=== PATIENT | female | born 1935 | race Caucasian/White ===

== ENCOUNTER → 2017-11-14 09:46 | Outpatient (POV) | payer MEDICARE, OTHER, SELFPAY ==
[2017-11-14 10:02] VITALS: BP 122/53; PULSE 72; RESP 18; O2SAT 98; BMI 16.5
--- NOTE | 2017-11-14 11:07 | HMH.PAINSOAP ---
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 Lumbar spondylosis. Multilevel lumbar facet arthropathy. Bilateral sacroiliitis. Patient is doing fairly well with her spinal cord stimulator this time. She has had some issues with the stimulator that has been resolved with reprogramming by the veterans employment representative. Upon examination the patient has extreme point tenderness over the right SI joint. Patient describes a right hip pain is constant, sharp, stabbing. She reports pain intensifies with sitting for any length of time. We discussed a repeat of the right SI joint injection. She wishes to proceed. Also, patient has extreme point tenderness over the right lumbar paraspinous muscle. We discussed trigger point injections of this muscle. She wishes to proceed. I will refill her pain medication today. [place] 10 mg 1 p.o. 3 times daily. I will give her 2 prescriptions. Patient reports pain medicine decreases her pain by 50%. She does not report any side effects in the pain medication. her [place] #[id number] reviewed and appropriate. Her UDS is been appropriate in the past Objective:: Patient is awake alert oriented ?3. In no acute distress. Flexion extension lumbar spine somewhat guarded secondary to pain. Deep tendon reflexes upper and lower extremities normal. Motor strength upper and lower extremities normal. There is no gross sensory deficit. Gait is normal. Assessment:: Degenerative disease lumbar spine with levels. Degenerative just the thoracic spine multiple levels. Lateral sacroiliitis per Plan:: We will plan right SI joint injection. Also, right lumbar paraspinous muscle trigger point injections. I will refill the patient's pain medication. 2 prescriptions. [place] 10 mg 1 p.o. 3 times daily.
--- NOTE | 2017-11-14 11:13 | P.CONS_ITS ---
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 Lumbar spondylosis. Multilevel lumbar facet arthropathy. Bilateral sacroiliitis. Patient is doing fairly well with her spinal cord stimulator this time. She has had some issues with the stimulator that has been resolved with reprogramming by the health and safety representative. Upon examination the patient has extreme point tenderness over the right SI joint. Patient describes a right hip pain is constant, sharp, stabbing. She reports pain intensifies with sitting for any length of time. We discussed a repeat of the right SI joint injection. She wishes to proceed. Also, patient has extreme point tenderness over the right lumbar paraspinous muscle. We discussed trigger point injections of this muscle. She wishes to proceed. I will refill her pain medication today. [place] 10 mg 1 p.o. 3 times daily. I will give her 2 prescriptions. Patient reports pain medicine decreases her pain by 50%. She does not report any side effects in the pain medication. her [place] #[id number] reviewed and appropriate. Her UDS is been appropriate in the past Objective:: Patient is awake alert oriented ?3. In no acute distress. Flexion extension lumbar spine somewhat guarded secondary to pain. Deep tendon reflexes upper and lower extremities normal. Motor strength upper and lower extremities normal. There is no gross sensory deficit. Gait is normal. Assessment:: Degenerative disease lumbar spine with levels. Degenerative just the thoracic spine multiple levels. Lateral sacroiliitis per Plan:: We will plan right SI joint injection. Also, right lumbar paraspinous muscle trigger point injections. I will refill the patient's pain medication. 2 prescriptions. [place] 10 mg 1 p.o. 3 times daily.
[2017-11-14 13:16] LABS: Amphetamine/Metha Screen,Urine Negative ng/mL (<1000); Barbiturates Screen,Urine Negative ng/mL (<200); Benzodiazepines Screen,Urine Negative ng/mL (200); Cannabinoid Screen,Urine Negative ng/mL (<50); Cocaine Screen,Urine Negative ng/g (<300); Methadone Screen,Urine Negative ng/mL (<300); Opiate Screen,Urine Positive ng/mL (<300); Phencyclidine Screen,Urine Negative ng/mL (<25)
[2017-11-28 16:18] LABS: Codeine Negative (Cutoff=100); Hydrocodone Positive (.); Hydromorphone Positive (.); Morphine Negative (Cutoff=100)
[2017-11-29 13:35] LABS: Opiates Positive (.)
== END ==
PROVIDERS: PCP Family Medicine; Visit Provider Nurse Anesthetist, Certified Registered
DX: M51.34 Other intervertebral disc degeneration, thoracic region (principal); M46.1 Sacroiliitis, not elsewhere classified; Z79.899 Other long term (current) drug therapy
CPT/HCPCS: 80305; 80361; 99212; G0480

== ENCOUNTER → 2017-12-09 08:52 | Day surgery (SDC) | payer MEDICARE, OTHER, SELFPAY ==
[2017-12-09 09:04] VITALS: BP 186/76; PULSE 66; RESP 18; TEMP 36.7; O2SAT 96; BMI 16.1
--- NOTE | 2017-12-09 09:26 | HMH.PMPROC ---
- Procedure Date: 12/09/17 Time: 09:26 Anesthesiologist:: Pawel Miller MD Complications:: None Pre-procedure Diagnosis:: Sacroiliitis. Low back pain myofascial in origin Post-procedure Diagnosis:: Same Indications for Procedure:: This is a pleasant 81-year-old white female who we have been treating for degenerative disease of the thoracic and lumbar spine with lumbar spondylosis, facet arthropathy and radiculopathy symptoms. She has a permanent spinal cord stimulator in place. This is a Nevro system. She is doing well with her stimulator. She still needs some reprogramming. She does have some pain over the right lower back and over the right SI joint. She is also on [place] 10 g 1 tablet 3 times a day. She is doing well with her medications and [place] and urine drug screen are all appropriate. She does have a positive Evelyn's test on the right side. Trigger points are also identified in the right lower lumbar paraspinous area. Procedure Details:: Right SI joint injection under fluoroscopy Trigger point injections ?4 to right lower lumbar paraspinous area Informed consent was obtained and the risks and benefits of the procedure was going to the patient. Patient was taken to the procedure room. Patient was placed prone on the procedure table. The right hip was prepped using ChloraPrep. The skin and subcutaneous tissues were anesthetized using lidocaine. I placed a 22-gauge spinal needle into the inferior aspect of the right SI joint. Needle placement was confirmed with dye. After this we injected 5 mL bupivacaine 0.25% and Depo-Medrol 40 mg into the right SI joint. The patient tolerated the procedure well with no complication. Right lower lumbar paraspinous area was prepped using ChloraPrep. Triggerpoints were identified. We injected each trigger point bupivacaine 0.25% 3 mL and Depo-Medrol 10 mg. A total of 40 milligrams was used for 4 trigger points. The patient tolerated the procedure well with no applications. Plan and Disposition:: We will follow-up with her in 2 weeks. We will reevaluate her symptoms. She is to let us know how her spinal cord stimulator interrogation is going.
[2017-12-09 09:30] VITALS: BP 193/98; PULSE 68; RESP 20; O2SAT 95
[2017-12-09 09:32] VITALS: BP 193/98; PULSE 78; RESP 20; O2SAT 94
--- NOTE | 2017-12-09 09:36 | P.PCN_ITS ---
- Procedure Date: 12/09/17 Time: 09:26 Anesthesiologist:: Pawel Miller MD Complications:: None Pre-procedure Diagnosis:: Sacroiliitis. Low back pain myofascial in origin Post-procedure Diagnosis:: Same Indications for Procedure:: This is a pleasant 81-year-old white female who we have been treating for degenerative disease of the thoracic and lumbar spine with lumbar spondylosis, facet arthropathy and radiculopathy symptoms. She has a permanent spinal cord stimulator in place. This is a Nevro system. She is doing well with her stimulator. She still needs some reprogramming. She does have some pain over the right lower back and over the right SI joint. She is also on [place] 10 g 1 tablet 3 times a day. She is doing well with her medications and [place] and urine drug screen are all appropriate. She does have a positive Evelyn's test on the right side. Trigger points are also identified in the right lower lumbar paraspinous area. Procedure Details:: Right SI joint injection under fluoroscopy Trigger point injections ?4 to right lower lumbar paraspinous area Informed consent was obtained and the risks and benefits of the procedure was going to the patient. Patient was taken to the procedure room. Patient was placed prone on the procedure table. The right hip was prepped using ChloraPrep. The skin and subcutaneous tissues were anesthetized using lidocaine. I placed a 22-gauge spinal needle into the inferior aspect of the right SI joint. Needle placement was confirmed with dye. After this we injected 5 mL bupivacaine 0.25% and Depo-Medrol 40 mg into the right SI joint. The patient tolerated the procedure well with no complication. Right lower lumbar paraspinous area was prepped using ChloraPrep. Triggerpoints were identified. We injected each trigger point bupivacaine 0.25 % 3 mL and Depo-Medrol 10 mg. A total of 40 milligrams was used for 4 trigger points. The patient tolerated the procedure well with no applications. Plan and Disposition:: We will follow-up with her in 2 weeks. We will reevaluate her symptoms. She is to let us know how her spinal cord stimulator interrogation is going.
[2017-12-09 09:55] VITALS: BP 174/68; PULSE 66; TEMP 36.7; O2SAT 96
== END ==
PROVIDERS: Family Provider Family Medicine; PCP Family Medicine; Visit Provider Anesthesiology
DX: M46.1 Sacroiliitis, not elsewhere classified (principal); M51.16 Intervertebral disc disorders with radiculopathy, lumbar region; M51.14 Intervertebral disc disorders with radiculopathy, thoracic region
CPT/HCPCS: 20552; 27096; G0260; J1030; Q9966

== ENCOUNTER → 2018-01-09 10:52 | Outpatient (POV) | payer MEDICARE, OTHER, SELFPAY ==
--- NOTE | 2018-01-09 12:29 | HMH.PAINSOAP ---
[facility] Pain Management SOAP Note Subjective:: Patient is a pleasant 82-year-old white female who presents today to follow-up after her SI joint injections. Patient states that it is significantly helped her lower back pain. However she is having muscle spasms. Patient currently not on any muscle relaxers. Patient's spinal cord stimulator has not been as effective as it once was. She is working with the [employer] to help reprogram her. Patient rates her pain a 6 out of 10 today. Patient currently being medically managed on [place] 10 mg 1 p.o. 3 times daily. She is doing well with her medications and it decreases her pain up to 60%. Patient denies any side effects of the medication patient's [place]ella #[id number] reviewed and appropriate. Patient's UDS has been appropriate in the past. Patient currently taking naproxen as well. ROS General: no recent weight change, no fever, no sleep disturbances Respiratory: no cough, no shortness of air, no recurring pulmonary infections Cardiovascular/Peripheral Vascular: No chest pain, No palpitations, no edema, no shortness of breath. Gastrointestinal: no incontinence, normal bowel movements reported Genitourinary: no new onset incontinence Musculoskeletal: Back pain, SI joint pain, shoulder pain Psychiatric: normal mood/ affect, Neurological: [denies weakness in extremities], [denies balance issues] Objective:: Physical Exam General: Alert and oriented x3, no acute distress, pleasant and cooperative, [on room air] Lungs: Resps E/U, Symmetrical chest expansion, Eyes: PERRL Musculoskeletal: Flexion and extension of lumbar spine somewhat guarded secondary to pain, deep tendon reflexes normal, strength in upper and lower extremities [5/5], slightly antalgic gait noted, positive Evelyn's test on the right side. Neurological: speech clear, retail sales director equal, no gross sensory deficits Assessment:: Sacroiliitis, myofascial pain syndrome, postlaminectomy syndrome Plan:: We will refill this patient's medication [place] 10 mg 1 p.o. 3 times daily. We will also write her Flexeril 10 mg 1 p.o. twice daily as needed. I discussed with the patient to take this and to not drive until she knows how it affects her. We will give the patient 2 prescriptions. Patient's Stella and urine drug screen both reviewed and appropriate. Dr. Miller has reviewed the chart and agrees with this plan. We will follow-up with this patient in 3 months. She can bead picker her prescription on the third month. Patient is to continue working with her neurostimulator rep to try to maximize her pain coverage. Patient will call us if she needs injections before her next office visit. Patient has been prescribed a controlled substance after being counseled on the medication, medication safety, and possible side effects. STELLA report has been obtained and reviewed prior to prescription and found to be appropriate. Opioid contract was reviewed and signed by the patient, and that they have agreed to all of the terms set forth by our compliance program. This note was dictated using voice recognition software may contain errors or omissions
--- NOTE | 2018-01-09 12:33 | P.CONS_ITS ---
[facility] Pain Management SOAP Note Subjective:: Patient is a pleasant 82-year-old white female who presents today to follow-up after her SI joint injections. Patient states that it is significantly helped her lower back pain. However she is having muscle spasms. Patient currently not on any muscle relaxers. Patient's spinal cord stimulator has not been as effective as it once was. She is working with the [employer] to help reprogram her. Patient rates her pain a 6 out of 10 today. Patient currently being medically managed on [place] 10 mg 1 p.o. 3 times daily. She is doing well with her medications and it decreases her pain up to 60%. Patient denies any side effects of the medication patient's [place]ella #[id number] reviewed and appropriate. Patient's UDS has been appropriate in the past. Patient currently taking naproxen as well. ROS General: no recent weight change, no fever, no sleep disturbances Respiratory: no cough, no shortness of air, no recurring pulmonary infections Cardiovascular/Peripheral Vascular: No chest pain, No palpitations, no edema, no shortness of breath. Gastrointestinal: no incontinence, normal bowel movements reported Genitourinary: no new onset incontinence Musculoskeletal: Back pain, SI joint pain, shoulder pain Psychiatric: normal mood/ affect, Neurological: [denies weakness in extremities], [denies balance issues] Objective:: Physical Exam General: Alert and oriented x3, no acute distress, pleasant and cooperative, [ on room air] Lungs: Resps E/U, Symmetrical chest expansion, Eyes: PERRL Musculoskeletal: Flexion and extension of lumbar spine somewhat guarded secondary to pain, deep tendon reflexes normal, strength in upper and lower extremities [5/5], slightly antalgic gait noted, positive Evelyn's test on the right side. Neurological: speech clear, access clerk equal, no gross sensory deficits Assessment:: Sacroiliitis, myofascial pain syndrome, postlaminectomy syndrome Plan:: We will refill this patient's medication [place] 10 mg 1 p.o. 3 times daily. We will also write her Flexeril 10 mg 1 p.o. twice daily as needed. I discussed with the patient to take this and to not drive until she knows how it affects her. We will give the patient 2 prescriptions. Patient's Stella and urine drug screen both reviewed and appropriate. Dr. Miller has reviewed the chart and agrees with this plan. We will follow-up with this patient in 3 months. She can merchandise pickup/receiving associate her prescription on the third month. Patient is to continue working with her neurostimulator rep to try to maximize her pain coverage. Patient will call us if she needs injections before her next office visit. Patient has been prescribed a controlled substance after being counseled on the medication, medication safety, and possible side effects. STELLA report has been obtained and reviewed prior to prescription and found to be appropriate. Opioid contract was reviewed and signed by the patient, and that they have agreed to all of the terms set forth by our compliance program. This note was dictated using voice recognition software may contain errors or omissions
--- NOTE | 2018-01-09 16:51 | PC.PHONENOTE ---
called in Rx for Flexeril 10mg BIDP with 1 refill to [facility] pharmacy in [place]
== END ==
PROVIDERS: Family Provider Family Medicine; PCP Family Medicine; Visit Provider Clinical Nurse Specialist Family Health
DX: M46.1 Sacroiliitis, not elsewhere classified (principal)
CPT/HCPCS: 99212

== ENCOUNTER → 2018-02-16 14:27 | Outpatient (CLI) | payer MEDICARE, OTHER, SELFPAY | PROVIDERS: PCP Family Medicine; Visit Provider Family Medicine | DX: I10 Essential (primary) hypertension (principal); H34.8122 Central retinal vein occlusion, left eye, stable; G47.33 Obstructive sleep apnea (adult) (pediatric) | CPT/HCPCS: G0399 ==

== ENCOUNTER → 2018-04-18 10:13 | Outpatient (POV) | payer MEDICARE, OTHER, SELFPAY ==
[2018-04-18 10:51] VITALS: BP 141/55; PULSE 73; RESP 18; O2SAT 98; BMI 17.4
--- NOTE | 2018-04-18 11:06 | HMH.PAINSOAP ---
[facility] Pain Management SOAP Note Subjective:: Patient is a pleasant 82-year-old white female who presents today for follow-up. Patient is doing fairly well. Patient is currently being managed with [place] 10 mg 1 p.o. 3 times daily. Patient states that it increases from pain 70-80%. Patient also has a never gross neurostimulator. Patient's STELLA #[id number] reviewed and appropriate. Patient's urine drug screen has been appropriate in the past. Patient states that the flexor she was prescribed at last visit helped immensely. Patient is wondering if she can be reenrolled into physical therapy for strengthening exercises of her upper and lower body. I believe that this will be beneficial. Denies side effects to her medications. ROS General: no recent weight change, no fever, no sleep disturbances Respiratory: no cough, no shortness of air, no recurring pulmonary infections Cardiovascular/Peripheral Vascular: No chest pain, No palpitations, no edema, no shortness of breath. Gastrointestinal: no incontinence, normal bowel movements reported Genitourinary: no incontinence Musculoskeletal: Back pain, SI joint pain, shoulder pain Psychiatric: normal mood/ affect Neurological: Weakness in upper extremities at times, [denies balance issues] Objective:: Physical Exam General: Alert and oriented x3, no acute distress, pleasant and cooperative, [on room air] Lungs: Resps E/U, Symmetrical chest expansion, Eyes: PERRL Musculoskeletal: Flexion and extension of lumbar spine somewhat guarded secondary to pain, deep tendon reflexes normal, strength in upper and lower extremities [5/5], [abnormal gait noted] Neurological: speech clear, parenting skills instructor equal, no gross sensory deficits Assessment:: Postlaminectomy syndrome, myofascial pain syndrome, sacroiliitis Plan:: We will schedule physical therapy for strengthening exercises of her upper and lower body. We will refill her [place] 10 mg 1 p.o. 3 times daily. We will give HER-2 months worth of prescriptions and see her back in 2 months. Patient's Stella and urine drug screen both reviewed. Dr. Miller has reviewed this chart and agrees with this plan of care. Patient has been prescribed a controlled substance after being counseled on the medication, medication safety, and possible side effects. STELLA report has been obtained and reviewed prior to prescription and found to be appropriate. Opioid contract was reviewed and signed by the patient, and that they have agreed to all of the terms set forth by our compliance program. This note was dictated using voice recognition software and may contain errors or omissions
--- NOTE | 2018-04-18 11:10 | P.CONS_ITS ---
[facility] Pain Management SOAP Note Subjective:: Patient is a pleasant 82-year-old white female who presents today for follow- up. Patient is doing fairly well. Patient is currently being managed with [place] 10 mg 1 p.o. 3 times daily. Patient states that it increases from pain 70 -80%. Patient also has a never gross neurostimulator. Patient's STELLA # [id number] reviewed and appropriate. Patient's urine drug screen has been appropriate in the past. Patient states that the flexor she was prescribed at last visit helped immensely. Patient is wondering if she can be reenrolled into physical therapy for strengthening exercises of her upper and lower body. I believe that this will be beneficial. Denies side effects to her medications. ROS General: no recent weight change, no fever, no sleep disturbances Respiratory: no cough, no shortness of air, no recurring pulmonary infections Cardiovascular/Peripheral Vascular: No chest pain, No palpitations, no edema, no shortness of breath. Gastrointestinal: no incontinence, normal bowel movements reported Genitourinary: no incontinence Musculoskeletal: Back pain, SI joint pain, shoulder pain Psychiatric: normal mood/ affect Neurological: Weakness in upper extremities at times, [denies balance issues] Objective:: Physical Exam General: Alert and oriented x3, no acute distress, pleasant and cooperative, [ on room air] Lungs: Resps E/U, Symmetrical chest expansion, Eyes: PERRL Musculoskeletal: Flexion and extension of lumbar spine somewhat guarded secondary to pain, deep tendon reflexes normal, strength in upper and lower extremities [5/5], [abnormal gait noted] Neurological: speech clear, diamond cleaver equal, no gross sensory deficits Assessment:: Postlaminectomy syndrome, myofascial pain syndrome, sacroiliitis Plan:: We will schedule physical therapy for strengthening exercises of her upper and lower body. We will refill her [place] 10 mg 1 p.o. 3 times daily. We will give HER-2 months worth of prescriptions and see her back in 2 months. Patient's Stella and urine drug screen both reviewed. Dr. Miller has reviewed this chart and agrees with this plan of care. Patient has been prescribed a controlled substance after being counseled on the medication, medication safety, and possible side effects. STELLA report has been obtained and reviewed prior to prescription and found to be appropriate. Opioid contract was reviewed and signed by the patient, and that they have agreed to all of the terms set forth by our compliance program. This note was dictated using voice recognition software and may contain errors or omissions
[2018-04-18 11:18] LABS: Amphetamine/Metha Screen,Urine Negative ng/mL (<1000); Barbiturates Screen,Urine Negative ng/mL (<200); Benzodiazepines Screen,Urine Negative ng/mL (200); Cannabinoid Screen,Urine Negative ng/mL (<50); Cocaine Screen,Urine Negative ng/g (<300); Methadone Screen,Urine Negative ng/mL (<300); Opiate Screen,Urine Positive ng/mL (<300); Phencyclidine Screen,Urine Negative ng/mL (<25)
[2018-04-27 17:12] LABS: Codeine Negative (Cutoff=100); Hydrocodone Positive (.); Hydromorphone Positive (.); Morphine Negative (Cutoff=100)
[2018-04-28 19:58] LABS: Opiates Positive (.)
== END ==
PROVIDERS: Family Provider Family Medicine; PCP Family Medicine; Visit Provider Clinical Nurse Specialist Family Health
DX: M79.1 Myalgia (principal); M46.1 Sacroiliitis, not elsewhere classified
CPT/HCPCS: 80305; 80361; 80365; 99212; G0480

== ENCOUNTER → 2018-05-09 15:21 | Outpatient (CLI) | payer MEDICARE, OTHER, SELFPAY ==
--- NOTE | 2018-05-09 15:27 | XR_ITS ---
XR ankle LT min 3V HISTORY: ITS.REASON: LEFT ANKLE PAIN ORDERING PHYSICIAN: Amish Smith MD PATIENT AGE: 82 years Comparison: None FINDINGS: Soft tissue swelling is present at the lateral malleolus region. No obvious fracture or dislocation evident of the lateral malleolus.. There is a faint curvilinear density just anterior to the distal aspect of the talus. This however was present on a prior radiograph of 05/14/2016 consistent with an old avulsion fracture. IMPRESSION: No acute fracture. Soft tissue swelling at the lateral malleolus. Old avulsion fracture of the anterior distal talus.
== END ==
PROVIDERS: PCP Family Medicine; Visit Provider Family Medicine
DX: M25.572 Pain in left ankle and joints of left foot (principal)
CPT/HCPCS: 73610

== ENCOUNTER 2018-06-15 11:00 | Outpatient (RCR) | payer MEDICARE, OTHER, SELFPAY ==
--- NOTE | 2018-04-20 14:35 | HMH.PTOPEV ---
PT Outpatient Evaluation Rehab PT Outpatient Evaluation Start: 04/20/18 13:22 Freq: Status: Active Protocol: Document 04/20/18 14:19 ZAYRA (Rec: 04/20/18 14:31 PHORLILY [id number]) Electronically Signed By Yasir Cohn, PT 04/20/18 14:19 Outpatient Therapy Subjective History Subjective History Pt is 82 yo white f who presents with c/o generalized weakness due to chronic low back pain. She reports many years of back pain with a lumbar laminectomy in 2014 and now has an implanted neural stimulator which has helped significantly. She reports she has lost considerable weight slowly over the past 4-5 years feels weak all over as well . She has PMH of sleep apnea with C-pap, HTN, HL, and COPD. Chief Complaint Pain Weakness Symptom Type Ache Symptoms Relieved By Rest/Positioning Symptoms Aggravated By Physical Activity Prior Functional Limitations Reaching Lifting Housework Walking Stairs Current Functional Limitations Reaching Lifting Housework Walking Stairs Symptom Description Constant but Variable Activity Dependent Level of pain today (0-10) 4 Pain scale - at its worst (0-10) 10 Lumbopelvic Eval Posture Thoracic Spine Posture Standing Position Fixed Scoliosis on (L) Increased Kyphosis Lumbar Spine Posture Standing Position Fixed Scoliosis on (R) Range of Motion Lumbar Spine Active Flexion Range of 0-65 Motion (degrees) Lumbar Spine Active Extension Range of 0-5 Motion (degrees) Left Lumbar Spine Lateral Flexion Active 0-5 Range of Motion (degrees) Right Lumbar Spine Lateral Flexion 0-5 Active Range of Motion (degrees) Manual Muscle Test Bilateral Knee Extension Strength Grade 5 Normal Knee Flexion Strength Grade 5 Normal Hip Flexion Strength Grade 3 Fair Hip Abduction Strength Grade 3 Fair Ankle Dorsiflexion Strength Grade 5 Normal Gastronemius/Soleus Strength Grade 5 Normal Special Tests Hip Octavio (RACHEL) Test Positive Left Positive Right Outpatient Therapy Assessment
== END 2018-06-15 11:01 | disposition home or self-care (01) ==
LOC: PT 11:00
PROVIDERS: Family Provider Family Medicine; PCP Family Medicine; Visit Provider Clinical Nurse Specialist Family Health
DX: M54.6 Pain in thoracic spine (principal); M51.36 Other intervertebral disc degeneration, lumbar region; M54.5 Low back pain
CPT/HCPCS: 97010; 97110; 97140; 97163; 97760

== ENCOUNTER → 2018-06-19 11:11 | Outpatient (POV) | payer MEDICARE, OTHER, SELFPAY ==
[2018-06-19 11:29] VITALS: BP 132/53; PULSE 69; RESP 18; O2SAT 98; BMI 17.4
--- NOTE | 2018-06-19 12:57 | HMH.PAINSOAP ---
[facility] Pain Management SOAP Note Subjective:: Patient is a pleasant 82-year-old white female who presents today for follow-up. Patient is currently in physical therapy and she states that this is helping her. Patient states she is having a lot of left knee pain with her therapy however. Patient has had injections in her knee in the past with good relief. Patient would like an x-ray of her left knee and a referral to someone who can put gel injections into her knee. Patient states she has information on this at home. Patient is also being medically managed with [place] 10 mg 1 p.o. 3 times daily. She denies any side effects of this medication she states it helps her pain up to 80%. Patient's STELLA #[id number] reviewed and appropriate. Patient's urine drug screen has been appropriate in the past. Patient does have a neurostimulator and she states that this is helping as well. ROS General: no recent weight change, no fever, no sleep disturbances Respiratory: no cough, no shortness of air, no recurring pulmonary infections Cardiovascular/Peripheral Vascular: No chest pain, No palpitations, no edema, no shortness of breath. Gastrointestinal: no incontinence, normal bowel movements reported Genitourinary: no incontinence Musculoskeletal: Knee pain, back pain Psychiatric: normal mood/ affect Neurological: [denies weakness in extremities], [denies balance issues] Objective:: Physical Exam General: Alert and oriented x3, no acute distress, pleasant and cooperative, [on room air] Lungs: Resps E/U, Symmetrical chest expansion Eyes: PERRL Musculoskeletal: Flexion and extension of lumbar spine somewhat guarded secondary to pain, deep tendon reflexes normal, strength in upper and lower extremities [5/5], [abnormal gait noted], range of motion left knee guarded secondary to pain Neurological: speech clear, drilling contractor equal, no gross sensory deficits Assessment:: Left knee pain, degenerative disc disease lumbar spine with lumbar radiculopathy and postlaminectomy syndrome Plan:: We will send the patient for left knee x-ray. She is going to go home and see what kind of injection her the information that she was given stated. We will set her up for referral for this type of injection. We will also refill her [place] 10 mg 1 p.o. 3 times daily and give her 2 months worth of prescriptions. We will see her back in 2 months. Patient is continue physical therapy. Dr. Miller is reviewed this chart and agrees with this plan of care. Patient has been prescribed a controlled substance after being counseled on the medication, medication safety, and possible side effects. STELLA report has been obtained and reviewed prior to prescription and found to be appropriate. Opioid contract was reviewed and signed by the patient, and that they have agreed to all of the terms set forth by our compliance program. This note was dictated using voice recognition software and may contain errors or omissions
--- NOTE | 2018-06-19 13:01 | P.CONS_ITS ---
[facility] Pain Management SOAP Note Subjective:: Patient is a pleasant 82-year-old white female who presents today for follow- up. Patient is currently in physical therapy and she states that this is helping her. Patient states she is having a lot of left knee pain with her therapy however. Patient has had injections in her knee in the past with good relief. Patient would like an x-ray of her left knee and a referral to someone who can put gel injections into her knee. Patient states she has information on this at home. Patient is also being medically managed with [place] 10 mg 1 p.o. 3 times daily. She denies any side effects of this medication she states it helps her pain up to 80%. Patient's STELLA #[id number] reviewed and appropriate. Patient's urine drug screen has been appropriate in the past. Patient does have a neurostimulator and she states that this is helping as well. ROS General: no recent weight change, no fever, no sleep disturbances Respiratory: no cough, no shortness of air, no recurring pulmonary infections Cardiovascular/Peripheral Vascular: No chest pain, No palpitations, no edema, no shortness of breath. Gastrointestinal: no incontinence, normal bowel movements reported Genitourinary: no incontinence Musculoskeletal: Knee pain, back pain Psychiatric: normal mood/ affect Neurological: [denies weakness in extremities], [denies balance issues] Objective:: Physical Exam General: Alert and oriented x3, no acute distress, pleasant and cooperative, [ on room air] Lungs: Resps E/U, Symmetrical chest expansion Eyes: PERRL Musculoskeletal: Flexion and extension of lumbar spine somewhat guarded secondary to pain, deep tendon reflexes normal, strength in upper and lower extremities [5/5], [abnormal gait noted], range of motion left knee guarded secondary to pain Neurological: speech clear, emerging technologies director equal, no gross sensory deficits Assessment:: Left knee pain, degenerative disc disease lumbar spine with lumbar radiculopathy and postlaminectomy syndrome Plan:: We will send the patient for left knee x-ray. She is going to go home and see what kind of injection her the information that she was given stated. We will set her up for referral for this type of injection. We will also refill her [place] 10 mg 1 p.o. 3 times daily and give her 2 months worth of prescriptions. We will see her back in 2 months. Patient is continue physical therapy. Dr. Miller is reviewed this chart and agrees with this plan of care. Patient has been prescribed a controlled substance after being counseled on the medication, medication safety, and possible side effects. STELLA report has been obtained and reviewed prior to prescription and found to be appropriate. Opioid contract was reviewed and signed by the patient, and that they have agreed to all of the terms set forth by our compliance program. This note was dictated using voice recognition software and may contain errors or omissions
--- NOTE | 2018-06-19 15:19 | XR_ITS ---
XR knee LT 3V HISTORY: ITS.REASON: LT KNEE PAIN ORDERING PHYSICIAN: Wendi Persaud PATIENT AGE: 82 years COMPARISON: 03/24/2017 FINDINGS: No fracture or dislocation. No lytic or blastic change. Normal mineralization. Minimal osteoarthritic changes noted of the medial compartment and patellofemoral joint not significant change.. No other significant findings. Vascular calcifications are present IMPRESSION: Minimal osteoarthritis, no change with no acute finding
--- NOTE | 2018-07-13 13:14 | PC.PHONENOTE ---
called in Rx for Pennsaid to pt's pharmacy
--- NOTE | 2018-07-17 14:16 | PC.PHONENOTE ---
PENNSAID SCRIPT CHANGED TO DICLOFENAC GEL 1.5% BID TO AFFECTED AREA WITH 2 REFILLS TO [facility] IN [place]
--- NOTE | 2018-07-28 11:27 | PC.PHONENOTE ---
07/26/18-called in Rx for diclofenac 1% gel 4g BID to bilateral knees with 2 refills to pt's pharmacy per prescribers order
== END ==
PROVIDERS: Family Provider Family Medicine; PCP Family Medicine; Visit Provider Clinical Nurse Specialist Family Health
DX: M25.562 Pain in left knee (principal); M51.16 Intervertebral disc disorders with radiculopathy, lumbar region; M96.1 Postlaminectomy syndrome, not elsewhere classified; Z79.891 Long term (current) use of opiate analgesic
CPT/HCPCS: 73562; 99213

== ENCOUNTER → 2018-08-18 08:57 | Outpatient (CLI) | payer MEDICARE, SELFPAY ==
--- NOTE | 2018-08-18 09:00 | MM_ITS ---
MM Dig screening mamm BI w/CAD ORDERING PHYSICIAN : Amish Smith MD PATIENT AGE: 82 years GENDER: Female COMPARISON: July 2016, 2012, June 2012 & 2010. June 2008. INDICATION: ITS.REASON: SCREENING . No hormones. No new complaints Family history: Mother with breast cancer TECHNIQUE: Standard CC and MLO images were obtained. R2 CAD reviewed. FINDINGS: Prior films are helpful and demonstrates that the denser breast tissue elements, seen along the anterior breast bilaterally appear to be a stable pattern since 2016. . No new dominant mass nor suspicious calcifications. This same pattern is seen in 2016 and but does seem more pronounced than 2011 and 2012 study which is curious raises the possibilities exogenous hormone effect of some form,. None listed in history. May warrant correlation with nonprescription medications etc.: Alternatively Appearance conceivably could could reflect some minor edematous changes soft tissues in this region but no additional edema seen elsewhere. IMPRESSION: -= The denser breast tissue again seen along the anterior aspect right & left breast & appears overall similar to the most recent 2015 study but is Notably more pronounced in 2012.. However given the bilateral diffuse character here, & relative stability since 2016 this can be followed in not over one year. May reflects some systemic effect or exogenous hormone effect.. . Clinical inspection the breast be important as well to exclude any unlikely skin thickening clinically. . No new focal area of concern either breast.. Bilateral follow-up within one year recommended and should be encouraged/emphasized. . BI-RADS Category: 2 Benign Finding(s) RECOMMENDED FOLLOW-UP: 1YR 1 YEAR FOLLOW-UP (A letter has been sent to the patient regarding results of the study.)
== END ==
PROVIDERS: Family Provider Family Medicine; PCP Family Medicine; Visit Provider Family Medicine
DX: Z12.31 Encounter for screening mammogram for malignant neoplasm of breast (principal)
CPT/HCPCS: 77067

== ENCOUNTER → 2018-08-23 13:18 | Outpatient (CLI) | payer MEDICARE, SELFPAY ==
[2018-08-23 14:41] LABS: Occult Blood,Stool Negative (Negative)
[2018-08-23 18:00] LABS: Adenovirus F 40/41, stool Not Detected (NotDetected); Astrovirus Not Detected (NotDetected); Campylobacter Not Detected (NotDetected); Clostridium Difficile A/B, PCR Not Detected (NotDetected); Cryptosporidium Not Detected (NotDetected); Cyclospora Cayetanesis Not Detected (NotDetected); Entamoeba histolytica Not Detected (NotDetected); Enteroaggregative E coli Not Detected (NotDetected); Enteropathogenic E coli Not Detected (NotDetected); Enterotoxigenic E coli Not Detected (NotDetected); Giardia lamblia Not Detected (NotDetected); Norovirus Not Detected (NotDetected); Plesimonas Shigalloides, PCR Not Detected (NotDetected); Rotavirus A Not Detected (NotDetected); Salmonella, PCR Not Detected (NotDetected); Sapovirus Not Detected (NotDetected); Shiga-like toxin E coli Not Detected (NotDetected); Shigella Enterovasive E coli Not Detected (NotDetected); Vibrio Cholerae Not Detected (NotDetected); Vibrio, PCR Not Detected (NotDetected); Yersinia Entercolitica, PCR Not Detected (NotDetected)
== END ==
PROVIDERS: PCP Family Medicine; Visit Provider Family Medicine
DX: R19.7 Diarrhea, unspecified (principal)
CPT/HCPCS: 82272; 87177; 87507; G0328

== ENCOUNTER → 2018-10-02 11:15 | Outpatient (POV) | payer MEDICARE, SELFPAY ==
[2018-10-02 11:24] VITALS: BP 143/53; PULSE 77; RESP 18; O2SAT 98; BMI 16.7
--- NOTE | 2018-10-02 11:44 | HMH.PAINSOAP ---
[facility] Pain Management SOAP Note Subjective:: patient Is a pleasant 83-year-old white female who presents today for follow-up and medication refills. Patient is currently on [place] 10 mg 1 p.o. twice daily and doing well with this. Patient's STELLA #[id number] reviewed and appropriate. Patient denies any side effects. Patient's urine drug screen has been appropriate in the past. Patient does have a neurostimulator and states doing well with this at this time. Patient completed her physical therapy. She rates her pain a 7 out of 10 today. ROS General: no recent weight change, no fever, no sleep disturbances Respiratory: no cough, no shortness of air, no recurring pulmonary infections Cardiovascular/Peripheral Vascular: No chest pain, No palpitations, no edema, no shortness of breath. Gastrointestinal: no incontinence, normal bowel movements reported Genitourinary: no incontinence Musculoskeletal: Back pain, leg pain Psychiatric: normal mood/ affect Neurological: [denies weakness in extremities], [denies balance issues] Objective:: Physical Exam General: Alert and oriented x3, no acute distress, pleasant and cooperative, [on room air] Lungs: Resps E/U, Symmetrical chest expansion, Eyes: PERRL Musculoskeletal: Flexion and extension of lumbar spine somewhat guarded secondary to pain, deep tendon reflexes normal, strength in upper and lower extremities [5/5], [abnormal gait noted] Neurological: speech clear, senior production manager equal, no gross sensory deficits Assessment:: Left knee pain, degenerative disc disease lumbar spine with lumbar radiculopathy and postlaminectomy syndrome Plan:: We will refill her [place] 10 mg 1 p.o. twice daily and give her 2 months worth of prescriptions. 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 Miller has reviewed this chart and agrees with this plan of care. We will call her in some [facility] to see if this is beneficial. Patient has been prescribed a controlled substance after being counseled on the medication, medication safety, and possible side effects. STELLA report has been obtained and reviewed prior to prescription and found to be appropriate. Opioid contract was reviewed and signed by the patient, and that they have agreed to all of the terms set forth by our compliance program. This note was dictated using voice recognition software and may contain errors or omissions
--- NOTE | 2018-10-02 11:47 | P.CONS_ITS ---
[facility] Pain Management SOAP Note Subjective:: patient Is a pleasant 83-year-old white female who presents today for follow-up and medication refills. Patient is currently on [place] 10 mg 1 p.o. twice daily and doing well with this. Patient's STELLA #[id number] reviewed and appropriate. Patient denies any side effects. Patient's urine drug screen has been appropriate in the past. Patient does have a neurostimulator and states doing well with this at this time. Patient completed her physical therapy. She rates her pain a 7 out of 10 today. ROS General: no recent weight change, no fever, no sleep disturbances Respiratory: no cough, no shortness of air, no recurring pulmonary infections Cardiovascular/Peripheral Vascular: No chest pain, No palpitations, no edema, no shortness of breath. Gastrointestinal: no incontinence, normal bowel movements reported Genitourinary: no incontinence Musculoskeletal: Back pain, leg pain Psychiatric: normal mood/ affect Neurological: [denies weakness in extremities], [denies balance issues] Objective:: Physical Exam General: Alert and oriented x3, no acute distress, pleasant and cooperative, [on room air] Lungs: Resps E/U, Symmetrical chest expansion, Eyes: PERRL Musculoskeletal: Flexion and extension of lumbar spine somewhat guarded secondary to pain, deep tendon reflexes normal, strength in upper and lower extremities [5/5], [abnormal gait noted] Neurological: speech clear, hydrogen power plant engineer equal, no gross sensory deficits Assessment:: Left knee pain, degenerative disc disease lumbar spine with lumbar radiculopathy and postlaminectomy syndrome Plan:: We will refill her [place] 10 mg 1 p.o. twice daily and give her 2 months worth of prescriptions. 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 Miller has reviewed this chart and agrees with this plan of care. We will call her in some [facility] to see if this is beneficial. Patient has been prescribed a controlled substance after being counseled on the medication, medication safety, and possible side effects. STELLA report has been obtained and reviewed prior to prescription and found to be appropriate. Opioid contract was reviewed and signed by the patient, and that they have agreed to all of the terms set forth by our compliance program. This note was dictated using voice recognition software and may contain errors or omissions
[2018-10-02 12:35] LABS: Amphetamine/Metha Screen,Urine Negative ng/mL (<1000); Barbiturates Screen,Urine Negative ng/mL (<200); Benzodiazepines Screen,Urine Negative ng/mL (<200); Cannabinoid Screen,Urine Negative ng/mL (<50); Cocaine Screen,Urine Negative ng/mL (<300); Methadone Screen,Urine Negative ng/mL (<300); Opiate Screen,Urine Positive ng/mL (<300); Phencyclidine Screen,Urine Negative ng/mL (<25)
[2018-10-05 18:13] LABS: Codeine Negative (Cutoff=100); Hydrocodone Positive (.); Hydromorphone Positive (.); Morphine Negative (Cutoff=100)
[2018-10-06 09:10] LABS: Opiates Positive (.)
== END ==
PROVIDERS: PCP Family Medicine; Visit Provider Clinical Nurse Specialist Family Health
DX: M25.562 Pain in left knee (principal); M51.16 Intervertebral disc disorders with radiculopathy, lumbar region; M96.1 Postlaminectomy syndrome, not elsewhere classified; Z79.899 Other long term (current) drug therapy
CPT/HCPCS: 80305; 80361; 80365; 99213; G0480

== ENCOUNTER → 2018-11-03 10:30 | Outpatient (POV) | payer MEDICARE, SELFPAY ==
[2018-11-03 10:49] VITALS: BP 144/61; PULSE 67; RESP 20; O2SAT 97; BMI 17.0
--- NOTE | 2018-11-03 11:09 | HMH.PAINSOAP ---
[facility] Pain Management SOAP Note Subjective:: This patient is a pleasant 83-year-old white female who we have been treating for low back pain with lumbar radicular symptoms with postlaminectomy syndrome and sacroiliitis. She had no relief from her last bilateral SI joint injections. Most of her pain is in the low back. She currently has a nevro stimulator in place. She has not had this reprogrammed for almost a year. Pain is worse in the morning. Pain is solely in the lower lumbar area. She did not have much radicular symptoms. Stimulator does help however it does not take care of her back pain. Objective:: Alert and oriented x3 in no acute distress. Patient does have an antalgic gait. Motor strength of the lower extremities is 5/5. There is no gross sensory deficit. Assessment:: Degenerative disease of lumbar spine with lumbar radiculopathy symptoms and postlaminectomy syndrome of lumbar spine Plan:: We will contact the rep for nevro to reprogram her stimulator. We will also seek approval for intrathecal pump trial. Have had a long discussion with this patient concerning intrathecal therapy. I believe she would be a good candidate. She is only on hydrocodone 10 mg twice a day. She would have to come off of this 48 hours prior to the trial, however, I believe she would and if it for intrathecal therapy. We will get approval and schedule this after her reprogramming of her stimulator.
== END ==
PROVIDERS: PCP Family Medicine; Visit Provider Anesthesiology
DX: M51.16 Intervertebral disc disorders with radiculopathy, lumbar region (principal); M96.1 Postlaminectomy syndrome, not elsewhere classified
CPT/HCPCS: 99212

== ENCOUNTER → 2018-12-19 11:41 | Outpatient (POV) | payer MEDICARE, SELFPAY ==
[2018-12-19 12:03] VITALS: BP 133/49; PULSE 81; RESP 20; O2SAT 93; BMI 17.0
--- NOTE | 2018-12-19 12:18 | HMH.PAINSOAP ---
[facility] Pain Management SOAP Note Subjective:: Patient is a pleasant 83-year-old white female who presents today to follow-up after intrathecal pain pump implantation. She is currently on morphine 0.5 mg a day. She states that she has no pain however she has had some falling that she thinks may be connected with the medication. We will decreased her today. Patient has stitches in place still we went over care of these. We will remove them next week she is completed her full antibiotic regimen and is doing well. No sign symptoms of infection ROS General: no recent weight change, no fever, no sleep disturbances Respiratory: no cough, no shortness of air, no recurring pulmonary infections Cardiovascular/Peripheral Vascular: No chest pain, No palpitations, no edema, no shortness of breath. Gastrointestinal: no incontinence, normal bowel movements reported Genitourinary: no incontinence Musculoskeletal: Knee pain Psychiatric: normal mood/ affect Neurological: [denies weakness in extremities], [denies balance issues] Objective:: Physical Exam General: Alert and oriented x3, no acute distress, pleasant and cooperative, [on room air] Lungs: Resps E/U, Symmetrical chest expansion, Eyes: PERRL Musculoskeletal: Flexion and extension of lumbar spine somewhat guarded secondary to pain, deep tendon reflexes normal, strength in upper and lower extremities [5/5], [abnormal gait noted] Neurological: speech clear, production supv equal, no gross sensory deficits Assessment:: Degenerative disc disease lumbar spine with lumbar radiculopathy and postlaminectomy syndrome Plan:: We will decrease her interthecal infusion to 0.4 mg/day I will follow-up with the patient in 1 week and reassess her symptoms at that time. Dr. Miller has reviewed this note and agrees with this plan of care. This note was dictated using voice recognition software and may contain errors or omissions
== END ==
PROVIDERS: PCP Family Medicine; Visit Provider Clinical Nurse Specialist Family Health
DX: M51.16 Intervertebral disc disorders with radiculopathy, lumbar region (principal); M96.1 Postlaminectomy syndrome, not elsewhere classified
CPT/HCPCS: 62368; 99213

== ENCOUNTER → 2018-12-25 13:37 | Outpatient (POV) | payer MEDICARE, SELFPAY ==
--- NOTE | 2018-12-25 14:02 | P.CONS_ITS ---
[facility] Pain Management SOAP Note Subjective:: Is a pleasant 83-year-old white female who presents today for follow-up. Patient currently has an intrathecal pain pump going at 0.4 mg a day of morphine. Patient denies any side effects at this time. She rates her pain today an 8 out of 10 however this is only around the area of the pump. Patient is still has stitches in place. There is redness around the stitches along with a little bit of drainage. Patient's anchor stitches look well and the incision is healed with no sign symptoms of any infection. We will remove those today. ROS General: no recent weight change, no fever, no sleep disturbances Respiratory: no cough, no shortness of air, no recurring pulmonary infections Cardiovascular/Peripheral Vascular: No chest pain, No palpitations, no edema, no shortness of breath. Gastrointestinal: no incontinence, normal bowel movements reported Genitourinary: no incontinence Musculoskeletal: Back pain, leg pain Psychiatric: normal mood/ affect Neurological: [denies weakness in extremities], [denies balance issues] Objective:: Physical Exam General: Alert and oriented x3, no acute distress, pleasant and cooperative, on room air Lungs: Resps E/U, Symmetrical chest expansion, Eyes: PERRL Musculoskeletal: Flexion and extension of lumbar spine somewhat guarded secondary to pain, deep tendon reflexes normal, strength in upper and lower extremities [5/5], [abnormal gait noted] Neurological: speech clear, retail training manager equal, no gross sensory deficits Assessment:: Degenerative disc disease lumbar spine with lumbar postlaminectomy syndrome, lumbar radiculopathy Plan:: We will remove the anchor stitches we will leave the pump stitches in we will put the patient on a another round of Bactrim for 5 days we will also encourage her to leave it open to air at this point. I will follow-up with her in 1 week and reassess her. She is been instructed to call the office if she has any issues prior to her next appointment. Dr. Miller has reviewed this note and agrees with this plan of care. This note was dictated using voice recognition software and may contain errors or omissions
[2018-12-25 14:13] VITALS: BP 126/49; PULSE 81; RESP 18; O2SAT 98; BMI 17.0
--- NOTE | 2018-12-25 15:00 | HMH.PAINSOAP ---
[facility] Pain Management SOAP Note Subjective:: Is a pleasant 83-year-old white female who presents today for follow-up. Patient currently has an intrathecal pain pump going at 0.4 mg a day of morphine. Patient denies any side effects at this time. She rates her pain today an 8 out of 10 however this is only around the area of the pump. Patient is still has stitches in place. There is redness around the stitches along with a little bit of drainage. Patient's anchor stitches look well and the incision is healed with no sign symptoms of any infection. We will remove those today. ROS General: no recent weight change, no fever, no sleep disturbances Respiratory: no cough, no shortness of air, no recurring pulmonary infections Cardiovascular/Peripheral Vascular: No chest pain, No palpitations, no edema, no shortness of breath. Gastrointestinal: no incontinence, normal bowel movements reported Genitourinary: no incontinence Musculoskeletal: Back pain, leg pain Psychiatric: normal mood/ affect Neurological: [denies weakness in extremities], [denies balance issues] Objective:: Physical Exam General: Alert and oriented x3, no acute distress, pleasant and cooperative, on room air Lungs: Resps E/U, Symmetrical chest expansion, Eyes: PERRL Musculoskeletal: Flexion and extension of lumbar spine somewhat guarded secondary to pain, deep tendon reflexes normal, strength in upper and lower extremities [5/5], [abnormal gait noted] Neurological: speech clear, chair caner equal, no gross sensory deficits Assessment:: Degenerative disc disease lumbar spine with lumbar postlaminectomy syndrome, lumbar radiculopathy Plan:: We will remove the anchor stitches we will leave the pump stitches in we will put the patient on a another round of Bactrim for 5 days we will also encourage her to leave it open to air at this point. I will follow-up with her in 1 week and reassess her. She is been instructed to call the office if she has any issues prior to her next appointment. Dr. Miller has reviewed this note and agrees with this plan of care. This note was dictated using voice recognition software and may contain errors or omissions
== END ==
PROVIDERS: PCP Family Medicine; Visit Provider Clinical Nurse Specialist Family Health
DX: M51.16 Intervertebral disc disorders with radiculopathy, lumbar region (principal); M96.1 Postlaminectomy syndrome, not elsewhere classified
CPT/HCPCS: 99213

== ENCOUNTER → 2019-01-01 14:30 | Outpatient (POV) | payer MEDICARE, SELFPAY ==
[2019-01-01 14:45] VITALS: BP 131/47; PULSE 78; RESP 18; O2SAT 99; BMI 17.4
--- NOTE | 2019-01-01 14:53 | HMH.PAINSOAP ---
[facility] Pain Management SOAP Note Subjective:: Patient is a pleasant 83-year-old white female who presents today for follow-up. Patient currently has an intrathecal pain pump going at 0.4 mg a day morphine she rates her pain a 2 out of 10. The problem is she does have some skin breakdown around the incision site. Stitches are still in place there is some redness noted. She has been on Bactrim. We will continue this. I did discuss this with Dr. aguila wayne and he would like to see her in his [place] office. ROS General: no recent weight change, no fever, no sleep disturbances Respiratory: no cough, no shortness of air, no recurring pulmonary infections Cardiovascular/Peripheral Vascular: No chest pain, No palpitations, no edema, no shortness of breath. Gastrointestinal: no incontinence, normal bowel movements reported Genitourinary: no incontinence Musculoskeletal: Back pain Psychiatric: normal mood/ affect Neurological: [denies weakness in extremities], [denies balance issues] Objective:: Physical Exam General: Alert and oriented x3, no acute distress, pleasant and cooperative, [on room air] Lungs: Resps E/U, Symmetrical chest expansion, Eyes: PERRL Musculoskeletal: Flexion and extension of lumbar spine somewhat guarded secondary to pain, deep tendon reflexes normal, strength in upper and lower extremities [5/5], [abnormal gait noted] Neurological: speech clear, bond writer equal, no gross sensory deficits Assessment:: Degenerative disc disease lumbar spine with lumbar radiculopathy and postlaminectomy syndrome Plan:: We will send the patient to be able to be seen by Dr. aguila wayne. We will continue her on her Bactrim at this time. Dr. Miller has reviewed this note and agrees with this plan of care. This note was dictated using voice recognition software and may contain errors or omissions
== END ==
PROVIDERS: PCP Family Medicine; Visit Provider Clinical Nurse Specialist Family Health
DX: M51.16 Intervertebral disc disorders with radiculopathy, lumbar region (principal); M96.1 Postlaminectomy syndrome, not elsewhere classified
CPT/HCPCS: 99213

== ENCOUNTER → 2019-01-16 10:27 | Outpatient (POV) | payer MEDICARE, SELFPAY ==
[2019-01-16 10:45] VITALS: BP 124/44; PULSE 79; RESP 18; O2SAT 98; BMI 17.4
--- NOTE | 2019-01-16 10:48 | HMH.PAINSOAP ---
[facility] Pain Management SOAP Note Subjective:: Patient is a pleasant 83-year-old white female who presents today for follow-up. Patient is currently on intrathecal pain pump going at 0.4 mg of morphine a day. She rates her pain a 1 out of 10. Patient has her stitches still in place. She was seen by Dr. aguila wayne. She had some skin breakdown however her redness has decreased. We will leave the stitches in place ROS General: no recent weight change, no fever, no sleep disturbances Respiratory: no cough, no shortness of air, no recurring pulmonary infections Cardiovascular/Peripheral Vascular: No chest pain, No palpitations, no edema, no shortness of breath. Gastrointestinal: no incontinence, normal bowel movements reported Genitourinary: no incontinence Musculoskeletal: Back pain, leg pain Psychiatric: normal mood/ affect, Neurological: [denies weakness in extremities], [denies balance issues] Objective:: Physical Exam General: Alert and oriented x3, no acute distress, pleasant and cooperative, [on room air] Lungs: Resps E/U, Symmetrical chest expansion, Eyes: PERRL Musculoskeletal: Flexion and extension of lumbar spine somewhat guarded secondary to pain, deep tendon reflexes normal, strength in upper and lower extremities [5/5], [abnormal gait noted] Skin: States she is noted to have her intrathecal pain pump incision. Skin breakdown noted redness decreased. 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 aguila wayne we will continue to monitor her incision healing. Patient's been instructed to call the office if there is any additional breakdown, increasing redness, increasing swelling or any drainage. Dr. Miller has reviewed this note and agrees with this plan of care. This note was dictated using voice recognition software and may contain errors or omissions
--- NOTE | 2019-01-16 10:51 | P.CONS_ITS ---
[facility] Pain Management SOAP Note Subjective:: Patient is a pleasant 83-year-old white female who presents today for follow-up. Patient is currently on intrathecal pain pump going at 0.4 mg of morphine a day. She rates her pain a 1 out of 10. Patient has her stitches still in place. She was seen by Dr. aguila wayne. She had some skin breakdown however her redness has decreased. We will leave the stitches in place ROS General: no recent weight change, no fever, no sleep disturbances Respiratory: no cough, no shortness of air, no recurring pulmonary infections Cardiovascular/Peripheral Vascular: No chest pain, No palpitations, no edema, no shortness of breath. Gastrointestinal: no incontinence, normal bowel movements reported Genitourinary: no incontinence Musculoskeletal: Back pain, leg pain Psychiatric: normal mood/ affect, Neurological: [denies weakness in extremities], [denies balance issues] Objective:: Physical Exam General: Alert and oriented x3, no acute distress, pleasant and cooperative, [on room air] Lungs: Resps E/U, Symmetrical chest expansion, Eyes: PERRL Musculoskeletal: Flexion and extension of lumbar spine somewhat guarded secondary to pain, deep tendon reflexes normal, strength in upper and lower extremities [5/5], [abnormal gait noted] Skin: States she is noted to have her intrathecal pain pump incision. Skin breakdown noted redness decreased. Neurological: speech clear, tree inspector equal, no gross sensory deficits Assessment:: Degenerative disc disease lumbar spine with lumbar radiculopathy and postlaminectomy syndrome Plan:: We will have the patient come back and see Dr. aguila wayne we will continue to m onitor her incision healing. Patient's been instructed to call the office if there is any additional breakdown, increasing redness, increasing swelling or any drainage. Dr. Miller has reviewed this note and agrees with this plan of care. This note was dictated using voice recognition software and may contain errors or omissions
== END ==
PROVIDERS: PCP Family Medicine; Visit Provider Clinical Nurse Specialist Family Health
DX: M51.16 Intervertebral disc disorders with radiculopathy, lumbar region (principal); M96.1 Postlaminectomy syndrome, not elsewhere classified
CPT/HCPCS: 99213

== ENCOUNTER → 2019-02-06 10:51 | Outpatient (POV) | payer MEDICARE, SELFPAY ==
[2019-02-06 11:29] VITALS: BP 142/83; PULSE 80; RESP 18; O2SAT 99; BMI 17.8
--- NOTE | 2019-02-06 11:37 | HMH.PAINSOAP ---
[facility] Pain Management SOAP Note Subjective:: Patient is a pleasant 83-year-old white female who presents today for follow-up. Patient is currently on intrathecal pain pump 0.0 0.4 mg/day of morphine. Patient is doing well rating her pain a 0 out of 10. Patient still has her stitches and platelets. Patient stitches have been left in place she has some skin breakdown and eschar tissue noted. She does have decreasing redness however. ROS General: no recent weight change, no fever, no sleep disturbances Respiratory: no cough, no shortness of air, no recurring pulmonary infections Cardiovascular/Peripheral Vascular: No chest pain, No palpitations, no edema, no shortness of breath. Gastrointestinal: no incontinence, normal bowel movements reported Genitourinary: no incontinence Musculoskeletal: Back pain, leg pain Psychiatric: normal mood/ affect Neurological: [denies weakness in extremities], [denies balance issues] Objective:: Physical Exam General: Alert and oriented x3, no acute distress, pleasant and cooperative, [on room air] Lungs: Resps E/U, Symmetrical chest expansion, Eyes: PERRL Musculoskeletal: Flexion and extension of lumbar spine somewhat guarded secondary to pain, deep tendon reflexes normal, strength in upper and lower extremities [5/5], [abnormal gait noted] Neurological: speech clear, piano case maker equal, no gross sensory deficits Assessment:: Degenerative disc disease lumbar spine with lumbar radiculopathy and postlaminectomy syndrome Plan:: We will see the patient back in 1 week and reassess her healing. Dr. Miller has reviewed this note and agrees with this plan of care. This note was dictated using voice recognition software and may contain errors or omissions
== END ==
PROVIDERS: PCP Family Medicine; Visit Provider Clinical Nurse Specialist Family Health
DX: M51.16 Intervertebral disc disorders with radiculopathy, lumbar region (principal); M96.1 Postlaminectomy syndrome, not elsewhere classified
CPT/HCPCS: 99212

== ENCOUNTER → 2019-02-12 09:29 | Outpatient (POV) | payer MEDICARE, SELFPAY ==
[2019-02-12 09:32] VITALS: BP 137/66; PULSE 87; RESP 18; O2SAT 98; BMI 17.4
--- NOTE | 2019-02-12 09:58 | HMH.PAINSOAP ---
[facility] Pain Management SOAP Note Subjective:: Patient is a pleasant 83-year-old white female who presents today for follow-up. She is currently on intrathecal pain pump with 0. 4 mg of morphine a day. She rates her pain a 0 out of 10. Patient still has her stitches intact. But stitches and platelets patient stitches have been left in place she has some skin breakdown and eschar tissue noted. Patient has been to wound care they are helping dress her wound at this time. There is decreased redness noted along with healthy tissue granulation. ROS General: no recent weight change, no fever, no sleep disturbances Respiratory: no cough, no shortness of air, no recurring pulmonary infections Cardiovascular/Peripheral Vascular: No chest pain, No palpitations, no edema, no shortness of breath. Gastrointestinal: no new onset incontinence, normal bowel movements reported Genitourinary: no new onset incontinence Musculoskeletal: Back pain intermittently Psychiatric: normal mood/ affect Neurological: [denies weakness in extremities], [denies balance issues] Objective:: Physical Exam General: Alert and oriented x3, no acute distress, pleasant and cooperative, [on room air] Lungs: Resps E/U, Symmetrical chest expansion, Eyes: PERRL Musculoskeletal: Flexion and extension of lumbar spine somewhat guarded secondary to pain, deep tendon reflexes normal, strength in upper and lower extremities [5/5], [abnormal gait noted] Neurological: speech clear, clinical athletic instructor equal, no gross sensory deficits Assessment:: Degenerative disc disease lumbar spine with lumbar radiculopathy and postlaminectomy syndrome Plan:: We will see the patient back in 2 weeks reassess her symptoms at that time. I instructed them to call if she has any more issues or any worsening symptoms. Dr. Miller has reviewed this note and agrees with this plan of care. This note was dictated using voice recognition software and may contain errors or omissions
== END ==
PROVIDERS: PCP Family Medicine; Visit Provider Clinical Nurse Specialist Family Health
DX: M51.16 Intervertebral disc disorders with radiculopathy, lumbar region (principal); M96.1 Postlaminectomy syndrome, not elsewhere classified
CPT/HCPCS: 99212

== ENCOUNTER 2019-02-14 10:30 | Outpatient (RCR) | payer MEDICARE, SELFPAY ==
--- NOTE | 2019-02-07 10:58 | HMH.PTOPWND ---
Rehab Outpt Wound Evaluation Rehab OP Wound Evaluation Start: 02/07/19 10:52 Freq: Status: Active Protocol: Document 02/07/19 10:52 ZAYRA (Rec: 02/07/19 10:58 PHOEMILY [id number]) Electronically Signed By Yasir Cohn, PT 02/07/19 10:52 Subjective/History History History Pt is 83 yowf who presents with c/o right low back non- healing incision ~ 2 mos S/P implanted pain pump. She reports the pump has significantly helped her chronic LBP, but she is worried about her incision site. She reports no c/o pain at the incision and only mild tenderness to palpation. She presents with her sutures remaining in the incision and a moderate area of black eschar along the medial incision area. She reports the surgeon who implanted the pump wanted her to keep it uncovered to let it dry out. PMH: CVI and HTN Wound Eval Wound Right Lower Back Wound Type Incision Is This a Chronic Wound Yes Wound Length (cm) 1.4 Wound Width (cm) 4.4 Wound Bed Appearance Eschar Percentage of Eschar (Black) (%) 100 Wound Margins Description Well Defined Surrounding Tissue Appearance Downing Drainage Amount None Wound Topical Solution/Irrigant Saline Irrigant Packing Type Collagen Comment puracol Primary Dressing Composite Comment silvasorb gel, optifoam gentle with border Wound Debridement Method Sharps Forceps Wound Debridement Amount of Tissue Moderate Removed Dressing Change Patient Tolerance Tolerated Well Wound Problems/Impairments Impairments Problems/Impairmments Palpation Tenderness Impaired Gait Pattern Impaired Walking Impaired Standing Impaired Sitting Impaired Recreational Activities Increased Edema Lymphedema Present Wound Care Needs S
== END 2019-02-14 10:35 | disposition home or self-care (01) ==
LOC: PT 10:30
PROVIDERS: Visit Provider Clinical Nurse Specialist Family Health
DX: T81.89XA Other complications of procedures, not elsewhere classified, initial encounter (principal)
CPT/HCPCS: 97163; 97597

== ENCOUNTER 2019-02-17 18:19 | Inpatient (IN) ==
--- NOTE | 2019-02-17 18:36 | Emergency Department Note ---
ED Disposition Clinical Impression: Infected surgical wound, Chronic pain syndrome, Anemia Disposition: Still a Patient Condition on Discharge: Fair Referrals: Amish Smith MD [Primary Care Provider] - - Critical Care Critical Care Time: No Attestation: On , the high probability of a clinically significant, sudden or life threatening deterioration of the following system(s) required my full and direct attention, intervention and personal management. The time I documented below is in addition to time spent performing reported procedures but includes the following listed in this critical care notation. Medical Decision Making - Medical Records Medical records reviewed: Yes: I reviewed the patient's medical records. - Freedom Inquiry Pt receiving controlled substance: No Freedom was queried for this patient: No Vital Signs: 02/17/19 18:25 02/17/19 19:39 Temperature 97.8 F 97.7 F Temperature Source Oral Oral Pulse Rate [Left Radial] 93 H 93 H Respiratory Rate 18 15 Blood Pressure [Left Arm] 123/58 L 112/50 L Blood Pressure Mean [Left Arm] 79 70 Blood Pressure Source [Left Arm] Automatic Cuff Automatic Cuff Blood Pressure Position [Left Arm] Sitting Supine 02 Sat by Pulse Oximetry 93 L 98 Oxygen Delivery Method Room Air - Lab Data Lab Results 02/17/19 19:15: WBC 10.9 H, RBC 3.39 L, Hgb 8.6 L, Hct 28.1 L, MCV 82.9, MCH 25.2 L, MCHC 30.5 L, RDW 15.6, Plt Count 248, MPV 7.9, Neut % (Auto) 84.9 H, Lymph % (Auto) 8.2 L, [place] % (Auto) 5.2, Eos % (Auto) 1.4, Baso % (Auto) 0.2, Neut # (Auto) 9.2 H, Lymph # (Auto) 0.9, [place] # (Auto) 0.6, Eos # (Auto) 0.2, Baso # (Auto) 0.0 02/17/19 19:15: Sodium 138, Potassium 3.4 L, Chloride 101, Carbon Dioxide 28, Anion Gap 12.4, BUN 17, Creatinine 1.02, Estimated Creat Clear 36, Estimated GFR 52 L, Est GFR ( Amer) 63, Glucose 109 H, Calcium 9.0, Total Bilirubin 0.5, AST 17, ALT 12, Alkaline Phosphatase 114, Total Protein 7.3, Albumin 2.5 L, Globulin 4.8 H, Albumin/Globulin Ratio 0.5 L 02/17/19 19:15: Lactate 1.1 Result diagrams: 02/17/19 19:15 02/17/19 19:15 Orders (Tests/Meds): ED MEDICATIONS Generic Name Dose Route Start Last Admin Trade Name Freq PRN Reason Stop Dose Admin Vancomycin HCl 1,000 mg/ 250 mls @ 125 mls/hr 02/17/19 19:04 02/17/19 19:24 Sodium Chloride IV 02/17/19 21:03 125 mls/hr ONCE ONE Administration Discontinued Medications Generic Name Dose Route Start Last Admin Trade Name Freq PRN Reason Stop Dose Admin Vancomycin HCl 1,750 mg/ 250 mls @ 125 mls/hr 02/17/19 18:45 Sodium Chloride IV 03/03/19 18:44 Q24H ROSI ORDERS Category Date Time Status CT lumbar spine wo/w con Stat Cat Scan 02/17/19 18:30 Ordered Anaerobic Culture+Gram Stain Stat Micro 02/17/19 18:38 Received Blood Culture Stat Micro 02/17/19 19:15 Received Wound Culture and Gram Stain Stat Micro 02/17/19 18:38 Received Medical Decision Narrative: The patient remained hemodynamically neurologically stable. Obtain cultures and started IV antibiotics. Called Dr. george who advised to admit the patient for IV antibiotics and surgical debridement. [address] Cisneros who agreed to admit the patient for IV antibiotics. General Adult HPI - General Stated complaint: wound from pain pump bleeding Time Seen by Provider: 02/17/19 18:33 Mode of Arrival: Ambulatory Source of Information: Patient, Relative Limitations: No Limitations - History of Present Illness HPI narrative: 83 years old white female with history of chronic lower back pain and degenerative joint changes. She underwent pain pump implant December 06, 2018 with delayed healing by Dr. Miller and Dr. Gordon. Last night the patient started having bloody drainage from the wound and started using dressings that were given to her by her pain specialist. Today at noontime the patient started experiencing a large amount of bloody discharge with a foul offensive order. She came to the ED for evaluation. She denies having fever chills nausea vomiting diarrhea or abdominal pain. She denies having dysuria hematuria or frequency or flank pain. The patient reports that her pain has improved since the pain pump has been placed. Onset (ago): week(s) Radiation: non-radiation Associated symptoms: denies other symptoms Treatments prior to arrival: none - Related Data Home Medications Medication Instructions Recorded Confirmed Aspirin [Aspir 81] 81 mg PO DAILY 12/05/18 02/17/19 Calcium Carbonate [Calcium] 600 mg PO BID 12/05/18 02/17/19 Carvedilol [Coreg 3.125mg 3.125 mg PO BID 12/05/18 02/17/19 Tablet] Duloxetine HCl 60 mg PO DAILY 12/05/18 02/17/19 Gabapentin 600 mg PO TID 12/05/18 02/17/19 Naproxen 500 mg PO BID 12/05/18 02/17/19 Simvastatin 20 mg PO DAILY 12/05/18 02/17/19 Irbesartan/Hydrochlorothiazide 1 tab PO DAILY 02/17/19 02/17/19 [Irbesartan-Hctz 150-12.5 mg Tb] Allergies Allergy/AdvReac Type Severity Reaction Status Date / Time No Known Drug Allergies Allergy Unknown Verified 11/17/18 09:00 [NO KNOWN DRUG ALLERGIES] [facility] History - Hepatitis A Screen Attestation statement:: This patient has been screened for Hepatitis A risk factors. I have reviewed the patient's past medical history: Yes Medical History: Reports:: Hypertension Denies:: Cancer, Diabetes Mellitus Type 1, Diabetes Mellitus Type 2, MRSA, Seizures Other Medical History: Denies: Blood Transfusion Reaction Comment: Illnesses-hypertension, hyperlipidemia, chronic back pain, cigarette abuse Other Surgeries: Yes: Cancer Surgery Amputation: No Fractures: No Comment: Operations-laminectomy of the lumbar region, pain with spinal cord stimulator placement, carpal tunnel surgery, removal of a "tumor" - Social History Smoking Status: Current every day smoker Tobacco Type: cigarettes # Packs/Day (cigarettes): 1 Alcohol Intake: never Occupational Status: retired Housing: house Household Members: family Family Hx:: No significant family history, Cancer, Hypertension ROS Obtained: Yes All systems reviewed & no additional complaints Physical Exam - General General appearance: alert, in no apparent distress - Head Head exam: atraumatic, normocephalic, normal inspection - Eye Eye exam: Present: normal appearance, PERRL, EOMI. Absent: scleral icterus - ENT ENT exam: Present: normal exam, normal oropharynx, mucous membranes moist, TM's normal bilaterally, normal external ear exam - Neck Neck exam: Present: normal inspection, full ROM, trachea midline. Absent: tend erness, meningismus, lymphadenopathy - Chest Chest inspection: Present: normal inspection, symmetric chest wall rise. Absent: tenderness - Respiratory Respiratory exam: Present: normal lung sounds bilaterally. Absent: respiratory distress - Cardiovascular Cardiovascular exam: Present: regular rate, normal rhythm. Absent: JVD - Abdominal Exam Abdominal exam: Present: soft, normal bowel sounds. Absent: distention, tenderness, guarding, rebound, rigidity - Extremities Exam Extremities exam: Present: normal inspection, full ROM, normal capillary refill. Absent: calf tenderness - Back Exam Back exam: Present: normal inspection, other. Absent: tenderness, CVA tenderness (R), CVA tenderness (L) Comment: Examination of the Right lumbar region revealed, status post pain pump implant, delayed healing of the surgical incision, remaining stitches, there is deterioration of the edges of the surgical wound on the medial aspect of the incision with seropurulent discharge with foul offensive odor. Cultures were obtained. Dressing was changed. - Neurological Exam Neurological exam: Present: alert, oriented X3, CN II-XII intact, motor sensory deficit, reflexes normal - Psychiatric Psychiatric exam: Present: normal affect, normal mood - Skin Skin exam: Present: warm, dry, intact, normal color - Lymphatic Lymphatic Findings: no adenopathy
[2019-02-17 19:30] LABS: Basophils % 0.2 % (0.1-2.0); Eosinophils # 0.2 K/mm3 (0.0-0.4); Eosinophils % 1.4 % (0.1-12.0); Hemoglobin 8.6 g/dL (12.2-16.2); Lymphocytes # 0.9 K/mm3 (0.7-4.5); Lymphocytes % 8.2 % (10-50); Mean Corpuscular HGB Conc 30.5 g/dL (31.8-35.4); Mean Corpuscular Hemoglobin 25.2 pg (27.0-31.2); Mean Corpuscular Volume 82.9 fl (81-99); Mean Platelet Volume 7.9 fl (7.4-10.4); Monocytes # 0.6 K/mm3 (0.1-1.0); Monocytes % 5.2 % (1.7-9.3); Neutrophils # 9.2 K/mm3 (1.8-7.8); Neutrophils % 84.9 % (37.0-80.0); Platelet Count 248 K/mm3 (142-424); Red Blood Count 3.39 M/mm3 (4.20-5.40); Red Cell Distribution Width 15.6 % (11.5-17.5); White Blood Count 10.9 K/mm3 (4.8-10.8)
[2019-02-17 19:32] LABS: Hematocrit 28.1 % (37.0-47.0)
[2019-02-17 19:44] LABS: Albumin Level 2.5 gm/dL (3.4-5.0); Albumin/Globulin Ratio 0.5 (1.1-1.8); Anion Gap 12.4 mEq/L (5-15); Bilirubin,Total 0.5 mg/dL (0.2-1.0); Globulin 4.8 gm/dl (1.3-3.2); Potassium 3.4 mmoL/L (3.5-5.1); Total Protein,Serum 7.3 gm/dL (6.4-8.2)
[2019-02-18 06:21] LABS: Eosinophils # 0.2 K/mm3 (0.0-0.4); Eosinophils % 2.3 % (0.1-12.0); Red Cell Distribution Width 15.5 % (11.5-17.5)
[2019-02-18 06:31] LABS: Anion Gap 11.3 mEq/L (5-15); Basophils % 0.2 % (0.1-2.0); Calcium 8.3 mg/dL (8.5-10.1); Lymphocytes # 1.6 K/mm3 (0.7-4.5); Lymphocytes % 15.8 % (10-50); Mean Corpuscular HGB Conc 30.8 g/dL (31.8-35.4); Mean Corpuscular Hemoglobin 25.4 pg (27.0-31.2); Mean Corpuscular Volume 82.4 fl (81-99); Mean Platelet Volume 7.9 fl (7.4-10.4); Monocytes # 0.6 K/mm3 (0.1-1.0); Monocytes % 6.4 % (1.7-9.3); Neutrophils # 7.6 K/mm3 (1.8-7.8); Neutrophils % 75.3 % (37.0-80.0); Platelet Count 214 K/mm3 (142-424); Potassium 3.3 mmoL/L (3.5-5.1); Red Blood Count 2.82 M/mm3 (4.20-5.40)
[2019-02-18 06:35] LABS: Hematocrit 23.3 % (37.0-47.0)
[2019-02-18 06:36] LABS: Hemoglobin 7.2 g/dL (12.2-16.2)
--- NOTE | 2019-02-18 08:56 | Pharmacy Consult Notes ---
- Pharmacy Consult Date: 02/18/19 Time: 08:55 Referring provider: DR. STOCKTON Reason for Consult:: VANCOMYCIN DOSING Allergies and ADEs:: Allergies Allergy/AdvReac Type Severity Reaction Status Date / Time No Known Drug Allergies Allergy Unknown Verified 11/17/18 09:00 [NO KNOWN DRUG ALLERGIES] Home Medications:: Home Medications Medication Instructions Recorded Confirmed Type Aspirin [Aspir 81] 81 mg PO DAILY 12/05/18 02/17/19 History Calcium Carbonate [Calcium] 600 mg PO BID 12/05/18 02/17/19 History Carvedilol [Coreg 3.125mg 3.125 mg PO BID 12/05/18 02/17/19 History Tablet] Duloxetine HCl 60 mg PO DAILY 12/05/18 02/17/19 History Gabapentin 600 mg PO TID 12/05/18 02/17/19 History Naproxen 500 mg PO BID 12/05/18 02/17/19 History Simvastatin 20 mg PO HS 12/05/18 02/17/19 History Ergocalciferol (Vitamin D2) 400 unit PO DAILY 02/17/19 02/17/19 History [Vitamin D] Irbesartan/Hydrochlorothiazide 1 tab PO DAILY 02/17/19 02/17/19 History [Irbesartan-Hctz 150-12.5 mg Tb] Tetrahydrozoline HCl [Eye Drops] 15 ml OP Q4HP PRN 02/17/19 02/17/19 History Height: 1.73 m Weight: 57.606 kg Laboratory Results:: Laboratory Results - last 24 hr 02/17/19 19:15: WBC 10.9 H, RBC 3.39 L, Hgb 8.6 L, Hct 28.1 L, MCV 82.9, MCH 25.2 L, MCHC 30.5 L, RDW 15.6, Plt Count 248, MPV 7.9, Neut % (Auto) 84.9 H, Lymph % (Auto) 8.2 L, [place] % (Auto) 5.2, Eos % (Auto) 1.4, Baso % (Auto) 0.2, Neut # (Auto) 9.2 H, Lymph # (Auto) 0.9, [place] # (Auto) 0.6, Eos # (Auto) 0.2, Baso # (Auto) 0.0 02/17/19 19:15: Sodium 138, Potassium 3.4 L, Chloride 101, Carbon Dioxide 28, Anion Gap 12.4, BUN 17, Creatinine 1.02, Estimated Creat Clear 36, Estimated GFR 52 L, Est GFR ( Amer) 63, Glucose 109 H, Calcium 9.0, Total Bilirubin 0.5, AST 17, ALT 12, Alkaline Phosphatase 114, Total Protein 7.3, Albumin 2.5 L, Globulin 4.8 H, Albumin/Globulin Ratio 0.5 L 02/17/19 19:15: Lactate 1.1 02/18/19 05:40: WBC 10.0, RBC 2.82 L, Hgb 7.2 L*, Hct 23.3 L*, MCV 82.4, MCH 25.4 L, MCHC 30.8 L, RDW 15.5, Plt Count 214, MPV 7.9, Neut % (Auto) 75.3, Lymph % (Auto) 15.8, [place] % (Auto) 6.4, Eos % (Auto) 2.3, Baso % (Auto) 0.2, Neut # (Auto) 7.6, Lymph # (Auto) 1.6, [place] # (Auto) 0.6, Eos # (Auto) 0.2, Baso # (Auto) 0.0 02/18/19 05:40: Sodium 139, Potassium 3.3 L, Chloride 103, Carbon Dioxide 28, Anion Gap 11.3, BUN 18, Creatinine 0.99, Estimated Creat Clear 40, Estimated GFR 54 L, Est GFR ( Amer) 65, Glucose 100, Calcium 8.3 L Medical History: Reports:: Hyperlipidemia, Hypertension Denies:: Cancer, Diabetes Mellitus Type 1, Diabetes Mellitus Type 2, MRSA, Seizures Assessment and Plan - Assessment and plan all Dx Assessment and Plan for all problems:: BASED ON PATIENT FACTORS, RECOMMEND INITIATING VANCOMYCIN IV AT 1,000MG EVERY 24 HOURS. PHARMACY WILL MONITOR AND ADJUST DOSE APPROPRIATE. -MING SVAAGE PHARMD
--- NOTE | 2019-02-18 10:18 | History & Physical Report ---
*Admission Date: 02/18/19 *Chief complaint: Bloody drainage from wound *History of present illness: 83 year old female with a history of chronic low back pain presented to [facility] ER last night with bloody drainage from a surgical wound on her right low back. Patient states she had an intrathecal pain pump placed in late 2018 and has had problems getting the wound to heal. She states she has been seen almost weekly at the pain clinic and was recently referred to the wound management clinic at [facility]. Patient first noted some bloody discharge from the wound on the morning of February 16 when she awoke from sleep. She states the drainage increased during the day and by the next morning there was a large amount of yellow/brown drainage mixed with blood. The wound was requiring multiple dressing changes so she came to the ER for an evaluation. She denies fever and chills. She had a little pain around the wound yesterday. [facility] History Medical History: Reports:: Chronic Obstructive Pulmonary Disease (COPD), Hyperlipidemia, Hypertension, Peripheral Vascular Disease Denies:: Cancer, Diabetes Mellitus Type 1, Diabetes Mellitus Type 2, MRSA, Seizures *Have you ever received a pneumonia vaccine?: Yes *Have you received a flu vaccine this season?: Yes Other Medical History: Reports: Anemia, Glaucoma, Other (Sleep apnea, chronic low back pain, neuropathy, retinal vein occlusion). Denies: Blood Transfusion Reaction Laterality Cases: Right: Carpal Tunnel Release, Bilateral: Cataract Other Surgeries: Yes: Other (L1-L4 laminectomy, Spinal nerve stimulator, Intrathecal pain pump) Amputation: No Fractures: No - *Social History Educational Level: Attended College Smoking Status: Current every day smoker Tobacco Type: cigarettes # Packs/Day (cigarettes): 1 Alcohol Intake: never *Occupational Status:: retired Housing: house Household Members: family *Travel in the last 8 weeks: None - Psychiatric History Expresses thoughts of harming self/others: None Suicide Plan Description: No Plan Family Hx:: Cancer, Hypertension Review of Systems - Constitutional Denies chills, Denies fever(s) - Eyes Denies change in vision - ENT Denies bleeding gums - *Cardiovascular Denies chest pain - *Respiratory Denies cough - *Gastrointestinal Denies belching, Denies bloating - *Musculoskeletal Reports back pain - *Neurologic Denies dizziness - Psychiatric Denies anxiety, Denies depression - Allergic/Immunologic Denies itchy eyes Meds Home Medications Medication Instructions Recorded Confirmed Type Aspirin [Aspir 81] 81 mg PO DAILY 12/05/18 02/17/19 History Calcium Carbonate [Calcium] 600 mg PO BID 12/05/18 02/17/19 History Carvedilol [Coreg 3.125mg 3.125 mg PO BID 12/05/18 02/17/19 History Tablet] Duloxetine HCl 60 mg PO DAILY 12/05/18 02/17/19 History Gabapentin 600 mg PO TID 12/05/18 02/17/19 History Naproxen 500 mg PO BID 12/05/18 02/17/19 History Simvastatin 20 mg PO HS 12/05/18 02/17/19 History Ergocalciferol (Vitamin D2) 400 unit PO DAILY 02/17/19 02/17/19 History [Vitamin D] Irbesartan/Hydrochlorothiazide 1 tab PO DAILY 02/17/19 02/17/19 History [Irbesartan-Hctz 150-12.5 mg Tb] Furosemide [Furosemide 20mg Tab] 40 mg PO DAILYP PRN 02/18/19 02/18/19 History Latanoprost [Xalatan 0.005% Ophth 2 drops OP HS 02/18/19 02/18/19 History Soln 2.5mL] Potassium Chloride [Klor-con 20 20 meq PO DAILY 02/18/19 02/18/19 History mEq tablet] Allergies Allergy/AdvReac Type Severity Reaction Status Date / Time No Known Drug Allergies Allergy Unknown Verified 11/17/18 09:00 [NO KNOWN DRUG ALLERGIES] Exam Vital signs and Labs for Last 24 Hours: Temp Pulse Resp BP Pulse Ox 97.9 F 75 18 121/40 L 94 L 02/18/19 08:00 02/18/19 08:00 02/18/19 08:00 02/18/19 08:00 02/18/19 08:00 Laboratory Results - last 24 hr 02/17/19 19:15: WBC 10.9 H, RBC 3.39 L, Hgb 8.6 L, Hct 28.1 L, MCV 82.9, MCH 25.2 L, MCHC 30.5 L, RDW 15.6, Plt Count 248, MPV 7.9, Neut % (Auto) 84.9 H, Lymph % (Auto) 8.2 L, [place] % (Auto) 5.2, Eos % (Auto) 1.4, Baso % (Auto) 0.2, Neut # (Auto) 9.2 H, Lymph # (Auto) 0.9, [place] # (Auto) 0.6, Eos # (Auto) 0.2, Baso # (Auto) 0.0 02/17/19 19:15: Sodium 138, Potassium 3.4 L, Chloride 101, Carbon Dioxide 28, Anion Gap 12.4, BUN 17, Creatinine 1.02, Estimated Creat Clear 36, Estimated GFR 52 L, Est GFR ( Amer) 63, Glucose 109 H, Calcium 9.0, Total Bilirubin 0.5, AST 17, ALT 12, Alkaline Phosphatase 114, Total Protein 7.3, Albumin 2.5 L, Globulin 4.8 H, Albumin/Globulin Ratio 0.5 L 02/17/19 19:15: Lactate 1.1 02/18/19 05:40: WBC 10.0, RBC 2.82 L, Hgb 7.2 L*, Hct 23.3 L*, MCV 82.4, MCH 25.4 L, MCHC 30.8 L, RDW 15.5, Plt Count 214, MPV 7.9, Neut % (Auto) 75.3, Lymph % (Auto) 15.8, [place] % (Auto) 6.4, Eos % (Auto) 2.3, Baso % (Auto) 0.2, Neut # (Auto) 7.6, Lymph # (Auto) 1.6, [place] # (Auto) 0.6, Eos # (Auto) 0.2, Baso # (Auto) 0.0 02/18/19 05:40: Sodium 139, Potassium 3.3 L, Chloride 103, Carbon Dioxide 28, Anion Gap 11.3, BUN 18, Creatinine 0.99, Estimated Creat Clear 40, Estimated GFR 54 L, Est GFR ( Amer) 65, Glucose 100, Calcium 8.3 L I & O for Last 24 hours: Intake & Output 02/15/19 02/16/19 02/17/19 02/18/19 23:59 23:59 23:59 23:59 Intake Total 620 / 620 Output Total 100 / 100 200 / 200 Balance -100 / -100 420 / 420 Weight 128 lb 127 lb Microbiology Reports for the Last 24 Hours: Microbiology 02/17/19 18:38 Back Gram Stain - Final 02/17/19 18:38 Back Wound Culture - Preliminary - Constitutional no acute distress - *Routine HEENT Exam Head: Present: normocephalic Eye: Present: EOMI, PERRL ENT: Present: mucous membranes moist - *Routine Neck Exam Present: supple. Absent: lymphadenopathy - *Routine Respiratory Exam Comments: Good air movement, few coarse breath sounds - *Routine Cardiovascular Exam Present: RRR - *Routine Abdominal Exam Present: soft, normoactive bowel sounds. Absent: tenderness - *Routine Extremities Exam Absent: cyanosis, clubbing, edema - *Routine Skin Exam Present: warm Comments: Open wound on most inferior right low back with interrupted sutures present in a linear arrangement around wound. There is quite a bit of yellow/crawford drainage, only minimal amount of blood on dressing. There is a fairly large amount of surrounding skin erythema, approximately 8 cm x 15 cm, which has been outlined by a purple marker - *Routine Neurological Exam Present: alert, oriented X3 Assessment and Plan (1) HTN (hypertension) Current visit: Yes Status: Acute Category: Medical Code(s): I10 - Essential (primary) hypertension (2) Hyperlipidemia Current visit: Yes Status: Acute Category: Medical Code(s): E78.5 - Hyperlipidemia, unspecified (3) S/P insertion of intrathecal pump Current visit: Yes Status: Acute Category: Surgical Code(s): Z98.890 - Other specified postprocedural states (4) Neuropathy Current visit: Yes Status: Acute Category: Medical Code(s): G62.9 - Polyneuropathy, unspecified (5) Anemia Current visit: Yes Status: Acute Category: Medical Code(s): D64.9 - Anemia, unspecified (6) Chronic pain syndrome Current visit: Yes Status: Acute Category: Medical Code(s): G89.4 - Chronic pain syndrome (7) Infected surgical wound Current visit: Yes Status: Acute Category: Medical Code(s): T81.49XA - Infection following a procedure, other surgical site, initial encounter - Assessment and plan all Dx Assessment and Plan for all problems:: Patient was admitted for further evaluation and management of the infected wound at the pain pump site in her right low back. She was empirically started on Vancomycin, Zosyn will be added today. Plan surgical consultation tomorrow. She is anemic as well. Previous evaluation has shown her to be iron deficient with heme negative stool. Patient would like to recheck H/H tomorrow before deciding if she wants a transfusion.
--- NOTE | 2019-02-18 10:49 | Pharmacy Consult Notes ---
[facility] Pharmacy VTE Monitoring - Patient Demographics Admission date: 02/17/19 Report Date: 02/18/19 Time: 10:49 Allergies/Adverse Reactions: Patient Allergies No Known Drug Allergies [NO KNOWN DRUG ALLERGIES] Allergy (Unknown, Verified 11/17/18 09:00) Height: 1.73 m Weight: 57.606 kg Patient Problems: Current Active Problems Infected surgical wound (Acute) Chronic pain syndrome (Acute) Anemia (Acute) HTN (hypertension) (Acute) Hyperlipidemia (Acute) S/P insertion of intrathecal pump (Acute) Neuropathy (Acute) - VTE Risk Labs: VTE Related Lab Results Hgb 7.2 g/dL (12.2-16.2) L* 02/18/19 05:40 Hct 23.3 % (37.0-47.0) L* 02/18/19 05:40 Plt Count 214 K/mm3 (142-424) 02/18/19 05:40 BUN 18 mg/dL (7-18) 02/18/19 05:40 Creatinine 0.99 mg/dL (0.55-1.02) 02/18/19 05:40 Estimated Creat Clear 40 mL/min (50-200) 02/18/19 05:40 VTE Score: 5 VTE Risk Level: Low Risk - Prophylaxis VTE Prophylaxis Ordered?: Yes Types of VTE Prophylaxis: TEDS Knee High Location of Applied Device: Bilateral Lower Extremeties - VTE Diagnosis Confirmed Treatment or plan recommended: Continue Current Treatment
--- NOTE | 2019-02-19 08:10 | Progress Note ---
<Whitney Villasenor - Last Filed: 02/19/19 08:06> Internal Medicine - PN: Subj *Date: 02/19/19 *Time: 08:06 Interval history: Patient has just awakened and does not know how she feels that she had. She does sleep well. She is hungry this morning. She denies chest pain or shortness of breath. She has had some left ankle and foot pain. Exam Vital signs and Labs for Last 24 Hours: Temp Pulse Resp BP Pulse Ox 98.1 F 79 16 137/57 L 94 L 02/19/19 04:00 02/19/19 04:00 02/19/19 04:00 02/19/19 04:00 02/19/19 04:00 I & O for Last 24 hours: Intake & Output 02/16/19 02/17/19 02/18/19 02/19/19 11:59 11:59 11:59 11:59 Intake Total 620 / 620 780 / 780 Output Total 300 / 300 1050 / 1050 Balance 320 / 320 -270 / -270 Weight 127 lb 128 lb 1 oz Microbiology Reports for the Last 24 Hours: Microbiology 02/17/19 18:38 Back Gram Stain - Final 02/17/19 18:38 Back Wound Culture - Preliminary - Constitutional no acute distress Comments: Appears comfortable - *Routine Respiratory Exam Comments: Left chest with rhonchi - *Routine Cardiovascular Exam Present: RRR - *Routine Extremities Exam Absent: edema, calf tenderness Comments: [place]LIN hose on. Left foot and ankle nontender to palpation. No edema. - *Routine Skin Exam Comments: Large dressing over right lower back clean and dry. No surrounding erythema. - *Routine Neurological Exam Present: alert, oriented X3 Assessment and Plan (1) HTN (hypertension) Current visit: Yes Status: Acute Category: Medical Code(s): I10 - Essential (primary) hypertension (2) Hyperlipidemia Current visit: Yes Status: Acute Category: Medical Code(s): E78.5 - Hyperlipidemia, unspecified (3) S/P insertion of intrathecal pump Current visit: Yes Status: Acute Category: Surgical Code(s): Z98.890 - Other specified postprocedural states (4) Neuropathy Current visit: Yes Status: Acute Category: Medical Code(s): G62.9 - Polyneuropathy, unspecified (5) Anemia Current visit: Yes Status: Acute Category: Medical Code(s): D64.9 - Anemia, unspecified (6) Chronic pain syndrome Current visit: Yes Status: Acute Category: Medical Code(s): G89.4 - Chronic pain syndrome (7) Infected surgical wound Current visit: Yes Status: Acute Category: Medical Code(s): T81.49XA - Infection following a procedure, other surgical site, initial encounter - Assessment and plan all Dx Assessment and Plan for all problems:: Dr. Miller to see patient. Will obtain BMP and CBC stat. Patient will decide on whether she wants Pap red blood cells today. Cultures are pending. <Amish Smith - Last Filed: 02/19/19 08:54> Exam Vital signs and Labs for Last 24 Hours: Temp Pulse Resp BP Pulse Ox 98.1 F 82 18 122/57 L 91 L 02/19/19 08:00 02/19/19 08:00 02/19/19 08:00 02/19/19 08:00 02/19/19 08:00 Laboratory Results - last 24 hr 02/19/19 08:35: WBC 7.1 D, RBC 3.10 L, Hgb 7.8 L*, Hct 25.6 L, MCV 82.5, MCH 25.2 L, MCHC 30.6 L, RDW 15.5, Plt Count 251, MPV 8.6, Neut % (Auto) 69.8, Lymph % (Auto) 17.9, [place] % (Auto) 8.3, Eos % (Auto) 3.7, Baso % (Auto) 0.3, Neut # (Auto) 5.0, Lymph # (Auto) 1.3, [place] # (Auto) 0.6, Eos # (Auto) 0.3, Baso # (Auto) 0.0 02/19/19 08:35: Sodium 138, Potassium 3.6, Chloride 102, Carbon Dioxide 29, Anion Gap 10.6, BUN 20 H, Creatinine 1.20 H D, Estimated Creat Clear 34, Estimated GFR 43 L, Est GFR ( Amer) 52 L, Glucose 119 H, Calcium 8.5 I & O for Last 24 hours: Intake & Output 02/16/19 02/17/19 02/18/19 02/19/19 23:59 23:59 23:59 23:59 Intake Total 1100 / 1100 300 / 300 Output Total 100 / 100 350 / 350 900 / 900 Balance -100 / -100 750 / 750 -600 / -600 Weight 128 lb 127 lb 128 lb 1 oz Microbiology Reports for the Last 24 Hours: Microbiology 02/17/19 18:38 Back Gram Stain - Final 02/17/19 18:38 Back Wound Culture - Preliminary Gram Positive Cocci Assessment and Plan (1) HTN (hypertension) Current visit: Yes Status: Acute Category: Medical Code(s): I10 - Essential (primary) hypertension (2) Hyperlipidemia Current visit: Yes Status: Acute Category: Medical Code(s): E78.5 - Hyperlipidemia, unspecified (3) S/P insertion of intrathecal pump Current visit: Yes Status: Acute Category: Surgical Code(s): Z98.890 - Other specified postprocedural states (4) Neuropathy Current visit: Yes Status: Acute Category: Medical Code(s): G62.9 - Polyneuropathy, unspecified (5) Anemia Current visit: Yes Status: Acute Category: Medical Code(s): D64.9 - Anemia, unspecified (6) Chronic pain syndrome Current visit: Yes Status: Acute Category: Medical Code(s): G89.4 - Chronic pain syndrome (7) Infected surgical wound Current visit: Yes Status: Acute Category: Medical Code(s): T81.49XA - Infection following a procedure, other surgical site, initial encounter - Assessment and plan all Dx Assessment and Plan for all problems:: Saw patient, agree with above note. Labs pending, plan surgical consultation due to infected pain pump site.
[2019-02-19 08:50] LABS: Basophils % 0.3 % (0.1-2.0); Eosinophils # 0.3 K/mm3 (0.0-0.4); Eosinophils % 3.7 % (0.1-12.0); Hematocrit 25.6 % (37.0-47.0); Lymphocytes # 1.3 K/mm3 (0.7-4.5); Lymphocytes % 17.9 % (10-50); Mean Corpuscular HGB Conc 30.6 g/dL (31.8-35.4); Mean Corpuscular Hemoglobin 25.2 pg (27.0-31.2); Mean Corpuscular Volume 82.5 fl (81-99); Mean Platelet Volume 8.6 fl (7.4-10.4); Monocytes # 0.6 K/mm3 (0.1-1.0); Monocytes % 8.3 % (1.7-9.3); Neutrophils % 69.8 % (37.0-80.0); Platelet Count 251 K/mm3 (142-424); Red Cell Distribution Width 15.5 % (11.5-17.5); White Blood Count 7.1 K/mm3 (4.8-10.8)
[2019-02-19 08:51] LABS: Anion Gap 10.6 mEq/L (5-15); Calcium 8.5 mg/dL (8.5-10.1); Potassium 3.6 mmoL/L (3.5-5.1)
[2019-02-19 08:52] LABS: Hemoglobin 7.8 g/dL (12.2-16.2)
--- NOTE | 2019-02-19 11:44 | Consult Report ---
*Admission Date: 02/18/19 *Chief complaint: Evaluate for removal of infected pain pump *History of present illness: Patient is a pleasant 83-year-old white female. She has history of low back pain and had undergone placement of intrathecal pain pump by Dr. Pawel Miller and Fritz Shi November of this year. She has had some apparent problems with wound healing. She had presented to the emergency department day evening and had evidence of wound infection and was admitted for inpatient management. She has been evaluated by the chronic pain management service and surgical consultation was obtained for removal of pain pump. Review of Systems - Review of Systems Review of systems:: pertinent systems reviewed and negative unless documented below - *Neurologic Denies dizziness [facility] History Medical History: Reports:: Chronic Obstructive Pulmonary Disease (COPD), Hy perlipidemia, Hypertension, Peripheral Vascular Disease Denies:: Cancer, Diabetes Mellitus Type 1, Diabetes Mellitus Type 2, MRSA, Seizures *Have you ever received a pneumonia vaccine?: Yes *Have you received a flu vaccine this season?: Yes Other Medical History: Reports: Anemia, Glaucoma, Other (Sleep apnea, chronic low back pain, neuropathy, retinal vein occlusion). Denies: Blood Transfusion Reaction Laterality Cases: Right: Carpal Tunnel Release, Bilateral: Cataract Other Surgeries: Yes: Cancer Surgery, Other (L1-L4 laminectomy, Spinal nerve stimulator, Intrathecal pain pump) Amputation: No Fractures: No - *Social History Educational Level: Attended College Smoking Status: Current every day smoker Tobacco Type: cigarettes # Packs/Day (cigarettes): 1 Alcohol Intake: never *Occupational Status:: retired Housing: house Household Members: family *Travel in the last 8 weeks: None - Psychiatric History Expresses thoughts of harming self/others: None Suicide Plan Description: No Plan Family Hx:: Cancer, Hypertension Meds Home Medications Medication Instructions Recorded Confirmed Type Aspirin [Aspir 81] 81 mg PO DAILY 12/05/18 02/17/19 History Calcium Carbonate [Calcium] 600 mg PO BID 12/05/18 02/17/19 History Carvedilol [Coreg 3.125mg 3.125 mg PO BID 12/05/18 02/17/19 History Tablet] Duloxetine HCl 60 mg PO DAILY 12/05/18 02/17/19 History Gabapentin 600 mg PO TID 12/05/18 02/17/19 History Naproxen 500 mg PO BID 12/05/18 02/17/19 History Simvastatin 20 mg PO HS 12/05/18 02/17/19 History Ergocalciferol (Vitamin D2) 400 unit PO DAILY 02/17/19 02/17/19 History [Vitamin D] Irbesartan/Hydrochlorothiazide 1 tab PO DAILY 02/17/19 02/17/19 History [Irbesartan-Hctz 150-12.5 mg Tb] Furosemide [Furosemide 20mg Tab] 40 mg PO DAILYP PRN 02/18/19 02/18/19 History Latanoprost [Xalatan 0.005% Ophth 2 drops OP HS 02/18/19 02/18/19 History Soln 2.5mL] Potassium Chloride [Klor-con 20 20 meq PO DAILY 02/18/19 02/18/19 History mEq tablet] Allergies Allergy/AdvReac Type Severity Reaction Status Date / Time No Known Drug Allergies Allergy Unknown Verified 11/17/18 09:00 [NO KNOWN DRUG ALLERGIES] Exam Vital signs and Labs for Last 24 Hours: Temp Pulse Resp BP Pulse Ox 98.1 F 82 18 122/57 L 91 L 02/19/19 08:00 02/19/19 08:00 02/19/19 08:00 02/19/19 08:00 02/19/19 08:00 Laboratory Results - last 24 hr 02/19/19 08:35: WBC 7.1 D, RBC 3.10 L, Hgb 7.8 L*, Hct 25.6 L, MCV 82.5, MCH 25.2 L, MCHC 30.6 L, RDW 15.5, Plt Count 251, MPV 8.6, Neut % (Auto) 69.8, Lymph % (Auto) 17.9, [place] % (Auto) 8.3, Eos % (Auto) 3.7, Baso % (Auto) 0.3, Neut # (Auto) 5.0, Lymph # (Auto) 1.3, [place] # (Auto) 0.6, Eos # (Auto) 0.3, Baso # (Auto) 0.0 02/19/19 08:35: Sodium 138, Potassium 3.6, Chloride 102, Carbon Dioxide 29, Anion Gap 10.6, BUN 20 H, Creatinine 1.20 H D, Estimated Creat Clear 34, Estimated GFR 43 L, Est GFR ( Amer) 52 L, Glucose 119 H, Calcium 8.5 I & O for Last 24 hours: Intake & Output 02/16/19 02/17/19 02/18/19 02/19/19 11:59 11:59 11:59 11:59 Intake Total 620 / 620 780 / 780 Output Total 300 / 300 1050 / 1050 Balance 320 / 320 -270 / -270 Weight 127 lb 128 lb 1 oz Microbiology Reports for the Last 24 Hours: Microbiology 02/17/19 18:38 Back Gram Stain - Final 02/17/19 18:38 Back Wound Culture - Preliminary Gram Positive Cocci - *Routine HEENT Exam Head: Present: normocephalic Eye: Present: EOMI, PERRL ENT: Present: mucous membranes moist - *Routine Neck Exam Present: supple. Absent: lymphadenopathy - *Routine Respiratory Exam Present: CTA bilaterally - *Routine Cardiovascular Exam Present: RRR - *Routine Abdominal Exam Present: soft, normoactive bowel sounds. Absent: tenderness - *Routine Extremities Exam Absent: cyanosis, clubbing, edema - *Routine Skin Exam Comments: On the right lower back area there is a dressing in place. Removal of this reveals palpable pain pump. There is blanching erythema of the surrounding skin. She has some edema within the skin. Centrally, somewhat to the left lateral, portion of the incision there is full-thickness necrosis. There is minimal purulent drainage. She does have multiple nylon sutures in place. - *Routine Neurological Exam Present: alert, oriented X3 - Detailed Eye Exam Eyelids: Left normal inspection Results - Labs 02/19/19 08:35 02/19/19 08:35 Laboratory Results - last 24 hr 02/19/19 08:35: WBC 7.1 D, RBC 3.10 L, Hgb 7.8 L*, Hct 25.6 L, MCV 82.5, MCH 25.2 L, MCHC 30.6 L, RDW 15.5, Plt Count 251, MPV 8.6, Neut % (Auto) 69.8, Lymph % (Auto) 17.9, [place] % (Auto) 8.3, Eos % (Auto) 3.7, Baso % (Auto) 0.3, Neut # (Auto) 5.0, Lymph # (Auto) 1.3, [place] # (Auto) 0.6, Eos # (Auto) 0.3, Baso # (Auto) 0.0 02/19/19 08:35: Sodium 138, Potassium 3.6, Chloride 102, Carbon Dioxide 29, Anion Gap 10.6, BUN 20 H, Creatinine 1.20 H D, Estimated Creat Clear 34, Estimated GFR 43 L, Est GFR ( Amer) 52 L, Glucose 119 H, Calcium 8.5 Assessment and Plan (1) HTN (hypertension) Current visit: Yes Status: Acute Category: Medical Code(s): I10 - [place] l (primary) hypertension (2) Hyperlipidemia Current visit: Yes Status: Acute Category: Medical Code(s): E78.5 - Hyperlipidemia, unspecified (3) S/P insertion of intrathecal pump Current visit: Yes Status: Acute Category: Surgical Code(s): Z98.890 - Other specified postprocedural states (4) Neuropathy Current visit: Yes Status: Acute Category: Medical Code(s): G62.9 - Polyneuropathy, unspecified (5) Anemia Current visit: Yes Status: Acute Category: Medical Code(s): D64.9 - Anemia, unspecified (6) Chronic pain syndrome Current visit: Yes Status: Acute Category: Medical Code(s): G89.4 - Chronic pain syndrome (7) Infected surgical wound Current visit: Yes Status: Acute Category: Medical Code(s): T81.49XA - Infection following a procedure, other surgical site, initial encounter - Assessment and plan all Dx Assessment and Plan for all problems:: Patient does have evidence of wound infection and tissue necrosis at the site of the pain pump. I had discussed the case with pain management. I concur that best plan of action would be removal of the pain pump and debridement of necrotic tissue with initiation of dressing changes. Patient did eat breakfast this morning. I will discussed the case with anesthesia and make arrangements for removal of pain pump and catheter with initiation of dressing changes to be done as soon as feasible.
--- NOTE | 2019-02-19 13:55 | Progress Note ---
[facility] Anesthesia Checklist - Patient Identification Patient Identification: Arm Band, Verbal (Name & ) - Structural Data Admitted From: Home Planned Operative Procedure/s: pain pump removal Consent for Planned Operative Procedure(s) Verified: Yes Verified Documents: History and Physical - NPO Status Verified Time NPO: 00:00 - Additional verifications Patient : No Anesthesia Reactions: No Hx Blood Transfusions: No Blood Transfusion Reaction: No Cephalosporin Allergy: No Previous Colonoscopy: No - Cardiovascular Assessment Heart Sounds: S1 & S2 Pulse Strength: Baseline Pulse Rhythm: Regular Peripheral Edema: No - Airway Assessment C-Spine Mobility Assessed: Yes TMJ Mobility Assessed: Yes Dentition: Partials - Neurological Assessment Level of Consciousness: Awake, Alert, Appropriate Hx Seizures: No Numbness or tingling in extremities: No - Anesthesia Plan Anesthesia Risk discussed: Yes Anesthesia Plan: Verified ASA Class: III Anesthesia Type: General [facility] History I have reviewed the patient's past medical history: Yes Medical History: Reports:: Chronic Obstructive Pulmonary Disease (COPD), Hyperlipidemia, Hypertension, Peripheral Vascular Disease Denies:: Cancer, Diabetes Mellitus Type 1, Diabetes Mellitus Type 2, MRSA, Seizures *Have you ever received a pneumonia vaccine?: Yes *Have you received a flu vaccine this season?: Yes Other Medical History: Reports: Anemia, Glaucoma, Other (Sleep apnea, chronic low back pain, neuropathy, retinal vein occlusion). Denies: Blood Transfusion Reaction Laterality Cases: Right: Carpal Tunnel Release, Bilateral: Cataract Other Surgeries: Yes: Cancer Surgery, Other (L1-L4 laminectomy, Spinal nerve stimulator, Intrathecal pain pump) Amputation: No Fractures: No - *Social History Educational Level: Attended College Smoking Status: Current every day smoker Tobacco Type: cigarettes # Packs/Day (cigarettes): 1 Alcohol Intake: never *Occupational Status:: retired Housing: house Household Members: family *Travel in the last 8 weeks: None - Psychiatric History Expresses thoughts of harming self/others: None Suicide Plan Description: No Plan Family Hx:: Cancer, Hypertension
--- NOTE | 2019-02-19 16:03 | Operative Note ---
Date of procedure: 02/19/19 Pre-op Diagnosis:: Infected intrathecal pain pump Post-op Diagnosis:: Same Procedure performed:: Removal of infected hardware (intrathecal pain pump) including catheters Surgeon:: Mj Goddard MD SCHEDULING MANAGER:: Jesse Yadav Anesthesia: ELIDAA Estimated blood loss (mL): 10 Clinical Note:: Patient is an 83-year-old white female who had an intrathecal pain pump placed at the end of November of this year for chronic low back pain. She is recently had some wound healing problems and had presented to the emergency department this weekend where she was seen and evaluated and found to have evidence of wound infection. She was admitted for inpatient management and started on intravenous antibiotics. Pain service was consulted. General surgical consultation was obtained for removal of hardware. Discussion was held with the pain service and it was felt that the hardware required removal as she had overlying tissue necrosis with exposed hardware. Plan was made for removal of hardware and catheters under anesthesia. Operative findings:: Patient had fibrinopurulent exudate surrounding the pain pump with overlying full-thickness skin necrosis with the pump exposed. There is purulent drainage. Operative note:: Consent was obtained and patient was taken to the operating room. She was given additional preoperative intravenous antibiotic and had already been on Zosyn and vancomycin. General anesthesia was induced. She was positioned in prone position. The nylon sutures were removed carefully with scalpel. Much of the incision showed evidence of dehiscence with some necrosis of the overlying tissues and exposed hardware. Incision which had healed was extended with electrocautery to allow for removal of the pain pump. Pain pump was easily removed from the wound. Cultures were obtained. The intrathecal catheters were dissected free from the deep tissues. Counter incision was made at the previous incision where the catheters were inserted. Dissection was carried down to the anchoring devices. These were well encapsulated with fibrous tissue. With careful dissection ultimately the anchor devices were dissected free from the deep tissues incising the previously placed Prolene sutures. This allowed for removal of the pain pump with catheter in its entirety and the catheter was easily withdrawn from the intrathecal space. A deep 2-0 Vicryl suture was placed at the catheter insertion site. The counter incision at the catheter insertion site was closed with interrupted 3-0 vertical mattress sutures. The pain pump site was then thoroughly irrigated with a couple of liters of pulsatile saline irrigation using the Pulsavac device. Please note that sharp dissection was performed prior to this with debridement of some of the necrotic tissues. The wound was then packed with a moistened saline Kerlix gauze and covered with clean dry sterile dressing. Size of the wound measured 12 cm x 2- 1/2 cm with approximately 3-1/2 cm undermining inferiorly and superiorly. Clean dry sterile dressing was applied. Condition: stable Disposition: PACU Complications:: None immediately apparent
--- NOTE | 2019-02-19 16:15 | Progress Note ---
[facility] Anesthesia Record Part I Intake, IV Amount: 1,200 Estimated blood loss (mL): 0 Urine output (mL): 0 Blood Pressure: 118/71 SaO2: 98 Pulse Rate: 82 Respiratory Rate: 12 Temperature: 97 F Patient is:: Awake, Stable Stable to PACU at:: 16:05
--- NOTE | 2019-02-19 16:16 | Progress Note ---
[facility] Anesthesia Record Part II Discharge Time: 16:35 Destination: floor PACU nurse assessment reviewed?: Yes Patient Condition:: Good Anesthesia Complications:: None Swallowing reflex intact?: Yes Cyanosis?: No
[2019-02-20 06:38] LABS: Basophils % 0.1 % (0.1-2.0); Eosinophils % 0.1 % (0.1-12.0); Hematocrit 26.9 % (37.0-47.0); Lymphocytes # 1.3 K/mm3 (0.7-4.5); Lymphocytes % 15.5 % (10-50); Mean Corpuscular HGB Conc 29.8 g/dL (31.8-35.4); Mean Corpuscular Hemoglobin 24.6 pg (27.0-31.2); Mean Corpuscular Volume 82.5 fl (81-99); Mean Platelet Volume 7.9 fl (7.4-10.4); Monocytes # 0.5 K/mm3 (0.1-1.0); Neutrophils # 6.3 K/mm3 (1.8-7.8); Neutrophils % 78.3 % (37.0-80.0); Platelet Count 287 K/mm3 (142-424); Red Blood Count 3.25 M/mm3 (4.20-5.40); Red Cell Distribution Width 15.5 % (11.5-17.5); White Blood Count 8.1 K/mm3 (4.8-10.8)
[2019-02-20 06:44] LABS: Anion Gap 12.7 mEq/L (5-15); Calcium 8.8 mg/dL (8.5-10.1); Potassium 3.7 mmoL/L (3.5-5.1)
--- NOTE | 2019-02-20 06:56 | Progress Note ---
Subjective Narrative: No complaints. No spinal headache. Exam Vital signs and Labs for Last 24 Hours: Temp Pulse Resp BP Pulse Ox 98.2 F 89 16 155/74 H 98 02/20/19 04:00 02/20/19 04:00 02/20/19 04:00 02/20/19 04:00 02/20/19 04:00 Laboratory Results - last 24 hr 02/19/19 08:35: WBC 7.1 D, RBC 3.10 L, Hgb 7.8 L*, Hct 25.6 L, MCV 82.5, MCH 25.2 L, MCHC 30.6 L, RDW 15.5, Plt Count 251, MPV 8.6, Neut % (Auto) 69.8, Lymph % (Auto) 17.9, [place] % (Auto) 8.3, Eos % (Auto) 3.7, Baso % (Auto) 0.3, Neut # (Auto) 5.0, Lymph # (Auto) 1.3, [place] # (Auto) 0.6, Eos # (Auto) 0.3, Baso # (Auto) 0.0 02/19/19 08:35: Sodium 138, Potassium 3.6, Chloride 102, Carbon Dioxide 29, Anion Gap 10.6, BUN 20 H, Creatinine 1.20 H D, Estimated Creat Clear 34, Estimated GFR 43 L, Est GFR ( Amer) 52 L, Glucose 119 H, Calcium 8.5 02/19/19 11:50: Stool Occult Blood Negative 02/19/19 20:38: Vancomycin Trough 11.1 02/20/19 05:44: WBC 8.1, RBC 3.25 L, Hgb 8.0 L, Hct 26.9 L, MCV 82.5, MCH 24.6 L , MCHC 29.8 L, RDW 15.5, Plt Count 287, MPV 7.9, Neut % (Auto) 78.3, Lymph % (Auto) 15.5, [place] % (Auto) 6.0, Eos % (Auto) 0.1, Baso % (Auto) 0.1, Neut # (Auto) 6.3, Lymph # (Auto) 1.3, [place] # (Auto) 0.5, Eos # (Auto) 0.0, Baso # (Auto) 0.0 02/20/19 05:44: Sodium 142, Potassium 3.7, Chloride 105, Carbon Dioxide 28, Anion Gap 12.7, BUN 23 H, Creatinine 1.12 H, Estimated Creat Clear 36, Estimated GFR 47 L, Est GFR ( Amer) 56 L, Glucose 99, Calcium 8.8 I & O for Last 24 hours: Intake & Output 02/17/19 02/18/19 02/19/19 02/20/19 11:59 11:59 11:59 11:59 Intake Total 620 / 620 780 / 780 1350 / 1350 Output Total 300 / 300 1050 / 1050 Balance 320 / 320 -270 / -270 1350 / 1350 Weight 127 lb 128 lb 1 oz 128 lb 0.994 oz Microbiology Reports for the Last 24 Hours: Microbiology 02/17/19 18:38 Back Gram Stain - Final 02/17/19 18:38 Back Wound Culture - Final Staphylococcus aureus 02/19/19 15:00 Back Gram Stain - Final 02/17/19 19:15 Blood Blood Culture - Preliminary NO GROWTH AFTER 48 HOURS 02/17/19 19:15 Blood Blood Culture - Preliminary NO GROWTH AFTER 48 HOURS - *Routine Skin Exam Comments: Wound dressed. Progress Note: A&P (1) HTN (hypertension) Status: Acute Current Visit: Yes (2) Hyperlipidemia Status: Acute Current Visit: Yes (3) S/P insertion of intrathecal pump Status: Acute Current Visit: Yes (4) Neuropathy Status: Acute Current Visit: Yes (5) Anemia Status: Acute Current Visit: Yes (6) Chronic pain syndrome Status: Acute Current Visit: Yes (7) Infected surgical wound Status: Acute Current Visit: Yes Assessment and Plan for All Diagnoses:: Initiate dressing changes.
--- NOTE | 2019-02-20 08:32 | Progress Note ---
<Whitney Villasenor - Last Filed: 02/20/19 08:36> Internal Medicine - PN: Subj Interval history: Patient is being fed breakfast by her daughter. States she is not supposed to lift her head up although she is sitting almost upright on her own. She states she needs to go to the bathroom. Assisted and she did well without difficulty. She denies chest pain and shortness of breath. Her legs are hurting somewhat. She is voiding. Bowels have not moved. Exam Vital signs and Labs for Last 24 Hours: Temp Pulse Resp BP Pulse Ox 98.2 F 89 16 155/74 H 98 02/20/19 04:00 02/20/19 04:00 02/20/19 04:00 02/20/19 04:00 02/20/19 04:00 Laboratory Results - last 24 hr 02/19/19 08:35: WBC 7.1 D, RBC 3.10 L, Hgb 7.8 L*, Hct 25.6 L, MCV 82.5, MCH 25 .2 L, MCHC 30.6 L, RDW 15.5, Plt Count 251, MPV 8.6, Neut % (Auto) 69.8, Lymph % (Auto) 17.9, [place] % (Auto) 8.3, Eos % (Auto) 3.7, Baso % (Auto) 0.3, Neut # (Auto) 5.0, Lymph # (Auto) 1.3, [place] # (Auto) 0.6, Eos # (Auto) 0.3, Baso # (Auto) 0.0 02/19/19 08:35: Sodium 138, Potassium 3.6, Chloride 102, Carbon Dioxide 29, Anion Gap 10.6, BUN 20 H, Creatinine 1.20 H D, Estimated Creat Clear 34, Estimated GFR 43 L, Est GFR ( Amer) 52 L, Glucose 119 H, Calcium 8.5 02/19/19 11:50: Stool Occult Blood Negative 02/19/19 20:38: Vancomycin Trough 11.1 02/20/19 05:44: WBC 8.1, RBC 3.25 L, Hgb 8.0 L, Hct 26.9 L, MCV 82.5, MCH 24.6 L , MCHC 29.8 L, RDW 15.5, Plt Count 287, MPV 7.9, Neut % (Auto) 78.3, Lymph % (Auto) 15.5, [place] % (Auto) 6.0, Eos % (Auto) 0.1, Baso % (Auto) 0.1, Neut # (Auto) 6.3, Lymph # (Auto) 1.3, [place] # (Auto) 0.5, Eos # (Auto) 0.0, Baso # (Auto) 0.0 02/20/19 05:44: Sodium 142, Potassium 3.7, Chloride 105, Carbon Dioxide 28, Anion Gap 12.7, BUN 23 H, Creatinine 1.12 H, Estimated Creat Clear 36, Estimated GFR 47 L, Est GFR ( Amer) 56 L, Glucose 99, Calcium 8.8 I & O for Last 24 hours: Intake & Output 02/17/19 02/18/19 02/19/19 02/20/19 11:59 11:59 11:59 11:59 Intake Total 620 / 620 780 / 780 1470 / 1470 Output Total 300 / 300 1050 / 1050 Balance 320 / 320 -270 / -270 1470 / 1470 Weight 127 lb 128 lb 1 oz 128 lb 0.994 oz Microbiology Reports for the Last 24 Hours: Microbiology 02/19/19 15:00 Back Gram Stain - Final 02/19/19 15:00 Back Wound Culture - Preliminary 02/17/19 18:38 Back Gram Stain - Final 02/17/19 18:38 Back Wound Culture - Final Staphylococcus aureus 02/17/19 19:15 Blood Blood Culture - Preliminary NO GROWTH AFTER 48 HOURS 02/17/19 19:15 Blood Blood Culture - Preliminary NO GROWTH AFTER 48 HOURS - Constitutional no acute distress Comments: Appears comfortable - *Routine Respiratory Exam Comments: Rhonchi noted on the left. - *Routine Cardiovascular Exam Present: RRR - *Routine Abdominal Exam Present: soft, normoactive bowel sounds. Absent: tenderness - *Routine Extremities Exam Absent: edema, calf tenderness - *Routine Skin Exam Comments: Dressing appears dry and intact on right lower back - *Routine Neurological Exam Present: alert, oriented X3 Assessment and Plan (1) HTN (hypertension) Current visit: Yes Status: Acute Category: Medical Code(s): I10 - Essential (primary) hypertension (2) Hyperlipidemia Current visit: Yes Status: Acute Category: Medical Code(s): E78.5 - Hyperlipidemia, unspecified (3) S/P insertion of intrathecal pump Current visit: Yes Status: Acute Category: Surgical Code(s): Z98.890 - Other specified postprocedural states (4) Neuropathy Current visit: Yes Status: Acute Category: Medical Code(s): G62.9 - Polyneuropathy, unspecified (5) Anemia Current visit: Yes Status: Acute Category: Medical Code(s): D64.9 - Anemia, unspecified (6) Chronic pain syndrome Current visit: Yes Status: Acute Category: Medical Code(s): G89.4 - Chronic pain syndrome (7) Infected surgical wound Current visit: Yes Status: Acute Category: Medical Code(s): T81.49XA - Infection following a procedure, other surgical site, initial encounter (8) Status post hardware removal Current visit: Yes Status: Acute Category: Surgical Code(s): Z98.890 - Other specified postprocedural states - Assessment and plan all Dx Assessment and Plan for all problems:: Patient has been seen by Dr. Goddard. Please see note. We will start dressing changes today. Continue with antibiotics. Initial wound culture reveals staph aureus. <Amish Smith - Last Filed: 02/20/19 08:47> Exam Vital signs and Labs for Last 24 Hours: Temp Pulse Resp BP Pulse Ox 98.4 F 82 16 145/68 H 97 02/20/19 08:00 02/20/19 08:00 02/20/19 08:00 02/20/19 08:00 02/20/19 08:00 Laboratory Results - last 24 hr 02/19/19 08:35: WBC 7.1 D, RBC 3.10 L, Hgb 7.8 L*, Hct 25.6 L, MCV 82.5, MCH 25.2 L, MCHC 30.6 L, RDW 15.5, Plt Count 251, MPV 8.6, Neut % (Auto) 69.8, Lymph % (Auto) 17.9, [place] % (Auto) 8.3, Eos % (Auto) 3.7, Baso % (Auto) 0.3, Neut # (Auto) 5.0, Lymph # (Auto) 1.3, [place] # (Auto) 0.6, Eos # (Auto) 0.3, Baso # (Auto) 0.0 02/19/19 08:35: Sodium 138, Potassium 3.6, Chloride 102, Carbon Dioxide 29, Anion Gap 10.6, BUN 20 H, Creatinine 1.20 H D, Estimated Creat Clear 34, Estimated GFR 43 L, Est GFR ( Amer) 52 L, Glucose 119 H, Calcium 8.5 02/19/19 11:50: Stool Occult Blood Negative 02/19/19 20:38: Vancomycin Trough 11.1 02/20/19 05:44: WBC 8.1, RBC 3.25 L, Hgb 8.0 L, Hct 26.9 L, MCV 82.5, MCH 24.6 L , MCHC 29.8 L, RDW 15.5, Plt Count 287, MPV 7.9, Neut % (Auto) 78.3, Lymph % (Auto) 15.5, [place] % (Auto) 6.0, Eos % (Auto) 0.1, Baso % (Auto) 0.1, Neut # (Auto) 6.3, Lymph # (Auto) 1.3, [place] # (Auto) 0.5, Eos # (Auto) 0.0, Baso # (Auto) 0.0 02/20/19 05:44: Sodium 142, Potassium 3.7, Chloride 105, Carbon Dioxide 28, Anion Gap 12.7, BUN 23 H, Creatinine 1.12 H, Estimated Creat Clear 36, Estimated GFR 47 L, Est GFR ( Amer) 56 L, Glucose 99, Calcium 8.8 I & O for Last 24 hours: Intake & Output 02/17/19 02/18/19 02/19/19 02/20/19 23:59 23:59 23:59 23:59 Intake Total 1100 / 1100 1650 / 1650 360 / 360 Output Total 100 / 100 350 / 350 900 / 900 Balance -100 / -100 750 / 750 750 / 750 360 / 360 Weight 128 lb 127 lb 128 lb 0.994 oz Microbiology Reports for the Last 24 Hours: Microbiology 02/19/19 15:00 Back Gram Stain - Final 02/19/19 15:00 Back Wound Culture - Preliminary 02/17/19 18:38 Back Gram Stain - Final 02/17/19 18:38 Back Wound Culture - Final Staphylococcus aureus 02/17/19 19:15 Blood Blood Culture - Preliminary NO GROWTH AFTER 48 HOURS 02/17/19 19:15 Blood Blood Culture - Preliminary NO GROWTH AFTER 48 HOURS Assessment and Plan (1) HTN (hypertension) Current visit: Yes Status: Acute Category: Medical Code(s): I10 - Essential (primary) hypertension (2) Hyperlipidemia Current visit: Yes Status: Acute Category: Medical Code(s): E78.5 - Hyperlipidemia, unspecified (3) S/P insertion of intrathecal pump Current visit: Yes Status: Acute Category: Surgical Code(s): Z98.890 - Other specified postprocedural states (4) Neuropathy Current visit: Yes Status: Acute Category: Medical Code(s): G62.9 - Polyneuropathy, unspecified (5) Anemia Current visit: Yes Status: Acute Category: Medical Code(s): D64.9 - Anemia , unspecified (6) Chronic pain syndrome Current visit: Yes Status: Acute Category: Medical Code(s): G89.4 - Chronic pain syndrome (7) Infected surgical wound Current visit: Yes Status: Acute Category: Medical Code(s): T81.49XA - Infection following a procedure, other surgical site, initial encounter (8) Status post hardware removal Current visit: Yes Status: Acute Category: Surgical Code(s): Z98.890 - Other specified postprocedural states - Assessment and plan all Dx Assessment and Plan for all problems:: Saw patient, agree with above note.
--- NOTE | 2019-02-20 08:53 | Pharmacy Consult Notes ---
- Pharmacy Consult Date: 02/20/19 Time: 08:51 Referring provider: DR. STOCKTON Reason for Consult:: VANCOMYCIN TROUGH LEVEL Allergies and ADEs:: Allergies Allergy/AdvReac Type Severity Reaction Status Date / Time No Known Drug Allergies Allergy Unknown Verified 11/17/18 09:00 [NO KNOWN DRUG ALLERGIES] Home Medications:: Home Medications Medication Instructions Recorded Confirmed Type Aspirin [Aspir 81] 81 mg PO DAILY 12/05/18 02/17/19 History Calcium Carbonate [Calcium] 600 mg PO BID 12/05/18 02/17/19 History Carvedilol [Coreg 3.125mg 3.125 mg PO BID 12/05/18 02/17/19 History Tablet] Duloxetine HCl 60 mg PO DAILY 12/05/18 02/17/19 History Gabapentin 600 mg PO TID 12/05/18 02/17/19 History Naproxen 500 mg PO BID 12/05/18 02/17/19 History Simvastatin 20 mg PO HS 12/05/18 02/17/19 History Ergocalciferol (Vitamin D2) 400 unit PO DAILY 02/17/19 02/17/19 History [Vitamin D] Irbesartan/Hydrochlorothiazide 1 tab PO DAILY 02/17/19 02/17/19 History [Irbesartan-Hctz 150-12.5 mg Tb] Furosemide [Furosemide 20mg Tab] 40 mg PO DAILYP PRN 02/18/19 02/18/19 History Latanoprost [Xalatan 0.005% Ophth 2 drops OP HS 02/18/19 02/18/19 History Soln 2.5mL] Potassium Chloride [Klor-con 20 20 meq PO DAILY 02/18/19 02/18/19 History mEq tablet] Height: 1.73 m Weight: 58.088 kg Laboratory Results:: Laboratory Results - last 24 hr 02/19/19 08:35: WBC 7.1 D, RBC 3.10 L, Hgb 7.8 L*, Hct 25.6 L, MCV 82.5, MCH 25.2 L, MCHC 30.6 L, RDW 15.5, Plt Count 251, MPV 8.6, Neut % (Auto) 69.8, Lymph % (Auto) 17.9, [place] % (Auto) 8.3, Eos % (Auto) 3.7, Baso % (Auto) 0.3, Neut # (Auto) 5.0, Lymph # (Auto) 1.3, [place] # (Auto) 0.6, Eos # (Auto) 0.3, Baso # (Auto) 0.0 02/19/19 08:35: Sodium 138, Potassium 3.6, Chloride 102, Carbon Dioxide 29, Anion Gap 10.6, BUN 20 H, Creatinine 1.20 H D, Estimated Creat Clear 34, Estimated GFR 43 L, Est GFR ( Amer) 52 L, Glucose 119 H, Calcium 8.5 02/19/19 11:50: Stool Occult Blood Negative 02/19/19 20:38: Vancomycin Trough 11.1 02/20/19 05:44: WBC 8.1, RBC 3.25 L, Hgb 8.0 L, Hct 26.9 L, MCV 82.5, MCH 24.6 L , MCHC 29.8 L, RDW 15.5, Plt Count 287, MPV 7.9, Neut % (Auto) 78.3, Lymph % (Auto) 15.5, [place] % (Auto) 6.0, Eos % (Auto) 0.1, Baso % (Auto) 0.1, Neut # (Auto) 6.3, Lymph # (Auto) 1.3, [place] # (Auto) 0.5, Eos # (Auto) 0.0, Baso # (Auto) 0.0 02/20/19 05:44: Sodium 142, Potassium 3.7, Chloride 105, Carbon Dioxide 28, Ani on Gap 12.7, BUN 23 H, Creatinine 1.12 H, Estimated Creat Clear 36, Estimated GFR 47 L, Est GFR ( Amer) 56 L, Glucose 99, Calcium 8.8 Medical History: Reports:: Chronic Obstructive Pulmonary Disease (COPD), Hyperlipidemia, Hypertension, Peripheral Vascular Disease Denies:: Cancer, Diabetes Mellitus Type 1, Diabetes Mellitus Type 2, MRSA, Seizures Assessment and Plan (1) HTN (hypertension) Current visit: Yes Status: Acute Category: Medical Code(s): I10 - Essential (primary) hypertension (2) Hyperlipidemia Current visit: Yes Status: Acute Category: Medical Code(s): E78.5 - Hyperlipidemia, unspecified (3) S/P insertion of intrathecal pump Current visit: Yes Status: Acute Category: Surgical Code(s): Z98.890 - Other specified postprocedural states (4) Neuropathy Current visit: Yes Status: Acute Category: Medical Code(s): G62.9 - Polyneuropathy, unspecified (5) Anemia Current visit: Yes Status: Acute Category: Medical Code(s): D64.9 - Anemia, unspecified (6) Chronic pain syndrome Current visit: Yes Status: Acute Category: Medical Code(s): G89.4 - Chronic pain syndrome (7) Infected surgical wound Current visit: Yes Status: Acute Category: Medical Code(s): T81.49XA - Infection following a procedure, other surgical site, initial encounter (8) Status post hardware removal Current visit: Yes Status: Acute Category: Surgical Code(s): Z98.890 - Other specified postprocedural states - Assessment and plan all Dx Assessment and Plan for all problems:: BASED ON PATIENT FACTORS AND VANCOMYCIN TROUGH LEVEL, RECOMMEND CONTINUING VANCOMYCIN 1 GM IV Q24H. PHARMACY WILL CONTINUE TO MONITOR DAILY AND ADJUST APPROPRIATE.
[2019-02-20 16:05] LABS: ABG Base Excess 3.5 mmol/L (-2.4-2.3); ABG HCO3 27.7 mmhg (22.0-26.0); ABG Oxygen Saturation 95 % (90-100); ABG PCO2 41.9 mmhg (35.0-45.0); ABG PH 7.44 mmol/L (7.35-7.45); ABG PO2 76.3 mmhg (80-100)
[2019-02-20 16:10] LABS: Allen's Test Acceptable; Oxygen 2L %
[2019-02-20 18:14] LABS: Hematocrit 28.3 % (37.0-47.0); Hemoglobin 8.4 g/dL (12.2-16.2)
[2019-02-20 18:17] LABS: Anion Gap 12.7 mEq/L (5-15); Calcium 8.9 mg/dL (8.5-10.1); Potassium 3.7 mmoL/L (3.5-5.1)
[2019-02-21 06:54] LABS: Basophils % 0.4 % (0.1-2.0); Eosinophils # 0.1 K/mm3 (0.0-0.4); Eosinophils % 0.8 % (0.1-12.0); Hematocrit 25.7 % (37.0-47.0); Lymphocytes # 2.1 K/mm3 (0.7-4.5); Lymphocytes % 24.3 % (10-50); Mean Corpuscular HGB Conc 28.8 g/dL (31.8-35.4); Mean Corpuscular Volume 83.4 fl (81-99); Mean Platelet Volume 7.8 fl (7.4-10.4); Monocytes # 0.8 K/mm3 (0.1-1.0); Monocytes % 8.7 % (1.7-9.3); Neutrophils # 5.7 K/mm3 (1.8-7.8); Neutrophils % 65.9 % (37.0-80.0); Platelet Count 321 K/mm3 (142-424); Red Blood Count 3.08 M/mm3 (4.20-5.40); Red Cell Distribution Width 15.6 % (11.5-17.5); White Blood Count 8.7 K/mm3 (4.8-10.8)
[2019-02-21 06:56] LABS: Anion Gap 9.4 mEq/L (5-15); Calcium 8.5 mg/dL (8.5-10.1); Potassium 3.4 mmoL/L (3.5-5.1)
[2019-02-21 07:00] LABS: Hemoglobin 7.4 g/dL (12.2-16.2)
--- NOTE | 2019-02-21 07:27 | Progress Note ---
Internal Medicine - PN: Subj *Date: 02/21/19 *Time: 07:27 Exam Vital signs and Labs for Last 24 Hours: Temp Pulse Resp BP Pulse Ox 99.0 F 89 17 141/68 H 96 02/21/19 04:00 02/21/19 04:00 02/21/19 04:00 02/21/19 04:00 02/21/19 04:00 Laboratory Results - last 24 hr 02/20/19 13:36: Specimen Source Right brachial, O2 % 2l, ABG pH 7.44, ABG pCO2 41.9, ABG pO2 76.3 L, ABG HCO3 27.7 H, ABG Total CO2 29.0 H, ABG O2 Saturation 95, ABG Base Excess 3.5 H, Freddy Test Acceptable 02/20/19 17:50: Hgb 8.4 L, Hct 28.3 L 02/20/19 17:50: Sodium 142, Potassium 3.7, Chloride 105, Carbon Dioxide 28, Anion Gap 12.7, BUN 25 H, Creatinine 1.33 H, Estimated Creat Clear 30, Estimated GFR 38 L, Est GFR ( Amer) 46 L, Glucose 150 H D, Calcium 8.9 02/20/19 17:50: B-Natriuretic Peptide 1020 H 02/21/19 05:36: WBC 8.7, RBC 3.08 L, Hgb 7.4 L*, Hct 25.7 L, MCV 83.4, MCH 24.0 L, MCHC 28.8 L, RDW 15.6, Plt Count 321, MPV 7.8, Neut % (Auto) 65.9, Lymph % (Auto) 24.3, [place] % (Auto) 8.7, Eos % (Auto) 0.8, Baso % (Auto) 0.4, Neut # (Auto) 5.7, Lymph # (Auto) 2.1, [place] # (Auto) 0.8, Eos # (Auto) 0.1, Baso # (Auto) 0.0 02/21/19 05:36: Sodium 144, Potassium 3.4 L, Chloride 108 H, Carbon Dioxide 30, Anion Gap 9.4, BUN 20 H, Creatinine 1.09 H, Estimated Creat Clear 37, Estimated GFR 48 L, Est GFR ( Amer) 58 L D, Glucose 113 H D, Calcium 8.5 I & O for Last 24 hours: Intake & Output 02/18/19 02/19/19 02/20/19 02/21/19 23:59 23:59 23:59 23:59 Intake Total 1100 / 1100 1650 / 1650 600 / 600 1944 Output Total 350 / 350 900 / 900 Balance 750 / 750 750 / 750 600 / 600 1944 Weight 57.606 kg 58.088 kg 58.088 kg 58.06 kg Microbiology Reports for the Last 24 Hours: Microbiology 02/19/19 15:00 Back Gram Stain - Final 02/19/19 15:00 Back Wound Culture - Preliminary 02/17/19 18:38 Back Gram Stain - Final 02/17/19 18:38 Back Wound Culture - Final Staphylococcus aureus Assessment and Plan (1) HTN (hypertension) Current visit: Yes Status: Acute Category: Medical Code(s): I10 - Essential (primary) hypertension (2) Hyperlipidemia Current visit: Yes Status: Acute Category: Medical Code(s): E78.5 - Hyperlipidemia, unspecified (3) S/P insertion of intrathecal pump Current visit: Yes Status: Acute Category: Surgical Code(s): Z98.890 - Other specified postprocedural states (4) Neuropathy Current visit: Yes Status: Acute Category: Medical Code(s): G62.9 - Polyneuropathy, unspecified (5) Anemia Current visit: Yes Status: Acute Category: Medical Code(s): D64.9 - Anemia, unspecified (6) Chronic pain syndrome Current visit: Yes Status: Acute Category: Medical Code(s): G89.4 - Chronic pain syndrome (7) Infected surgical wound Current visit: Yes Status: Acute Category: Medical Code(s): T81.49XA - Infection following a procedure, other surgical site, initial encounter (8) Status post hardware removal Current visit: Yes Status: Acute Category: Surgical Code(s): Z98.890 - Other specified postprocedural states The patient's infection will respond to the chosen ABx?: Yes Is the patient receiving the right drug, dose, and route?: Yes Could a more targeted ABx be ordered?: No
--- NOTE | 2019-02-21 08:22 | Progress Note ---
<Whitney Villasenor - Last Filed: 02/21/19 08:14> Internal Medicine - PN: Subj *Date: 02/21/19 *Time: 08:14 Interval history: Patient does not know how she feels that she had this morning. She states the dressing changes there rough but tolerable. She is trying to eat her breakfast. She denies chest pain and shortness of breath. She does have a congested cough. Exam Vital signs and Labs for Last 24 Hours: Temp Pulse Resp BP Pulse Ox 99.0 F 89 17 141/68 H 96 02/21/19 04:00 02/21/19 04:00 02/21/19 04:00 02/21/19 04:00 02/21/19 04:00 Laboratory Results - last 24 hr 02/20/19 13:36: Specimen Source Right brachial, O2 % 2l, ABG pH 7.44, ABG pCO2 41.9, ABG pO2 76.3 L, ABG HCO3 27.7 H, ABG Total CO2 29.0 H, ABG O2 Saturation 95, ABG Base Excess 3.5 H, Freddy Test Acceptable 02/20/19 17:50: Hgb 8.4 L, Hct 28.3 L 02/20/19 17:50: Sodium 142, Potassium 3.7, Chloride 105, Carbon Dioxide 28, Anion Gap 12.7, BUN 25 H, Creatinine 1.33 H, Estimated Creat Clear 30, Estimated GFR 38 L, Est GFR ( Amer) 46 L, Glucose 150 H D, Calcium 8.9 02/20/19 17:50: B-Natriuretic Peptide 1020 H 02/21/19 05:36: WBC 8.7, RBC 3.08 L, Hgb 7.4 L*, Hct 25.7 L, MCV 83.4, MCH 24.0 L, MCHC 28.8 L, RDW 15.6, Plt Count 321, MPV 7.8, Neut % (Auto) 65.9, Lymph % (Auto) 24.3, [place] % (Auto) 8.7, Eos % (Auto) 0.8, Baso % (Auto) 0.4, Neut # (Auto) 5.7, Lymph # (Auto) 2.1, [place] # (Auto) 0.8, Eos # (Auto) 0.1, Baso # (Auto) 0.0 04/17/19 05:36: Sodium 144, Potassium 3.4 L, Chloride 108 H, Carbon Dioxide 30, Anion Gap 9.4, BUN 20 H, Creatinine 1.09 H, Estimated Creat Clear 37, Estimated GFR 48 L, Est GFR ( Amer) 58 L D, Glucose 113 H D, Calcium 8.5 I & O for Last 24 hours: Intake & Output 02/18/19 02/19/19 02/20/19 02/21/19 11:59 11:59 11:59 11:59 Intake Total 620 / 620 780 / 780 1710 / 1710 2185 / 2185 Output Total 300 / 300 1050 / 1050 Balance 320 / 320 -270 / -270 171 / 1710 218 / 2185 Weight 127 lb 128 lb 1 oz 128 lb 0.994 oz 128 lb Microbiology Reports for the Last 24 Hours: Microbiology 02/17/19 18:38 Back - Wound - Final 02/17/19 18:38 Back - Wound - Final 02/17/19 18:38 Back - Wound - Final 02/19/19 15:00 Back Gram Stain - Final 02/19/19 15:00 Back Wound Culture - Preliminary 02/17/19 18:38 Back Gram Stain - Final 02/17/19 18:38 Back Wound Culture - Final Staphylococcus aureus - Constitutional no acute distress, thin Comments: Sitting up in the bed eating breakfast. She does appear comfortable - *Routine Respiratory Exam Comments: Bilateral crackles posteriorly greater on the left - *Routine Cardiovascular Exam Present: RRR - *Routine Abdominal Exam Present: soft, normoactive bowel sounds. Absent: tenderness - *Routine Extremities Exam Absent: edema, calf tenderness - *Routine Neurological Exam Present: alert, oriented X3 Assessment and Plan (1) HTN (hypertension) Current visit: Yes Status: Acute Category: Medical Code(s): I10 - Essential (primary) hypertension (2) Hyperlipidemia Current visit: Yes Status: Acute Category: Medical Code(s): E78.5 - Hyperlipidemia, unspecified (3) S/P insertion of intrathecal pump Current visit: Yes Status: Acute Category: Surgical Code(s): Z98.890 - Other specified postprocedural states (4) Neuropathy Current visit: Yes Status: Acute Category: Medical Code(s): G62.9 - Polyneuropathy, unspecified (5) Anemia Current visit: Yes Status: Acute Category: Medical Code(s): D64.9 - An emia, unspecified (6) Chronic pain syndrome Current visit: Yes Status: Acute Category: Medical Code(s): G89.4 - Chronic pain syndrome (7) Infected surgical wound Current visit: Yes Status: Acute Category: Medical Code(s): T81.49XA - Infection following a procedure, other surgical site, initial encounter (8) Status post hardware removal Current visit: Yes Status: Acute Category: Surgical Code(s): Z98.890 - Other specified postprocedural states (9) COPD (chronic obstructive pulmonary disease) Current visit: Yes Status: Chronic Category: Medical Code(s): J44.9 - Chronic obstructive pulmonary disease, unspecified (10) CHF (congestive heart failure) Current visit: Yes Status: Acute Category: Medical Code(s): I50.9 - Heart failure, unspecified (11) Hypokalemia Current visit: Yes Status: Acute Category: Medical Code(s): E87.6 - Hypokalemia - Assessment and plan all Dx Assessment and Plan for all problems:: Start on scheduled nebs. Decrease IV fluids with potassium. We will give 40 mg of Lasix. Will probably give packed red blood cells today for decrease in hemoglobin if patient agrees. Continue with pain management. With hypokalemia will also start p.o. potassium. <Amish Smith - Last Filed: 02/21/19 08:57> Exam Vital signs and Labs for Last 24 Hours: Temp Pulse Resp BP Pulse Ox 97.9 F 69 24 157/77 H 99 02/21/19 08:00 02/21/19 08:00 02/21/19 08:37 02/21/19 08:00 02/21/19 08:00 Laboratory Results - last 24 hr 02/20/19 13:36: Specimen Source Right brachial, O2 % 2l, ABG pH 7.44, ABG pCO2 41.9, ABG pO2 76.3 L, ABG HCO3 27.7 H, ABG Total CO2 29.0 H, ABG O2 Saturation 95, ABG Base Excess 3.5 H, Freddy Test Acceptable 02/20/19 17:50: Hgb 8.4 L, Hct 28.3 L 02/20/19 17:50: Sodium 142, Potassium 3.7, Chloride 105, Carbon Dioxide 28, Anion Gap 12.7, BUN 25 H, Creatinine 1.33 H, Estimated Creat Clear 30, Estimated GFR 38 L, Est GFR ( Amer) 46 L, Glucose 150 H D, Calcium 8.9 02/20/19 17:50: B-Natriuretic Peptide 1020 H 02/21/19 05:36: WBC 8.7, RBC 3.08 L, Hgb 7.4 L*, Hct 25.7 L, MCV 83.4, MCH 24.0 L, MCHC 28.8 L, RDW 15.6, Plt Count 321, MPV 7.8, Neut % (Auto) 65.9, Lymph % (Auto) 24.3, [place] % (Auto) 8.7, Eos % (Auto) 0.8, Baso % (Auto) 0.4, Neut # (Auto) 5.7, Lymph # (Auto) 2.1, Mower # (Auto) 0.8, Eos # (Auto) 0.1, Baso # (Auto) 0.0 02/21/19 05:36: Sodium 144, Potassium 3.4 L, Chloride 108 H, Carbon Dioxide 30, Anion Gap 9.4, BUN 20 H, Creatinine 1.09 H, Estimated Creat Clear 37, Estimated GFR 48 L, Est GFR ( Amer) 58 L D, Glucose 113 H D, Calcium 8.5 I & O for Last 24 hours: Intake & Output 02/18/19 02/19/19 02/20/19 02/21/19 23:59 23:59 23:59 23:59 Intake Total 1100 / 1100 1650 / 1650 600 / 600 2425 / 2425 Output Total 350 / 350 900 / 900 Balance 750 / 750 750 / 750 600 / 600 2425 / 2425 Weight 127 lb 128 lb 0.994 oz 128 lb 0.994 oz 128 lb Microbiology Reports for the Last 24 Hours: Microbiology 02/17/19 18:38 Back - Wound - Final 02/17/19 18:38 Back - Wound - Final 02/17/19 18:38 Back - Wound - Final 02/19/19 15:00 Back Gram Stain - Final 02/19/19 15:00 Back Wound Culture - Preliminary 02/17/19 18:38 Back Gram Stain - Final 02/17/19 18:38 Back Wound Culture - Final Staphylococcus aureus Assessment and Plan (1) HTN (hypertension) Current visit: Yes Status: Acute Category: Medical Code(s): I10 - Essential (primary) hypertension (2) Hyperlipidemia Current visit: Yes Status: Acute Category: Medical Code(s): E78.5 - Hyperlipidemia, unspecified (3) S/P insertion of intrathecal pump Current visit: Yes Status: Acute Category: Surgical Code(s): Z98.890 - Other specified postprocedural states (4) Neuropathy Current visit: Yes Status: Acute Category: Medical Code(s): G62.9 - Polyneuropathy, unspecified (5) Anemia Current visit: Yes Status: Acute Category: Medical Code(s): D64.9 - Anemia, unspecified (6) Chronic pain syndrome Current visit: Yes Status: Acute Category: Medical Code(s): G89.4 - Chronic pain syndrome (7) Infected surgical wound Current visit: Yes Status: Acute Category: Medical Code(s): T81.49XA - Infection following a procedure, other surgical site, initial encounter (8) Status post hardware removal Current visit: Yes Status: Acute Category: Surgical Code(s): Z98.890 - Other specified postprocedural states (9) COPD (chronic obstructive pulmonary disease) Current visit: Yes Status: Chronic Category: Medical Code(s): J44.9 - Chronic obstructive pulmonary disease, unspecified (10) CHF (congestive heart failure) Current visit: Yes Status: Acute Category: Medical Code(s): I50.9 - Heart failure, unspecified (11) Hypokalemia Current visit: Yes Status: Acute Category: Medical Code(s): E87.6 - Hypokalemia - Assessment and plan all Dx Assessment and Plan for all problems:: Saw patient, agree with above note. Will give one unit of PRBC's today with IV Lasix.
--- NOTE | 2019-02-22 06:53 | Progress Note ---
Subjective Patient reports: feels better Exam Vital signs and Labs for Last 24 Hours: Temp Pulse Resp BP Pulse Ox 98.4 F 84 17 134/74 96 02/22/19 04:00 02/22/19 04:00 02/22/19 04:00 02/22/19 04:00 02/22/19 04:00 Laboratory Results - last 24 hr 02/21/19 05:36: WBC 8.7, RBC 3.08 L, Hgb 7.4 L*, Hct 25.7 L, MCV 83.4, MCH 24.0 L, MCHC 28.8 L, RDW 15.6, Plt Count 321, MPV 7.8, Neut % (Auto) 65.9, Lymph % (Auto) 24.3, [place] % (Auto) 8.7, Eos % (Auto) 0.8, Baso % (Auto) 0.4, Neut # (Auto) 5.7, Lymph # (Auto) 2.1, [place] # (Auto) 0.8, Eos # (Auto) 0.1, Baso # (Auto) 0.0 02/21/19 05:36: Sodium 144, Potassium 3.4 L, Chloride 108 H, Carbon Dioxide 30, Anion Gap 9.4, BUN 20 H, Creatinine 1.09 H, Estimated Creat Clear 37, Estimated GFR 48 L, Est GFR ( Amer) 58 L D, Glucose 113 H D, Calcium 8.5 02/21/19 09:22: Blood Type A Positive, Antibody Screen Negative, Crossmatch (AHG) See Detail 02/21/19 09:25: Blood Type Confirm A Positive I & O for Last 24 hours: Intake & Output 02/19/19 02/20/19 02/21/19 02/22/19 11:59 11:59 11:59 11:59 Intake Total 780 / 780 1710 / 1710 2665 / 2665 994 / 994 Output Total 1050 / 1050 300 / 800 1600 / 1600 Balance -270 / -270 1710 / 1710 2365 / 1865 -606 / -606 Weight 128 lb 1 oz 128 lb 0.994 oz 128 lb 127 lb 9 oz Microbiology Reports for the Last 24 Hours: Microbiology 02/19/19 15:00 Back Gram Stain - Final 02/19/19 15:00 Back Wound Culture - Final Staphylococcus aureus 02/21/19 08:30 Sputum - Expectorated Sputum Gram Stain - Final 02/17/19 18:38 Back - Wound - Final 02/17/19 18:38 Back - Wound - Final 02/17/19 18:38 Back - Wound - Final Narrative: undergoing dressing changes without difficulty - Constitutional no acute distress - *Routine Respiratory Exam Absent: respiratory distress - *Routine Cardiovascular Exam Present: RRR - *Routine Skin Exam Comments: Dressing in place. No spreading cellulitis. Progress Note: A&P (1) HTN (hypertension) Status: Acute Current Visit: Yes (2) Hyperlipidemia Status: Acute Current Visit: Yes (3) S/P insertion of intrathecal pump Status: Acute Current Visit: Yes (4) Neuropathy Status: Acute Current Visit: Yes (5) Anemia Status: Acute Current Visit: Yes (6) Chronic pain syndrome Status: Acute Current Visit: Yes (7) Infected surgical wound Status: Acute Assessment and plan: Overall, doing well status post removal of hardware and incision and drainage of cavity Continue dressing changes Potential change to VAC dressing in near future Current Visit: Yes (8) Status post hardware removal Status: Acute Current Visit: Yes (9) COPD (chronic obstructive pulmonary disease) Status: Chronic Current Visit: Yes (10) CHF (congestive heart failure) Status: Acute Current Visit: Yes (11) Hypokalemia Status: Acute Current Visit: Yes
[2019-02-22 06:55] LABS: Hemoglobin 9.6 g/dL (12.2-16.2)
[2019-02-22 07:08] LABS: Anion Gap 9.4 mEq/L (5-15); Calcium 8.6 mg/dL (8.5-10.1); Potassium 3.4 mmoL/L (3.5-5.1)
--- NOTE | 2019-02-22 08:30 | Progress Note ---
<Sharla Zepeda - Last Filed: 02/22/19 08:26> Internal Medicine - PN: Subj *Date: 02/22/19 *Time: 08:26 Interval history: Patient states she is actually feeling a little bit better this morning. She still has pain at the surgical site. She has pain with dressing changes. She states she was able to rest a little bit better last night and did eat breakfast this morning. Exam Vital signs and Labs for Last 24 Hours: Temp Pulse Resp BP Pulse Ox 98.4 F 82 17 134/74 92 L 02/22/19 04:00 02/22/19 06:54 02/22/19 04:00 02/22/19 04:00 02/22/19 06:54 Laboratory Results - last 24 hr 02/21/19 09:22: Blood Type A Positive, Antibody Screen Negative, Crossmatch (AHG) See Detail 02/21/19 09:25: Blood Type Confirm A Positive 02/22/19 05:45: Hgb 9.6 L, Hct 31.0 L 02/22/19 05:45: Sodium 143, Potassium 3.4 L, Chloride 106, Carbon Dioxide 31, Anion Gap 9.4, BUN 16, Creatinine 1.16 H, Estimated Creat Clear 35, Estimated GFR 45 L, Est GFR ( Amer) 54 L, Glucose 86, Calcium 8.6 I & O for Last 24 hours: Intake & Output 02/19/19 02/20/19 02/21/19 02/22/19 11:59 11:59 11:59 11:59 Intake Total 780 / 780 1710 / 1710 2665 / 2665 1444 / 1444 Output Total 1050 / 1050 300 / 800 1600 / 1600 Balance -270 / -270 1710 / 1710 2365 / 1865 -156 / -156 Weight 128 lb 1 oz 128 lb 0.994 oz 128 lb 127 lb 9 oz Microbiology Reports for the Last 24 Hours: Microbiology 02/21/19 08:30 Sputum - Expectorated Sputum Gram Stain - Final 02/21/19 08:30 Sputum - Expectorated Sputum Sputum Culture - Preliminary 02/19/19 15:00 Back Gram Stain - Final 02/19/19 15:00 Back Wound Culture - Final Staphylococcus aureus 02/17/19 18:38 Back - Wound - Final 02/17/19 18:38 Back - Wound - Final 02/17/19 18:38 Back - Wound - Final - Constitutional no acute distress - *Routine Respiratory Exam Present: rales (bilateral), wheezes (bilaterally) - *Routine Cardiovascular Exam Present: RRR - *Routine Abdominal Exam Present: soft, normoactive bowel sounds. Absent: tenderness - *Routine Extremities Exam Present: edema (trace bilateral LE edema). Absent: cyanosis, clubbing Assessment and Plan (1) HTN (hypertension) Current visit: Yes Status: Acute Category: Medical Code(s): I10 - Es sential (primary) hypertension (2) Hyperlipidemia Current visit: Yes Status: Acute Category: Medical Code(s): E78.5 - Hyperlipidemia, unspecified (3) S/P insertion of intrathecal pump Current visit: Yes Status: Acute Category: Surgical Code(s): Z98.890 - Other specified postprocedural states (4) Neuropathy Current visit: Yes Status: Acute Category: Medical Code(s): G62.9 - Polyneuropathy, unspecified (5) Anemia Current visit: Yes Status: Acute Category: Medical Code(s): D64.9 - Anemia, unspecified (6) Chronic pain syndrome Current visit: Yes Status: Acute Category: Medical Code(s): G89.4 - Chronic pain syndrome (7) Infected surgical wound Current visit: Yes Status: Acute Category: Medical Code(s): T81.49XA - Infection following a procedure, other surgical site, initial encounter (8) Status post hardware removal Current visit: Yes Status: Acute Category: Surgical Code(s): Z98.890 - Other specified postprocedural states (9) COPD (chronic obstructive pulmonary disease) Current visit: Yes Status: Chronic Category: Medical Code(s): J44.9 - Chronic obstructive pulmonary disease, unspecified (10) CHF (congestive heart failure) Current visit: Yes Status: Acute Category: Medical Code(s): I50.9 - Heart failure, unspecified (11) Hypokalemia Current visit: Yes Status: Acute Category: Medical Code(s): E87.6 - Hypokalemia - Assessment and plan all Dx Assessment and Plan for all problems:: Dr. Contreras to follow. Will increase patient's potassium due to hypokalemia. She may need further Lasix. Will discuss with Dr. Smith. <Amish Smith - Last Filed: 02/22/19 08:55> Internal Medicine - PN: Subj *Date: 02/22/19 *Time: 08:55 Exam Vital signs and Labs for Last 24 Hours: Temp Pulse Resp BP Pulse Ox 98.6 F 84 17 167/91 H 94 L 02/22/19 08:00 02/22/19 08:00 02/22/19 08:00 02/22/19 08:00 02/22/19 08:00 Laboratory Results - last 24 hr 02/21/19 09:22: Blood Type A Positive, Antibody Screen Negative, Crossmatch (AHG) See Detail 02/21/19 09:25: Blood Type Confirm A Positive 02/22/19 05:45: Hgb 9.6 L, Hct 31.0 L 02/22/19 05:45: Sodium 143, Potassium 3.4 L, Chloride 106, Carbon Dioxide 31, Anion Gap 9.4, BUN 16, Creatinine 1.16 H, Estimated Creat Clear 35, Estimated GFR 45 L, Est GFR ( Amer) 54 L, Glucose 86, Calcium 8.6 I & O for Last 24 hours: Intake & Output 02/19/19 02/20/19 02/21/19 02/22/19 23:59 23:59 23:59 23:59 Intake Total 1650 / 1650 600 / 600 3419 / 3419 810 / 810 Output Total 900 / 900 1900 / 1900 Balance 750 / 750 600 / 600 1519 / 1519 810 / 810 Weight 128 lb 0.994 oz 128 lb 0.994 oz 128 lb 127 lb 9 oz Microbiology Reports for the Last 24 Hours: Microbiology 02/21/19 08:30 Sputum - Expectorated Sputum Gram Stain - Final 02/21/19 08:30 Sputum - Expectorated Sputum Sputum Culture - Preliminary 02/19/19 15:00 Back Gram Stain - Final 02/19/19 15:00 Back Wound Culture - Final Staphylococcus aureus 02/17/19 18:38 Back - Wound - Final 02/17/19 18:38 Back - Wound - Final 02/17/19 18:38 Back - Wound - Final Assessment and Plan (1) HTN (hypertension) Current visit: Yes Status: Acute Category: Medical Code(s): I10 - Essential (primary) hypertension (2) Hyperlipidemia Current visit: Yes Status: Acute Category: Medical Code(s): E78.5 - Hyperlipidemia, unspecified (3) S/P insertion of intrathecal pump Current visit: Yes Status: Acute Category: Surgical Code(s): Z98.890 - Other specified postprocedural states (4) Neuropathy Current visit: Yes Status: Acute Category: Medical Code(s): G62.9 - Polyneuropathy, unspecified (5) Anemia Current visit: Yes Status: Acute Category: Medical Code(s): D64.9 - Anemia, unspecified (6) Chronic pain syndrome Current visit: Yes Status: Acute Category: Medical Code(s): G89.4 - Chronic pain syndrome (7) Infected surgical wound Current visit: Yes Status: Acute Category: Medical Code(s): T81.49XA - Infection following a procedure, other surgical site, initial encounter (8) Status post hardware removal Current visit: Yes Status: Acute Category: Surgical Code(s): Z98.890 - Other specified postprocedural states (9) COPD (chronic obstructive pulmonary disease) Current visit: Yes Status: Chronic Category: Medical Code(s): J44.9 - Chronic obstructive pulmonary disease, unspecified (10) CHF (congestive heart failure) Current visit: Yes Status: Acute Category: Medical Code(s): I50.9 - Heart failure, unspecified (11) Hypokalemia Current visit: Yes Status: Acute Category: Medical Code(s): E87.6 - Hypokalemia - Assessment and plan all Dx Assessment and Plan for all problems:: Saw patient, agree with above note, will give a dose of Lasix today.
[2019-02-23 05:46] LABS: Basophils % 0.4 % (0.1-2.0); Eosinophils # 0.3 K/mm3 (0.0-0.4); Eosinophils % 3.8 % (0.1-12.0); Hematocrit 31.1 % (37.0-47.0); Hemoglobin 9.9 g/dL (12.2-16.2); Lymphocytes # 1.6 K/mm3 (0.7-4.5); Lymphocytes % 18.5 % (10-50); Mean Corpuscular HGB Conc 31.7 g/dL (31.8-35.4); Mean Platelet Volume 7.8 fl (7.4-10.4); Monocytes # 0.8 K/mm3 (0.1-1.0); Monocytes % 8.9 % (1.7-9.3); Neutrophils # 5.8 K/mm3 (1.8-7.8); Neutrophils % 68.4 % (37.0-80.0); Platelet Count 317 K/mm3 (142-424); Red Blood Count 3.79 M/mm3 (4.20-5.40); Red Cell Distribution Width 15.4 % (11.5-17.5); White Blood Count 8.4 K/mm3 (4.8-10.8)
[2019-02-23 05:59] LABS: Anion Gap 9.5 mEq/L (5-15); Calcium 8.5 mg/dL (8.5-10.1); Potassium 3.5 mmoL/L (3.5-5.1)
--- NOTE | 2019-02-23 07:30 | Progress Note ---
Subjective Patient reports: feels better Exam Vital signs and Labs for Last 24 Hours: Temp Pulse Resp BP Pulse Ox 98.2 F 90 20 113/80 88 L 02/23/19 04:00 02/23/19 06:50 02/23/19 04:00 02/23/19 04:00 02/23/19 06:50 Laboratory Results - last 24 hr 02/23/19 05:29: WBC 8.4, RBC 3.79 L, Hgb 9.9 L, Hct 31.1 L, MCV 82.0, MCH 26.0 L , MCHC 31.7 L, RDW 15.4, Plt Count 317, MPV 7.8, Neut % (Auto) 68.4, Lymph % (Auto) 18.5, [place] % (Auto) 8.9, Eos % (Auto) 3.8, Baso % (Auto) 0.4, Neut # (Auto) 5.8, Lymph # (Auto) 1.6, [place] # (Auto) 0.8, Eos # (Auto) 0.3, Baso # (Auto) 0.0 02/23/19 05:29: Sodium 141, Potassium 3.5, Chloride 105, Carbon Dioxide 30, Anion Gap 9.5, BUN 16, Creatinine 1.17 H, Estimated Creat Clear 37, Estimated GFR 44 L, Est GFR ( Amer) 54 L, Glucose 100, Calcium 8.5 I & O for Last 24 hours: Intake & Output 02/20/19 02/21/19 02/22/19 02/23/19 11:59 11:59 11:59 11:59 Intake Total 1710 / 1710 2665 / 2665 1804 / 1804 1430 / 1430 Output Total 300 / 800 2500 / 2500 2100 / 2100 Balance 1710 / 1710 2365 / 1865 -696 / -696 -670 / -670 Weight 128 lb 0.994 oz 128 lb 127 lb 9 oz 136 lb 5 oz Microbiology Reports for the Last 24 Hours: Microbiology 02/17/19 19:15 Blood Blood Culture - Final NO GROWTH AFTER 5 DAYS 02/17/19 19:15 Blood Blood Culture - Final NO GROWTH AFTER 5 DAYS 02/20/19 14:00 Blood Blood Culture - Preliminary NO GROWTH AFTER 48 HOURS 02/20/19 14:04 Blood Blood Culture - Preliminary NO GROWTH AFTER 48 HOURS 02/19/19 15:00 Back - Wound - Final 02/19/19 15:00 Back - Wound - Final 02/19/19 15:00 Back - Wound - Final 02/21/19 08:30 Sputum - Expectorated Sputum Gram Stain - Final 02/21/19 08:30 Sputum - Expectorated Sputum Sputum Culture - Preliminary 02/19/19 15:00 Back Gram Stain - Final 02/19/19 15:00 Back Wound Culture - Final Staphylococcus aureus - *Routine Skin Exam Comments: Clean. Much less erythema. Progress Note: A&P (1) HTN (hypertension) Status: Acute Current Visit: Yes (2) Hyperlipidemia Status: Acute Current Visit: Yes (3) S/P insertion of intrathecal pump Status: Acute Current Visit: Yes (4) Neuropathy Status: Acute Current Visit: Yes (5) Anemia Status: Acute Current Visit: Yes (6) Chronic pain syndrome Status: Acute Current Visit: Yes (7) Infected surgical wound Status: Acute Current Visit: Yes (8) Status post hardware removal Status: Acute Current Visit: Yes (9) COPD (chronic obstructive pulmonary disease) Status: Chronic Current Visit: Yes (10) CHF (congestive heart failure) Status: Acute Current Visit: Yes (11) Hypokalemia Status: Acute Current Visit: Yes Assessment and Plan for All Diagnoses:: Negative pressure wound therapy dressing.
--- NOTE | 2019-02-23 08:17 | Progress Note ---
<Sharla Zepeda - Last Filed: 02/23/19 08:15> Internal Medicine - PN: Subj *Date: 02/23/19 *Time: 08:15 Interval history: Patient states she had a rough night. She got up to go to the bathroom at around 4 AM and had a large bout of diarrhea all over herself on the floor. She states she was nervous to eat this morning because she felt this may cause more diarrhea. This is the first episode of this she has had. She denies any abdominal pain, nausea, or vomiting. Other than this, she feels well this morning. She has been seen by Dr. Goddard. Exam Vital signs and Labs for Last 24 Hours: Temp Pulse Resp BP Pulse Ox 98.2 F 90 20 113/80 88 L 02/23/19 04:00 02/23/19 06:50 02/23/19 04:00 02/23/19 04:00 02/23/19 06:50 Laboratory Results - last 24 hr 02/23/19 05:29: WBC 8.4, RBC 3.79 L, Hgb 9.9 L, Hct 31.1 L, MCV 82.0, MCH 26.0 L , MCHC 31.7 L, RDW 15.4, Plt Count 317, MPV 7.8, Neut % (Auto) 68.4, Lymph % (Auto) 18.5, [place] % (Auto) 8.9, Eos % (Auto) 3.8, Baso % (Auto) 0.4, Neut # (Auto) 5.8, Lymph # (Auto) 1.6, [place] # (Auto) 0.8, Eos # (Auto) 0.3, Baso # (Auto) 0.0 02/23/19 05:29: Sodium 141, Potassium 3.5, Chloride 105, Carbon Dioxide 30, Anion Gap 9.5, BUN 16, Creatinine 1.17 H, Estimated Creat Clear 37, Estimated GFR 44 L, Est GFR ( Amer) 54 L, Glucose 100, Calcium 8.5 I & O for Last 24 hours: Intake & Output 02/20/19 02/21/19 02/22/19 02/23/19 11:59 11:59 11:59 11:59 Intake Total 1710 / 1710 2665 / 2665 1804 / 1804 1430 / 1430 Output Total 300 / 800 2500 / 2500 2100 / 2100 Balance 1710 / 1710 2365 / 1865 -696 / -696 -670 / -670 Weight 128 lb 0.994 oz 128 lb 127 lb 9 oz 136 lb 5 oz Microbiology Reports for the Last 24 Hours: Microbiology 02/17/19 19:15 Blood Blood Culture - Final NO GROWTH AFTER 5 DAYS 02/17/19 19:15 Blood Blood Culture - Final NO GROWTH AFTER 5 DAYS 02/20/19 14:00 Blood Blood Culture - Preliminary NO GROWTH AFTER 48 HOURS 02/20/19 14:04 Blood Blood Culture - Preliminary NO GROWTH AFTER 48 HOURS 02/19/19 15:00 Back - Wound - Final 02/19/19 15:00 Back - Wound - Final 02/19/19 15:00 Back - Wound - Final 02/21/19 08:30 Sputum - Expectorated Sputum Gram Stain - Final 02/21/19 08:30 Sputum - Expectorated Sputum Sputum Culture - Preliminary 02/19/19 15:00 Back Gram Stain - Final 02/19/19 15:00 Back Wound Culture - Final Staphylococcus aureus - Constitutional no acute distress - *Routine Respiratory Exam Present: CTA bilaterally - *Routine Cardiovascular Exam Present: RRR - *Routine Abdominal Exam Present: soft, normoactive bowel sounds. Absent: tenderness - *Routine Extremities Exam Absent: cyanosis, clubbing, edema Assessment and Plan (1) HTN (hypertension) Current visit: Yes Status: Acute Category: Medical Code(s): I10 - Essential (primary) hypertension (2) Hyperlipidemia Current visit: Yes Status: Acute Category: Medical Code(s): E78.5 - Hyperlipidemia, unspecified (3) S/P insertion of intrathecal pump Current visit: Yes Status: Acute Category: Surgical Code(s): Z98.890 - Other specified postprocedural states (4) Neuropathy Current visit: Yes Status: Acute Category: Medical Code(s): G62.9 - Polyneuropathy, unspecified (5) Anemia Current visit: Yes Status: Acute Category: Medical Code(s): D64.9 - Anemia, unspecified (6) Chronic pain syndrome Current visit: Yes Status: Acute Category: Medical Code(s): G89.4 - Chronic pain syndrome (7) Infected surgical wound Current visit: Yes Status: Acute Category: Medical Code(s): T81.49XA - Infection following a procedure, other surgical site, initial encounter (8) Status post hardware removal Current visit: Yes Status: Acute Category: Surgical Code(s): Z98.890 - Other specified postprocedural states (9) COPD (chronic obstructive pulmonary disease) Current visit: Yes Status: Chronic Category: Medical Code(s): J44.9 - Chronic obstructive pulmonary disease, unspecified (10) CHF (congestive heart failure) Current visit: Yes Status: Acute Category: Medical Code(s): I50.9 - Heart failure, unspecified (11) Hypokalemia Current visit: Yes Status: Acute Category: Medical Code(s): E87.6 - Hypokalemia - Assessment and plan all Dx Assessment and Plan for all problems:: If diarrhea continues, we may need to get a stool specimen. Dr. Goddard to follow. Will discuss further care with Dr. Smith. <Amish Smith - Last Filed: 02/23/19 08:54> Internal Medicine - PN: Subj *Date: 02/23/19 *Time: 08:46 Exam Vital signs and Labs for Last 24 Hours: Temp Pulse Resp BP Pulse Ox 98.2 F 90 20 113/80 88 L 02/23/19 04:00 02/23/19 06:50 02/23/19 04:00 02/23/19 04:00 02/23/19 06:50 Laboratory Results - last 24 hr 02/23/19 05:29: WBC 8.4, RBC 3.79 L, Hgb 9.9 L, Hct 31.1 L, MCV 82.0, MCH 26.0 L , MCHC 31.7 L, RDW 15.4, Plt Count 317, MPV 7.8, Neut % (Auto) 68.4, Lymph % (Auto) 18.5, [place] % (Auto) 8.9, Eos % (Auto) 3.8, Baso % (Auto) 0.4, Neut # (Auto) 5.8, Lymph # (Auto) 1.6, [place] # (Auto) 0.8, Eos # (Auto) 0.3, Baso # (Auto) 0.0 02/23/19 05:29: Sodium 141, Potassium 3.5, Chloride 105, Carbon Dioxide 30, Anion Gap 9.5, BUN 16, Creatinine 1.17 H, Estimated Creat Clear 37, Estimated GFR 44 L, Est GFR ( Amer) 54 L, Glucose 100, Calcium 8.5 I & O for Last 24 hours: Intake & Output 02/20/19 02/21/19 02/22/19 02/23/19 23:59 23:59 23:59 23:59 Intake Total 600 / 600 3419 / 3419 1410 / 1410 830 / 830 Output Total 1900 / 1900 3000 / 3000 Balance 600 / 600 1519 / 1519 -1590 / -1590 830 / 830 Weight 128 lb 0.994 oz 128 lb 127 lb 9 oz 136 lb 5 oz Microbiology Reports for the Last 24 Hours: Microbiology 02/21/19 08:30 Sputum - Expectorated Sputum Gram Stain - Final 02/21/19 08:30 Sputum - Expectorated Sputum Sputum Culture - Final Yeast 02/17/19 19:15 Blood Blood Culture - Final NO GROWTH AFTER 5 DAYS 02/17/19 19:15 Blood Blood Culture - Final NO GROWTH AFTER 5 DAYS 02/20/19 14:00 Blood Blood Culture - Preliminary NO GROWTH AFTER 48 HOURS 02/20/19 14:04 Blood Blood Culture - Preliminary NO GROWTH AFTER 48 HOURS 02/19/19 15:00 Back - Wound - Final 02/19/19 15:00 Back - Wound - Final 02/19/19 15:00 Back - Wound - Final 02/19/19 15:00 Back Gram Stain - Final 02/19/19 15:00 Back Wound Culture - Final Staphylococcus aureus Assessment and Plan (1) HTN (hypertension) Current visit: Yes Status: Acute Category: Medical Code(s): I10 - Essential (primary) hypertension (2) Hyperlipidemia Current visit: Yes Status: Acute Category: Medical Code(s): E78.5 - Hyperlipidemia, unspecified (3) S/P insertion of intrathecal pump Problem details: Pump removed February 2019 Current visit: Yes Status: Acute Category: Surgical Code(s): Z98.890 - Other specified postprocedural states (4) Neuropathy Current visit: Yes Status: Acute Category: Medical Code(s): G62.9 - Polyneuropathy, unspecified (5) Anemia Current visit: Yes Status: Acute Category: Medical Code(s): D64.9 - Anemia, unspecified (6) Chronic pain syndrome Current visit: Yes Status: Acute Category: Medical Code(s): G89.4 - Chronic pain syndrome (7) Infected surgical wound Current visit: Yes Status: Acute Category: Medical Code(s): T81.49XA - Infection following a procedure, other surgical site, initial encounter (8) Status post hardware removal Current visit: Yes Status: Acute Category: Surgical Code(s): Z98.890 - Other specified postprocedural states (9) COPD (chronic obstructive pulmonary disease) Current visit: Yes Status: Chronic Category: Medical Code(s): J44.9 - Chronic obstructive pulmonary disease, unspecified (10) CHF (congestive heart failure) Current visit: Yes Status: Acute Category: Medical Code(s): I50.9 - Heart failure, unspecified (11) Hypokalemia Current visit: Yes Status: Acute Category: Medical Code(s): E87.6 - Hypokalemia (12) Methicillin susceptible Staphylococcus aureus infection as the cause of diseases classified elsewhere Current visit: Yes Status: Acute Category: Medical Code(s): B95.61 - Methicillin susceptible Staphylococcus aureus infection as the cause of diseases classified elsewhere (13) Infection due to yeast Current visit: Yes Status: Acute Category: Medical Code(s): B37.9 - Ca ndidiasis, unspecified - Assessment and plan all Dx Assessment and Plan for all problems:: Will change antibiotics to Rocephin monotherapy today and start oral Diflucan, will hopefulley be able to change to an oral antibiotic in a few days at time of discharge.
--- NOTE | 2019-02-23 15:03 | Consult Report ---
[facility] Pain Management SOAP Note Subjective:: Patient is an 83-year-old white female who had intrathecal pain pump removed because of infection. She is currently being medically managed with morphine and [place]. She seems to be doing better today. Pain seems to be under control. She does have a wound VAC which was placed today. We will follow-up with her after she is discharged and continue to medically manage her. I did talk to the patient that once she is healed up we may give her the option of replacing her intrathecal pain pump if needed. Objective:: Alert and oriented x3 in no acute distress. Patient is seen lying in bed. Motor strength of the lower extremities is 5/5. There is no gross sensory defi cit. 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 We will follow-up with her in clinic. When she is completely healed up we may give her the option of replacing her intrathecal pain pump if she desires to do so.
--- NOTE | 2019-02-24 08:55 | Progress Note ---
Internal Medicine - PN: Subj *Date: 02/24/19 *Time: 08:45 Interval history: Patient is complaining of acute chest pain that is on the center of her chest with mild radiation to her left arm. She denies any pain with inspiration or expiration. She is still on supplemental oxygen and able to maintain oxygen saturation above 90% she mentioned the chest pain to be a 10 when it started and reports to be at 4 during rounding. She had 4 aspirin 81 mg and 2 nitro so far. EKG was normal. However troponin was slightly elevated. BMP from yesterday was also elevated. Exam Vital signs and Labs for Last 24 Hours: Temp Pulse Resp BP Pulse Ox 97.8 F 90 18 158/87 H 95 02/24/19 04:00 02/24/19 06:40 02/24/19 04:00 02/24/19 04:00 02/24/19 06:40 Laboratory Results - last 24 hr 02/23/19 13:32: Stl Aeromonas (PCR) Not detected, Stl C. cayetanensis PCR Not detected, Stool Rotavirus (PCR) Not detected, Stl Adenov F 40/41 PCR Not detected, Stool Astrovirus (PCR) Not detected, Stool Campylobacter PCR Not de tected, Stl C.difficile Tox PCR Not detected, Stool Cryptosporidium PCR Not detected, Stl E.coli Shiga Tox PCR Not detected, Stool E coli O157 PCR Not detected, Stl Enterotoxigenic E PCR Not detected, Stool EPEC (PCR) Not detected, Stool EAEC (PCR) Not detected, Stl E. histolytica PCR Not detected, Stool Giardia Lamblia PCR Not detected, Stool Salmonella PCR Not detected, Stool Sapovirus (PCR) Not detected, Stl P. shigelloides PCR Not detected, Stl Shigella/EIEC PCR Not detected, St Y.enterocolitica PCR Not detected, Stool Vibrio (PCR) Not detected, Stl Vibrio cholerae PCR Not detected, Stl Norovirus GI/GII PCR Not detected 02/24/19 08:10: Troponin I 0.10 H I & O for Last 24 hours: Intake & Output 02/21/19 02/22/19 02/23/19 02/24/19 11:59 11:59 11:59 11:59 Intake Total 2665 / 2665 1804 / 1804 1910 / 1910 480 / 480 Output Total 300 / 800 2500 / 2500 2100 / 2100 1500 / 1500 Balance 2365 / 1865 -696 / -696 -190 / -190 -1020 / -1020 Weight 128 lb 127 lb 9 oz 136 lb 5 oz 132 lb 2 oz Microbiology Reports for the Last 24 Hours: Microbiology 02/21/19 08:30 Sputum - Expectorated Sputum Gram Stain - Final 02/21/19 08:30 Sputum - Expectorated Sputum Sputum Culture - Final Yeast - Constitutional mild distress, thin, chronically ill appearing - *Routine HEENT Exam Head: Present: normocephalic, atraumatic Eye: Present: EOMI, PERRL ENT: Present: mucous membranes moist - *Routine Neck Exam Present: supple. Absent: lymphadenopathy - *Routine Respiratory Exam Present: CTA bilaterally - *Routine Cardiovascular Exam Present: Normal S1, Normal S2, tachycardia - *Routine Abdominal Exam Present: soft, normoactive bowel sounds - *Routine Extremities Exam Absent: cyanosis, clubbing, edema - *Routine Skin Exam Present: warm. Absent: rash - *Routine Neurological Exam Present: alert, oriented X3 Assessment and Plan (1) Chest pain at rest Current visit: Yes Status: Acute Category: Medical Code(s): R07.9 - Chest pain, unspecified (2) HTN (hypertension) Current visit: Yes Status: Acute Category: Medical Code(s): I10 - Essential (primary) hypertension (3) Hyperlipidemia Current visit: Yes Status: Acute Category: Medical Code(s): E78.5 - Hyperlipidemia, unspecified (4) S/P insertion of intrathecal pump Problem details: Pump removed February 2019 Current visit: Yes Status: Acute Category: Surgical Code(s): Z98.890 - Other specified postprocedural states (5) Neuropathy Current visit: Yes Status: Acute Category: Medical Code(s): G62.9 - Polyneuropathy, unspecified (6) Anemia Current visit: Yes Status: Acute Category: Medical Code(s): D64.9 - Anemia, unspecified (7) Chronic pain syndrome Current visit: Yes Status: Acute Category: Medical Code(s): G89.4 - Chronic pain syndrome (8) Infected surgical wound Current visit: Yes Status: Acute Category: Medical Code(s): T81.49XA - Infection following a procedure, other surgical site, initial encounter (9) Status post hardware removal Current visit: Yes Status: Acute Category: Surgical Code(s): Z98.890 - Other specified postprocedural states (10) COPD (chronic obstructive pulmonary disease) Current visit: Yes Status: Chronic Category: Medical Code(s): J44.9 - Chronic obstructive pulmonary disease, unspecified (11) CHF (congestive heart failure) Current visit: Yes Status: Acute Category: Medical Code(s): I50.9 - Heart failure, unspecified (12) Hypokalemia Current visit: Yes Status: Acute Category: Medical Code(s): E87.6 - Hypokalemia (13) Methicillin susceptible Staphylococcus aureus infection as the cause of diseases classified elsewhere Current visit: Yes Status: Acute Category: Medical Code(s): B95.61 - Methicillin susceptible Staphylococcus aureus infection as the cause of diseases classified elsewhere (14) Infection due to yeast Current visit: Yes Status: Acute Category: Medical Code(s): B37.9 - Candidiasis, unspecified - Assessment and plan all Dx Assessment and Plan for all problems:: We will get serial troponins, echo, EKG if pertinent. Depending on the results we will consult cardiology if necessary. Continue current antibiotics and wound VAC management.
--- NOTE | 2019-02-24 09:02 | Progress Note ---
Subjective Narrative: Patient complains of acute chest pain this morning. No back pain. Exam Vital signs and Labs for Last 24 Hours: Temp Pulse Resp BP Pulse Ox 97.8 F 90 18 158/87 H 95 02/24/19 04:00 02/24/19 06:40 02/24/19 04:00 02/24/19 04:00 02/24/19 06:40 Laboratory Results - last 24 hr 02/23/19 13:32: Stl Aeromonas (PCR) Not detected, Stl C. cayetanensis PCR Not detected, Stool Rotavirus (PCR) Not detected, Stl Adenov F PCR Not detecte d, Stool Astrovirus (PCR) Not detected, Stool Campylobacter PCR Not detected, Stl C.difficile Tox PCR Not detected, Stool Cryptosporidium PCR Not detected, Stl E.coli Shiga Tox PCR Not detected, Stool E coli O157 PCR Not detected, Stl Enterotoxigenic E PCR Not detected, Stool EPEC (PCR) Not detected, Stool EAEC (PCR) Not detected, Stl E. histolytica PCR Not detected, Stool Giardia Lamblia PCR Not detected, Stool Salmonella PCR Not detected, Stool Sapovirus (PCR) Not detected, Stl P. shigelloides PCR Not detected, Stl Shigella/EIEC PCR Not detected, St Y.enterocolitica PCR Not detected, Stool Vibrio (PCR) Not detected, Stl Vibrio cholerae PCR Not detected, Stl Norovirus GI/GII PCR Not detected 02/24/19 08:10: Troponin I 0.10 H I & O for Last 24 hours: Intake & Output 02/21/19 02/22/19 02/23/19 02/24/19 11:59 11:59 11:59 11:59 Intake Total 2665 / 2665 1804 / 1804 1910 / 1910 480 / 480 Output Total 300 / 800 2500 / 2500 2100 / 2100 1500 / 1500 Balance 2365 / 1865 -696 / -696 -190 / -190 -1020 / -1020 Weight 128 lb 127 lb 9 oz 136 lb 5 oz 132 lb 2 oz Microbiology Reports for the Last 24 Hours: Microbiology 02/21/19 08:30 Sputum - Expectorated Sputum Gram Stain - Final 02/21/19 08:30 Sputum - Expectorated Sputum Sputum Culture - Final Yeast - *Routine Skin Exam Comments: Wound clean with VAC in place. Progress Note: A&P (1) Chest pain at rest Status: Acute Current Visit: Yes (2) HTN (hypertension) Status: Acute Current Visit: Yes (3) Hyperlipidemia Status: Acute Current Visit: Yes (4) S/P insertion of intrathecal pump Problem details: Pump removed February 2019 Status: Acute Current Visit: Yes (5) Neuropathy Status: Acute Current Visit: Yes (6) Anemia Status: Acute Current Visit: Yes (7) Chronic pain syndrome Status: Acute Current Visit: Yes (8) Infected surgical wound Status: Acute Current Visit: Yes (9) Status post hardware removal Status: Acute Current Visit: Yes (10) COPD (chronic obstructive pulmonary disease) Status: Chronic Current Visit: Yes (11) CHF (congestive heart failure) Status: Acute Current Visit: Yes (12) Hypokalemia Status: Acute Current Visit: Yes (13) Methicillin susceptible Staphylococcus aureus infection as the cause of diseases classified elsewhere Status: Acute Current Visit: Yes (14) Infection due to yeast Status: Acute Current Visit: Yes Assessment and Plan for All Diagnoses:: VAC change tomorrow then every 72 hours.
--- NOTE | 2019-02-25 08:39 | Progress Note ---
Subjective Patient reports: no new complaints, feels better Narrative: Denies any additional chest pain. Exam Vital signs and Labs for Last 24 Hours: Temp Pulse Resp BP Pulse Ox 97.5 F L 86 22 182/80 H 94 L 02/25/19 04:00 02/25/19 06:06 02/25/19 04:00 02/25/19 04:00 02/25/19 06:06 Laboratory Results - last 24 hr 02/24/19 11:05: Troponin I 0.09 H 02/24/19 13:55: Troponin I 0.09 H 02/24/19 17:05: Troponin I 0.08 H 02/24/19 19:00: Troponin I 0.08 H 02/24/19 23:05: Troponin I 0.08 H I & O for Last 24 hours: Intake & Output 02/22/19 02/23/19 02/24/19 02/25/19 11:59 11:59 11:59 11:59 Intake Total 1804 / 1804 1910 / 1910 720 / 720 440 / 440 Output Total 2500 / 2500 2100 / 2100 1800 / 1800 1800 / 1800 Balance -696 / -696 -190 / -190 -1080 / -1080 -1360 / -1360 Weight 127 lb 9 oz 136 lb 5 oz 132 lb 2 oz 132 lb 8 oz - *Routine Skin Exam Comments: Wound clean, no erythema. Progress Note: A&P (1) Chest pain at rest Status: Acute Current Visit: Yes (2) HTN (hypertension) Status: Acute Current Visit: Yes (3) Hyperlipidemia Status: Acute Current Visit: Yes (4) S/P insertion of intrathecal pump Problem details: Pump removed February 2019 Status: Acute Current Visit: Yes (5) Neuropathy Status: Acute Current Visit: Yes (6) Anemia Status: Acute Current Visit: Yes (7) Chronic pain syndrome Status: Acute Current Visit: Yes (8) Infected surgical wound Status: Acute Current Visit: Yes (9) Status post hardware removal Status: Acute Current Visit: Yes (10) COPD (chronic obstructive pulmonary disease) Status: Chronic Current Visit: Yes (11) CHF (congestive heart failure) Status: Acute Current Visit: Yes (12) Hypokalemia Status: Acute Current Visit: Yes (13) Methicillin susceptible Staphylococcus aureus infection as the cause of diseases classified elsewhere Status: Acute Current Visit: Yes (14) Infection due to yeast Status: Acute Current Visit: Yes Assessment and Plan for All Diagnoses:: VAC change today. Okay from surgical standpoint for discharge.
--- NOTE | 2019-02-25 09:36 | Progress Note ---
Internal Medicine - PN: Subj *Date: 02/25/19 *Time: 09:41 Interval history: Patient denies having any additional chest pain. He mentioned that her pain from yesterday has resolved during exam today. Exam Vital signs and Labs for Last 24 Hours: Temp Pulse Resp BP Pulse Ox 97.5 F L 86 22 182/80 H 94 L 02/25/19 04:00 02/25/19 06:06 02/25/19 04:00 02/25/19 04:00 02/25/19 06:06 Laboratory Results - last 24 hr 02/24/19 11:05: Troponin I 0.09 H 02/24/19 13:55: Troponin I 0.09 H 02/24/19 17:05: Troponin I 0.08 H 02/24/19 19:00: Troponin I 0.08 H 02/24/19 23:05: Troponin I 0.08 H I & O for Last 24 hours: Intake & Output 02/22/19 02/23/19 02/24/19 02/25/19 11:59 11:59 11:59 11:59 Intake Total 1804 / 1804 1910 / 1910 720 / 720 440 / 440 Output Total 2500 / 2500 2100 / 2100 1800 / 1800 1800 / 1800 Balance -696 / -696 -190 / -190 -1080 / -1080 -1360 / -1360 Weight 127 lb 9 oz 136 lb 5 oz 132 lb 2 oz 132 lb 8 oz - *Routine HEENT Exam Head: Present: normocephalic Eye: Present: EOMI, PERRL ENT: Present: mucous membranes moist - *Routine Neck Exam Present: supple. Absent: lymphadenopathy - *Routine Respiratory Exam Present: CTA bilaterally - *Routine Cardiovascular Exam Present: RRR - *Routine Abdominal Exam Present: soft, normoactive bowel sounds. Absent: tenderness - *Routine Extremities Exam Absent: cyanosis, clubbing, edema - *Routine Skin Exam Present: warm, wounds (Wound VAC in place). Absent: rash - *Routine Neurological Exam Present: alert, oriented X3 Assessment and Plan (1) Methicillin susceptible Staphylococcus aureus infection as the cause of diseases classified elsewhere Current visit: Yes Status: Acute Category: Medical Code(s): B95.61 - Methicillin susceptible Staphylococcus aureus infection as the cause of diseases classified elsewhere (2) HTN (hypertension) Current visit: Yes Status: Acute Category: Medical Code(s): I10 - Essential (primary) hypertension (3) Hyperlipidemia Current visit: Yes Status: Acute Category: Medical Code(s): E78.5 - Hyperlipidemia, unspecified (4) S/P insertion of intrathecal pump Problem details: Pump removed February 2019 Current visit: Yes Status: Acute Category: Surgical Code(s): Z98.890 - Other specified postprocedural states (5) Neuropathy Current visit: Yes Status: Acute Category: Medical Code(s): G62.9 - Polyneuropathy, unspecified (6) Anemia Current visit: Yes Status: Acute Category: Medical Code(s): D64.9 - Anemia, unspecified (7) Chronic pain syndrome Current visit: Yes Status: Acute Category: Medical Code(s): G89.4 - Chronic pain syndrome (8) Infected surgical wound Current visit: Yes Status: Acute Category: Medical Code(s): T81.49XA - Infection following a procedure, other surgical site, initial encounter (9) Status post hardware removal Current visit: Yes Status: Acute Category: Surgical Code(s): Z98.890 - Other specified postprocedural states (10) COPD (chronic obstructive pulmonary disease) Current visit: Yes Status: Chronic Category: Medical Code(s): J44.9 - Chronic obstructive pulmonary disease, unspecified (11) CHF (congestive heart failure) Current visit: Yes Status: Acute Category: Medical Code(s): I50.9 - Heart failure, unspecified (12) Hypokalemia Current visit: Yes Status: Acute Category: Medical Code(s): E87.6 - Hypokalemia (13) Infection due to yeast Current visit: Yes Status: Acute Category: Medical Code(s): B37.9 - Candidiasis, unspecified - Assessment and plan all Dx Assessment and Plan for all problems:: We will consult case management for possible home health for wound VAC care versus outpatient f/u. Patient prefers home health. Possible discharge tomorrow. Continue current treatment for her wound. Diarrhea panel negative. Echo pending.
--- NOTE | 2019-02-26 07:33 | Progress Note ---
Subjective Patient reports: no new complaints Narrative: Denies chest pain. Had VAC changed yesterday. Exam Vital signs and Labs for Last 24 Hours: Temp Pulse Resp BP Pulse Ox 98.2 F 90 20 166/87 H 91 L 02/26/19 04:00 02/26/19 05:55 02/26/19 04:00 02/26/19 04:00 02/26/19 05:55 Laboratory Results - last 24 hr 02/25/19 12:34: POC Glucose 123 H I & O for Last 24 hours: Intake & Output 02/23/19 02/24/19 02/25/19 02/26/19 11:59 11:59 11:59 11:59 Intake Total 1910 / 1910 720 / 720 680 / 680 840 / 840 Output Total 2100 / 2100 1800 / 1800 2800 / 2800 2300 / 2300 Balance -190 / -190 -1080 / -1080 -2120 / -2120 -1460 / -1460 Weight 136 lb 5 oz 132 lb 2 oz 132 lb 8 oz 131 lb 8 oz Microbiology Reports for the Last 24 Hours: Microbiology 02/20/19 14:00 Blood Blood Culture - Final NO GROWTH AFTER 5 DAYS 02/20/19 14:04 Blood Blood Culture - Final NO GROWTH AFTER 5 DAYS - *Routine Skin Exam Comments: Wound clean with VAC in place without cellulitis. Progress Note: A&P (1) Methicillin susceptible Staphylococcus aureus infection as the cause of diseases classified elsewhere Status: Acute Current Visit: Yes (2) HTN (hypertension) Status: Acute Current Visit: Yes (3) Hyperlipidemia Status: Acute Current Visit: Yes (4) S/P insertion of intrathecal pump Problem details: Pump removed February 2019 Status: Acute Current Visit: Yes (5) Neuropathy Status: Acute Current Visit: Yes (6) Anemia Status: Acute Current Visit: Yes (7) Chronic pain syndrome Status: Acute Current Visit: Yes (8) Infected surgical wound Status: Acute Current Visit: Yes (9) Status post hardware removal Status: Acute Current Visit: Yes (10) COPD (chronic obstructive pulmonary disease) Status: Chronic Current Visit: Yes (11) CHF (congestive heart failure) Status: Acute Current Visit: Yes (12) Hypokalemia Status: Acute Current Visit: Yes (13) Infection due to yeast Status: Acute Current Visit: Yes Assessment and Plan for All Diagnoses:: Possible discharge today with outpatient wound care. Plan for VAC change every 72 hours.
--- NOTE | 2019-02-26 08:27 | Progress Note ---
<Whitney Villasenor - Last Filed: 02/26/19 08:22> Internal Medicine - PN: Subj *Date: 02/26/19 *Time: 08:22 Interval history: Patient has had no further chest pain since the weekend. She is currently having an echocardiogram done now. She feels she is breathing okay. Exam Vital signs and Labs for Last 24 Hours: Temp Pulse Resp BP Pulse Ox 98.2 F 90 20 166/87 H 91 L 02/26/19 04:00 02/26/19 05:55 02/26/19 04:00 02/26/19 04:00 02/26/19 05:55 Laboratory Results - last 24 hr 02/25/19 12:34: POC Glucose 123 H I & O for Last 24 hours: Intake & Output 02/23/19 02/24/19 02/25/19 02/26/19 11:59 11:59 11:59 11:59 Intake Total 1910 / 1910 720 / 720 680 / 680 840 / 840 Output Total 2100 / 2100 1800 / 1800 2800 / 2800 2300 / 2300 Balance -190 / -190 -1080 / -1080 -2120 / -2120 -1460 / -1460 Weight 136 lb 5 oz 132 lb 2 oz 132 lb 8 oz 131 lb 8 oz Microbiology Reports for the Last 24 Hours: Microbiology 02/20/19 14:00 Blood Blood Culture - Final NO GROWTH AFTER 5 DAYS 02/20/19 14:04 Blood Blood Culture - Final NO GROWTH AFTER 5 DAYS Radiology Reports for the Last 24 Hours: 02/24/2019 chest x-ray IMPRESSION: 1. Interval improvement in the interstitial edema suggesting resolving congestive failure and/or fluid overload 2. Interval increase in size of left pleural effusion with questionable left lower lobe pneumonic infiltrate. - Constitutional no acute distress Comments: Having echocardiogram done at present - *Routine Respiratory Exam Present: CTA bilaterally (Anteriorly and posteriorly) - *Routine Cardiovascular Exam Present: RRR - *Routine Abdominal Exam Present: soft, normoactive bowel sounds. Absent: tenderness - *Routine Extremities Exam Absent: edema, calf tenderness - *Routine Skin Exam Comments: Wound VAC in place - *Routine Neurological Exam Present: alert, oriented X3 Assessment and Plan (1) Methicillin susceptible Staphylococcus aureus infection as the cause of diseases classified elsewhere Current visit: Yes Status: Acute Category: Medical Code(s): B95.61 - Methicillin susceptible Staphylococcus aureus infection as the cause of diseases classified elsewhere (2) HTN (hypertension) Current visit: Yes Status: Acute Category: Medical Code(s): I10 - Essential (primary) hypertension (3) Hyperlipidemia Current visit: Yes Status: Acute Category: Medical Code(s): E78.5 - Hyperlipidemia, unspecified (4) S/P insertion of intrathecal pump Problem details: Pump removed February 2019 Current visit: Yes Status: Acute Category: Surgical Code(s): Z98.890 - Other specified postprocedural states (5) Neuropathy Current visit: Yes Status: Acute Category: Medical Code(s): G62.9 - Polyneuropathy, unspecified (6) Anemia Current visit: Yes Status: Acute Category: Medical Code(s): D64.9 - Anemia, unspecified (7) Chronic pain syndrome Current visit: Yes Status: Acute Category: Medical Code(s): G89.4 - Chronic pain syndrome (8) Infected surgical wound Current visit: Yes Status: Acute Category: Medical Code(s): T81.49XA - Infection following a procedure, other surgical site, initial encounter (9) Status post hardware removal Current visit: Yes Status: Acute Category: Surgical Code(s): Z98.890 - Other specified postprocedural states (10) COPD (chronic obstructive pulmonary disease) Current visit: Yes Status: Chronic Category: Medical Code(s): J44.9 - Chronic obstructive pulmonary disease, unspecified (11) CHF (congestive heart failure) Current visit: Yes Status: Acute Category: Medical Code(s): I50.9 - Heart failure, unspecified (12) Hypokalemia Current visit: Yes Status: Acute Category: Medical Code(s): E87.6 - Hypokalemia (13) Infection due to yeast Current visit: Yes Status: Acute Category: Medical Code(s): B37.9 - Candidiasis, unspecified (14) Encounter for management of wound VAC Current visit: Yes Status: Acute Category: Medical (15) Pleural effusion Current visit: Yes Status: Acute Category: Medical Code(s): J90 - Pleural effusion, not elsewhere classified - Assessment and plan all Dx Assessment and Plan for all problems:: With the results of echocardiogram. Possibly home later today. <Amish Smith - Last Filed: 02/26/19 08:40> Internal Medicine - PN: Subj *Date: 02/26/19 *Time: 08:39 Exam Vital signs and Labs for Last 24 Hours: Temp Pulse Resp BP Pulse Ox 97.9 F 94 H 22 155/75 H 95 02/26/19 08:00 02/26/19 08:00 02/26/19 08:00 02/26/19 08:00 02/26/19 08:00 Laboratory Results - last 24 hr 02/25/19 12:34: POC Glucose 123 H I & O for Last 24 hours: Intake & Output 02/23/19 02/24/19 02/25/19 02/26/19 23:59 23:59 23:59 23:59 Intake Total 1790 / 1790 680 / 680 1080 / 1080 360 / 360 Output Total 2800 / 2800 3100 / 3100 1900 / 1900 Balance 1790 / 1790 -2120 / -2120 -2020 / -2020 -1540 / -1540 Weight 136 lb 5 oz 132 lb 2 oz 132 lb 8 oz 131 lb 8 oz Microbiology Reports for the Last 24 Hours: Microbiology 02/20/19 14:00 Blood Blood Culture - Final NO GROWTH AFTER 5 DAYS 02/20/19 14:04 Blood Blood Culture - Final NO GROWTH AFTER 5 DAYS Assessment and Plan (1) Methicillin susceptible Staphylococcus aureus infection as the cause of diseases classified elsewhere Current visit: Yes Status: Acute Category: Medical Code(s): B95.61 - Methicillin susceptible Staphylococcus aureus infection as the cause of diseases classified elsewhere (2) HTN (hypertension) Current visit: Yes Status: Acute Category: Medical Code(s): I10 - Essential (primary) hypertension (3) Hyperlipidemia Current visit: Yes Status: Acute Category: Medical Code(s): E78.5 - Hyperlipidemia, unspecified (4) S/P insertion of intrathecal pump Problem details: Pump removed February 2019 Current visit: Yes Status: Acute Category: Surgical Code(s): Z98.890 - Other specified postprocedural states (5) Neuropathy Current visit: Yes Status: Acute Category: Medical Code(s): G62.9 - Polyneuropathy, unspecified (6) Anemia Current visit: Yes Status: Acute Category: Medical Code(s): D64.9 - Anemia, unspecified (7) Chronic pain syndrome Current visit: Yes Status: Acute Category: Medical Code(s): G89.4 - Chronic pain syndrome (8) Infected surgical wound Current visit: Yes Status: Acute Category: Medical Code(s): T81.49XA - Infection following a procedure, other surgical site, initial encounter (9) Status post hardware removal Current visit: Yes Status: Acute Category: Surgical Code(s): Z98.890 - Other specified postprocedural states (10) COPD (chronic obstructive pulmonary disease) Current visit: Yes Status: Chronic Category: Medical Code(s): J44.9 - Ch ronic obstructive pulmonary disease, unspecified (11) CHF (congestive heart failure) Current visit: Yes Status: Acute Category: Medical Code(s): I50.9 - Heart failure, unspecified (12) Hypokalemia Current visit: Yes Status: Acute Category: Medical Code(s): E87.6 - Hypokalemia (13) Infection due to yeast Current visit: Yes Status: Acute Category: Medical Code(s): B37.9 - Candidiasis, unspecified (14) Encounter for management of wound VAC Current visit: Yes Status: Acute Category: Medical (15) Pleural effusion Current visit: Yes Status: Acute Category: Medical Code(s): J90 - Pleural effusion, not elsewhere classified - Assessment and plan all Dx Assessment and Plan for all problems:: Saw patient, agree with above note. Check BMP and CBC today, possible home [place] today with home health for wound vac management.
[2019-02-26 09:00] LABS: Basophils # 0.1 K/mm3 (0-0.2); Basophils % 0.6 % (0.1-2.0); Eosinophils # 0.3 K/mm3 (0.0-0.4); Eosinophils % 2.9 % (0.1-12.0); Hematocrit 38.2 % (37.0-47.0); Hemoglobin 11.5 g/dL (12.2-16.2); Lymphocytes # 1.9 K/mm3 (0.7-4.5); Lymphocytes % 21.9 % (10-50); Mean Corpuscular HGB Conc 30.2 g/dL (31.8-35.4); Mean Corpuscular Hemoglobin 25.4 pg (27.0-31.2); Mean Corpuscular Volume 84.2 fl (81-99); Mean Platelet Volume 7.9 fl (7.4-10.4); Monocytes # 0.5 K/mm3 (0.1-1.0); Monocytes % 5.4 % (1.7-9.3); Neutrophils # 6.1 K/mm3 (1.8-7.8); Neutrophils % 69.2 % (37.0-80.0); Platelet Count 382 K/mm3 (142-424); Red Blood Count 4.54 M/mm3 (4.20-5.40); Red Cell Distribution Width 16.2 % (11.5-17.5); White Blood Count 8.8 K/mm3 (4.8-10.8)
[2019-02-26 09:12] LABS: Anion Gap 10.6 mEq/L (5-15); Calcium 9.4 mg/dL (8.5-10.1); Potassium 3.6 mmoL/L (3.5-5.1)
--- NOTE | 2019-02-26 14:10 | Consult Report ---
History of Present Illness Consult date: 02/26/19 Requesting physician: Amish Smith Chief complaint: Cardiomyopathy Additional Medical History:: 1. Tobacco use since age 18 of at least 1 pack/day. A. COPD 2. Chronic low back pain with history of neuropathy A. Status post intrathecal pain pump insertion 11/2018 with subsequent poor wound healing and infection requiring pain pump removal 02/2019 3. Hypertension 4. Hyperlipidemia 5. Cardiomyopathy, newly diagnosed, 02/2019 A. 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 Strong family history of coronary artery disease in multiple siblings and parents 7. Iron deficiency Anemia, s/p transfusion, 02/2019 A. History of negative blood in stool History of present illness: 83-year-old white female admitted for poor wound healing with infected pain pump site. Patient has undergone removal of the pain pump and has been on IV antibiotics since admission with improvement in surgical site through the use of VAC. Admission temperature noted to be 100 but afebrile since then. Echocardiogram recently obtained due to chest x-ray showing evidence of congestive heart failure and BNP greater than thousand. Patient's echocardiogram shows evidence of cardiomyopathy with an EF of approximately 30%. Cardiology consulted for evaluation and recommendations. Patient denies any history of coronary artery disease, recent viral illness, alcohol use or history of atrial fibrillation. She does relate a 2-month history of increasing shortness of breath and use of diuretic therapy for lower extremity edema. Patient's daughter relates noticing a decrease in her exercise capacity over the same timeframe. Patient denies any chest pain, pressure or tightness. EKG's during this admission shows sinus rhythm with poor R wave progression anteriorly and right axis deviation. [facility] History Medical History: Reports:: Chronic Obstructive Pulmonary Disease (COPD), Hyperlipidemia, Hypertension, Peripheral Vascular Disease Denies:: Cancer, Diabetes Mellitus Type 1, Diabetes Mellitus Type 2, MRSA, Seizures *Have you ever received a pneumonia vaccine?: No *Have you received a flu vaccine this season?: No Other Medical History: Reports: Anemia, Glaucoma, Other (Sleep apnea, chronic low back pain, neuropathy, retinal vein occlusion). Denies: Blood Transfusion Reaction Laterality Cases: Right: Carpal Tunnel Release, Bilateral: Cataract Other Surgeries: Yes: Cancer Surgery, Other (L1-L4 laminectomy, Spinal nerve stimulator, Intrathecal pain pump) Amputation: No Fractures: No - *Social History Educational Level: Attended College Smoking Status: Current every day smoker Tobacco Type: cigarettes # Packs/Day (cigarettes): 1 Alcohol Intake: never *Occupational Status:: retired Housing: house Household Members: family *Travel in the last 8 weeks: None - Psychiatric History Expresses thoughts of harming self/others: None Suicide Plan Description: No Plan Family Hx:: Cancer, Hypertension Meds Home Medications Medication Instructions Recorded Confirmed Type Aspirin [Aspir 81] 81 mg PO DAILY 12/05/18 02/17/19 History Calcium Carbonate [Calcium] 600 mg PO BID 12/05/18 02/17/19 History Carvedilol [Coreg 3.125mg 3.125 mg PO BID 12/05/18 02/17/19 History Tablet] Duloxetine HCl 60 mg PO DAILY 12/05/18 02/17/19 History Gabapentin 600 mg PO TID 12/05/18 02/17/19 History Naproxen 500 mg PO BID 12/05/18 02/17/19 History Simvastatin 20 mg PO HS 12/05/18 02/17/19 History Ergocalciferol (Vitamin D2) 400 unit PO DAILY 02/17/19 02/17/19 History [Vitamin D] Irbesartan/Hydrochlorothiazide 1 tab PO DAILY 02/17/19 02/17/19 History [Irbesartan-Hctz 150-12.5 mg Tb] Furosemide [Furosemide 20mg Tab] 40 mg PO DAILYP PRN 02/18/19 02/18/19 History Latanoprost [Xalatan 0.005% Ophth 2 drops OP HS 02/18/19 02/18/19 History Soln 2.5mL] Potassium Chloride [Klor-con 20 20 meq PO DAILY 02/18/19 02/18/19 History mEq tablet] Allergies Allergy/AdvReac Type Severity Reaction Status Date / Time No Known Drug Allergies Allergy Unknown Verified 11/17/18 09:00 [NO KNOWN DRUG ALLERGIES] Review of Systems - *Cardiovascular Reports shortness of breath, Reports shortness of breath with activity, Denies chest pain - *Respiratory Reports shortness of breath, Reports shortness of breath with activity, Denies wheezing - *Gastrointestinal Denies abdominal pain, Denies incontinent of stools, Denies nausea, Denies vomiting - *Genitourinary Denies blood in urine, Denies pelvic pain - *Musculoskeletal Reports back pain, Reports numbness, Denies joint pain - *Neurologic Denies dizziness Exam Vital signs and Labs for Last 24 Hours: Temp Pulse Resp BP Pulse Ox 97.9 F 101 H 22 155/75 H 95 02/26/19 08:00 02/26/19 13:39 02/26/19 08:00 02/26/19 08:00 02/26/19 08:00 Laboratory Results - last 24 hr 02/26/19 08:50: WBC 8.8, RBC 4.54, Hgb 11.5 L, Hct 38.2, MCV 84.2, MCH 25.4 L, MCHC 30.2 L, RDW 16.2, Plt Count 382, MPV 7.9, Neut % (Auto) 69.2, Lymph % (Auto) 21.9, [place] % (Auto) 5.4, Eos % (Auto) 2.9, Baso % (Auto) 0.6, Neut # (Auto) 6.1, Lymph # (Auto) 1.9, [place] # (Auto) 0.5, Eos # (Auto) 0.3, Baso # (Auto) 0.1 02/26/19 08:50: Sodium 141, Potassium 3.6, Chloride 105, Carbon Dioxide 29, Anion Gap 10.6, BUN 12, Creatinine 1.01, Estimated Creat Clear 41, Estimated GFR 53 L, Est GFR ( Amer) 64, Glucose 107 H, Calcium 9.4 I & O for Last 24 hours: Intake & Output 02/24/19 02/25/19 02/26/19 02/27/19 11:59 11:59 11:59 11:59 Intake Total 720 / 720 680 / 680 1200 / 1200 360 / 360 Output Total 1800 / 1800 2800 / 2800 3200 / 3200 Balance -1080 / -1080 -2120 / -2119 -1999 / -1999 360 / 360 Weight 132 lb 2 oz 132 lb 8 oz 131 lb 8 oz Microbiology Reports for the Last 24 Hours: Microbiology 02/19/19 15:00 Back - Wound - Preliminary 02/19/19 15:00 Back - Wound - Preliminary 02/19/19 15:00 Back - Wound - Final 02/19/19 15:00 Back - Wound - Final 02/19/19 15:00 Back - Wound - Final 02/20/19 14:00 Blood Blood Culture - Final NO GROWTH AFTER 5 DAYS 02/20/19 14:04 Blood Blood Culture - Final NO GROWTH AFTER 5 DAYS - *Routine HEENT Exam Head: Present: normocephalic Eye: Present: EOMI, PERRL ENT: Present: mucous membranes moist - *Routine Neck Exam Present: supple. Absent: JVD, carotid bruit - *Routine Respiratory Exam Absent: accessory muscle use, rales, rhonchi, wheezes - *Routine Cardiovascular Exam Present: RRR. Absent: murmur, gallop, rubs - *Routine Abdominal Exam Present: soft. Absent: tenderness, distended, guarding - *Routine Extremities Exam Absent: edema, calf tenderness - *Routine Neurological Exam Present: alert, oriented X3, moving all extremities Assessment and Plan (1) Methicillin susceptible Staphylococcus aureus infection as the cause of diseases classified elsewhere Current visit: Yes Status: Acute Category: Medical Code(s): B95.61 - Methicillin susceptible Staphylococcus aureus infection as the cause of diseases classified elsewhere (2) HTN (hypertension) Current visit: Yes Status: Acute Category: Medical Code(s): I10 - Essential (primary) hypertension (3) Hyperlipidemia Current visit: Yes Status: Acute Category: Medical Code(s): E78.5 - Hyperlipidemia, unspecified (4) S/P insertion of intrathecal pump Problem details: Pump removed February 2019 Current visit: Yes Status: Acute Category: Surgical Code(s): Z98.890 - Other specified postprocedural states (5) Neuropathy Current visit: Yes Status: Acute Category: Medical Code(s): G62.9 - Polyneuropathy, unspecified (6) Anemia Current visit: Yes Status: Acute Category: Medical Code(s): D64.9 - Anemia, unspecified (7) Chronic pain syndrome Current visit: Yes Status: Acute Category: Medical Code(s): G89.4 - B[employer] jocelyn pain syndrome (8) Infected surgical wound Current visit: Yes Status: Acute Category: Medical Code(s): T81.49XA - Infection following a procedure, other surgical site, initial encounter (9) Status post hardware removal Current visit: Yes Status: Acute Category: Surgical Code(s): Z98.890 - Other specified postprocedural states (10) COPD (chronic obstructive pulmonary disease) Current visit: Yes Status: Chronic Category: Medical Code(s): J44.9 - Chronic obstructive pulmonary disease, unspecified (11) CHF (congestive heart failure) Current visit: Yes Status: Acute Category: Medical Code(s): I50.9 - Heart failure, unspecified (12) Hypokalemia Current visit: Yes Status: Acute Category: Medical Code(s): E87.6 - Hypokalemia (13) Infection due to yeast Current visit: Yes Status: Acute Category: Medical Code(s): B37.9 - Candidiasis, unspecified (14) Encounter for management of wound VAC Current visit: Yes Status: Acute Category: Medical (15) Pleural effusion Current visit: Yes Status: Acute Category: Medical Code(s): J90 - Pleural effusion, not elsewhere classified (16) Cardiomyopathy Current visit: Yes Status: Acute Category: Medical Code(s): I42.9 - Cardiomyopathy, unspecified - Assessment and plan all Dx Assessment and Plan for all problems:: 1. In light of the patient's newly diagnosed cardiomyopathy in the setting of biventricular congestive heart failure, COPD and pleural effusion, would recommend proceeding with right and left heart catheterization tomorrow. Risks, benefits and procedure explained to the patient and family and all agreed to proceed. 2. We will give additional diuretics today along with increasing her potassium supplementation. 3. We will increase her carvedilol due to elevated blood pressure and heart rate. Continue her Irbesartan. 4. Further recommendations pending tomorrow's cardiac catheterization results.
--- NOTE | 2019-02-26 21:18 | Cardiology Report ---
PROCEDURE: 2-D M-mode and color Doppler study INDICATIONS FOR THE TEST: Chest pain + COPD+ Heart Murmur Tobacco Smoking+ Palpitations Fatigue Syncope Edema Hypertension+Diabetes Mellitus Rheumatic Fever SOB GIRARD Obesity Hyperlipidemia+ Family History HD Additional History MRSA, INFECTED WOUND FROM PAIN PUMP IN HER BACK PATIENT INFORMATION HEIGHT:68 WEIGHT:132 GENDER: F B/P:180/80 2-D/M-MODE INTERPRETATION: 2-D MEASUREMENTS OBSERVED VALUES IN CMS Right Ventricular Dimension (RVDd) 2.2 Interventricular Septum (Thickness)(IVsd) 1.8 Left Ventricular Internal Dimensions(LVIDd) 4.2 Left Ventricular Posterior Wall (Thickness)(LVPWd) 1.1 Aortic Root 3.1 Aortic Cusp Separation 1.0 Left Atrial Dimensions (LAD) 3.8 2D 1. Technically difficult study because of the patient's factor and poor acoustic windows 2. The left atrium is mildly enlarged, left ventricle is normal size, there is moderate concentric left ventricular hypertrophy, there is reduced left ventricular systolic function, visually estimated ejection fraction 30%, there is marked hypokinesis involving mid to distal septum, anterior and anteroapical wall. 3. The right atrium and ventricle are normal size and contractility. 4. The aortic valve is thickened and calcified leaflet continue to display mobility. 5 . The mitral and tricuspid valve are minimally thickened. 6. The pulmonic valve is poorly visualized. 7. There is small pericardial effusion and large left-sided pleural effusion seen. DOPPLER INTERROGATION: Doppler interrogation of mild mitral and tricuspid regurgitation, tricuspid regurgitation jet velocity is inadequate for calculation of right ventricular systolic pressure, grade 1 diastolic dysfunction seen with tissue Doppler evidence of raised left atrial pressure. CONCLUSION: 1. Technically difficult study because of the patient's factor and poor acoustic windows 2. Mildly enlarged left atrium, normal left ventricular size, moderate concentric left ventricular hypertrophy, reduced left ventricular systolic function, visually estimated ejection fraction 30% with segmental wall motion abnormality described above, grade 1 diastolic dysfunction seen with tissue Doppler evidence of raised left atrial pressure. 3. Thickened and calcified aortic valve without aortic stenosis or significant aortic insufficiency. 4. Mild mitral and tricuspid regurgitation 5. There is small pericardial effusion and large left-sided pleural effusion seen.
--- NOTE | 2019-02-27 07:48 | Progress Note ---
Subjective Date: 02/27/19 Time: 07:46 Principal diagnosis: Cardiomyopathy Interval history: 83-year-old white female in bed in no acute distress. Patient is on supplemental oxygen states her breathing is slightly better after IV Lasix yesterday. Vital signs stable. Anticipate proceeding with cardiac catheterization later today. Exam Vital signs and Labs for Last 24 Hours: Temp Pulse Resp BP Pulse Ox 98.4 F 82 16 142/74 H 98 02/27/19 04:00 02/27/19 05:50 02/27/19 04:00 02/27/19 04:00 02/27/19 05:50 Laboratory Results - last 24 hr 02/26/19 08:50: WBC 8.8, RBC 4.54, Hgb 11.5 L, Hct 38.2, MCV 84.2, MCH 25.4 L, MCHC 30.2 L, RDW 16.2, Plt Count 382, MPV 7.9, Neut % (Auto) 69.2, Lymph % (Auto) 21.9, [place] % (Auto) 5.4, Eos % (Auto) 2.9, Baso % (Auto) 0.6, Neut # (Auto) 6.1, Lymph # (Auto) 1.9, [place] # (Auto) 0.5, Eos # (Auto) 0.3, Baso # (Auto) 0.1 02/26/19 08:50: Sodium 141, Potassium 3.6, Chloride 105, Carbon Dioxide 29, Anion Gap 10.6, BUN 12, Creatinine 1.01, Estimated Creat Clear 41, Estimated GFR 53 L, Est GFR ( Amer) 64, Glucose 107 H, Calcium 9.4 I & O for Last 24 hours: Intake & Output 02/24/19 02/25/19 02/26/19 02/27/19 11:59 11:59 11:59 11:59 Intake Total 720 / 720 680 / 680 1200 / 1200 1140 / 1140 Output Total 1800 / 1800 2800 / 2800 3200 / 3200 1600 / 1600 Balance -1080 / -1080 -2120 / -2120 -1999 / -1999 -460 / -460 Weight 132 lb 2 oz 132 lb 8 oz 131 lb 8 oz 117 lb 1 oz Microbiology Reports for the Last 24 Hours: Microbiology 02/19/19 15:00 Back - Wound - Preliminary 02/19/19 15:00 Back - Wound - Preliminary 02/19/19 15:00 Back - Wound - Final 02/19/19 15:00 Back - Wound - Final 02/19/19 15:00 Back - Wound - Final - *Routine Respiratory Exam Present: decreased breath sounds, diminished air movement. Absent: accessory muscle use, rales, rhonchi, wheezes - *Routine Cardiovascular Exam Present: RRR. Absent: murmur, gallop, rubs - *Routine Neurological Exam Present: alert, oriented X3, moving all extremities Progress Note: A&P (1) Methicillin susceptible Staphylococcus aureus infection as the cause of diseases classified elsewhere Status: Acute Current Visit: Yes (2) HTN (hypertension) Status: Acute Current Visit: Yes (3) Hyperlipidemia Status: Acute Current Visit: Yes (4) S/P insertion of intrathecal pump Problem details: Pump removed February 2019 Status: Acute Current Visit: Yes (5) Neuropathy Status: Acute Current Visit: Yes (6) Anemia Status: Acute Current Visit: Yes (7) Chronic pain syndrome Status: Acute Current Visit: Yes (8) Infected surgical wound Status: Acute Current Visit: Yes (9) Status post hardware removal Status: Acute Current Visit: Yes (10) COPD (chronic obstructive pulmonary disease) Status: Chronic Current Visit: Yes (11) CHF (congestive heart failure) Status: Acute Current Visit: Yes (12) Hypokalemia Status: Acute Current Visit: Yes (13) Infection due to yeast Status: Acute Current Visit: Yes (14) Encounter for management of wound VAC Status: Acute Current Visit: Yes (15) Pleural effusion Status: Acute Current Visit: Yes (16) Cardiomyopathy Status: Acute Current Visit: Yes Assessment and Plan for All Diagnoses:: Proceed with cardiac catheterization today with further recommendations thereafter. Consideration for pulmonary consult with Dr. Gutierrez recommended.
--- NOTE | 2019-02-27 08:00 | Progress Note ---
<Whitney Villasenor - Last Filed: 02/27/19 08:00> Internal Medicine - PN: Subj *Date: 02/27/19 *Time: 08:00 Interval history: Patient was started on oxygen yesterday in the p.m. Patient does not know why. She states she is breathing is usual. She is up to the bedside commode without her oxygen at present. She denies any further chest pain. She ate as usual yesterday. Currently she is n.p.o. for cardiac cath sometime this a.m. Exam Vital signs and Labs for Last 24 Hours: Temp Pulse Resp BP Pulse Ox 98.4 F 82 16 142/74 H 98 02/27/19 04:00 02/27/19 05:50 02/27/19 04:00 02/27/19 04:00 02/27/19 05:50 Laboratory Results - last 24 hr 02/26/19 08:50: WBC 8.8, RBC 4.54, Hgb 11.5 L, Hct 38.2, MCV 84.2, MCH 25.4 L, MCHC 30.2 L, RDW 16.2, Plt Count 382, MPV 7.9, Neut % (Auto) 69.2, Lymph % (Auto) 21.9, [place] % (Auto) 5.4, Eos % (Auto) 2.9, Baso % (Auto) 0.6, Neut # (Auto) 6.1, Lymph # (Auto) 1.9, [place] # (Auto) 0.5, Eos # (Auto) 0.3, Baso # (Auto) 0.1 02/26/19 08:50: Sodium 141, Potassium 3.6, Chloride 105, Carbon Dioxide 29, Anion Gap 10.6, BUN 12, Creatinine 1.01, Estimated Creat Clear 41, Estimated GFR 53 L, Est GFR ( Amer) 64, Glucose 107 H, Calcium 9.4 I & O for Last 24 hours: Intake & Output 02/24/19 02/25/19 02/26/19 02/27/19 11:59 11:59 11:59 11:59 Intake Total 720 / 720 680 / 680 1200 / 1200 1140 / 1140 Output Total 1800 / 1800 2800 / 2800 3200 / 3200 1600 / 1600 Balance -1080 / -1080 -2120 / -2120 -1999 / -1999 -460 / -460 Weight 132 lb 2 oz 132 lb 8 oz 131 lb 8 oz 117 lb 1 oz Microbiology Reports for the Last 24 Hours: Microbiology 02/19/19 15:00 Back - Wound - Preliminary 02/19/19 15:00 Back - Wound - Preliminary 02/19/19 15:00 Back - Wound - Final 02/19/19 15:00 Back - Wound - Final 02/19/19 15:00 Back - Wound - Final Radiology Reports for the Last 24 Hours: Echocardiogram 02/26/2019 CONCLUSION: 1. Technically difficult study because of the patient's factor and poor acoustic windows 2. Mildly enlarged left atrium, normal left ventricular size, moderate concentric left ventricular hypertrophy, reduced left ventricular systolic function, visually estimated ejection fraction 30% with segmental wall motion abnormality described above, grade 1 diastolic dysfunction seen with tissue Doppler evidence of raised left atrial pressure. 3. Thickened and calcified aortic valve without aortic stenosis or significant aortic insufficiency. 4. Mild mitral and tricuspid regurgitation 5. There is small pericardial effusion and large left-sided pleural effusion seen. - Constitutional no acute distress Comments: Up on bedside commode. Breathing easily and looks comfortable - *Routine Respiratory Exam Comments: Decreased breath sounds in bases with a few bibasilar crackles - *Routine Cardiovascular Exam Present: RRR - *Routine Abdominal Exam Present: soft, normoactive bowel sounds. Absent: tenderness - *Routine Extremities Exam Absent: edema - Routine Back/Spine/Pelvis Exam Comments: Wound VAC in place - *Routine Neurological Exam Present: alert, oriented X3 Assessment and Plan (1) Methicillin susceptible Staphylococcus aureus infection as the cause of diseases classified elsewhere Current visit: Yes Status: Acute Category: Medical Code(s): B95.61 - Methicillin susceptible Staphylococcus aureus infection as the cause of diseases classified elsewhere (2) HTN (hypertension) Current visit: Yes Status: Acute Category: Medical Code(s): I10 - Essential (primary) hypertension (3) Hyperlipidemia Current visit: Yes Status: Acute Category: Medical Code(s): E78.5 - Hyperlipidemia, unspecified (4) S/P insertion of intrathecal pump Problem details: Pump removed February 2019 Current visit: Yes Status: Acute Category: Surgical Code(s): Z98.890 - Other specified postprocedural states (5) Neuropathy Current visit: Yes Status: Acute Category: Medical Code(s): G62.9 - Polyneuropathy, unspecified (6) Anemia Current visit: Yes Status: Acute Category: Medical Code(s): D64.9 - Anemia, unspecified (7) Chronic pain syndrome Current visit: Yes Status: Acute Category: Medical Code(s): G89.4 - Chronic pain syndrome (8) Infected surgical wound Current visit: Yes Status: Acute Category: Medical Code(s): T81.49XA - Infection following a procedure, other surgical site, initial encounter (9) Status post hardware removal Current visit: Yes Status: Acute Category: Surgical Code(s): Z98.890 - Other specified postprocedural states (10) COPD (chronic obstructive pulmonary disease) Current visit: Yes Status: Chronic Category: Medical Code(s): J44.9 - Chronic obstructive pulmonary disease, unspecified (11) CHF (congestive heart failure) Current visit: Yes Status: Acute Category: Medical Code(s): I50.9 - Heart failure, unspecified (12) Hypokalemia Current visit: Yes Status: Acute Category: Medical Code(s): E87.6 - Hypokalemia (13) Infection due to yeast Current visit: Yes Status: Acute Category: Medical Code(s): B37.9 - Candidiasis, unspecified (14) Encounter for management of wound VAC Current visit: Yes Status: Acute Category: Medical (15) Pleural effusion Current visit: Yes Status: Acute Category: Medical Code(s): J90 - Pleural effusion, not elsewhere classified (16) Cardiomyopathy Current visit: Yes Status: Acute Category: Medical Code(s): I42.9 - Cardiomyopathy, unspecified - Assessment and plan all Dx Assessment and Plan for all problems:: Patient is also being followed by cardiology. Will have cardiac cath this a.m. Continue with diuresis. Continue with wound care as per surgeon <Amish Smith - Last Filed: 02/27/19 08:49> Internal Medicine - PN: Subj *Date: 02/27/19 *Time: 08:48 Exam Vital signs and Labs for Last 24 Hours: Temp Pulse Resp BP Pulse Ox 97.7 F 77 20 164/71 H 97 02/27/19 08:00 02/27/19 08:00 02/27/19 08:00 02/27/19 08:00 02/27/19 08:00 Laboratory Results - last 24 hr 02/26/19 08:50: WBC 8.8, RBC 4.54, Hgb 11.5 L, Hct 38.2, MCV 84.2, MCH 25.4 L, MCHC 30.2 L, RDW 16.2, Plt Count 382, MPV 7.9, Neut % (Auto) 69.2, Lymph % ([place] to) 21.9, [place] % (Auto) 5.4, Eos % (Auto) 2.9, Baso % (Auto) 0.6, Neut # (Auto) 6.1, Lymph # (Auto) 1.9, [place] # (Auto) 0.5, Eos # (Auto) 0.3, Baso # (Auto) 0.1 02/26/19 08:50: Sodium 141, Potassium 3.6, Chloride 105, Carbon Dioxide 29, Anion Gap 10.6, BUN 12, Creatinine 1.01, Estimated Creat Clear 41, Estimated GFR 53 L, Est GFR ( Amer) 64, Glucose 107 H, Calcium 9.4 I & O for Last 24 hours: Intake & Output 02/24/19 02/25/19 02/26/19 02/27/19 23:59 23:59 23:59 23:59 Intake Total 680 / 680 1080 / 1080 1500 / 1500 Output Total 2800 / 2800 3100 / 3100 3500 / 3500 Balance -2119 / -2119 -2019 / -2019 -1999 / Weight 132 lb 2 oz 132 lb 8 oz 131 lb 8 oz 117 lb 1 oz Microbiology Reports for the Last 24 Hours: Microbiology 02/19/19 15:00 Back - Wound - Preliminary 02/19/19 15:00 Back - Wound - Preliminary 02/19/19 15:00 Back - Wound - Final 02/19/19 15:00 Back - Wound - Final 02/19/19 15:00 Back - Wound - Final Assessment and Plan (1) Methicillin susceptible Staphylococcus aureus infection as the cause of diseases classified elsewhere Current visit: Yes Status: Acute Category: Medical Code(s): B95.61 - Methicillin susceptible Staphylococcus aureus infection as the cause of diseases classified elsewhere (2) HTN (hypertension) Current visit: Yes Status: Acute Category: Medical Code(s): I10 - Essential (primary) hypertension (3) Hyperlipidemia Current visit: Yes Status: Acute Category: Medical Code(s): E78.5 - Hyperlipidemia, unspecified (4) S/P insertion of intrathecal pump Problem details: Pump removed February 2019 Current visit: Yes Status: Acute Category: Surgical Code(s): Z98.890 - Other specified postprocedural states (5) Neuropathy Current visit: Yes Status: Acute Category: Medical Code(s): G62.9 - Polyneuropathy, unspecified (6) Anemia Current visit: Yes Status: Acute Category: Medical Code(s): D64.9 - Anemia, unspecified (7) Chronic pain syndrome Current visit: Yes Status: Acute Category: Medical Code(s): G89.4 - Chronic pain syndrome (8) Infected surgical wound Current visit: Yes Status: Acute Category: Medical Code(s): T81.49XA - Infection following a procedure, other surgical site, initial encounter (9) Status post hardware removal Current visit: Yes Status: Acute Category: Surgical Code(s): Z98.890 - Other specified postprocedural states (10) COPD (chronic obstructive pulmonary disease) Current visit: Yes Status: Chronic Category: Medical Code(s): J44.9 - Chronic obstructive pulmonary disease, unspecified (11) CHF (congestive heart failure) Current visit: Yes Status: Acute Category: Medical Code(s): I50.9 - Heart failure, unspecified (12) Hypokalemia Current visit: Yes Status: Acute Category: Medical Code(s): E87.6 - Hypokalemia (13) Infection due to yeast Current visit: Yes Status: Acute Category: Medical Code(s): B37.9 - Candidiasis, unspecified (14) Encounter for management of wound VAC Current visit: Yes Status: Acute Category: Medical (15) Pleural effusion Current visit: Yes Status: Acute Category: Medical Code(s): J90 - Pleural effusion, not elsewhere classified (16) Cardiomyopathy Current visit: Yes Status: Acute Category: Medical Code(s): I42.9 - Cardiomyopathy, unspecified - Assessment and plan all Dx Assessment and Plan for all problems:: Saw patient, agree with above note, unclear why supplemental oxygen was resumed yesterday. Await cardiac cath results.
[2019-02-28 07:38] LABS: Basophils % 0.5 % (0.1-2.0); Eosinophils # 0.2 K/mm3 (0.0-0.4); Eosinophils % 2.5 % (0.1-12.0); Hematocrit 35.7 % (37.0-47.0); Hemoglobin 10.8 g/dL (12.2-16.2); Lymphocytes # 2.1 K/mm3 (0.7-4.5); Lymphocytes % 29.3 % (10-50); Mean Corpuscular HGB Conc 30.2 g/dL (31.8-35.4); Mean Corpuscular Hemoglobin 25.8 pg (27.0-31.2); Mean Corpuscular Volume 85.3 fl (81-99); Mean Platelet Volume 7.7 fl (7.4-10.4); Monocytes # 0.3 K/mm3 (0.1-1.0); Monocytes % 4.8 % (1.7-9.3); Neutrophils # 4.5 K/mm3 (1.8-7.8); Neutrophils % 62.9 % (37.0-80.0); Platelet Count 335 K/mm3 (142-424); Red Blood Count 4.19 M/mm3 (4.20-5.40); Red Cell Distribution Width 16.6 % (11.5-17.5); White Blood Count 7.2 K/mm3 (4.8-10.8)
[2019-02-28 07:44] LABS: Anion Gap 10.1 mEq/L (5-15); Potassium 4.1 mmoL/L (3.5-5.1)
--- NOTE | 2019-02-28 08:02 | Progress Note ---
<Sharla Zepeda - Last Filed: 02/28/19 07:57> Internal Medicine - PN: Subj *Date: 02/28/19 *Time: 07:57 Interval history: Patient states she is feeling well this morning. She is anxious to go home. She denies any pain and slept well. She had all of her breakfast. She has not been on any oxygen. Exam Vital signs and Labs for Last 24 Hours: Temp Pulse Resp BP Pulse Ox 97.8 F 85 17 135/63 95 02/28/19 00:00 02/28/19 05:53 02/28/19 00:00 02/28/19 00:00 02/28/19 00:00 Laboratory Results - last 24 hr 02/27/19 12:03: ABG O2 Sat (Measured) 49 L, POC VBG O2 Sat ([place]) 52 L 02/28/19 07:05: WBC 7.2, RBC 4.19 L, Hgb 10.8 L, Hct 35.7 L, MCV 85.3, MCH 25.8 L, MCHC 30.2 L, RDW 16.6, Plt Count 335, MPV 7.7, Neut % (Auto) 62.9, Lymph % (Auto) 29.3, [place] % (Auto) 4.8, Eos % (Auto) 2.5, Baso % (Auto) 0.5, Neut # (Auto) 4.5, Lymph # (Auto) 2.1, [place] # (Auto) 0.3, Eos # (Auto) 0.2, Baso # (Auto) 0.0 02/28/19 07:05: Sodium 140, Potassium 4.1, Chloride 106, Carbon Dioxide 28, Anion Gap 10.1, BUN 21 H D, Creatinine 1.19 H, Estimated Creat Clear 31, Estimated GFR 44 L, Est GFR ( Amer) 53 L, Glucose 96, Calcium 9.0 I & O for Last 24 hours: Intake & Output 02/25/19 02/26/19 02/27/19 02/28/19 11:59 11:59 11:59 11:59 Intake Total 680 / 680 1200 / 1200 1140 / 1140 480 / 480 Output Total 2800 / 2800 3200 / 3200 2350 / 2350 Balance -2120 / -2119 -1999 / -2000 -1210 / -1210 480 / 480 Weight 132 lb 8 oz 131 lb 8 oz 117 lb 1 oz Radiology Reports for the Last 24 Hours: IMPRESSION: 1. Mild to moderate nonflow limiting coronary artery disease 2. Severely reduced ejection fraction with significant regional wall motion abnormality which cannot be explained angiographically 3. Mild pulmonary hypertension with normal pulmonary artery occlusion pressure PLAN: 1. Medical management for systolic heart failure which includes ilir inhibitors beta blockers and diuretics 2. Monitor large pleural effusion. If this effusion decreases in size with diuretics I would attribute this to congestive heart failure however if the effusion remains the same size it should be tapped with thoracentesis for therapeutic possible diagnostic etiologies 3. Patient should go home on a loop diuretics 4. Close follow-up in cardiology clinic within 1 week - Constitutional no acute distress - *Routine Respiratory Exam Present: decreased breath sounds - *Routine Cardiovascular Exam Present: RRR - *Routine Abdominal Exam Present: soft, normoactive bowel sounds. Absent: tenderness - *Routine Extremities Exam Absent: cyanosis, clubbing, edema Assessment and Plan (1) Methicillin susceptible Staphylococcus aureus infection as the cause of dis eases classified elsewhere Current visit: Yes Status: Acute Category: Medical Code(s): B95.61 - Methicillin susceptible Staphylococcus aureus infection as the cause of diseases classified elsewhere (2) HTN (hypertension) Current visit: Yes Status: Acute Category: Medical Code(s): I10 - Essential (primary) hypertension (3) Hyperlipidemia Current visit: Yes Status: Acute Category: Medical Code(s): E78.5 - Hyperlipidemia, unspecified (4) S/P insertion of intrathecal pump Problem details: Pump removed February 2019 Current visit: Yes Status: Acute Category: Surgical Code(s): Z98.890 - Other specified postprocedural states (5) Neuropathy Current visit: Yes Status: Acute Category: Medical Code(s): G62.9 - Polyneuropathy, unspecified (6) Anemia Current visit: Yes Status: Acute Category: Medical Code(s): D64.9 - Anemia, unspecified (7) Chronic pain syndrome Current visit: Yes Status: Acute Category: Medical Code(s): G89.4 - Ch ronic pain syndrome (8) Infected surgical wound Current visit: Yes Status: Acute Category: Medical Code(s): T81.49XA - Infection following a procedure, other surgical site, initial encounter (9) Status post hardware removal Current visit: Yes Status: Acute Category: Surgical Code(s): Z98.890 - Other specified postprocedural states (10) COPD (chronic obstructive pulmonary disease) Current visit: Yes Status: Chronic Category: Medical Code(s): J44.9 - Chronic obstructive pulmonary disease, unspecified (11) CHF (congestive heart failure) Current visit: Yes Status: Acute Category: Medical Code(s): I50.9 - Heart failure, unspecified (12) Hypokalemia Current visit: Yes Status: Acute Category: Medical Code(s): E87.6 - Hypokalemia (13) Infection due to yeast Current visit: Yes Status: Acute Category: Medical Code(s): B37.9 - Candidiasis, unspecified (14) Encounter for management of wound VAC Current visit: Yes Status: Acute Category: Medical (15) Pleural effusion Current visit: Yes Status: Acute Category: Medical Code(s): J90 - Pleural effusion, not elsewhere classified (16) Cardiomyopathy Current visit: Yes Status: Acute Category: Medical Code(s): I42.9 - Cardiomyopathy, unspecified - Assessment and plan all Dx Assessment and Plan for all problems:: Cardiac cath reviewed. Patient is feeling better today and anxious to be discharged home. Will discuss further care with Dr. Smith. <Amish Smith - Last Filed: 02/28/19 08:35> Internal Medicine - PN: Subj *Date: 02/28/19 *Time: 08:31 Exam Vital signs and Labs for Last 24 Hours: Temp Pulse Resp BP Pulse Ox 98.2 F 81 16 133/69 96 02/28/19 08:00 02/28/19 08:00 02/28/19 08:00 02/28/19 08:00 02/28/19 08:00 Laboratory Results - last 24 hr 02/27/19 12:03: ABG O2 Sat (Measured) 49 L, POC VBG O2 Sat ([place]) 52 L 02/28/19 07:05: WBC 7.2, RBC 4.19 L, Hgb 10.8 L, Hct 35.7 L, MCV 85.3, MCH 25.8 L, MCHC 30.2 L, RDW 16.6, Plt Count 335, MPV 7.7, Neut % (Auto) 62.9, Lymph % (Auto) 29.3, [place] % (Auto) 4.8, Eos % (Auto) 2.5, Baso % (Auto) 0.5, Neut # (Auto) 4.5, Lymph # (Auto) 2.1, [place] # (Auto) 0.3, Eos # (Auto) 0.2, Baso # (Auto) 0.0 02/28/19 07:05: Sodium 140, Potassium 4.1, Chloride 106, Carbon Dioxide 28, Anion Gap 10.1, BUN 21 H D, Creatinine 1.19 H, Estimated Creat Clear 31, Estim ated GFR 44 L, Est GFR ( Amer) 53 L, Glucose 96, Calcium 9.0 I & O for Last 24 hours: Intake & Output 02/25/19 02/26/19 02/27/19 02/28/19 23:59 23:59 23:59 23:59 Intake Total 1080 / 1080 1500 / 1500 480 / 480 Output Total 3100 / 3100 3500 / 3500 750 / 750 Balance -2020 / -2019 -1999 / -1999 - / -270 Weight 132 lb 8 oz 131 lb 8 oz 117 lb 1 oz Assessment and Plan (1) Methicillin susceptible Staphylococcus aureus infection as the cause of diseases classified elsewhere Current visit: Yes Status: Acute Category: Medical Code(s): B95.61 - Meth icillin susceptible Staphylococcus aureus infection as the cause of diseases classified elsewhere (2) HTN (hypertension) Current visit: Yes Status: Acute Category: Medical Code(s): I10 - Essential (primary) hypertension (3) Hyperlipidemia Current visit: Yes Status: Acute Category: Medical Code(s): E78.5 - Hyperlipidemia, unspecified (4) S/P insertion of intrathecal pump Problem details: Pump removed February 2019 Current visit: Yes Status: Acute Category: Surgical Code(s): Z98.890 - Other specified postprocedural states (5) Neuropathy Current visit: Yes Status: Acute Category: Medical Code(s): G62.9 - Polyneuropathy, unspecified (6) Anemia Current visit: Yes Status: Acute Category: Medical Code(s): D64.9 - Anemia, unspecified (7) Chronic pain syndrome Current visit: Yes Status: Acute Category: Medical Code(s): G89.4 - Chronic pain syndrome (8) Infected surgical wound Current visit: Yes Status: Acute Category: Medical Code(s): T81.49XA - Infection following a procedure, other surgical site, initial encounter (9) Status post hardware removal Current visit: Yes Status: Acute Category: Surgical Code(s): Z98.890 - Other specified postprocedural states (10) COPD (chronic obstructive pulmonary disease) Current visit: Yes Status: Chronic Category: Medical Code(s): J44.9 - Chronic obstructive pulmonary disease, unspecified (11) CHF (congestive heart failure) Current visit: Yes Status: Acute Qualifiers: Heart failure type: biventricular Qualified Code(s): I50.82 - Biventricular heart failure Category: Medical Code(s): I50.9 - Heart failure, unspecified (12) Hypokalemia Current visit: Yes Status: Acute Category: Medical Code(s): E87.6 - Hypokalemia (13) Infection due to yeast Current visit: Yes Status: Acute Category: Medical Code(s): B37.9 - Candidiasis, unspecified (14) Encounter for management of wound VAC Current visit: Yes Status: Acute Category: Medical (15) Pleural effusion Current visit: Yes Status: Acute Category: Medical Code(s): J90 - Pleural effusion, not elsewhere classified (16) Cardiomyopathy Current visit: Yes Status: Acute Category: Medical Code(s): I42.9 - Cardiomyopathy, unspecified - Assessment and plan all Dx Assessment and Plan for all problems:: Saw patient, agree with above note. Cardiology note reviewed. Discussed new diagnosis of CHF and needed dietary changes and smoking cessation. Will continue treatment with daily Lasix due to pleural effusion, would like to transition to Entresto in the near future if possible.
--- NOTE | 2019-02-28 16:03 | Discharge Summary ---
General - General Admission date:: 02/18/19 Discharge date: 02/28/19 HPI HPI: Ms Loza is an 83 year old female with a history of chronic low back pain who presented to [facility] ER with bloody drainage from a surgical wound on her right low back. Patient stated she had an intrathecal pain pump placed in late 2018 and was having problems getting the wound to heal. She stated she had been seen almost weekly at the pain clinic and was recently referred to the wound management clinic at [facility]. Patient first noted some bloody discharge from the wound on the morning of February 16 when she awakened from sleep. She stated the drainage increased during the day and by the next morning there was a large amount of yellow/brown drainage mixed with blood. The wound required multiple dressing changes So she came to the ER for an evaluation. She denied fever and chills. She had a little pain around the wound. Hospital Course Hospital Course: Patient was admitted for further evaluation and management of the infected wound at the pain pump site in her right low back. She was empirically started on Vancomycin, and Zosyn was added. She was anemic as well. Previous evaluation had shown her to be iron deficient with heme negative stool. Patient initially wanted to recheck H/H before deciding if she wanted a transfusion. Patient was seen by surgeon, Dr. Goddard, who took her to surgery the evening of 02/19/2019 and remove the infected hardware and catheter with debridement of the necrotic tissue around the wound in her back. She tolerated this procedure well. Ms Loza had a consistent cough. Sputum culture eventually grew yeast for which she was started on Diflucan. Back wound culture revealed staph aureus. Blood cultures were negative. She was started on dressing changes twice daily and eventually changed to a wound VAC which was to be changed every 72 hours. She did develop congestive heart failure and required IV Lasix and was started on duo nebs. IV fluids were decreased. She was started on potassium for hypokalemia. Hemoglobin did drop to 7.4 after which she decided to receive 1 unit of packed red blood cells. Hemoglobin did stabilize and was 9.6 after the infusion. She was started on monotherapy antibiotic of Rocephin IV. 02/24/2019 she did develop chest pain. Troponin was slightly elevated. Echocardiogram revealed an ejection fraction between 25 to 30% with a large pleural effusion on the left. Thus cardiology was consulted with the following impression and plan: 1. In light of the patient's newly diagnosed cardiomyopathy in the setting of biventricular congestive heart failure, COPD and pleural effusion, would recommend proceeding with right and left heart catheterization tomorrow. 2. We will give additional diuretics today along with increasing her potassium supplementation. 3. We will increase her carvedilol due to elevated blood pressure and heart rate. Continue her Irbesartan. 4. Further recommendations pending tomorrow's cardiac catheterization results. Cardiac catheterization was performed with the following results: IMPRESSION: 1. Mild to moderate nonflow limiting coronary artery disease 2. Severely reduced ejection fraction with significant regional wall motion abnormality which cannot be explained angiographically 3. Mild pulmonary hypertension with normal pulmonary artery occlusion pressure Patient had no further chest discomfort and diuresis was continued. She was ambulating in the room. She was eating satisfactory. Wound VAC was functioning well and followed by the surgeon. On 02/28/2019 it was felt she was stable to be discharged home. Dr. Smith discussed new diagnosis of CHF and needed dietary changes and smoking cessation. The patient was to continue treatment with daily Lasix due to pleural effusion and possibly transition to Entresto in the near future. Patient was discharged home in stable and satisfactory condition with home health for wound care and patient assessment. She will follow-up with the surgeon, cardiology, pain management and Dr. Smith. See discharge orders. Objective Vital signs: Temp Pulse Resp BP Pulse Ox 98.2 F 81 16 133/69 96 02/28/19 08:00 02/28/19 08:00 02/28/19 08:00 02/28/19 08:00 02/28/19 08:00 Narrative: Physical exam 02/28/19 - Constitutional no acute distress - *Routine Respiratory Exam Present: decreased breath sounds - *Routine Cardiovascular Exam Present: RRR - *Routine Abdominal Exam Present: soft, normoactive bowel sounds. Absent: tenderness - *Routine Extremities Exam Absent: cyanosis, clubbing, edema Results Completed studies during hospitalization [Text1]: 02/20/2019 chest x-ray MPRESSION: Pulmonary venous congestion with interstitial edema with normal heart size. This could be related to acute cardiac decompensation or acute volume overload. Alveolar opacification is present in the lung bases and may be related to pulmonary edema or pneumonia. 03/04/2019 repeat chest x-ray IMPRESSION: 1. Interval improvement in the interstitial edema suggesting resolving congestive failure and/or fluid overload 2. Interval increase in size of left pleural effusion with questionable left lower lobe pneumonic infiltrate. echocardiogram CONCLUSION: 1. Technically difficult study because of the patient's factor and poor acoustic windows 2. Mildly enlarged left atrium, normal left ventricular size, moderate concentric left ventricular hypertrophy, reduced left ventricular systolic function, visually estimated ejection fraction 30% with segmental wall motion abnormality described above, grade 1 diastolic dysfunction seen with tissue Doppler evidence of raised left atrial pressure. 3. Thickened and calcified aortic valve without aortic stenosis or significant aortic insufficiency. 4. Mild mitral and tricuspid regurgitation 5. There is small pericardial effusion and large left-sided pleural effusion seen. 02/27/2019 cardiac catheterization IMPRESSION: 1. Mild to moderate nonflow limiting coronary artery disease 2. Severely reduced ejection fraction with significant regional wall motion abnormality which cannot be explained angiographically 3. Mild pulmonary hypertension with normal pulmonary artery occlusion pressure PLAN: 1. Medical management for systolic heart failure which includes ilir inhibitors beta blockers and diuretics 2. Monitor large pleural effusion. If this effusion decreases in size with diuretics I would attribute this to congestive heart failure however if the effusion remains the same size it should be tapped with thoracentesis for therapeutic possible diagnostic etiologies 3. Patient should go home on a loop diuretics 4. Close follow-up in cardiology clinic within 1 week Labs on day of discharge: Labs from last 24 hours 02/28/19 02/28/19 07:05 07:05 WBC 7.2 RBC 4.19 L Hgb 10.8 L Hct 35.7 L MCV 85.3 MCH 25.8 L MCHC 30.2 L RDW 16.6 Plt Count 335 MPV 7.7 Neut % (Auto) 62.9 Lymph % (Auto) 29.3 [place] % (Auto) 4.8 Eos % (Auto) 2.5 Baso % (Auto) 0.5 Neut # (Auto) 4.5 Lymph # (Auto) 2.1 [place] # (Auto) 0.3 Eos # (Auto) 0.2 Baso # (Auto) 0.0 Sodium 140 Potassium 4.1 Chloride 106 Carbon Dioxide 28 Anion Gap 10.1 BUN 21 H D Creatinine 1.19 H Estimated Creat Clear 31 Estimated GFR 44 L Est GFR ( Amer) 53 L Glucose 96 Calcium 9.0 Preliminary micro results at discharge 02/19/19 15:00 - Preliminary Back - Wound DS: Diagnosis - Discharge Diagnosis (1) Methicillin susceptible Staphylococcus aureus infection as the cause of diseases classified elsewhere Status: Acute (2) HTN (hypertension) Status: Acute (3) Hyperlipidemia Status: Acute (4) S/P insertion of intrathecal pump Status: Acute Problem details: Pump removed February 2019 (5) Neuropathy Status: Acute (6) Anemia Status: Acute (7) Chronic pain syndrome Status: Acute (8) Infected surgical wound Status: Acute (9) Status post hardware removal Status: Acute (10) COPD (chronic obstructive pulmonary disease) Status: Chronic (11) CHF (congestive heart failure) Status: Acute (12) Hypokalemia Status: Acute (13) Infection due to yeast Status: Acute (14) Encounter for management of wound VAC Status: Acute (15) Pleural effusion Status: Acute (16) Cardiomyopathy Status: Acute (17) Systolic and diastolic CHF w/reduced LV function, NYHA class 4 Status: Acute Discharge Plan - Patient Discharge Instructions ACTIVITY: Continue current activity DIET: low salt diet Additional Instructions: Nursing Diagnosis: Knowledge Deficit Disease/Condition Goal(s): Education of disease process Instruction(s): Follow provider plan/instructions (See attached discharge education) Follow/up with primary care provider as instructed in discharge packet Patient Instructions: Anemia, DI for Heart Failure, DI for Blood Transfusion, DI for Surgical Site Infection, DI for Skin Abscess - Follow up Plan Follow up with: Pawel Miller MD [Staff Physician] - 2 weeks Amish Smith MD [Primary Care Provider] - 03/20/19 1:00 pm Mj Goddard MD [Staff Physician] - 1 week Sumanth Suero MD [Staff Physician] - 1 week Disposition: Home Health Service Home Medications: Home Medications Medication Instructions Recorded Confirmed Type Aspirin [Aspir 81] 81 mg PO DAILY 12/05/18 02/17/19 History Calcium Carbonate [Calcium] 600 mg PO BID 12/05/18 02/17/19 History Duloxetine HCl 60 mg PO DAILY 12/05/18 02/17/19 History Gabapentin 600 mg PO TID 12/05/18 02/17/19 History Naproxen 500 mg PO BID 12/05/18 02/17/19 History Simvastatin 20 mg PO HS 12/05/18 02/17/19 History Ergocalciferol (Vitamin D2) 400 unit PO DAILY 02/17/19 02/17/19 History [Vitamin D] Irbesartan/Hydrochlorothiazide 1 tab PO DAILY 02/17/19 02/17/19 History [Irbesartan-Hctz 150-12.5 mg Tb] Latanoprost [Xalatan 0.005% Ophth 2 drops OP HS 02/18/19 02/18/19 History Soln 2.5mL] Carvedilol [Coreg 6.25mg 6.25 mg PO BID #60 tab 02/28/19 Rx Tablet] Furosemide [Furosemide 20mg Tab] 40 mg PO DAILYP #60 tab 02/28/19 Rx Hydrocod/Acet 5/325 mg [Walker 1 tab PO Q4HP PRN #30 tab 02/28/19 Rx 5/325mg tablet] Potassium Chloride [Klor-con 20 20 meq PO DAILY #30 tab 02/28/19 Rx mEq tablet] cefUROXime axetil [Ceftin 500mg 500 mg PO BID #20 tab 02/28/19 Rx Tab (GEQ)] Prescriptions/Medication Reconciliation: New cefUROXime axetil [Ceftin 500mg Tab (GEQ)] 500 mg PO BID #20 tab Carvedilol [Coreg 6.25mg Tablet] 6.25 mg PO BID #60 tab Hydrocod/Acet 5/325 mg [Walker 5/325mg tablet] 1 tab PO Q4HP PRN #30 tab PRN Reason: Moderate To Severe Pain Continued Simvastatin 20 mg PO HS Naproxen 500 mg PO BID Gabapentin 600 mg PO TID Duloxetine HCl 60 mg PO DAILY Calcium Carbonate [Calcium] 600 mg PO BID Aspirin [Aspir 81] 81 mg PO DAILY Ergocalciferol (Vitamin D2) [Vitamin D] 400 unit PO DAILY Latanoprost [Xalatan 0.005% Ophth Soln 2.5mL] 2 drops OP HS Irbesartan/Hydrochlorothiazide [Irbesartan-Hctz 150-12.5 mg Tb] 1 tab PO DAILY Potassium Chloride [Klor-con 20 mEq tablet] 20 meq PO DAILY #30 tab Changed Furosemide [Furosemide 20mg Tab] 40 mg PO DAILYP #60 tab Discontinued Carvedilol [Coreg 3.125mg Tablet] 3.125 mg PO BID
== END 2019-02-28 10:54 | disposition home health service (06) | DRG 29 ==
LOC: 2ND 18:19 → ER 18:19 → 2ND 20:44 → UNDODISIN 02-20 11:05 → 2ND 02-23 16:18
PROVIDERS: ADMIT Family Medicine; ATTEND Family Medicine
CPT/HCPCS: 36415; 71010; 71045; 80048; 80053; 80202; 82272; 82803; 82810; 82962; 83605; 83880; 84484; 85014; 85018; 85025; 86850; 87040; 87070; 87075; 87077; 87186; 87205; 87507; 93005; 93306; 93460; 94640; 94761; 96365; 96366; 99152; 99153; 99284; C1725; C1769; C1894; G0328; G0378; J0330; J1644; J2405; J2543; J3370; P9016; Q9967

== ENCOUNTER → 2019-03-16 13:08 | Outpatient (POV) | payer MEDICARE, SELFPAY ==
[2019-03-16 13:19] VITALS: BP 155/62; PULSE 79; RESP 18; O2SAT 98; BMI 17.0
--- NOTE | 2019-03-16 13:42 | HMH.PAINSOAP ---
[facility] Pain Management SOAP Note Subjective:: This patient is a pleasant 83-year-old white female who had her intrathecal pain pump removed because of infection. She has significant degenerative disease of lumbar spine with lumbar radiculopathy symptoms. She was placed on [place] 5 mg every 4 hours upon discharge from the hospital. She still has significant increase in her pain symptoms. Her incisions are healing very nicely. A wound VAC was placed. We will write her for oxycodone 10 mg 1 tablet 5 times a day to help with her pain symptoms. General surgery is following her with her incision. Objective:: Alert and oriented x3 in no acute distress. Patient does have an antalgic gait. Motor strength of the lower extremities is 5/5. There is no gross sensory deficit. Assessment:: Degenerative disc disease of lumbar spine with lumbar radiculopathy symptoms with increasing pain after removal of intrathecal pain pump for infection. Plan:: We will write for oxycodone 10 mg 1 tablet 5 times a day. She is to call us back in the pain clinic to let us know how this works for her pain symptoms. We will follow-up with her in 2 weeks. [facility] and urine drug screen are all appropriate. [facility] #[id number].
== END ==
PROVIDERS: PCP Family Medicine; Visit Provider Anesthesiology
DX: M51.16 Intervertebral disc disorders with radiculopathy, lumbar region (principal)
CPT/HCPCS: 99211

== ENCOUNTER → 2019-03-21 10:19 | Outpatient (CLI) | payer MEDICARE, SELFPAY ==
[2019-03-21 11:10] LABS: Basophils % 0.4 % (0.1-2.0); Eosinophils # 0.2 K/mm3 (0.0-0.4); Eosinophils % 4.5 % (0.1-12.0); Hematocrit 33.9 % (37.0-47.0); Hemoglobin 10.3 g/dL (12.2-16.2); Lymphocytes # 1.8 K/mm3 (0.7-4.5); Lymphocytes % 33.5 % (10-50); Mean Corpuscular HGB Conc 30.3 g/dL (31.8-35.4); Mean Corpuscular Hemoglobin 26.4 pg (27.0-31.2); Mean Corpuscular Volume 87.2 fl (81-99); Mean Platelet Volume 7.6 fl (7.4-10.4); Monocytes # 0.4 K/mm3 (0.1-1.0); Monocytes % 7.6 % (1.7-9.3); Neutrophils # 2.9 K/mm3 (1.8-7.8); Platelet Count 206 K/mm3 (142-424); Red Blood Count 3.89 M/mm3 (4.20-5.40); White Blood Count 5.3 K/mm3 (4.8-10.8)
[2019-03-21 11:38] LABS: Alanine Aminotransferase 24 U/L (12-78); Albumin Level 2.8 gm/dL (3.4-5.0); Albumin/Globulin Ratio 0.7 (1.1-1.8); Alkaline Phosphatase 108 U/L (46-116); Anion Gap 11.1 mEq/L (5-15); Aspartate Amino Transferase 28 U/L (15-37); Bilirubin,Total 0.4 mg/dL (0.2-1.0); Blood Urea Nitrogen 15 mg/dL (7-18); Calcium 9.2 mg/dL (8.5-10.1); Carbon Dioxide 32 mmol/L (21.0-32.0); Chloride 105 mmol/L (98-107); Creatinine,Serum 0.86 mg/dL (0.55-1.02); Estimated Glomerular Filt Rate 63 ml/min (>60); GFR (African American) 77 ML/MIN (>60); Globulin 4.2 gm/dl (1.3-3.2); Glucose 99 mg/dL (74-106); Potassium 4.1 mmoL/L (3.5-5.1); Sodium 144 mmol/L (136-145)
[2019-03-21 11:44] LABS: Bilirubin,Direct 0.1 mg/dL (0.0-0.2); Chol/HDL Ratio 3.1 (1-3.5); Cholesterol 173 mg/dL (140-200); HDL Cholesterol 56 mg/dL (29-89); LDL Cholesterol 109 mg/dL (0-130); Triglycerides 42 mg/dL (30-200); VLDL Cholesterol 8 mg/dL (0-40)
== END ==
PROVIDERS: Physician Assistant; PCP Family Medicine; Visit Provider Family Medicine
DX: E78.5 Hyperlipidemia, unspecified (principal); I25.10 Atherosclerotic heart disease of native coronary artery without angina pectoris; I27.20 Pulmonary hypertension, unspecified; I42.9 Cardiomyopathy, unspecified; I50.43 Acute on chronic combined systolic (congestive) and diastolic (congestive) heart failure; J90 Pleural effusion, not elsewhere classified; T81.49XA Infection following a procedure, other surgical site, initial encounter
CPT/HCPCS: 36415; 80053; 80061; 80076; 82248; 85025

== ENCOUNTER → 2019-03-27 10:49 | Outpatient (POV) | payer MEDICARE, SELFPAY ==
[2019-03-27 10:59] VITALS: BP 122/57; PULSE 67; RESP 18; O2SAT 98; BMI 17.4
--- NOTE | 2019-03-27 11:12 | HMH.PAINSOAP ---
[facility] Pain Management SOAP Note Subjective:: Patient is a pleasant 83-year-old white female who had an intrathecal pain pump removed because of infection. Patient has significant degenerative disc disease lumbar spine with lumbar radiculopathy. Patient is in put on oxycodone 10 mg up to 5 times a day she states she does not have to take it that often however she does well with it. She does have a wound VAC in place. She denies side effects. ROS General: no recent weight change, no fever, no sleep disturbances Respiratory: no cough, no shortness of air, no recurring pulmonary infections Cardiovascular/Peripheral Vascular: No chest pain, No palpitations, no edema, no shortness of breath. Gastrointestinal: no incontinence, normal bowel movements reported Genitourinary: no incontinence Musculoskeletal: Back pain, leg pain Psychiatric: normal mood/ affect Neurological: [denies weakness in extremities], [denies balance issues] Objective:: Physical Exam General: Alert and oriented x3, no acute distress, pleasant and cooperative, [on room air] Lungs: Resps E/U, Symmetrical chest expansion, Eyes: PERRL Musculoskeletal: Flexion and extension of lumbar spine somewhat guarded secondary to pain, deep tendon reflexes normal, strength in upper and lower extremities [5/5], [abnormal gait noted] Neurological: speech clear, coke inspector equal, no gross sensory deficits Assessment:: Degenerative disc disease lumbar spine with lumbar radiculopathy symptoms status post intrathecal pain pump removal Plan:: We will see the patient back in 1 month she does not need any medication today. She is currently following up with Dr. Goddard and continue her physical therapy. Patient will call the office if she has any issues prior to her next appointment. Dr. Miller has reviewed this note and agrees with this plan of care. This note was dictated using voice recognition software and may contain errors or omissions
--- NOTE | 2019-03-27 11:15 | P.CONS_ITS ---
[facility] Pain Management SOAP Note Subjective:: Patient is a pleasant 83-year-old white female who had an intrathecal pain pump removed because of infection. Patient has significant degenerative disc disease lumbar spine with lumbar radiculopathy. Patient is in put on oxycodone 10 mg up to 5 times a day she states she does not have to take it that often however she does well with it. She does have a wound VAC in place. She denies side effects. ROS General: no recent weight change, no fever, no sleep disturbances Respiratory: no cough, no shortness of air, no recurring pulmonary infections Cardiovascular/Peripheral Vascular: No chest pain, No palpitations, no edema, no shortness of breath. Gastrointestinal: no incontinence, normal bowel movements reported Genitourinary: no incontinence Musculoskeletal: Back pain, leg pain Psychiatric: normal mood/ affect Neurological: [denies weakness in extremities], [denies balance issues] Objective:: Physical Exam General: Alert and oriented x3, no acute distress, pleasant and cooperative, [on room air] Lungs: Resps E/U, Symmetrical chest expansion, Eyes: PERRL Musculoskeletal: Flexion and extension of lumbar spine somewhat guarded secondary to pain, deep tendon reflexes normal, strength in upper and lower extremities [5/5], [abnormal gait noted] Neurological: speech clear, project drilling engineer equal, no gross sensory deficits Assessment:: Degenerative disc disease lumbar spine with lumbar radiculopathy symptoms status post intrathecal pain pump removal Plan:: We will see the patient back in 1 month she does not need any medication today. She is currently following up with Dr. Goddard and continue her physical therapy. Patient will call the office if she has any issues prior to her next appointment. Dr. Miller has reviewed this note and agrees with this plan of care. This note was dictated using voice recognition software and may contain errors or omissions
== END ==
PROVIDERS: PCP Family Medicine; Visit Provider Clinical Nurse Specialist Family Health
DX: M51.16 Intervertebral disc disorders with radiculopathy, lumbar region (principal); Z09 Encounter for follow-up examination after completed treatment for conditions other than malignant neoplasm; Z98.890 Other specified postprocedural states
CPT/HCPCS: 99212

== ENCOUNTER → 2019-04-17 09:15 | Outpatient (CLI) | payer MEDICARE, SELFPAY ==
--- NOTE | 2019-04-17 09:18 | XR_ITS ---
EXAM: XR cervical spine w flex/ext HISTORY: Neck pain with movement ITS.REASON: not able to flex head back ORDERING PHYSICIAN: Diamond Cornell APRN PATIENT AGE: 83 years COMPARISON: None FINDINGS: There is normal alignment. No fracture or dislocation is evident. There is degenerative disc disease at C4-5 C5-6 and C6-C7. Foraminal narrowing is present on the right at the 3 C4 and C4-C5 and on the left at C6-C7. Flexion and extension views showed 2.5 mm anterolisthesis of C3 on C4 with flexion which becomes normal at neutral position and with extension. There is mild retrolisthesis of C4 on C5 of 2.8 mm with extension which becomes normal at flexion and neutral position there is mild retrolisthesis of C5 on C6 of 3 mm in neutral position. This does not change with extension and slightly decreases at 2.5 mm with flexion. IMPRESSION: 1. Multilevel cervical spondylosis with degenerative disc disease along with facet and uncovertebral arthrosis with foraminal narrowing. 2. Flexion and extension views showed 2.5 mm anterolisthesis of C3 on C4 with flexion which becomes normal at neutral position and with extension. There is mild retrolisthesis of C4 on C5 of 2.8 mm with extension which becomes normal at flexion and neutral position. There is mild retrolisthesis of C5 on C6 of 3 mm in neutral position. This does not change with extension and slightly decreases at 2.5 mm with flexion No significant areas of translation are suspected in flexion or extension
== END ==
PROVIDERS: PCP Family Medicine; Visit Provider Urology
DX: M54.2 Cervicalgia (principal)
CPT/HCPCS: 72052

== ENCOUNTER → 2019-04-23 10:43 | Outpatient (POV) | payer MEDICARE, SELFPAY ==
--- NOTE | 2019-04-23 11:10 | HMH.PAINSOAP ---
[facility] Pain Management SOAP Note Subjective:: Patient is a pleasant 83-year-old white female who presents today for follow-up. Patient had intrathecal pain pump removed due to infection. She has significant degenerative disc disease of lumbar spine with lumbar radiculopathy. She is currently on oxycodone 10 mg 1 p.o. 5 times a day. She states she only takes about 3 a day however sometimes she does need 5 a day. Her wound VAC is been DC'd. Patient is healing well. Patient is seeing the surgeon today. Patient denies side effects or medication. [facility] #[id number] reviewed and appropriate. ROS General: no recent weight change, no fever, no sleep disturbances Respiratory: no cough, no shortness of air, no recurring pulmonary infections Cardiovascular/Peripheral Vascular: No chest pain, No palpitations, no edema, no shortness of breath. Gastrointestinal: no incontinence, normal bowel movements reported Genitourinary: no incontinence Musculoskeletal: Back pain, leg pain Psychiatric: normal mood/ affect Neurological: [denies weakness in extremities], [denies balance issues] Objective:: Physical Exam General: Alert and oriented x3, no acute distress, pleasant and cooperative, [on room air] Lungs: Resps E/U, Symmetrical chest expansion, Eyes: PERRL Musculoskeletal: Flexion and extension of lumbar spine somewhat guarded secondary to pain, deep tendon reflexes normal, strength in upper and lower extremities [5/5], [abnormal gait noted] Neurological: speech clear, barrel roller equal, no gross sensory deficits Assessment:: Degenerative disc disease lumbar spine with lumbar radiculopathy, status post intrathecal pain pump removal Plan:: Patient is not due medication refills today. Patient filled on April 13. Patient will order picker/assembler a prescription on the week of May 10. We will see her in 2 months reassess her symptoms at that time she is been instructed to call the office if she has any issues prior to her next appointment. Dr. Miller has reviewed this note and agrees with this plan of care. This note was dictated using voice recognition software and may contain errors or omissions
[2019-04-23 11:21] VITALS: BP 127/50; PULSE 80; RESP 18; O2SAT 98; BMI 17.0
[2019-04-23 12:01] LABS: Amphetamine/Metha Screen,Urine Negative ng/mL (<1000); Barbiturates Screen,Urine Negative ng/mL (<200); Benzodiazepines Screen,Urine Negative ng/mL (<200); Cannabinoid Screen,Urine Negative ng/mL (<50); Cocaine Screen,Urine Negative ng/mL (<300); Methadone Screen,Urine Negative ng/mL (<300); Opiate Screen,Urine Negative ng/mL (<300); Phencyclidine Screen,Urine Negative ng/mL (<25)
[2019-04-29 13:13] LABS: Oxycodone (GC/MS) 647 ng/mL (Cutoff=100)
[2019-04-29 21:43] LABS: Opiates Negative (Cutoff=100); Oxymorphone (GC/MS) 337 ng/mL (Cutoff=100)
== END ==
PROVIDERS: PCP Family Medicine; Visit Provider Clinical Nurse Specialist Family Health
DX: Z79.899 Other long term (current) drug therapy (principal); M51.16 Intervertebral disc disorders with radiculopathy, lumbar region
CPT/HCPCS: 80305; 80361; 80365; 99212; G0480

== ENCOUNTER → 2019-05-28 07:56 | Outpatient (CLI) | payer MEDICARE, SELFPAY ==
--- NOTE | 2019-05-28 07:58 | CA_ITS ---
PROCEDURE: 2-D M-mode and color Doppler study INDICATIONS FOR THE TEST: Chest pain COPD+ Heart Murmur Tobacco Smoking+ Palpitations Fatigue Syncope Edema Hypertension+Diabetes Mellitus Rheumatic Fever SOB+GIRARD Obesity Hyperlipidemia+ Family History HD Additional History CAD, EF 30% 02-18-19, PVD PATIENT INFORMATION HEIGHT: 68 WEIGHT:114 GENDER: Female B/P:152/55 2-D/M-MODE INTERPRETATION: 2-D MEASUREMENTS OBSERVED VALUES IN CMS Right Ventricular Dimension (RVDd) 1.5 Interventricular Septum (Thickness)(IVsd) 1.9 Left Ventricular Internal Dimensions(LVIDd) 4.1 Left Ventricular Posterior Wall (Thickness)(LVPWd) 1.2 Aortic Root 3.1 Aortic Cusp Separation 1.1 Left Atrial Dimensions (LAD) 3.9 2D 1. Left atrium is mildly enlarged, left ventricle is normal size, mild concentric left ventricular hypertrophy, visually estimated ejection fraction 50% with no regional wall motion abnormality. 2. The right atrium and ventricle are normal size and contractility. 3. The aortic valve is thickened and calcified. 4. The mitral valve leaflets are minimally thickened. 5. The pulmonic valve is poorly visualized. 6. The tricuspid valve is grossly normal. DOPPLER INTERROGATION: Doppler interrogation of the aortic, mitral and tricuspid valvular presence of mild mitral and tricuspid regurgitation, the velocity is inadequate for calculation of the right ventricular systolic pressure, diastolic parameters are inconclusive. CONCLUSION: 1. Technically difficult study because of the patient's factor and poor acoustic windows 2. Mildly enlarged left atrium, normal left ventricular size, mild concentric left ventricular hypertrophy, visually estimated ejection fraction 50% with no regional wall motion abnormality, diastolic parameters are inconclusive. 3. Thickened and calcified aortic valve without Doppler evidence of significant aortic stenosis aortic insufficiency. 4. Mild mitral and tricuspid regurgitation 5. No significant pericardial effusion noted.
== END ==
PROVIDERS: PCP Family Medicine; Visit Provider Urology
DX: T81.49XA Infection following a procedure, other surgical site, initial encounter (principal)
CPT/HCPCS: 93306

== ENCOUNTER → 2019-06-18 10:38 | Outpatient (POV) | payer MEDICARE, SELFPAY ==
[2019-06-18 10:48] VITALS: BP 136/53; PULSE 81; RESP 18; O2SAT 98; BMI 17.6
--- NOTE | 2019-06-18 12:39 | HMH.PAINSOAP ---
[facility] Pain Management SOAP Note Subjective:: Patient is a pleasant 83-year-old white female who presents today for follow-up. Patient had an intrathecal pain pump removed due to infection. She has significant degenerative disc disease of the lumbar spine with lumbar radiculopathy. She is currently on oxycodone 10 mg 1 p.o. 5 times a day however she states she only takes them a few times a day. She is fully healed and doing well. Stella #[id number] reviewed and appropriate. Drug screens have been appropriate. Patient states that she has now returned back to where she was in regards to being in pain along with being on pain medication. ROS General: no recent weight change, no fever, no sleep disturbances Respiratory: no cough, no shortness of air, no recurring pulmonary infections Cardiovascular/Peripheral Vascular: No chest pain, No palpitations, no edema, no shortness of breath. Gastrointestinal: no incontinence, normal bowel movements reported Genitourinary: no incontinence Musculoskeletal: Back pain, leg pain Psychiatric: normal mood/ affect Neurological: [denies weakness in extremities], [denies balance issues] Objective:: Physical Exam General: Alert and oriented x3, no acute distress, pleasant and cooperative, [on room air] Lungs: Resps E/U, Symmetrical chest expansion, Eyes: PERRL Musculoskeletal: Flexion and extension of lumbar spine somewhat guarded secondary to pain, deep tendon reflexes normal, strength in upper and lower extremities [5/5], [abnormal gait noted] Neurological: speech clear, director of acquisitions equal, no gross sensory deficits Assessment:: Degenerative disc disease lumbar spine with lumbar radiculopathy and status post intrathecal pain pump removal Plan:: We will decrease her oxycodone 10 mg to 4 times a day. We will see her back in 2 months reassess her symptoms at that time we will give her 2 prescriptions today. She is been instructed to call the office if she has any issues prior to her next appointment. Patient has been prescribed a controlled substance after being counseled on the medication, medication safety, and possible side effects. STELLA report has been obtained and reviewed prior to prescription and found to be appropriate. Opioid contract was reviewed and signed by the patient, and that they have agreed to all of the terms set forth by our compliance program. Dr. Miller has reviewed this note and agrees with this plan of care. This note was dictated using voice recognition software and may contain errors or omissions Pain Management Hx Components *Have you ever received a pneumonia vaccine?: Yes *Have you received a flu vaccine this season?: Yes - *Social History *Occupational Status:: other *Travel in the last 8 weeks: None
--- NOTE | 2019-06-18 12:42 | P.CONS_ITS ---
[facility] Pain Management SOAP Note Subjective:: Patient is a pleasant 83-year-old white female who presents today for follow-up. Patient had an intrathecal pain pump removed due to infection. She has significant degenerative disc disease of the lumbar spine with lumbar radiculopathy. She is currently on oxycodone 10 mg 1 p.o. 5 times a day however she states she only takes them a few times a day. She is fully healed and doing well. Stella #[id number] reviewed and appropriate. Drug screens have been appropriate. Patient states that she has now returned back to where she was in regards to being in pain along with being on pain medication. ROS General: no recent weight change, no fever, no sleep disturbances Respiratory: no cough, no shortness of air, no recurring pulmonary infections Cardiovascular/Peripheral Vascular: No chest pain, No palpitations, no edema, no shortness of breath. Gastrointestinal: no incontinence, normal bowel movements reported Genitourinary: no incontinence Musculoskeletal: Back pain, leg pain Psychiatric: normal mood/ affect Neurological: [denies weakness in extremities], [denies balance issues] Objective:: Physical Exam General: Alert and oriented x3, no acute distress, pleasant and cooperative, [on room air] Lungs: Resps E/U, Symmetrical chest expansion, Eyes: PERRL Musculoskeletal: Flexion and extension of lumbar spine somewhat guarded secondary to pain, deep tendon reflexes normal, strength in upper and lower extremities [5/5], [abnormal gait noted] Neurological: speech clear, construction driver equal, no gross sensory deficits Assessment:: Degenerative disc disease lumbar spine with lumbar radiculopathy and status post intrathecal pain pump removal Plan:: We will decrease her oxycodone 10 mg to 4 times a day. We will see her back in 2 months reassess her symptoms at that time we will give her 2 prescriptions today. She is been instructed to call the office if she has any issues prior to her next appointment. Patient has been prescribed a controlled substance after being counseled on the medication, medication safety, and possible side effects. STELLA report has been obtained and reviewed prior to prescription and found to be appropriate. Opioid contract was reviewed and signed by the patient, and that they have agreed to all of the terms set forth by our compliance program. Dr. Miller has reviewed this note and agrees with this plan of care. This note was dictated using voice recognition software and may contain errors or omissions Pain Management Hx Components *Have you ever received a pneumonia vaccine?: Yes *Have you received a flu vaccine this season?: Yes - *Social History *Occupational Status:: other *Travel in the last 8 weeks: None
== END ==
PROVIDERS: PCP Family Medicine; Visit Provider Clinical Nurse Specialist Family Health
DX: M51.16 Intervertebral disc disorders with radiculopathy, lumbar region (principal); M96.1 Postlaminectomy syndrome, not elsewhere classified
CPT/HCPCS: 99212

== ENCOUNTER → 2019-08-13 15:37 | Outpatient (CLI) | payer MEDICARE, SELFPAY ==
--- NOTE | 2019-08-13 15:41 | XR_ITS ---
PROCEDURE: XR CHEST 2V CLINICAL HISTORY: LT SIDED CHEST WALL PAIN COMPARISON: CXR CHEST(2 VIEWS-NOT PORTABLE) from 08/21/2014 CXR1VP XR chest portable from 02/20/2019 FINDINGS: The cardiomediastinal silhouette and pulmonary vascularity are within normal limits. Patchy density is present in the left upper lobe posteriorly consistent with an area of pneumonia. Suggest following till clear. Atelectatic or fibrotic changes are present in the left lung base in the retrocardiac region. There is minimal blunting of the left CP angle suggesting small left effusion. There are degenerative changes in the lumbar spine with mild kyphosis. Epidural stimulator device is present in the thoracic region. No acute bony abnormalities. IMPRESSION: Left upper lobe pneumonia with small effusion Dictated by: Freddy Butcher MD 08/13/2019 16:09 Electronically signed by Freddy Butcher MD in [place] 08/13/2019 16:09
== END ==
PROVIDERS: PCP Family Medicine; Visit Provider Family Medicine
DX: R07.89 Other chest pain (principal)
CPT/HCPCS: 71046

== ENCOUNTER → 2019-08-20 10:16 | Outpatient (POV) | payer MEDICARE, SELFPAY ==
[2019-08-20 10:34] VITALS: BP 114/93; PULSE 78; RESP 18; O2SAT 98; BMI 17.4
--- NOTE | 2019-08-20 12:51 | P.CONS_ITS ---
[facility] Pain Management SOAP Note Subjective:: Patient is an 83-year-old white female who presents today for follow-up. Patient had intrathecal pain pump removed due to infection. She is significant degenerative disc disease of her lumbar spine with lumbar radiculopathy and is currently on oxycodone 10 mg 1 p.o. 4 times daily. Patient Stella #[id number] reviewed and appropriate. Drug screens have been appropriate. ROS General: no recent weight change, no fever, no sleep disturbances Respiratory: no cough, no shortness of air, no recurring pulmonary infections Cardiovascular/Peripheral Vascular: No chest pain, No palpitations, no edema, no shortness of breath. Gastrointestinal: no incontinence, normal bowel movements reported Genitourinary: no incontinence Musculoskeletal: Back pain, leg pain Psychiatric: normal mood/ affect Neurological: [denies weakness in extremities], [denies balance issues] Objective:: Physical Exam General: Alert and oriented x3, no acute distress, pleasant and cooperative, [on room air] Lungs: Resps E/U, Symmetrical chest expansion, Eyes: PERRL Musculoskeletal: Flexion and extension of lumbar spine somewhat guarded secondary to pain, deep tendon reflexes normal, strength in upper and lower extremities [5/5], [abnormal gait noted] Neurological: speech clear, in home sales consultant equal, no gross sensory deficits Assessment:: Degenerative disc disease lumbar spine with lumbar radiculopathy Plan:: We will refill the patient's oxycodone 10 mg 1 p.o. 4 times a day give her 2 months with medication see her back in 2 months reassess her symptoms at that time she is been instructed to call the office if she has any issues prior to her next appointment. Dr. Miller has reviewed this note and agrees with this plan of care. This note was dictated using voice recognition software and may contain errors or omissions Patient has been prescribed a controlled substance after being counseled on the medication, medication safety, and possible side effects. STELLA report has been obtained and reviewed prior to prescription and found to be appropriate. Opioid contract was reviewed and signed by the patient, and that they have agreed to all of the terms set forth by our compliance program. [facility] History I have reviewed the patient's past medical history: Yes Medical History: Reports:: Chronic Obstructive Pulmonary Disease (COPD), Hyperlipidemia, Hypertension, Peripheral Vascular Disease Denies:: Cancer, Diabetes Mellitus Type 1, Diabetes Mellitus Type 2, MRSA, Seizures *Have you ever received a pneumonia vaccine?: Yes *Have you received a flu vaccine this season?: Yes Other Medical History: Reports: Anemia, Glaucoma, Other. Denies: Blood Transfusion Reaction Laterality Cases: Other Surgeries: Yes: Cancer Surgery, Cardiac Catheterization, Other Amputation: No Fractures: No - *Social History Smoking Status: Current every day smoker Tobacco Type: cigarettes # Packs/Day (cigarettes): 1 Alcohol Intake: never Substance Use Type: denies use *Occupational Status:: other Housing: house Household Members: family *Travel in the last 8 weeks: None Family Hx:: Cancer, Hypertension
[2019-08-20 16:59] LABS: Amphetamine/Metha Screen,Urine Negative ng/mL (<1000); Barbiturates Screen,Urine Negative ng/mL (<200); Benzodiazepines Screen,Urine Negative ng/mL (<200); Cannabinoid Screen,Urine Negative ng/mL (<50); Cocaine Screen,Urine Negative ng/mL (<300); Methadone Screen,Urine Negative ng/mL (<300); Opiate Screen,Urine Negative ng/mL (<300); Phencyclidine Screen,Urine Negative ng/mL (<25)
[2019-08-25 16:14] LABS: Oxycodone (GC/MS) 1812 ng/mL (Cutoff=100)
[2019-08-25 20:01] LABS: Opiates Negative (Cutoff=100); Oxymorphone (GC/MS) 501 ng/mL (Cutoff=100)
== END ==
PROVIDERS: PCP Family Medicine; Visit Provider Clinical Nurse Specialist Family Health
DX: M51.16 Intervertebral disc disorders with radiculopathy, lumbar region (principal); Z79.899 Other long term (current) drug therapy
CPT/HCPCS: 80305; 80361; 80365; 99212; G0480

== ENCOUNTER → 2019-08-21 11:59 | Outpatient (CLI) | payer MEDICARE, SELFPAY ==
--- NOTE | 2019-08-21 12:04 | XR_ITS ---
PROCEDURE: XR CHEST 2V CLINICAL HISTORY: PNEUMONIA Follow-up pneumonia COMPARISON: CXR CHEST(2 VIEWS-NOT PORTABLE) from 08/21/2014 CXR1VP XR chest portable from 02/20/2019 XR CHEST 2V from 08/13/2019 FINDINGS: The cardiomediastinal silhouette and pulmonary vascularity are within normal limits. There remains rounded consolidation in the left upper lobe posteriorly. The margins are ill-defined. The density is slightly greater compared to the previous study. The remaining lungs are clear. There is an epidural stimulator device in the midthoracic region. No acute bony abnormalities. IMPRESSION: Persistent rounded area of consolidation in the left upper lobe slightly more dense consistent with pneumonia. Recommend following till clear as neoplasm is not excluded. Trace left-sided effusion is also present Dictated by: Freddy Butcher MD 08/21/2019 18:18 Electronically signed by Freddy Butcher MD in [place] 08/21/2019 18:18
== END ==
PROVIDERS: PCP Family Medicine; Visit Provider Family Medicine
DX: J18.1 Lobar pneumonia, unspecified organism (principal)
CPT/HCPCS: 71046

== ENCOUNTER → 2019-09-07 14:15 | Outpatient (CLI) | payer MEDICARE, SELFPAY ==
--- NOTE | 2019-09-07 14:20 | XR_ITS ---
PROCEDURE: XR CHEST 2V CLINICAL HISTORY: PNEUMONIA The follow-up pneumonia COMPARISON: CXR1VP XR chest portable from 02/20/2019 XR CHEST 2V from 08/13/2019 XR CHEST 2V from 08/21/2019 FINDINGS: The cardiomediastinal silhouette and pulmonary vascularity are within normal limits. There remains a focal area of increased density in the left upper lobe which is somewhat smaller but slightly more dense. The remaining lungs are clear. Epidural stimulator device is present in the midthoracic region. No acute bony abnormalities. IMPRESSION: Persistent left upper lobe infiltrate slightly smaller but somewhat more dense compared to the previous study. Suggest continued follow-up until cleared Dictated by: Freddy Butcher MD 09/07/2019 14:35 Electronically signed by Freddy Butcher MD in [place] 09/07/2019 14:35
== END ==
PROVIDERS: PCP Family Medicine; Visit Provider Family Medicine
DX: J18.1 Lobar pneumonia, unspecified organism (principal)
CPT/HCPCS: 71046

== ENCOUNTER → 2019-09-18 11:58 | Outpatient (CLI) | payer MEDICARE, SELFPAY ==
[2019-09-18 12:34] LABS: Blood Urea Nitrogen 13 mg/dL (7-18); Creatinine,Serum 0.94 mg/dL (0.55-1.02); Estimated Glomerular Filt Rate 57 ml/min (>60); GFR (African American) 69 ML/MIN (>60)
--- NOTE | 2019-09-18 13:39 | CT_ITS ---
PROCEDURE: CT CHEST W CON CLINCAL INDICATION: PNEUMONIA Pneumonia, COPD, chronic pneumonia, follow-up abnormal chest x-ray COMPARISON: LDCTLCAS LDCT FOR LUNG CA SCREEN from 07/29/[address] ABD PELVIS W/ CONTRAST from 08/12/2016 CXR1VP XR chest portable from 02/20/2019 XR CHEST 2V from 08/13/2019 XR CHEST 2V from 09/07/2019 TECHNIQUE: IV Contrast: 75ml Optiray 350 Axial images obtained with sagittal and coronal reformats. All CT scans at the facility use one or more dose reduction, viz: automated exposure control, ma/kV adjustment per patient size (including targeted exams where dose is matched to indication, i.e. head), or iterative reconstruction technique. FINDINGS: No mediastinal or hilar mass or adenopathy. Normal heart size without evidence of pericardial effusion. There are coronary artery calcifications present. In the superior segment of left lower lobe there is a peripheral area of opacification corresponding to the previously noted radiographic abnormality. This measures 2.5 cm a P, 2.1 cm transverse, and 1.3 cm cephalad caudad. This extends from the pleural surface this inward. The margins are somewhat spiculated. This has developed since the previous LD CT of 07/29/2016. No underlying rib destruction. In addition there is a 8 mm opacity in the left upper lobe posteriorly slightly spiculated which may be slightly larger. Changes of COPD. A small ground-glass opacity is present in the right upper lobe posteriorly at 4 mm and may be slightly more prominent. No lobar consolidation. No effusions. No acute bony anomalies. No acute finding in the upper abdomen. IMPRESSION: 1. There has been interval development of a peripheral nodule in the left upper lobe corresponding to the area of infiltrate noted on the chest x-ray. This measures up to 2.5 cm. This could very well be due to an area of dense consolidation or even infarction. One cannot exclude the possibility of neoplasm. This may be difficult to biopsy due to overlying rib and scapula and would be difficult to assess via bronchoscopy due to its peripheral location. This did not appear to be present on a previous chest radiograph of 02/20/2019. Suggest repeat CT scan in 1 month. If this has not decreased in size during that time then biopsy with CT guidance would be a consideration. 2. There is an 8 mm opacity in the left apex slightly more prominent from the previous LDCT. Continued follow-up is suggested. 3. COPD with coronary artery disease Dictated by: Freddy Butcher MD 09/19/2019 07:08 Electronically signed by Freddy Butcher MD in [place] 09/20/2019 06:17
== END ==
PROVIDERS: PCP Family Medicine; Visit Provider Family Medicine
DX: J18.1 Lobar pneumonia, unspecified organism (principal)
CPT/HCPCS: 36415; 71260; 82565; 84520; Q9967

== ENCOUNTER → 2019-10-16 14:36 | Outpatient (CLI) | payer MEDICARE, SELFPAY ==
[2019-10-16 16:23] LABS: Blood Urea Nitrogen 16 mg/dL (7-18); Creatinine,Serum 0.91 mg/dL (0.55-1.02); Estimated Glomerular Filt Rate 59 ml/min (>60); GFR (African American) 72 ML/MIN (>60)
== END ==
PROVIDERS: Visit Provider Family Medicine
DX: J18.1 Lobar pneumonia, unspecified organism (principal)
CPT/HCPCS: 36415; 82565; 84520

== ENCOUNTER → 2019-10-18 10:10 | Outpatient (CLI) | payer MEDICARE, SELFPAY ==
--- NOTE | 2019-10-18 10:15 | CT_ITS ---
PROCEDURE: CT CHEST W CON CLINCAL INDICATION: NEOPLASM OF LUNG COMPARISON: CT CHEST W CON from 09/18/2019 TECHNIQUE: IV Contrast: 75ml Optiray 350 Axial images obtained with sagittal and coronal reformats. All CT scans at the facility use one or more dose reduction, viz: automated exposure control, ma/kV adjustment per patient size (including targeted exams where dose is matched to indication, i.e. head), or iterative reconstruction technique. FINDINGS: HEART,AORTA,PULMONARY ARTERIES coronary artery calcifications. No aneurysm or dissection. MEDIASTINAL AND HILAR STRUCTURES: The small right-sided thyroid nodule 6 mm. No mediastinal or hilar mass or adenopathy. LUNGS: Peripheral pulmonary nodular area once again noted in the superior segment of the left lower lobe. This is not significantly changed and has somewhat spiculated margins and remains suspicious for neoplasm measuring approximately 2 by 2.4 cm. Suggest fine needle aspiration with CT guidance.. There are findings of COPD. No lobar consolidation. No change in the ill-defined sub solid nodular opacity in the left upper lobe with the nodular component at there is an additional small sub solid nodular opacity in the right lower lobe with this nodular component at 3 mm. This was not readily apparent on the previous exam. Epidural stimulator device is present in the lower thoracic region. PLEURAL SPACES: No significant effusion. No evidence of pneumothorax. BONY STRUCTURES: No acute bony abnormalities apparent. LYMPH NODES: No enlarged lymph nodes evident. UPPER ABDOMEN: Unremarkable. ADDITIONAL FINDINGS: No other significant abnormalities. IMPRESSION: 2.4 x 2 cm pleural base mass in the superior segment of left lower lobe not significantly changed. This is suspicious for neoplasm and fine needle aspiration with CT guidance is suggested. Sub solid nodular opacity left upper lobe unchanged within new sub solid nodular opacity in the right lower lobe nonspecific Dictated by: Freddy Butcher MD 10/19/2019 12:07 Electronically signed by Freddy Butcher MD in [place] 10/19/2019 12:07
== END ==
PROVIDERS: PCP Family Medicine; Visit Provider Family Medicine
DX: D38.1 Neoplasm of uncertain behavior of trachea, bronchus and lung (principal)
CPT/HCPCS: 71260; Q9967

== ENCOUNTER → 2019-10-22 10:18 | Outpatient (POV) | payer MEDICARE, SELFPAY ==
[2019-10-22 11:07] VITALS: BP 121/53; PULSE 63; RESP 18; O2SAT 98; BMI 17.2
--- NOTE | 2019-10-22 12:19 | P.CONS_ITS ---
[facility] Pain Management SOAP Note Subjective:: Patient is a pleasant 84-year-old white female who presents today for medication refills. She is being treated for low back pain with lumbar radiculopathy symptoms. Patient had an intrathecal pain pump that was removed secondary to infection. Patient is currently managed with oxycodone 10 mg 1 tablet p.o. 4 times daily. Patient reports that she previously took oxycodone 2 mg 1 tablet p.o. 5 times daily. She says at her devious visit she did discuss with Gonzalo Persaud APRN that she felt she could tolerate the medication at 4 times daily rather than 5 times a day. Patient says that due to the weather she would like an increase in the medication over the next 2 months and would then like to decrease back down to 4 times daily again. The patient denies any side effects to medications. Her Freedom #[id number] has been reviewed and is appropriate. Her urine drug screens are appropriate. Review of Systems General: No recent weight changes, no fever, no sleep disturbances Respiratory: No cough, no shortness of air, no recurring pulmonary infections Cardiovascular/peripheral vascular: No chest pain, no palpitations, no edema, no shortness of breath Gastrointestinal: No new onset incontinence, normal bowel movements reported Genitourinary: No new onset incontinence Musculoskeletal: Low back pain Psychiatric: Normal mood/affect Neurological: [Denies weakness in extremities], [denies balance issues] Objective:: Physical exam General: Alert and oriented x3, no acute distress, pleasant and cooperative, [on room air] Lungs: Respirations even and unlabored, symmetrical chest expansion Eyes: PERRL Musculoskeletal: Flexion and extension of lumbar spine somewhat guarded secondary to pain, deep tendon reflexes normal, strength in upper and lower extremities [5/5], [abnormal gait noted] Neurological: Speech clear, wheel grinder equal, no gross sensory deficit Assessment:: Degenerative disc disease lumbar spine with lumbar radiculopathy symptoms Plan:: We will refill the patient's oxycodone 10 mg 1 tablet p.o. 5 times daily. We will give her 2 months worth of medication. We will see the patient back in clinic in 2 months to reassess her symptoms. At that time we will decrease the patient back to oxycodone 10 mg 1 tablet p.o. 4 times daily. Patient's been instructed to contact clinic if she has any concerns before next appointment. Dr. Miller has reviewed this note and agrees with this plan of care. This note was dictated using voice recognition software and make contain errors or omissions. [facility] History I have reviewed the patient's past medical history: Yes Medical History: Reports:: Chronic Obstructive Pulmonary Disease (COPD), Hyperlipidemia, Hypertension, Peripheral Vascular Disease Denies:: Cancer, Diabetes Mellitus Type 1, Diabetes Mellitus Type 2, MRSA, Seizures *Have you ever received a pneumonia vaccine?: Yes *Have you received a flu vaccine this season?: Yes Other Medical History: Reports: Anemia, Glaucoma, Other. Denies: Blood Transfusion Reaction Laterality Cases: Right: Carpal Tunnel Release Other Surgeries: Yes: Cancer Surgery, Cardiac Catheterization, Other Amputation: No Fractures: No - *Social History Smoking Status: Current every day smoker Tobacco Type: cigarettes # Packs/Day (cigarettes): 1 Alcohol Intake: never Substance Use Type: denies use *Occupational Status:: other Housing: house Household Members: family *Travel in the last 8 weeks: None Family Hx:: Cancer, Hypertension
== END ==
PROVIDERS: PCP Family Medicine; Visit Provider Clinical Nurse Specialist Family Health
DX: M51.16 Intervertebral disc disorders with radiculopathy, lumbar region (principal)
CPT/HCPCS: 99212

== ENCOUNTER → 2019-11-19 14:41 | Outpatient (CLI) | payer MEDICARE, SELFPAY ==
[2019-11-19 13:20] LABS: Basophils % 0.6 % (0.1-2.0); Eosinophils # 0.1 K/mm3 (0.0-0.4); Eosinophils % 1.3 % (0.1-12.0); Hematocrit 39.5 % (37.0-47.0); Hemoglobin 12.3 g/dL (12.2-16.2); Lymphocytes % 29.2 % (10-50); Mean Corpuscular HGB Conc 31.2 g/dL (31.8-35.4); Mean Corpuscular Hemoglobin 29.6 pg (27.0-31.2); Mean Corpuscular Volume 94.7 fl (81-99); Monocytes # 0.5 K/mm3 (0.1-1.0); Monocytes % 6.7 % (1.7-9.3); Neutrophils # 4.3 K/mm3 (1.8-7.8); Neutrophils % 62.3 % (37.0-80.0); Platelet Count 199 K/mm3 (142-424); Red Blood Count 4.17 M/mm3 (4.20-5.40); Red Cell Distribution Width 15.2 % (11.5-17.5); White Blood Count 6.9 K/mm3 (4.8-10.8)
[2019-11-19 13:25] LABS: Activated Partial Thrombo Time 28.3 seconds (23.6-34.0); INR 1.03 (0.9-1.1); Prothrombin Time 10.7 seconds (9.4-11.8)
[2019-11-19 14:13] LABS: Blood Urea Nitrogen 16 mg/dL (7-18); Creatinine,Serum 0.78 mg/dL (0.55-1.02); Estimated Glomerular Filt Rate 71 ml/min (>60); GFR (African American) 86 ML/MIN (>60)
== END ==
PROVIDERS: Visit Provider Family Medicine
DX: D38.1 Neoplasm of uncertain behavior of trachea, bronchus and lung (principal); Z79.899 Other long term (current) drug therapy; Z51.81 Encounter for therapeutic drug level monitoring
CPT/HCPCS: 36415; 82565; 84520; 85025; 85610; 85730

== ENCOUNTER 2019-11-20 08:45 | Outpatient (CLI) | payer MEDICARE, SELFPAY ==
--- NOTE | 2019-11-20 08:52 | CT_ITS ---
PROCEDURE: Chest CT without contrast CLINICAL HISTORY: LT LUNG NODULE Follow-up lung nodule COMPARISON: CT CHEST W CON from 09/18/2019 CT CHEST W CON from 10/18/2019 TECHNIQUE: Axial images obtained with sagittal and coronal reformats. All CT scans at the facility use one or more dose reduction, viz: automated exposure control, ma/kV adjustment per patient size (including targeted exams where dose is matched to indication, i.e. head), or iterative reconstruction technique. FINDINGS: The patient was scheduled for CT directed biopsy. The patient placed in the prone position and a unenhanced CT scan was performed of the chest for biopsy planning. The parenchymal opacity in the left upper lobe posteriorly is less prominent when compared to the previous study. That area measures 1.9 by 0.8 cm previously measuring 2.5 by 1.8 cm. This is therefore likely due to an area of postinflammatory scarring. Biopsy was not performed. There is a persistent 4 mm nodular opacity in the left upper lobe with some surrounding ground-glass density not significantly changed. There are changes of COPD with scattered areas of scarring. There is some minor atelectatic changes in the right middle lobe. No effusions are evident. There are joint generalized coronary artery calcifications. No mediastinal or hilar adenopathy. IMPRESSION: 1. Left upper lobe lesion has slightly decreased in size and may represent postinflammatory scarring. Biopsy was not performed. Recommend [address] follow-up. 2. Persistent 4 mm nodular opacity in the left upper lobe with some peripheral ground glass density. 3. Recommend [address] follow-up. Chest CT without contrast Dictated by: Freddy Butcher MD 11/21/2019 15:20 Electronically signed by Freddy Butcher MD in [place] 11/21/2019 15:20
--- NOTE | 2019-11-20 10:04 | PC.NURSE ---
1000- PT TRANSPORTED VIA W/C TO RAD WITH STAFF FOR INITIAL SCAN- LAK
--- NOTE | 2019-11-20 10:22 | PC.NURSE ---
1023- RADIOLOGY CALLED- PROCEDURE CANCELLED- SALINE LOCK REMOVED PER RADIOLOGY AND PT DISCHARGED PER RADIOLOGY. PT HOME WITH FAMILY.
== END 2019-11-20 10:26 | disposition home or self-care (01) ==
PROVIDERS: PCP Family Medicine; Visit Provider Family Medicine
DX: D38.1 Neoplasm of uncertain behavior of trachea, bronchus and lung (principal); Z79.899 Other long term (current) drug therapy
CPT/HCPCS: 71250

== ENCOUNTER → 2020-01-21 10:46 | Outpatient (POV) | payer MEDICARE, SELFPAY ==
[2020-01-21 11:36] VITALS: BP 116/57; PULSE 84; RESP 18; O2SAT 99; BMI 16.7
--- NOTE | 2020-01-22 09:09 | P.CONS_ITS ---
[facility] Pain Management SOAP Note Subjective:: Patient is a pleasant 84-year-old white female who presents today for discussion in regards to her medication. She is on oxycodone 10 mg 1 p.o. 5 times a day she states that it is not beneficial for her she rates her pain a 10 out of 10 she states she is in constant pain. Her primary care has localized potential long-acting treatments. We discussed a fentanyl patch I do believe that this may benefit her given her 24-hour coverage of her pain along with a low-dose [place] for breakthrough. ROS General: no recent weight change, no fever, no sleep disturbances Respiratory: no cough, no shortness of air, no recurring pulmonary infections Cardiovascular/Peripheral Vascular: No chest pain, No palpitations, no edema, no shortness of breath. Gastrointestinal: no new onset incontinence, normal bowel movements reported Genitourinary: no new onset incontinence Musculoskeletal: Back pain Psychiatric: normal mood/ affect Neurological: [denies new onset weakness in extremities], [denies new onset balance issues] Objective:: Physical Exam General: Alert and oriented x3, no acute distress, pleasant and cooperative, [on room air] Lungs: Resps E/U, Symmetrical chest expansion, Eyes: PERRL Musculoskeletal: Flexion and extension of lumbar spine somewhat guarded secondary to pain, deep tendon reflexes normal, strength in upper and lower extremities [5/5], [abnormal gait noted] Neurological: speech clear, market research consultant equal, no gross sensory deficits Assessment:: Degenerative disc disease lumbar spine with lumbar radiculopathy postlaminectomy syndrome Plan:: We will start the patient on fentanyl 25 mics every 72 hours with [place] 5 mg p.o. 4 times daily PRN. We will see the patient back in 2 weeks reassess her symptoms at that time. She is been instructed to call the office if she has any issues prior to her next appointment. Patient has been prescribed a controlled substance after being counseled on the medication, medication safety, and possible side effects. STELLA report has been obtained and reviewed prior to prescription and found to be appropriate. Opioid contract was reviewed and signed by the patient, and that they have agreed to all of the terms set forth by our compliance program. Dr. Miller has reviewed this note and agrees with this plan of care. This note was dictated using voice recognition software and may contain errors or omissions [facility] History I have reviewed the patient's past medical history: Yes Medical History: Reports:: Chronic Obstructive Pulmonary Disease (COPD), Hyperlipidemia, Hypertension, Peripheral Vascular Disease Denies:: Cancer, Diabetes Mellitus Type 1, Diabetes Mellitus Type 2, MRSA, Seizures *Have you ever received a pneumonia vaccine?: Yes *Have you received a flu vaccine this season?: Yes Other Medical History: Reports: Anemia, Glaucoma, Other. Denies: Blood Transfusion Reaction Laterality Cases: Right: Carpal Tunnel Release Other Surgeries: Yes: Cancer Surgery, Cardiac Catheterization, Other Amputation: No Fractures: No - *Social History Smoking Status: Current every day smoker Tobacco Type: cigarettes # Packs/Day (cigarettes): 1 Alcohol Intake: never Substance Use Type: denies use *Occupational Status:: other Housing: house Household Members: family *Travel in the last 8 weeks: None Family Hx:: Cancer, Hypertension
== END ==
PROVIDERS: PCP Family Medicine; Visit Provider Clinical Nurse Specialist Family Health
DX: M51.16 Intervertebral disc disorders with radiculopathy, lumbar region (principal); M96.1 Postlaminectomy syndrome, not elsewhere classified
CPT/HCPCS: 99212

== ENCOUNTER → 2020-01-29 09:44 | Outpatient (POV) | payer MEDICARE, SELFPAY ==
[2020-01-29 10:04] VITALS: BP 127/78; PULSE 77; RESP 18; O2SAT 99; BMI 16.7
--- NOTE | 2020-01-29 10:21 | P.CONS_ITS ---
[facility] Pain Management SOAP Note Subjective:: Patient is a pleasant 84-year-old white female who presents today to discuss her recent medication changes. Patient was put on fentanyl patch with [place] 5 mg 1 p.o. 4 times daily. Patient states she did not know that she could take it 4 times a day she states that it is working well she does have some trouble with the patch staying on we discussed a Tegaderm. ROS General: no recent weight change, no fever, no sleep disturbances Respiratory: no cough, no shortness of air, no recurring pulmonary infections Cardiovascular/Peripheral Vascular: No chest pain, No palpitations, no edema, no shortness of breath. Gastrointestinal: no new onset incontinence, normal bowel movements reported Genitourinary: no new onset incontinence Musculoskeletal: Back pain, leg pain, SI joint pain Psychiatric: normal mood/ affect Neurological: [denies new onset weakness in extremities], [denies new onset b alance issues] Objective:: Physical Exam General: Alert and oriented x3, no acute distress, pleasant and cooperative, [on room air] Lungs: Resps E/U, Symmetrical chest expansion, Eyes: PERRL Musculoskeletal: Flexion and extension of lumbar spine somewhat guarded secondary to pain, deep tendon reflexes normal, strength in upper and lower extremities [5/5], [abnormal gait noted] Neurological: speech clear, head of maintenance equal, no gross sensory deficits Assessment:: Degenerative disc disease lumbar spine with lumbar radiculopathy postlaminectomy syndrome Plan:: We will see the patient back on Tuesday at that time if she still doing well with her fentanyl and her [place] we will continue her fentanyl 25 mcg every 72 hours a.m. her [place] 5 mg 1 p.o. 4 times daily. She does not need prescriptions today. She has been instructed to call the office if she has any issues prior to her next appointment. Dr. Miller has reviewed this note and agrees with this plan of care. This note was dictated using voice recognition software and may contain errors or omissions [facility] History I have reviewed the patient's past medical history: Yes Medical History: Reports:: Chronic Obstructive Pulmonary Disease (COPD), Hyperlipidemia, Hypertension, Peripheral Vascular Disease Denies:: Cancer, Diabetes Mellitus Type 1, Diabetes Mellitus Type 2, MRSA, Seizures *Have you ever received a pneumonia vaccine?: Yes *Have you received a flu vaccine this season?: Yes Other Medical History: Reports: Anemia, Glaucoma, Other. Denies: Blood Transfusion Reaction Laterality Cases: Right: Carpal Tunnel Release Other Surgeries: Yes: Cancer Surgery, Cardiac Catheterization, Other Amputation: No Fractures: No - *Social History Smoking Status: Current every day smoker Tobacco Type: cigarettes # Packs/Day (cigarettes): 1 Alcohol Intake: never Substance Use Type: denies use *Occupational Status:: other Housing: house Household Members: family *Travel in the last 8 weeks: None Family Hx:: Cancer, Hypertension
== END ==
PROVIDERS: PCP Family Medicine; Visit Provider Clinical Nurse Specialist Family Health
DX: M51.16 Intervertebral disc disorders with radiculopathy, lumbar region (principal); M96.1 Postlaminectomy syndrome, not elsewhere classified
CPT/HCPCS: 99212

== ENCOUNTER → 2020-02-04 09:36 | Outpatient (POV) | payer MEDICARE, SELFPAY ==
[2020-02-04 09:55] VITALS: BP 136/56; PULSE 75; RESP 18; O2SAT 98; BMI 16.9
--- NOTE | 2020-02-04 10:18 | HMH.PAINSOAP ---
[facility] Pain Management SOAP Note Subjective:: Patient is a pleasant 84-year-old white female who presents today for follow-up. She is being treated for low back pain with lumbar radiculopathy symptoms and postlaminectomy syndrome lumbar spine. Patient was recently changed on fentanyl patch with [place] 5 mg 1 tablet p.o. 4 times daily. She was previously taking oxycodone 10 mg 1 tablet p.o. 5 times daily. Patient was doing well with her medication regimen, however, she wanted medications that she could take less throughout the day. She does have a concern of addiction. Patient also reports that she was having difficulty getting the fentanyl patches due to financial concerns. She says her insurance did not cover the entire medication. Patient does rate her pain a 7 out of 10 today. Patient's Freedom #[id number] has been reviewed and is appropriate. Her urine drug screens have been appropriate. The patient's morphine equivalent is 145. Review of Systems General: No recent weight changes, no fever, no sleep disturbances Respiratory: No cough, no shortness of air, no recurring pulmonary infections Cardiovascular/peripheral vascular: No chest pain, no palpitations, no edema, no shortness of breath Gastrointestinal: No new onset incontinence, normal bowel movements reported Genitourinary: No new onset incontinence Musculoskeletal: Low back pain Psychiatric: Normal mood/affect Neurological: [Denies weakness in extremities], [denies balance issues] Objective:: Physical exam General: Alert and oriented x3, no acute distress, pleasant and cooperative, [on room air] Lungs: Respirations even and unlabored, symmetrical chest expansion Eyes: PERRL Musculoskeletal: Flexion and extension of lumbar spine somewhat guarded secondary to pain, deep tendon reflexes normal, strength in upper and lower extremities [5/5], [abnormal gait noted] Neurological: Speech clear, fur dresser equal, no gross sensory deficit Assessment:: Degenerative disc disease lumbar spine with lumbar radiculopathy symptoms Plan:: We will stop the patient's fentanyl and [place] at this time. We will resume the patient's oxycodone 10 mg 1 tablet p.o. 5 times daily. Patient seems to have done well with this in the past. We will see her back in the clinic in 3 months to reassess her symptoms. 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 Patient has been instructed to contact clinic if she has any concerns before next appointment. Dr. Miller has reviewed this note and agrees with this plan of care. This note was dictated using voice recognition software and make contain errors or omissions. [facility] History Medical History: Reports:: Chronic Obstructive Pulmonary Disease (COPD), Hyperlipidemia, Hypertension, Peripheral Vascular Disease Denies:: Cancer, Diabetes Mellitus Type 1, Diabetes Mellitus Type 2, MRSA, Seizures *Have you ever received a pneumonia vaccine?: Yes *Have you received a flu vaccine this season?: Yes Other Medical History: Reports: Anemia, Glaucoma, Other. Denies: Blood Transfusion Reaction Laterality Cases: Right: Carpal Tunnel Release Other Surgeries: Yes: Cancer Surgery, Cardiac Catheterization, Other Amputation: No Fractures: No - *Social History Smoking Status: Current every day smoker Tobacco Type: cigarettes # Packs/Day (cigarettes): 1 Alcohol Intake: never Substance Use Type: denies use *Occupational Status:: other Housing: house Household Members: family *Travel in the last 8 weeks: None Family Hx:: Cancer, Hypertension
== END ==
PROVIDERS: PCP Family Medicine; Visit Provider Clinical Nurse Specialist Family Health
DX: M51.16 Intervertebral disc disorders with radiculopathy, lumbar region (principal)
CPT/HCPCS: 99212

== ENCOUNTER → 2020-03-27 14:56 | Outpatient (CLI) | payer MEDICARE, SELFPAY ==
[2020-03-27 18:09] LABS: Blood Urea Nitrogen 17 mg/dl (7-17); Estimated Glomerular Filt Rate 60 ml/min (>60); GFR (African American) 73 ML/MIN (>60)
== END ==
PROVIDERS: Physician Assistant; Visit Provider Family Medicine
DX: D38.1 Neoplasm of uncertain behavior of trachea, bronchus and lung (principal)
CPT/HCPCS: 36415; 82565; 84520

== ENCOUNTER → 2020-04-01 13:33 | Outpatient (CLI) | payer MEDICARE, SELFPAY ==
--- NOTE | 2020-04-01 13:38 | CT_ITS ---
PROCEDURE: CT CHEST W CON CLINCAL INDICATION: LUNG NEOPLASM Follow-up lung nodule COMPARISON: CT CHEST W CON from 10/18/2019 CT CHEST WO CON from 11/20/2019 TECHNIQUE: IV Contrast: 75ml Optiray 350 Axial images obtained with sagittal and coronal reformats. All CT scans at the facility use one or more dose reduction, viz: automated exposure control, ma/kV adjustment per patient size (including targeted exams where dose is matched to indication, i.e. head), or iterative reconstruction technique. FINDINGS: HEART AND MEDIASTINAL STRUCTURES: Coronary artery calcifications. No mediastinal or hilar mass. LUNGS AND PLEURAL SPACES: A new parenchymal opacity is present in the right upper lobe medially consistent with an area of atelectasis the versus developing nodule. Continued follow-up suggested. There is a vague opacity in the right upper lobe posteriorly image number 48 series 3 this has a ground-glass appearance with a small central area of increased density. This measures 5 mm and not readily apparent on the previous exam. Semi solid appearing left apical parenchymal opacity is once again noted with a central area of increased density similar to the previous exam image 20 series 3. The previously noted subpleural opacity in the left upper lobe posteriorly is less apparent when compared to the previous study. This is linear in nature and somewhat irregular consistent with an area of postinflammatory fibrosis. Patchy density is present in the left lung base posteriorly not significantly changed. Fibrotic changes are present in the left lung base medially BONY STRUCTURES: No acute bony abnormalities apparent. UPPER ABDOMEN: The there is a soft tissue nodular density medial to the spleen consistent with a splenule unchanged. ADDITIONAL FINDINGS: No other significant abnormalities. IMPRESSION: 1. The original suspicious parenchymal opacity in the subpleural area of the superior segmental left lower lobe continues to decrease in size. There is some linear density in this region consistent with an area of postinflammatory fibrosis. 2. There are 2 ground-glass opacities 1 in the right lower lobe and 1 in the left upper lobe with more central solid-appearing nodularity. These are unchanged. 3. No new anomalies apparent. 4. COPD Dictated by: Freddy Butcher MD 04/02/2020 13:39 Electronically signed by Freddy Butcher MD in [place] 04/02/2020 13:39
== END ==
PROVIDERS: PCP Family Medicine; Visit Provider Family Medicine
DX: D38.1 Neoplasm of uncertain behavior of trachea, bronchus and lung (principal)
CPT/HCPCS: 71260; Q9967

== ENCOUNTER → 2020-05-01 12:37 | Outpatient (POV) | payer MEDICARE, SELFPAY ==
[2020-05-01 12:58] VITALS: BP 101/62; PULSE 66; RESP 18; TEMP 36.6; O2SAT 98; BMI 17.0
--- NOTE | 2020-05-01 13:16 | HMH.PAINSOAP ---
[facility] Pain Management SOAP Note Subjective:: Patient is a pleasant 84-year-old white female who presents today for medication refills. She has been treated for low back pain with lumbar radiculopathy symptoms and postlaminectomy syndrome lumbar spine. Patient does rate her pain a 10 out of 10 today. She is having tenderness over her bilateral SI joints. Patient has undergone injective therapy in the past and says she gets between 80 to 85% relief for up to 2 to 3 weeks, however, her pain does return. He is also managed with oxycodone 10 mg 1 tablet p.o. 5 times daily. She denies any side effects to the medications. Her Freedom #[id number] has been reviewed and is appropriate. Her morphine equivalent is 75. Her urine drug screens have been appropriate. Review of Systems General: No recent weight changes, no fever, no sleep disturbances Respiratory: No cough, no shortness of air, no recurring pulmonary infections Cardiovascular/peripheral vascular: No chest pain, no palpitations, no edema, no shortness of breath Gastrointestinal: No new onset incontinence, normal bowel movements reported Genitourinary: No new onset incontinence Musculoskeletal: Bilateral low back pain Psychiatric: Normal mood/affect Neurological: [Denies weakness in extremities] denies balance issues Objective:: Physical exam General: Alert and oriented x3, no acute distress, pleasant and cooperative, [on room air] Lungs: Respirations even and unlabored, symmetrical chest expansion Eyes: PERRL Musculoskeletal: Flexion and extension of lumbar spine somewhat guarded secondary to pain, deep tendon reflexes normal, strength in upper and lower extremities [5/5], [abnormal gait noted], positive Evelyn's test, positive distraction test, positive Geary's test. Neurological: Speech clear, senior devops engineer equal, no gross sensory deficit Assessment:: Degenerative disc disease lumbar spine with lumbar radiculopathy symptoms Plan:: We will refill the patient's oxycodon 10 mg 1 tablet p.o. 5 times daily. We will give HER-2 months worth of medication and she can picker tender her third month in the interim. Patient I did discuss possible SI joint injections. She was given corner lock information. She also has a positive Stefanie, Evelyn's, distraction test.Patient does understand she would need to undergo a diagnostic SI joint to determine if this is the cause of her pain. She will discuss possible SI injections at her next appointment. She has been instructed to contact clinic if she has any concerns before next appointment she does have notable point tenderness over bilateral SI joint injections. The patient and I specifically discussed risk factors for COVID19. These risks include, but are not limited to age greater than 60, heart or lung disease, diabetes, immunosuppression, and travel. We also discussed NSAIDs may worsen COVID19 infection or symptoms. Patient should not use NSAIDs to treat COVID19 signs or symptoms. Patient was also informed that any type of corticosteroid of any form (oral or injection) will decrease the patient's immune system response and may increase the likelihood of COVID19 [address] symptoms[address] Miller has reviewed this note and agrees with this plan of care. This note was dictated using voice recognition software and make contain errors or omissions. [facility] History I have reviewed the patient's past medical history: Yes Medical History: Reports:: Chronic Obstructive Pulmonary Disease (COPD), Hyperlipidemia, Hypertension, Peripheral Vascular Disease Denies:: Cancer, Diabetes Mellitus Type 1, Diabetes Mellitus Type 2, MRSA, Seizures *Have you ever received a pneumonia vaccine?: Yes *Have you received a flu vaccine this season?: Yes Other Medical History: Reports: Anemia, Glaucoma, Other. Denies: Blood Transfusion Reaction Laterality Cases: Right: Carpal Tunnel Release Other Surgeries: Yes: Cancer Surgery, Cardiac Catheterization, Other Amputation: No Frac
== END ==
PROVIDERS: PCP Family Medicine; Visit Provider Clinical Nurse Specialist Family Health
DX: M51.16 Intervertebral disc disorders with radiculopathy, lumbar region (principal)
CPT/HCPCS: 99212

== ENCOUNTER → 2020-08-11 10:54 | Outpatient (POV) | payer MEDICARE, SELFPAY ==
[2020-08-11 11:54] VITALS: BP 114/74; PULSE 75; RESP 18; TEMP 36.8; O2SAT 98; BMI 17.0
--- NOTE | 2020-08-11 12:41 | HMH.PAINSOAP ---
[facility] Pain Management SOAP Note Subjective:: Patient is a pleasant 84-year-old white female who presents today for medication refills. She has been treated for chronic low back pain with lumbar radiculopathy symptoms and postlaminectomy syndrome lumbar spine. Patient rates her pain a 7 out of 10 today. She is currently managed with oxycodone 10 mg 1 tablet p.o. 5 times daily. She also takes gabapentin as prescribed by her primary care provider. Patient does report that she was told by the pharmacy that she is picking up her medications too early. Patient says she was out of medication early before her refill date. She has been encouraged to keep her medications in a locked box. Since her last refill, her medications have been locked and she says no one is in her home. She says that she was also told by the pharmacy that she may be taking more medication than prescribed. Patient's Stella #[id number] has been reviewed and is appropriate. Her morphine equivalent is 75. Her drug screens are appropriate. She rates her pain a 7 out of 10 today. Review of Systems General: No recent weight changes, no fever, no sleep disturbances Respiratory: No cough, no shortness of air, no recurring pulmonary infections Cardiovascular/peripheral vascular: No chest pain, no palpitations, no edema, no shortness of breath Gastrointestinal: No new onset incontinence, normal bowel movements reported Genitourinary: No new onset incontinence Musculoskeletal: Low back pain Psychiatric: Normal mood/affect Neurological: [Denies weakness in extremities], [denies balance issues] Objective:: Physical exam General: Alert and oriented x3, no acute distress, pleasant and cooperative, [on room air] Lungs: Respirations even and unlabored, symmetrical chest expansion Eyes: PERRL Musculoskeletal: Flexion and extension of lumbar spine somewhat guarded secondary to pain, deep tendon reflexes normal, strength in upper and lower extremities [5/5], [abnormal gait noted] Neurological: Speech clear, tig welder equal, no gross sensory deficit Assessment:: Degenerative disc disease lumbar spine with lumbar radiculopathy symptoms, postlaminectomy syndrome lumbar spine Plan:: We will refill the patient's oxycodone 10 mg 1 tablet p.o. 5 times daily. I have advised the patient that writing down the times that she takes the medication throughout the day may be beneficial so that she is aware of when she is taking the medication to make certain she is not forgetting and taking medication more than prescribed. Patient does not want to do this at this time. She does have the medication in a locked box. We will see her back in the clinic in 3 months. She will contact the clinic in between refills so that we can order the medication. She has been instructed to contact clinic if she has any concerns before next appointment. The patient and I specifically discussed risk factors for COVID19. These risks include, but are not limited to age greater than 60, heart or lung disease, diabetes, immunosuppression, and travel. We also discussed NSAIDs may worsen COVID19 infection or symptoms. Patient should not use NSAIDs to treat COVID19 signs or symptoms. Patient was also informed that any type of corticosteroid of any form (oral or injection) will decrease the patient's immune system response and may increase the likelihood of COVID19 [address] Miller has reviewed this note and agrees with this plan of care. This note was dictated using voice recognition software and make contain errors or omissions. Patient has been prescribed a controlled substance after being counseled on the medication, medication safety, and possible side effects. STELLA report has been obtained and reviewed prior to prescription and found to be appropriate. Opioid contract was reviewed and signed by the patient, and that they have agreed to all of the terms set forth by our compliance program. [facility] Hist
== END ==
PROVIDERS: PCP Family Medicine; Visit Provider Clinical Nurse Specialist Family Health
DX: M51.16 Intervertebral disc disorders with radiculopathy, lumbar region (principal); M96.1 Postlaminectomy syndrome, not elsewhere classified
CPT/HCPCS: 99212

== ENCOUNTER → 2020-11-10 11:11 | Outpatient (POV) | payer MEDICARE, SELFPAY ==
[2020-11-10 11:51] VITALS: BP 128/88; PULSE 79; RESP 18; TEMP 36.8; O2SAT 98; BMI 16.7
--- NOTE | 2020-11-10 11:54 | HMH.PAINSOAP ---
[facility] Pain Management SOAP Note Subjective:: She is a pleasant 85-year-old white female who presents today for medication refills. Patient rates her pain a 10 out of 10 which she states is higher than her typical her baseline is around a 6 or a 7. She is currently being managed with oxycodone 10 mg 1 tab p.o. 5 times a day. She also takes gabapentin as prescribed by her primary care provider. Patient reports that she is having worsening back pain. Patient will go get a x-ray of her lumbar and thoracic spine to help determine pathology. Stella number is [phone] reviewed and appropriate. Drug screens have been appropriate. Patient's morphine equivalent is 75. Patient's tried and failed other modalities of treatment including injection therapy, spinal cord stimulation, intrathecal pain pump. ROS General: no recent weight change, no fever, no sleep disturbances Respiratory: no cough, no shortness of air, no recurring pulmonary infections Cardiovascular/Peripheral Vascular: No chest pain, No palpitations, no edema, no shortness of breath. Gastrointestinal: no new onset incontinence, normal bowel movements reported Genitourinary: no new onset incontinence Musculoskeletal: Back pain, leg pain Psychiatric: normal mood/ affect, Neurological: [denies new onset weakness in extremities], [denies new onset balance issues] Objective:: Physical Exam General: Alert and oriented x3, no acute distress, pleasant and cooperative, [on room air] Lungs: Resps E/U, Symmetrical chest expansion, Eyes: PERRL Musculoskeletal: Flexion and extension of lumbar and thoracic spine somewhat guarded secondary to pain, deep tendon reflexes normal, strength in upper and lower extremities [5/5], [abnormal gait noted] Neurological: speech clear, superintendent commissary equal, no gross sensory deficits Assessment:: Degenerative disc disease lumbar spine lumbar radiculopathy, postlaminectomy syndrome Plan:: We will continue her oxycodone 10 mg 1 p.o. 5 times a day. We will follow up with her in 2 months reassess her symptoms at that time she has been instructed to call the office if she has any issues prior to her next appointment. Patient will also go get a thoracic and lumbar x-ray to help determine any new pathology. Patient has been prescribed a controlled substance after being counseled on the medication, medication safety, and possible side effects. STELLA report has been obtained and reviewed prior to prescription and found to be appropriate. Opioid contract was reviewed and signed by the patient, and that they have agreed to all of the terms set forth by our compliance program. Dr. Miller has reviewed this note and agrees with this plan of care. This note was dictated using voice recognition software and may contain errors or omissions [facility] History I have reviewed the patient's past medical history: Yes Medical History: Reports:: Chronic Obstructive Pulmonary Disease (COPD), Hyperlipidemia, Hypertension, Peripheral Vascular Disease Denies:: Cancer, Diabetes Mellitus Type 1, Diabetes Mellitus Type 2, MRSA, Seizures *Have you ever received a pneumonia vaccine?: Yes *Have you received a flu vaccine this season?: Yes Other Medical History: Reports: Anemia, Glaucoma, Other. Denies: Blood Transfusion Reaction Laterality Cases: Right: Carpal Tunnel Release Other Surgeries: Yes: Cancer Surgery, Cardiac Catheterization, Other Amputation: No Fractures: No - *Social History Smoking Status: Current every day smoker Tobacco Type: cigarettes # Packs/Day (cigarettes): 1 Alcohol Intake: never Substance Use Type: denies use *Occupational Status:: other Housing: house Household Members: family *Travel in the last 8 weeks: None Family Hx:: Cancer, Hypertension
== END ==
PROVIDERS: PCP Family Medicine; Visit Provider Clinical Nurse Specialist Family Health
DX: M51.16 Intervertebral disc disorders with radiculopathy, lumbar region (principal); M96.1 Postlaminectomy syndrome, not elsewhere classified
CPT/HCPCS: 72072; 72110; 99212; G0463

== ENCOUNTER → 2020-11-10 11:54 | Outpatient (CLI) | payer MEDICARE, SELFPAY ==
--- NOTE | 2020-11-10 12:01 | XR_ITS ---
PROCEDURE: XR THORACIC SPINE 3V CLINICAL INDICATION: BACK PAIN Back pain COMPARISON: CR TSP THORACIC SPINE-3V SWIMMERS from 07/22/2014 FINDINGS: Normal alignment. There is mild wedge contour involving T7 and T6 which does not appear significantly changed. Mild kyphosis noted in the mid thoracic spine. Epidural stimulator device is present in the lower thoracic spine region. No lytic or blastic change. There is degenerative disc disease L1-L2. IMPRESSION: Mild chronic wedging and mild kyphosis at T6-T7. No acute finding. Dictated by: Freddy Butcher MD 11/10/2020 15:12 Freddy Butcher MD in [place] 11/10/2020 15:12
--- NOTE | 2020-11-10 12:01 | XR_ITS ---
PROCEDURE: XR LUMBAR SPINE MIN 4V CLINICAL INDICATION: BACK PAIN COMPARISON: No exams were available for comparison FINDINGS: Mild lumbar scoliosis convex right. There is multilevel degenerative disc disease from L1-S1. This is most severe at L2-L3 and L3-L4 with vacuum disc phenomenon. There is 5 mm retrolisthesis of L2 and L3. Sclerosis of the endplates is present at those levels as well with anterior osteophytes. Degenerative disc disease is also present at L5-S1. Epidural stimulator device is present in the lower thoracic region. There is diffuse vascular calcification. There is mild kyphosis at the thoracolumbar junction. Other findings:None. IMPRESSION: Severe degenerative changes of the lumbar spine as described above. Dictated by: Freddy Butcher MD 11/10/2020 13:17 Freddy Butcher MD in [place] 11/10/2020 13:17
== END ==
PROVIDERS: PCP Family Medicine; Visit Provider Clinical Nurse Specialist Family Health
DX: M54.5 Low back pain (principal); M54.6 Pain in thoracic spine
CPT/HCPCS: 72072; 72110

== ENCOUNTER → 2020-12-02 12:48 | Outpatient (CLI) | payer MEDICARE, SELFPAY ==
--- NOTE | 2020-12-02 12:49 | CA_ITS ---
APPROVED REPORT EXAM: Comprehensive 2D, Doppler, and color-flow Echocardiogram Wall Crane Operator: Michelle Leonardo CRT Ht: 5 ft 8 in Wt: 112lbs BSA: 1.60 BP: 116/45 mmHg Indications: Congestive Heart Failure, Shortness of Breath, CAD 2D Dimensions LVOT 1.59 cm (M/F) 1.5-2.5 M-Mode Dimensions RVDd 1.93 cm (0.9-2.6) LA Diam 3.55 cm (1.9-4.0) LVDd 4.47 cm (3.5-5.7) Ao Diam 3.26 cm (2.0-3.7) LVDs 3.54 cm (3.5-5.7) IVSd 1.80 cm (0.6-1.1) PWd 0.48 cm (0.6-1.1) EF (Teich) 42.50% FS 20.80% EDV (Teich) 91.00 mL ESV (Teich) 52.30 mL LV Diastology E Decel Time 150.00 (160-240 msec) E/A Ratio 0.85 MED E' 10.00 (< 7 cm/sec) MED A' 8.50 cm/s E'/MED E' Ratio 8.04 (>14) LAT E' 7.30 (<10 cm/sec) LAT A' 6.00 cm/s E/LAT E' Ratio 11.01 (>14) Aortic Valve LVOT Max 135.00 (70-110 cm/s) LVOT VTI 28.91 cm AoV Peak Mihir. 149.00 (50-130 cm/s) AO Peak GR. 8.90 mmHg AO Mean GR. 5.00 (<5 mmHg) AO VTI 33.21 (18-25 cm) ROCK (VTI) 1.73 (2.5-4.5 cm2) Mitral Valve MV E Max Mihir. 80.00 (40-130 cm/s) MV A Velocity 95.00 (40-130 cm/s) E/A Ratio 0.85 MV Decel. Time 150.00 (160-240 ms) MV PHT 44.00 ms Pulmonary Valve PV Peak Velocity 44.00 (50-150 cm/s) Tricuspid Valve TR P. Velocity 260.00 cm/s RAP Estimate 10.00 mmHg RVSP 37.10 mmHg Left Ventricle Left atrium is mildly enlarged, left ventricle is normal size, mild concentric left ventricular hypertrophy, visually estimated ejection fraction 55% with no regional wall motion abnormality, grade 1 diastolic dysfunction seen without tissue Doppler evidence of raise left atrial pressure. Right Ventricle Right atrium and right ventricle are normal size and contractility. Aortic Valve Aortic valve is thickened and calcified without Doppler evidence of aortic stenosis, there is no significant aortic insufficiency seen. Mitral Valve Mitral valve leaflets are minimally thickened, there is mild mitral regurgitation. Tricuspid Valve Tricuspid valve is grossly normal, there is mild tricuspid regurgitation, tricuspid regurgitation jet velocity is inadequate for calculation of the right ventricular systolic pressure. Pulmonic Valve Pulmonic valve is poorly visualized. Great Vessels Aortic root is normal size. Pericardium No significant pericardial effusion noted. Conclusion 1. Mildly enlarged left atrium, normal left ventricular size, mild concentric left ventricular hypertrophy, visually estimated ejection fraction 55% with no regional wall motion abnormality, grade 1 diastolic dysfunction seen without tissue Doppler evidence of raise left atrial pressure. 2. Thickened and calcified aortic valve without Doppler evidence of aortic stenosis or aortic insufficiency. 3. Mild mitral and tricuspid regurgitation. 4. No significant pericardial effusion noted. Electronically signed by : Hesham Gaines, 12/02/2020 20:53:40
--- NOTE | 2020-12-02 12:57 | CT_ITS ---
PROCEDURE: CT HEAD/BRAIN WO CON CLINICAL INDICATION: recent fall hit head on Xarelto Head injury with headache/pain, contusion, abrasion or hematoma COMPARISON: CR XR THORACIC SPINE 3V from 11/10/2020 TECHNIQUE: Axial images obtained. All CT scans at the facility use one or more dose reduction, viz: automated exposure control, ma/kV adjustment per patient size (including targeted exams where dose is matched to indication, i.e. head), or iterative reconstruction technique. FINDINGS: No midline shift, mass effect, intracranial hemorrhage, hydrocephalus, or extra-axial fluid collection is evident. There is generalized atrophy with hypoattenuation of the periventricular white matter consistent with microangiopathic changes. The calvarium has an unremarkable appearance. No mastoid effusion. No sinus air-fluid level. On the most inferior image there is noted fracture of the anterior arch of C1 suggesting a Hema fracture. Dedicated CT of the cervical spine suggested. This may be old. IMPRESSION: 1. No acute intracranial finding. 2. Suspect Hema fracture of the arch of C1 age indeterminate. This is incompletely imaged. Dedicated CT cervical spine suggested for further evaluation. 3. Report is given by telephone to Karishma Roach the patient's provider 12/03/2020 at 2:09 cm Dictated by: Freddy Butcher MD 12/03/2020 14:10 Freddy Butcher MD in [place] 12/03/2020 14:10
== END ==
PROVIDERS: PCP Family Medicine; Visit Provider Nurse Practitioner Family
DX: E78.5 Hyperlipidemia, unspecified (principal); I25.10 Atherosclerotic heart disease of native coronary artery without angina pectoris; I27.20 Pulmonary hypertension, unspecified; I42.9 Cardiomyopathy, unspecified; I50.9 Heart failure, unspecified; J44.9 Chronic obstructive pulmonary disease, unspecified; R06.00 Dyspnea, unspecified; Z91.81 History of falling; I11.0 Hypertensive heart disease with heart failure
CPT/HCPCS: 70450; 93306

== ENCOUNTER → 2020-12-04 08:04 | Outpatient (CLI) | payer MEDICARE, SELFPAY ==
--- NOTE | 2020-12-04 08:14 | CT_ITS ---
PROCEDURE: CT CERVICAL SPINE WO CON CLINICAL INDICATION: fall Posttraumatic pain, C1 fracture noted on head CT. COMPARISON: No exams were available for comparison TECHNIQUE: Axial images obtained with sagittal and coronal reformats. All CT scans at the facility use one or more dose reduction, viz: automated exposure control, ma/kV adjustment per patient size (including targeted exams where dose is matched to indication, i.e. head), or iterative reconstruction technique. Axial spiral CT scanning performed of the cervical spine beginning at the base of the skull and continuing to the upper T-spine. 3-D multiplanar reconstruction with 3-D manipulation of volumetric data set in image rendering was completed by the radiologist and/or technologist with the supervision of the radiologist on independent workstation. FINDINGS: There is normal alignment. There is a cystic lesion involving the base of the odontoid process posteriorly. This is well-circumscribed and measures 13 x 7 mm and may be related to subchondral cyst from degenerative changes. There is a defect within the cortex posteriorly involving this cystic area but no evidence of dens fracture anteriorly. The anterior arch of C1 centrally has an abnormal appearance with a prominent concavity for which the dens lies in which appears chronic with mild superior subluxation and posterior subluxation of the C1 arch. There is a fracture involving the C1 arch anteriorly with mild separation of the fracture fragments by 7 mm. In addition, there is a nondisplaced fracture involving the posterior arch of C1 on the right. C2-C3: Unremarkable. C3-C4: Small central disc protrusion. C4-C5: Degenerative disc disease with anterior osteophytes. C5-C6: Degenerative disc disease with bilateral foraminal narrowing. C6-C7: Mild bilateral foraminal narrowing. No significant prevertebral soft tissue swelling. IMPRESSION: 1. Mildly displaced fracture involving the anterior arch of C1 with a chronic concave defect within the anterior arch of C1 for which the odontoid lies in with mild posterior and superior subluxation of C1. 2. Nondisplaced fracture involves the posterior arch of C1 on the right. 3. Multilevel cervical spondylosis. 4. Probable sub chondral cyst within the odontoid Dictated by: Freddy Butcher MD 12/04/2020 09:43 Freddy Butcher MD in [place] 12/04/2020 09:43
== END ==
PROVIDERS: PCP Family Medicine; Visit Provider Nurse Practitioner Family
DX: W19.XXXA Unspecified fall, initial encounter (principal); M54.2 Cervicalgia; S12.001A Unspecified nondisplaced fracture of first cervical vertebra, initial encounter for closed fracture
CPT/HCPCS: 72125

== ENCOUNTER → 2021-01-12 11:27 | Outpatient (POV) | payer MEDICARE, SELFPAY ==
[2021-01-12 11:39] VITALS: BP 133/74; PULSE 71; RESP 18; O2SAT 98; BMI 16.9
--- NOTE | 2021-01-12 12:14 | P.CONS_ITS ---
[facility] Pain Management SOAP Note Subjective:: Patient is a pleasant 85-year-old white female who presents today for medication refills. Patient rates her pain today an 8 out of 10. She is currently being managed with oxycodone 10 mg 1 tab p.o. 5 times a day. She is recently fallen and fractured her neck in 2 places. According to the neurosurgeon she is not a surgical candidate due to her age. She does come today in a brace. Patient states that the medication is beneficial she is having some pain in her lower lumbar. Patient and I discussed diclofenac cream. ROS General: no recent weight change, no fever, no sleep disturbances Respiratory: no cough, no shortness of air, no recurring pulmonary infections Cardiovascular/Peripheral Vascular: No chest pain, No palpitations, no edema, no shortness of breath. Gastrointestinal: no new onset incontinence, normal bowel movements reported Genitourinary: no new onset incontinence Musculoskeletal: Back pain, leg pain, neck pain Psychiatric: normal mood/ affect Neurological: [denies new onset weakness in extremities], [denies new onset balance issues] Objective:: Physical Exam General: Alert and oriented x3, no acute distress, pleasant and cooperative, [on room air] Lungs: Resps E/U, Symmetrical chest expansion, Eyes: PERRL Musculoskeletal: Flexion and extension of cervical and lumbar spine somewhat guarded secondary to pain, deep tendon reflexes normal, strength in upper and lower extremities [5/5], slightly antalgic gait noted Neurological: speech clear, power plant engineer equal, no gross sensory deficits Assessment:: Degenerative disc disease lumbar spine lumbar radiculopathy, postlaminectomy syndrome, recent fracture of cervical spine Plan:: We will continue her oxycodone 10 mg 1 p.o. 5 times a day. We will also give her samples of diclofenac gel to see if this is beneficial. If she is interested we will go forward with ordering gel for her to utilize as needed. We will follow up with her after this reassess her symptoms at that time she has been instructed to call the office if she has any issues prior to her next appointment. Dr. Miller has reviewed this note and agrees with this plan of care. This note was dictated using voice recognition software and may contain errors or omissions [facility] History I have reviewed the patient's past medical history: Yes Medical History: Reports:: Chronic Obstructive Pulmonary Disease (COPD), Hyperlipidemia, Hypertension, Peripheral Vascular Disease Denies:: Cancer, Diabetes Mellitus Type 1, Diabetes Mellitus Type 2, MRSA, Seizures *Have you ever received a pneumonia vaccine?: Yes *Have you received a flu vaccine this season?: Yes Other Medical History: Reports: Anemia, Glaucoma, Other. Denies: Blood Transfusion Reaction Laterality Cases: Right: Carpal Tunnel Release Other Surgeries: Yes: Cancer Surgery, Cardiac Catheterization, Other Amputation: No Fractures: No - *Social History Smoking Status: Current every day smoker Tobacco Type: cigarettes # Packs/Day (cigarettes): 1 Alcohol Intake: never Substance Use Type: denies use *Occupational Status:: other Housing: house Household Members: family *Travel in the last 8 weeks: None Family Hx:: Cancer, Hypertension
== END ==
PROVIDERS: PCP Family Medicine; Visit Provider Clinical Nurse Specialist Family Health
DX: M51.16 Intervertebral disc disorders with radiculopathy, lumbar region (principal); M96.1 Postlaminectomy syndrome, not elsewhere classified; S12.001A Unspecified nondisplaced fracture of first cervical vertebra, initial encounter for closed fracture; W19.XXXA Unspecified fall, initial encounter
CPT/HCPCS: 99212; G0463

== ENCOUNTER 2021-02-17 02:24 | Inpatient (IN) | payer MEDICARE, SELFPAY ==
[2021-02-17] VITALS (9 sets, daily range): BP systolic 132–204; BP diastolic 59–93; PULSE 80–105; RESP 16–19; TEMP 36.8–37.6; O2SAT 92–97; BMI 16.7; BMI 15.8
--- NOTE | 2021-02-17 02:27 | HMH.EDGENADL ---
ED Disposition Clinical Impression: Severe sepsis, Acute kidney injury UTI (urinary tract infection) Qualifiers: Urinary tract infection type: acute cystitis Hematuria presence: without hematuria Qualified Code(s): N30.00 - Acute cystitis without hematuria Disposition: Admitted As Inpatient Condition on Discharge: Fair Referrals: Amish Smith MD [Primary Care Provider] - - Critical Care Critical Care Time: No Attestation: On , the high probability of a clinically significant, sudden or life threatening deterioration of the following system(s) required my full and direct attention, intervention and personal management. The time I documented below is in addition to time spent performing reported procedures but includes the following listed in this critical care notation. Medical Decision Making - Medical Records Medical records reviewed: Yes: I reviewed the patient's medical records. - [place] Inquiry Pt receiving controlled substance: No Vital Signs: 02/17/21 02:25 02/17/21 03:30 02/17/21 04:24 Temperature 98.7 F Temperature Source Oral Pulse Rate 80 88 Pulse Rate [Right] 95 H Respiratory Rate 16 Blood Pressure 204/73 H 154/93 H Blood Pressure [Right Arm] 132/71 Blood Pressure Mean 95 105 Blood Pressure Mean [Right Arm] 91 02 Sat by Pulse Oximetry 97 92 L 92 L - Lab Data Lab Results 02/17/21 02:45: WBC 16.3 H, RBC 3.87 L, Hgb 10.7 L, Hct 34.8 L, MCV 90.0, MCH 27.7, MCHC 30.8 L, RDW 15.5, Plt Count 291, MPV 8.1, Neut % (Auto) 82.1 H, Lymph % (Auto) 12.6, [place] % (Auto) 5.1, Eos % (Auto) 0.0 L, Baso % (Auto) 0.2, Neut # (Auto) 13.4 H, Lymph # (Auto) 2.1, [place] # (Auto) 0.8, Eos # (Auto) 0.0, Baso # (Auto) 0.0, Total Counted 100, Neutrophils % (Manual) 91 H, Lymphocytes % (Manual) 9 L, Platelet Estimate Normal, RBC Morphology Normal 02/17/21 02:45: Sodium 138, Potassium 4.5, Chloride 101, Carbon Dioxide 26, Anion Gap 15.5 H, BUN 54 H, Creatinine 2.40 H, Estimated Creat Clear 14, Estimated GFR 19 L*, Est GFR ( Amer) 23 L, Glucose 152 H, Calcium 8.5, Magnesium 2.7 H, Total Bilirubin 0.5, AST 54 H, ALT 36, Alkaline Phosphatase 132 H, Total Protein 6.9, Albumin 3.7, Globulin 3.2, Albumin/Globulin Ratio 1.2, Lipase 65 02/17/21 03:45: Lactate 2.7 H 02/17/21 04:22: Urine Color Yellow, Urine Appearance Clear, Urine pH 6.0, Ur Specific [place] 1.025, Urine Protein Trace, Urine Glucose (UA) Negative, Urine Ketones Negative, Urine Blood Trace-i, Urine Nitrate Positive, Urine Bilirubin Negative, Urine Urobilinogen 0.2, Ur Leukocyte Esterase 1+ A, Urine WBC 10-20, Urine Bacteria 2+, Urine Mucus 1+ Result diagrams: 02/17/21 02:45 02/17/21 02:45 Orders (Tests/Meds): ED MEDICATIONS Generic Name Dose Route Start Last Admin Trade Name Freq PRN Reason Stop Dose Admin Lactated Ringer's 500 mls @ 999 mls/hr 02/17/21 02:45 02/17/21 02:53 Lactated Ringer's 1000 Ml Bag IV 02/17/21 03:15 999 mls/hr .Q31M ROSI Administration Lactated Ringer's 1,000 mls @ 100 mls/hr 02/17/21 05:00 Lactated Ringer's 1000 Ml Bag IV 03/19/21 04:59 .Q10H ROSI Lactated Ringer's 500 mls @ 999 mls/hr 02/17/21 05:15 Lactated Ringer's 1000 Ml Bag IV 02/17/21 05:45 .Q31M ROSI Discontinued Medications Generic Name Dose Route Start Last Admin Trade Name Freq PRN Reason Stop Dose Admin Ceftriaxone Sodium 1 gm/ 50 mls @ 100 mls/hr 02/17/21 04:48 02/17/21 05:09 Sodium Chloride IV 02/17/21 05:17 100 mls/hr ONCE ONE Administration Protocol Ondansetron HCl 4 mg 02/17/21 02:42 02/17/21 02:53 Ondansetron 4mg/2ml Vial IV 02/17/21 02:43 4 mg ONCE ONE Administration ORDERS Category Date Time Status Blood Culture Stat Micro 02/17/21 05:00 Received Urine Culture Stat Micro 02/17/21 04:22 Received Medical Decision Narrative: Patient presents the emergency department with vomiting and diarrhea. Arrival, she is hemodynamically stable. She does feel somewhat light
[2021-02-17 03:00] LABS: Basophils % 0.2 % (0.1-2.0); Chloride 101 mmol/L (98-107); Hematocrit 34.8 % (37.0-47.0); Hemoglobin 10.7 g/dL (12.2-16.2); Lymphocytes # 2.1 K/mm3 (0.7-4.5); Lymphocytes % 12.6 % (10-50); Mean Corpuscular HGB Conc 30.8 g/dL (31.8-35.4); Mean Corpuscular Hemoglobin 27.7 pg (27.0-31.2); Mean Platelet Volume 8.1 fl (7.4-10.4); Monocytes # 0.8 K/mm3 (0.1-1.0); Monocytes % 5.1 % (1.7-9.3); Neutrophils # 13.4 K/mm3 (1.8-7.8); Neutrophils % 82.1 % (37.0-80.0); Platelet Count 291 K/mm3 (142-424); Potassium 4.5 mmoL/L (3.5-5.1); Red Blood Count 3.87 M/mm3 (4.20-5.40); Red Cell Distribution Width 15.5 % (11.5-17.5); Sodium 138 mmol/L (136-145); White Blood Count 16.3 K/mm3 (4.8-10.8)
[2021-02-17 03:02] LABS: Blood Urea Nitrogen 54 mg/dl (7-17); Creatinine Clearance Estimated 14 mL/min (50-200); Estimated Glomerular Filt Rate 19 ml/min (>60); GFR (African American) 23 ML/MIN (>60)
[2021-02-17 03:03] LABS: Alanine Aminotransferase 36 U/L (12-78); Albumin Level 3.7 g/dl (3.5-5.0); Albumin/Globulin Ratio 1.2 (1.1-1.8); Alkaline Phosphatase 132 U/L (38-126); Anion Gap 15.5 mEq/L (5-15); Aspartate Amino Transferase 54 U/L (14-36); Bilirubin,Total 0.5 mg/dl (0.2-1.3); Calcium 8.5 mg/dl (8.4-10.2); Carbon Dioxide 26 mmol/L (22.0-30.0); Globulin 3.2 g/dL (1.3-3.2); Glucose 152 mg/dl (74-100); Lipase 65 U/L (23-300); Magnesium 2.7 mg/dl (1.6-2.3); Total Protein,Serum 6.9 g/dl (6.3-8.2)
[2021-02-17 03:06] LABS: MANUAL DIFFERENTIAL MANUAL DIFFERENTIAL (MANUAL DIFF)
--- NOTE | 2021-02-17 03:23 | CT_ITS ---
PROCEDURE: CT ABDOMEN PELVIS WO CON CLINICAL INDICATION: vomiting and diarrhea COMPARISON: CT ABDPELW CT ABD PELVIS W/ CONTRAST from 08/12/2016 TECHNIQUE: Axial images obtained with sagittal and coronal reformats. All CT scans at the facility use one or more dose reduction, viz: automated exposure control, ma/kV adjustment per patient size (including targeted exams where dose is matched to indication, i.e. head), or iterative reconstruction technique. FINDINGS: LOWER THORAX: There is a patchy area of atelectasis or infiltrate in left lower ABDOMEN & PELVIS: The liver, spleen and adrenal glands and pancreas have an unremarkable unenhanced appearance. Evaluation is somewhat limited without IV and oral contrast. There is some increased density within the gallbladder and may represent sludge. There is diffuse vascular calcification. No intestinal obstruction or free air. No renal or ureteral calculi or hydronephrosis. No evidence of appendicitis. There is marked thickening of the distal transverse colon splenic flexure and proximal descending colon consistent with colitis with stranding of the pericolic fat. No obvious abscess or free air. Mild urinary bladder wall thickening. Probable fibroid calcification within the uterus. No localized fluid collections are apparent. Degenerative changes of the lumbar spine osteosclerosis of L2-L3 and L4 endplates. 5 mm retrolisthesis of L3. These findings are unchanged. Epidural stimulator device is present. IMPRESSION: 1. Findings compatible with colitis of the distal transverse, splenic flexure, and proximal descending colon. No abscess or perforation. 2. Possible gallbladder sludge. 3. Mild thickening urinary bladder wall which may be due to nondistention or cystitis 4. Patchy infiltrate in the left lower lobe versus atelectasis Dictated by: Freddy Butcher MD 02/17/2021 05:33 Freddy Butcher MD in [place] 02/17/2021 05:33
[2021-02-17 03:48] LABS: Lymphocytes % 9 % (10-50); Neutrophils % 91 % (42-76); Platelet Estimate Normal; RBC Morphology Normal; Total Cells Counted 100
[2021-02-17 04:08] LABS: Lactic Acid 2.7 mmol/L (0.7-2.1)
[2021-02-17 04:31] LABS: Microscopic, Urine URINE MICROSCOPIC (MICROSCOPIC)
[2021-02-17 04:32] LABS: Appearance,Urine CLEAR (Clear); Bilirubin,Urine Negative (Negative); Blood, Urine TRACE-I (Negative); Color,Urine YELLOW (Yellow); Glucose,Urine (UA) Negative (Negative); Ketones,Urine Negative (Negative); Leukocyte Esterase,Urine 1+ (Negative); Nitrate,Urine POSITIVE (Negative); Protein,Urine TRACE (Negative); Specific Gravity, Urine 1.025 (1.005-1.030); Urobilinogen,Urine 0.2 EU/dl (0.2)
[2021-02-17 04:34] LABS: Bacteria,Urine 2+ /lpf; Mucus,Urine 1+ /lpf
--- NOTE | 2021-02-17 06:06 | PC.NURSE ---
patient up to floor via wheelchair.
--- NOTE | 2021-02-17 07:22 | HMH.PHAVTE ---
[facility] Pharmacy VTE Monitoring - Patient Demographics Admission date: 02/17/21 Report Date: 02/17/21 Time: 07:22 Allergies/Adverse Reactions: Patient Allergies No Known Drug Allergies [NO KNOWN DRUG ALLERGIES] Allergy (Unknown, Verified 11/25/20 11:19) Height: 1.73 m Weight: 47.23 kg Patient Problems: Current Active Problems Severe sepsis (Acute) UTI (urinary tract infection) (Acute) Acute kidney injury (Acute) - VTE Risk Labs: VTE Related Lab Results Hgb 10.7 g/dL (12.2-16.2) L 02/17/21 02:45 Hct 34.8 % (37.0-47.0) L 02/17/21 02:45 Plt Count 291 K/mm3 (142-424) 02/17/21 02:45 BUN 54 mg/dl (7-17) H 02/17/21 02:45 Creatinine 2.40 mg/dl (0.52-1.04) H 02/17/21 02:45 Estimated Creat Clear 14 mL/min (50-200) 02/17/21 02:45 VTE Score: 4 VTE Risk Level: Low Risk - Prophylaxis VTE Prophylaxis Ordered?: Yes Types of VTE Prophylaxis: TEDS Knee High Location of Applied Device: Bilateral Lower Extremeties
[2021-02-17 07:51] LABS: Reflex Lactic Add Lactic Reflex
[2021-02-17 08:25] LABS: Lactic Acid Follow Up (RFLX 1) 1.5 mmol/L (0.7-2.1)
--- NOTE | 2021-02-17 08:49 | HMH.PHAINT ---
MEDICATION RECONCILIATION COMPLETED ON PATIENT USING EXTERNAL FILL HISTORY FROM PHARMACY AND PATIENT'S OWN RX BOTTLES. -EMETERIO [id number]
--- NOTE | 2021-02-17 09:02 | HMH.HP ---
*Admission Date: 02/17/21 <Whitney Villasenor - 02/17/21 09:18> *Chief complaint: Nausea vomiting diarrhea <Whitney Villasenor - 02/17/21 09:18> *History of present illness: Ms. Loza is an 85-year-old female with a history of hypertension, hyperlipidemia, peripheral vascular disease, lumbar disc disease, cervical disc disease, COPD, glaucoma, sleep apnea, coronary artery disease, pulmonary hypertension, biventricular congestive heart failure, and chronic back/neck/leg pain with recent nondisplaced fracture of the first cervical vertebrae being seen by pain management who presented to the emergency room during the night after experiencing severe nausea, vomiting, and diarrhea. She states it started about 10:30 PM and she experienced large volumes of vomitus and diarrhea on 2 different occasions. She then took an Imodium and has not had a stool since. Her son was there and assisted her. Her daughter brought her to the hospital. She does state that she did see some blood in the stool but no hematemesis. She describes blood periodically in the stool and thinks this is from her hemorrhoids. She also comments that she had not had a stool for a week prior to this episode. She had not felt well all day long with some nausea and therefore did not eat much at all. To note also she has had a colonoscopy in the remote past per Dr. Chang which was normal. Results not available. On presentation to the emergency room work-up included Abdominal/pelvic CT which showed the followin. Findings compatible with colitis of the distal transverse, splenic flexure, and proximal descending colon. No abscess or perforation. 2. Possible gallbladder sludge. 3. Mild thickening urinary bladder wall which may be due to nondistention or cystitis 4. Patchy infiltrate in the left lower lobe versus atelectasis Laboratory data revealed a white blood cell count of 16,300 with hemoglobin of 10.7 and hematocrit of 34.8. Electrolytes were normal BUN was 54 with a creatinine of 2.4 and GFR of 19. Lactate was elevated at 2.7. AST slightly elevated at 54 with an alkaline phosphatase also elevated at 132. Urine revealed a urinary tract infection with positive nitrates, 1+ leuk esterase and 2+ bacteria. Culture was ordered. In the emergency room patient was resuscitated with IV fluids and was started on Rocephin and received Zofran IV. She was then admitted for ongoing IV fluids and antibiotics. Urine and blood cultures are pending at this time. At the time of this exam patient is feeling somewhat better. She denies abdominal pain and her nausea has improved. She is receiving IV fluids at 100 an hour. She has had no further vomiting or diarrhea. She is very tired. She denies chest pain and shortness of breath. <Whitney Villasenor 02/17/21 09:33> [facility] History Medical History: Reports:: Congestive Heart Failure, Chronic Obstructive Pulmonary Disease (COPD), Coronary Artery Disease, Heart Murmur, Hyperlipidemia, Hypertension, Peripheral Vascular Disease, Valvular Heart Disease Denies:: Cancer, Diabetes Mellitus Type 1, Diabetes Mellitus Type 2, MRSA, Seizures <Whitney Villasenor 02/17/21 09:33> *Have you ever received a pneumonia vaccine?: Yes <Whitney Villasenor 02/17/21 09:18> *Have you received a flu vaccine this season?: Yes <Whitney Villasenor 02/17/21 09:18> Other Medical History: Reports: Anemia, Cataracts, Glaucoma (macular degeneration), Other. Denies: Blood Transfusion Reaction <Whitney Villasenor 02/17/21 09:18> Comment:: Recent closed nondisplaced fracture of the first cervical vertebrae being followed by Dr. Olivera and pain management. Slow transit constipation, lumbar degenerative disc disease managed by pain management. Tobacco use dependence. <Whitney Villasenor 02/17/21 09:33> Laterality Cases: Right: Carpal Tunnel Release, Bilateral: Cataract <Whitney Villasenor 02/17/21 09:18> Other Surgeries: Yes: Cancer Surgery, Cardiac Catheterization, Colonoscopy, Other <Whitney Villasenor
--- NOTE | 2021-02-17 16:31 | PC.NURSE ---
Pt has rested intermittently this shift, stating she did not get much sleep over night. Remains on room air. No s/s of resp distress. Lungs CTA. HR regular. Abdomen soft, non-tender w/ active BS. Denies pain in abdomen. No c/o nausea this shift. Has had no BM's this shift. Link cath to drain @ bedside. Has ambulated w/ standby assistance in room. Medicated per MAR for chronic neck pain. Call grigsby w/in reach. Is currently lying in bed watching TV. No needs voiced.
[2021-02-18] VITALS (24 sets, daily range): BP systolic 126–180; BP diastolic 31–93; PULSE 76–99; RESP 16–20; TEMP 36–37.1; O2SAT 90–99; BMI 16.2; BMI 16.3
--- NOTE | 2021-02-18 04:27 | PC.NURSE ---
no acute changes overnight, pt A&O x4 and has slept well through the night. Pt has not c/o pain this shift. Lungs are CTA, on room air. Bowel sounds x4, abd soft and nontender. IV patent, D5 1/2 Ns w 20K @ 100ml/hr. No BM this shift. Pt has walked to the BR with one assist, voiding without difficulty. VSS, call light in reach, no concerns at this time.
[2021-02-18 06:20] LABS: Chloride 108 mmol/L (98-107); Potassium 4.2 mmoL/L (3.5-5.1); Sodium 136 mmol/L (136-145)
[2021-02-18 06:21] LABS: Basophils % 0.1 % (0.1-2.0); Eosinophils % 0.4 % (0.1-12.0); Lymphocytes # 1.7 K/mm3 (0.7-4.5); Mean Corpuscular HGB Conc 31.9 g/dL (31.8-35.4); Mean Corpuscular Hemoglobin 28.3 pg (27.0-31.2); Mean Corpuscular Volume 88.6 fl (81-99); Monocytes # 0.6 K/mm3 (0.1-1.0); Monocytes % 6.1 % (1.7-9.3); Neutrophils % 77.4 % (37.0-80.0); Platelet Count 178 K/mm3 (142-424); Red Blood Count 2.47 M/mm3 (4.20-5.40); Red Cell Distribution Width 15.5 % (11.5-17.5); White Blood Count 10.3 K/mm3 (4.8-10.8)
[2021-02-18 06:23] LABS: Anion Gap 6.2 mEq/L (5-15); Blood Urea Nitrogen 42 mg/dl (7-17); Calcium 7.7 mg/dl (8.4-10.2); Carbon Dioxide 26 mmol/L (22.0-30.0); Creatinine Clearance Estimated 30 mL/min (50-200); Estimated Glomerular Filt Rate 47 ml/min (>60); GFR (African American) 57 ML/MIN (>60); Glucose 120 mg/dl (74-100)
[2021-02-18 06:24] LABS: Hematocrit 21.8 % (37.0-47.0)
--- NOTE | 2021-02-18 07:48 | HMH.ACPN2 ---
<Whitney Villasenor - Last Filed: 02/18/21 07:48> Internal Medicine - PN: Subj *Date: 02/18/21 *Time: 07:48 Interval history: Patient states she slept at intervals during the night. She has complaints of leg pain and back pain. She is short of breath with exertion. She states she has had a nonproductive cough. She denies any chest pain. She has voided twice during the night without problems. She has had no further diarrhea or vomiting. She is passing gas. She has had some left upper quadrant discomfort. Repeat labs this morning show white blood cell count of 10,300 with a hemoglobin of 7 and hematocrit of 21.8. Renal function has proved improved to a creatinine of 1.10 with a GFR of 47. Sodium is 132 potassium is 4.2. Urine culture shows no growth after 24 hours and blood cultures are pending. Exam Vital signs and Labs for Last 24 Hours: Temp Pulse Resp BP Pulse Ox 98.8 F 99 H 16 146/72 H 90 L 02/18/21 04:00 02/18/21 04:00 02/18/21 04:00 02/18/21 04:00 02/18/21 04:00 Laboratory Results - last 24 hr 02/17/21 08:10: Lactate 1.5 02/18/21 06:05: WBC 10.3 D, RBC 2.47 L D, Hgb 7.0 L*, Hct 21.8 L*, MCV 88.6, MCH 28.3, MCHC 31.9, RDW 15.5, Plt Count 178 D, MPV 8.0, Neut % (Auto) 77.4, Lymph % (Auto) 16.0, [place] % (Auto) 6.1, Eos % (Auto) 0.4, Baso % (Auto) 0.1, Neut # (Auto) 8.0 H, Lymph # (Auto) 1.7, [place] # (Auto) 0.6, Eos # (Auto) 0.0, Baso # (Auto) 0.0 02/18/21 06:05: Sodium 136, Potassium 4.2, Chloride 108 H, Carbon Dioxide 26, Anion Gap 6.2, BUN 42 H, Creatinine 1.10 H D, Estimated Creat Clear 30, Estimated GFR 47 L, Est GFR ( Amer) 57 L D, Glucose 120 H, Calcium 7.7 L I & O for Last 24 hours: Intake & Output 02/15/21 02/16/21 02/17/21 02/18/21 11:59 11:59 11:59 11:59 Intake Total 1000 / 1000 1424 / 1424 Output Total 150 / 150 950 / 950 Balance 850 / 850 474 / 474 Weight 104 lb 2 oz 107 lb 1 oz Microbiology Reports for the Last 24 Hours: Microbiology 02/17/21 04:22 Urine,Catheterized Urine Culture - Preliminary NO GROWTH AFTER 24 HOURS 02/17/21 02:55 Nasopharyngeal Coronavirus COVID-19 PCR - Final - Constitutional no acute distress, thin (Frail) - *Routine Respiratory Exam Present: rhonchi (Throughout) - *Routine Cardiovascular Exam Present: RRR - *Routine Abdominal Exam Present: soft, normoactive bowel sounds, tenderness (Left upper quadrant) - *Routine Extremities Exam Present: calf tenderness (Bilaterally and wherever palpated). Absent: edema, palpable cord - *Routine Neurological Exam Present: alert, oriented X3 Assessment and Plan (1) Vomiting and diarrhea Status: Acute Category: Medical Code(s): R11.10 - Vomiting, unspecified; R19.7 - Diarrhea, unspecified (2) Renal insufficiency Status: Acute Category: Medical Code(s): N28.9 - Disorder of kidney and ureter, unspecified (3) Dehydration Status: Acute Category: Medical Code(s): E86.0 - Dehydration (4) Chronic pain syndrome Status: Chronic Category: Medical Code(s): G89.4 - Chronic pain syndrome (5) UTI (urinary tract infection) Status: Acute Qualifiers: Urinary tract infection type: acute cystitis Hematuria presence: without hematuria Qualified Code(s): N30.00 - Acute cystitis without hematuria Category: Medical Code(s): N39.0 - Urinary tract infection, site not specified (6) CAD (coronary artery disease) Status: Chronic Qualifiers: Coronary Disease-Associated Artery/Lesion type: [place] artery [place] vs. transplanted heart: [place] heart Associated angina: without angina Qualified Code(s): I25.10 - Atherosclerotic heart disease of [place] coronary artery without angina pectoris Category: Medical Code(s): I25.10 - Atherosclerotic heart disease of [place] coronary artery without angina pectoris (7) CHF (congestive heart failure) Status: Chronic Qualifiers: Heart failure type: biventricular Qu
[2021-02-18 09:30] LABS: Vitamin B12 470 pg/mL (239-931)
[2021-02-18 09:55] LABS: Folate 6.68 ng/mL
[2021-02-18 10:22] LABS: Iron 14 ug/dL (37-170)
[2021-02-18 10:32] LABS: Total Iron Binding Capacity 264 ug/dL (265-497)
--- NOTE | 2021-02-18 19:23 | PC.NURSE ---
No acute changes this shift. Pt has had 2 unit of blood this shift and did well. RR even and unlabored. Pt on RA. CB in reach. Pt has co of leg pain and meds given per jan. Have repositioned and elevated ble. Pt states it has helped some. Dr. Smith did restart gabapentin. Dr. Smith stated labs are to be drawn in am and he didnt want a one hr post H&H. Have given report to Satinder Chan RN
[2021-02-19 04:00] VITALS: BP 130/59; PULSE 74; RESP 16; TEMP 36.7; O2SAT 96
[2021-02-19 05:00] VITALS: BMI 16.4
--- NOTE | 2021-02-19 05:43 | PC.NURSE ---
patient has rested with eyes closed most of this shift. Denies pain. She received 2 units of blood yesterday with no reactions noted at this time. VS remain stable, call light within reach, bed at lowest level for safety; will continue to monitor.
[2021-02-19 06:47] LABS: Basophils % 0.1 % (0.1-2.0); Eosinophils # 0.1 K/mm3 (0.0-0.4); Hematocrit 30.5 % (37.0-47.0); Mean Corpuscular Hemoglobin 28.2 pg (27.0-31.2); Monocytes # 0.6 K/mm3 (0.1-1.0)
[2021-02-19 06:55] LABS: Eosinophils % 0.8 % (0.1-12.0); Lymphocytes # 1.8 K/mm3 (0.7-4.5); Lymphocytes % 20.3 % (10-50); Mean Corpuscular HGB Conc 32.5 g/dL (31.8-35.4); Mean Corpuscular Volume 86.9 fl (81-99); Mean Platelet Volume 8.5 fl (7.4-10.4); Monocytes % 6.8 % (1.7-9.3); Neutrophils # 6.2 K/mm3 (1.8-7.8); Platelet Count 142 K/mm3 (142-424); Red Blood Count 3.51 M/mm3 (4.20-5.40); Red Cell Distribution Width 15.7 % (11.5-17.5); White Blood Count 8.7 K/mm3 (4.8-10.8)
[2021-02-19 06:58] LABS: Hemoglobin 9.9 g/dL (12.2-16.2)
[2021-02-19 07:02] LABS: Chloride 111 mmol/L (98-107); Potassium 4.5 mmoL/L (3.5-5.1); Sodium 138 mmol/L (136-145)
[2021-02-19 07:05] LABS: Anion Gap 7.5 mEq/L (5-15); Blood Urea Nitrogen 18 mg/dl (7-17); Calcium 7.9 mg/dl (8.4-10.2); Carbon Dioxide 24 mmol/L (22.0-30.0); Creatinine Clearance Estimated 33 mL/min (50-200); Estimated Glomerular Filt Rate 60 ml/min (>60); GFR (African American) 72 ML/MIN (>60); Glucose 95 mg/dl (74-100)
[2021-02-19 07:44] VITALS: BP 173/77; PULSE 75; RESP 19; TEMP 36.8; O2SAT 96
--- NOTE | 2021-02-19 08:12 | HMH.ACPN2 ---
<Sharla Zepeda - Last Filed: 02/19/21 08:12> Internal Medicine - PN: Subj *Date: 02/19/21 *Time: 08:12 Interval history: Patient states she slept off and on throughout the night. She states this morning she began having some left lower quadrant abdominal pain and was given some pain medication. It has improved slightly. She was able to eat small amounts of her breakfast. She denies any other pain. She states she continues to have shortness of breath. She does feel better after getting some blood yesterday. Exam Vital signs and Labs for Last 24 Hours: Temp Pulse Resp BP Pulse Ox 98.2 F 75 19 173/77 H 96 02/19/21 07:44 02/19/21 07:44 02/19/21 07:44 02/19/21 07:44 02/19/21 07:44 Laboratory Results - last 24 hr 02/17/21 04:22: Urine Color Yellow, Urine Appearance Clear, Urine pH 6.0, Ur Specific [place] 1.025, Urine Protein Trace, Urine Glucose (UA) Negative, Urine Ketones Negative, Urine Blood Trace-i, Urine Nitrate Positive, Urine Bilirubin Negative, Urine Urobilinogen 0.2, Ur Leukocyte Esterase 1+ A, Urine WBC 10-20, Urine Bacteria 2+, Urine Mucus 1+ 02/18/21 05:58: Iron 14 L, TIBC 264 L, Iron Saturation 5.31395 L, Vitamin B12 470, Folate 6.68 02/18/21 08:38: Blood Type A Positive, Antibody Screen Negative, Crossmatch (AHG) See Detail 02/19/21 05:42: WBC 8.7, RBC 3.51 L D, Hgb 9.9 L D, Hct 30.5 L, MCV 86.9, MCH 28.2, MCHC 32.5, RDW 15.7, Plt Count 142, MPV 8.5, Neut % (Auto) 72.0, Lymph % (Auto) 20.3, [place] % (Auto) 6.8, Eos % (Auto) 0.8, Baso % (Auto) 0.1, Neut # (Auto) 6.2, Lymph # (Auto) 1.8, [place] # (Auto) 0.6, Eos # (Auto) 0.1, Baso # (Auto) 0.0 02/19/21 05:42: Sodium 138, Potassium 4.5, Chloride 111 H, Carbon Dioxide 24, Anion Gap 7.5, BUN 18 H D, Creatinine 0.90, Estimated Creat Clear 33, Estimated GFR 60, Est GFR ( Amer) 72 D, Glucose 95 D, Calcium 7.9 L I & O for Last 24 hours: Intake & Output 02/16/21 02/17/21 02/18/21 02/19/21 11:59 11:59 11:59 11:59 Intake Total 1000 / 1000 1664 / 1664 600 / 600 Output Total 150 / 150 950 / 950 0 / 0 Balance 850 / 850 714 / 714 600 / 600 Weight 104 lb 2 oz 108 lb 0.424 oz 108 lb 2 oz Microbiology Reports for the Last 24 Hours: Microbiology 02/17/21 04:22 Urine,Catheterized Urine Culture - Final Citrobacter braakii 02/17/21 05:00 Blood Blood Culture - Preliminary NO GROWTH AFTER 48 HOURS 02/17/21 05:00 Blood Blood Culture - Preliminary NO GROWTH AFTER 48 HOURS - Constitutional no acute distress - *Routine Respiratory Exam Present: CTA bilaterally - *Routine Cardiovascular Exam Present: RRR - *Routine Abdominal Exam Present: soft, normoactive bowel sounds, tenderness (LLQ) - *Routine Extremities Exam Absent: cyanosis, clubbing, edema - *Routine Skin Exam Present: warm. Absent: rash - *Routine Neurological Exam Present: alert, oriented X3 Assessment and Plan (1) Vomiting and diarrhea Status: Acute Category: Medical Code(s): R11.10 - Vomiting, unspecified; R19.7 - Diarrhea, unspecified (2) Renal insufficiency Status: Acute Category: Medical Code(s): N28.9 - Disorder of kidney and ureter, unspecified (3) Dehydration Status: Acute Category: Medical Code(s): E86.0 - Dehydration (4) Chronic pain syndrome Status: Chronic Category: Medical Code(s): G89.4 - Chronic pain syndrome (5) UTI (urinary tract infection) Status: Acute Qualifiers: Urinary tract infection type: acute cystitis Hematuria presence: without hematuria Qualified Code(s): N30.00 - Acute cystitis without hematuria Category: Medical Code(s): N39.0 - Urinary tract infection, site not specified (6) CAD (coronary artery disease) Status: Chronic Qualifiers: Coronary Disease-Associated Artery/Lesion type: [place] artery [place] vs. transplanted heart: [place] heart Associated angina: without angina Qualified Code
--- NOTE | 2021-02-19 11:29 | PC.NURSE ---
Report given to Zuleyka RiddleRN
[2021-02-19 16:00] VITALS: BP 121/55; PULSE 71; RESP 20; TEMP 36.6; O2SAT 100
--- NOTE | 2021-02-19 18:38 | PC.NURSE ---
NO ACUTE CHANGES NOTED. PT AMBULATES TO RESTROOM WITH ONE ASSIST FROM STAFF. VSS. SAFETY IN PLACE. WILL CONT. TO MONITOR.
[2021-02-19 20:00] VITALS: BP 145/62; PULSE 76; RESP 17; TEMP 36.6; O2SAT 97
--- NOTE | 2021-02-20 03:01 | PC.NURSE ---
A&OX4. PT TOLERATING RA WELL T/O SHIFT. PT HAS HAD NO C/O NA/VO/SOB/PAIN THUS FAR THIS SHIFT. PT UP AND WALKING IN ROOM WITH WALKER AND STANDBY ASSIST VERY WELL. PT HAS RESTED T/O MAJORITY OF SHIFT. LUNGS CLEAR PER AUSCULTATION. NO C/O THUS FAR, VSS WILL CONTINUE TO MONITOR.
[2021-02-20 04:00] VITALS: BP 136/64; PULSE 74; RESP 17; TEMP 36.6; O2SAT 94
[2021-02-20 05:32] VITALS: BMI 15.9
[2021-02-20 08:00] VITALS: BP 176/80; PULSE 84; RESP 24; TEMP 36.9; O2SAT 97
--- NOTE | 2021-02-20 08:37 | HMH.ACPN2 ---
<Sharla Zepeda - Last Filed: 02/20/21 08:37> Internal Medicine - PN: Subj *Date: 02/20/21 *Time: 08:37 Interval history: Patient states she is feeling a little bit better this morning. She rested better last night. She still complains of some left-sided abdominal pain. She had not had a bowel movement since admission until last night when she began having diarrhea. She states she is had no diarrhea this morning. She was able to eat breakfast. She denies any chest pain or shortness of breath. Exam Vital signs and Labs for Last 24 Hours: Temp Pulse Resp BP Pulse Ox 98.4 F 84 24 176/80 H 97 02/20/21 08:00 02/20/21 08:00 02/20/21 08:00 02/20/21 08:00 02/20/21 08:00 I & O for Last 24 hours: Intake & Output 02/17/21 02/18/21 02/19/21 02/20/21 11:59 11:59 11:59 11:59 Intake Total 1000 / 1000 1664 / 1664 600 / 600 2722 / 2722 Output Total 150 / 150 950 / 950 0 / 0 Balance 850 / 850 714 / 714 600 / 600 2722 / 2722 Weight 104 lb 2 oz 108 lb 0.424 oz 108 lb 2 oz 105 lb Microbiology Reports for the Last 24 Hours: Microbiology 02/17/21 04:22 Urine,Catheterized Urine Culture - Final Citrobacter braakii 02/17/21 05:00 Blood Blood Culture - Preliminary NO GROWTH AFTER 48 HOURS 02/17/21 05:00 Blood Blood Culture - Preliminary NO GROWTH AFTER 48 HOURS - Constitutional no acute distress - *Routine Respiratory Exam Present: CTA bilaterally - *Routine Cardiovascular Exam Present: RRR - *Routine Abdominal Exam Present: soft, normoactive bowel sounds, tenderness (left upper and lower quadrants) - *Routine Extremities Exam Absent: cyanosis, clubbing, edema - *Routine Skin Exam Present: warm. Absent: rash - *Routine Neurological Exam Present: alert, oriented X3 Assessment and Plan (1) Vomiting and diarrhea Status: Acute Category: Medical Code(s): R11.10 - Vomiting, unspecified; R19.7 - Diarrhea, unspecified (2) Renal insufficiency Status: Acute Category: Medical Code(s): N28.9 - Disorder of kidney and ureter, unspecified (3) Dehydration Status: Acute Category: Medical Code(s): E86.0 - Dehydration (4) Chronic pain syndrome Status: Chronic Category: Medical Code(s): G89.4 - Chronic pain syndrome (5) UTI (urinary tract infection) Status: Acute Qualifiers: Urinary tract infection type: acute cystitis Hematuria presence: without hematuria Qualified Code(s): N30.00 - Acute cystitis without hematuria Category: Medical Code(s): N39.0 - Urinary tract infection, site not specified (6) CAD (coronary artery disease) Status: Chronic Qualifiers: Coronary Disease-Associated Artery/Lesion type: [place] artery [place] vs. transplanted heart: [place] heart Associated angina: without angina Qualified Code(s): I25.10 - Atherosclerotic heart disease of [place] coronary artery without angina pectoris Category: Medical Code(s): I25.10 - Atherosclerotic heart disease of [place] coronary artery without angina pectoris (7) CHF (congestive heart failure) Status: Chronic Qualifiers: Heart failure type: biventricular Qualified Code(s): I50.82 - Biventricular heart failure Category: Medical Code(s): I50.9 - Heart failure, unspecified (8) COPD (chronic obstructive pulmonary disease) Status: Chronic Qualifiers: COPD type: unspecified COPD Qualified Code(s): J44.9 - Chronic obstructive pulmonary disease, unspecified Category: Medical Code(s): J44.9 - Chronic obstructive pulmonary disease, unspecified (9) Cardiomyopathy Status: Chronic Qualifiers: Cardiomyopathy type: unspecified Qualified Code(s): I42.9 - Cardiomyopathy, unspecified Category: Medical Code(s): I42.9 - Cardiomyopathy, unspecified (10) HTN (hypertension) Status: Chronic Qualifiers: Hypertension type: essential hypertension Qual
--- NOTE | 2021-02-20 15:33 | DIET.NUTRFU ---
Addendum entered by Dominique Mcgrath 02/23/21 13:42: Pt to dc, she states she is doing much better. She and daughter have been provided diet education for malnutrition/weight gain, managing N/V/D and preventing dehydration, and iron deficiency. Pt encouraged to contact me with any nutritional concerns/questions. Original Note: Pt with severe protein calorie malnutrition on bland diet. PO intakes 50%, daily supplement on diet order but she has not been able to drink one rt nausea. Pt with c/o abdominal pain/nausea shortly after lunch. She has been provided diet edu for nausea management and malnutrition/weight maintenance.
[2021-02-20 16:00] VITALS: BP 210/88; PULSE 80; RESP 16; TEMP 36.9; O2SAT 98
[2021-02-20 16:15] VITALS: BP 254/98
--- NOTE | 2021-02-20 17:52 | INFXCTL.NOTE ---
Pt has been pleasant this shift. Pt has c/o N/V x1 this shift and was medicated per JAN. Lung sounds CTA. Pt continues on RA. Active bowel sounds in all 4 quads, pt has had x2 episodes of dark brown, loose stool this shift. Pt medicated per MAR for abd pain x1 this shift. Pt remains tender to palpation at the LUQ. Pt was hypertensive w/ BP of 210/88 on rt arm and 254/98 on left arm (both manual). MD Smith made aware, x1 dose of clonidine 0.1mg and x1 dose of lisinopril 20 mg given to pt. Will reassess after 2 hours of administration per MD Smith. No other acute changes or complaints at this time.
[2021-02-20 18:10] VITALS: BP 172/76
--- NOTE | 2021-02-20 18:10 | PC.NURSE ---
Pt has been pleasant this shift. Pt has c/o N/V x1 this shift and was medicated per MAR. Lung sounds CTA. Pt continues on RA. Active bowel sounds in all 4 quads, pt has had x2 episodes of dark brown, loose stool this shift. Pt medicated per MAR for abd pain x1 this shift. Pt remains tender to palpation at the LUQ. Pt was hypertensive w/ BP of 210/88 on rt arm and 254/98 on left arm (both manual). MD Smith made aware, x1 dose of clonidine 0.1mg and x1 dose of lisinopril 20 mg given to pt. 2 hour reassessment, BP was 172/76 manual. No other acute changes or complaints at this time.
[2021-02-20 20:00] VITALS: BP 157/73; PULSE 78; RESP 20; TEMP 36.6; O2SAT 97
--- NOTE | 2021-02-20 23:39 | PC.NURSE ---
PT HAS HAD NO C/O NA/VO/DI THUS FAR. PAIN MED GIVEN FOR ABD PAIN. ABD IS SLIGHTLY DISTENDED. PT IS RESTING WELL THUS FAR, NO OTHER C/O. REPORT GIVEN TO OMAR MCKINNEY
[2021-02-21 04:00] VITALS: BP 130/71; PULSE 93; RESP 16; TEMP 36.4; O2SAT 98
[2021-02-21 04:59] VITALS: BMI 16.0
--- NOTE | 2021-02-21 05:18 | PC.NURSE ---
PT resting comfortably throughout the shift. Patient received bath and a full bed change. PAtient c/o pain in back X 1 during shift. Gave Oxycodone 5 mg for pain, effective as patient resting comfortably with eyes closed. Will continue to monitor.
[2021-02-21 07:19] LABS: Basophils % 0.2 % (0.1-2.0); Eosinophils # 0.1 K/mm3 (0.0-0.4); Eosinophils % 0.9 % (0.1-12.0); Hematocrit 33.5 % (37.0-47.0); Hemoglobin 10.8 g/dL (12.2-16.2); Lymphocytes # 1.7 K/mm3 (0.7-4.5); Lymphocytes % 15.6 % (10-50); Mean Corpuscular HGB Conc 32.2 g/dL (31.8-35.4); Mean Corpuscular Hemoglobin 28.3 pg (27.0-31.2); Mean Corpuscular Volume 87.9 fl (81-99); Monocytes # 0.8 K/mm3 (0.1-1.0); Monocytes % 6.7 % (1.7-9.3); Neutrophils # 8.6 K/mm3 (1.8-7.8); Neutrophils % 76.7 % (37.0-80.0); Platelet Count 198 K/mm3 (142-424); Red Blood Count 3.82 M/mm3 (4.20-5.40); Red Cell Distribution Width 15.8 % (11.5-17.5); White Blood Count 11.2 K/mm3 (4.8-10.8)
[2021-02-21 07:27] LABS: Chloride 110 mmol/L (98-107); Sodium 139 mmol/L (136-145)
[2021-02-21 07:28] LABS: Potassium 3.8 mmoL/L (3.5-5.1)
[2021-02-21 07:30] LABS: Blood Urea Nitrogen 10 mg/dl (7-17); Creatinine Clearance Estimated 32 mL/min (50-200); Estimated Glomerular Filt Rate 53 ml/min (>60); GFR (African American) 64 ML/MIN (>60)
[2021-02-21 07:31] LABS: Anion Gap 8.8 mEq/L (5-15); Calcium 8.4 mg/dl (8.4-10.2); Carbon Dioxide 24 mmol/L (22.0-30.0); Glucose 96 mg/dl (74-100)
[2021-02-21 07:43] VITALS: BP 129/63; PULSE 85; RESP 16; TEMP 36.6; O2SAT 95
[2021-02-21 08:00] VITALS: O2SAT 95
--- NOTE | 2021-02-21 08:43 | HMH.ACPN2 ---
Internal Medicine - PN: Subj *Date: 02/21/21 *Time: 08:43 Interval history: Patient did not have a good evening yesterday. She felt nauseated and had some vomiting and diarrhea. Blood pressure got as high as 250 systolic. Symptoms resolved with treatment and she feels better this morning. She has less abd pain this morning. She was able to sit in a chair for a while yesterday. Exam Vital signs and Labs for Last 24 Hours: Temp Pulse Resp BP Pulse Ox 97.8 F 85 16 129/63 95 02/21/21 07:43 02/21/21 07:43 02/21/21 07:43 02/21/21 07:43 02/21/21 07:43 Laboratory Results - last 24 hr 02/21/21 06:50: WBC 11.2 H D, RBC 3.82 L, Hgb 10.8 L, Hct 33.5 L, MCV 87.9, MCH 28.3, MCHC 32.2, RDW 15.8, Plt Count 198 D, MPV 8.0, Neut % (Auto) 76.7, Lymph % (Auto) 15.6, [place] % (Auto) 6.7, Eos % (Auto) 0.9, Baso % (Auto) 0.2, Neut # (Auto) 8.6 H, Lymph # (Auto) 1.7, [place] # (Auto) 0.8, Eos # (Auto) 0.1, Baso # (Auto) 0.0 02/21/21 06:50: Sodium 139, Potassium 3.8, Chloride 110 H, Carbon Dioxide 24, Anion Gap 8.8, BUN 10 D, Creatinine 1.00, Estimated Creat Clear 32, Estimated GFR 53 L, Est GFR ( Amer) 64, Glucose 96, Calcium 8.4 Vital Signs - 24 hr 02/20/21 16:00 02/20/21 16:15 02/20/21 18:10 Temperature 98.4 F Pulse Rate [Right] 80 Respiratory Rate 16 Blood Pressure [Right Arm] 210/88 H 254/98 H 172/76 H 02 Sat by Pulse Oximetry 98 02/20/21 20:00 02/21/21 04:00 02/21/21 07:43 Temperature 97.8 F 97.5 F L 97.8 F Pulse Rate [Right] 78 93 H 85 Respiratory Rate 20 16 16 Blood Pressure [Right Arm] 157/73 H 130/71 129/63 02 Sat by Pulse Oximetry 97 98 95 I & O for Last 24 hours: Intake & Output 02/18/21 02/19/21 02/20/21 02/21/21 23:59 23:59 23:59 23:59 Intake Total 600 / 600 720 / 720 2622 / 2622 717 / 717 Output Total 0 / 0 Balance 600 / 600 720 / 720 2622 / 2622 717 / 717 Weight 108 lb 0.424 oz 108 lb 2 oz 105 lb 105 lb 9 oz - Constitutional no acute distress - *Routine Respiratory Exam Present: CTA bilaterally - *Routine Cardiovascular Exam Present: RRR - *Routine Abdominal Exam Present: soft, normoactive bowel sounds, tenderness (minimal LLQ) Assessment and Plan (1) Vomiting and diarrhea Status: Acute Category: Medical Code(s): R11.10 - Vomiting, unspecified; R19.7 - Diarrhea, unspecified (2) Renal insufficiency Status: Acute Category: Medical Code(s): N28.9 - Disorder of kidney and ureter, unspecified (3) Dehydration Status: Acute Category: Medical Code(s): E86.0 - Dehydration (4) Chronic pain syndrome Status: Chronic Category: Medical Code(s): G89.4 - Chronic pain syndrome (5) UTI (urinary tract infection) Status: Acute Qualifiers: Urinary tract infection type: acute cystitis Hematuria presence: without hematuria Qualified Code(s): N30.00 - Acute cystitis without hematuria Category: Medical Code(s): N39.0 - Urinary tract infection, site not specified (6) CAD (coronary artery disease) Status: Chronic Qualifiers: Coronary Disease-Associated Artery/Lesion type: [place] artery [place] vs. transplanted heart: [place] heart Associated angina: without angina Qualified Code(s): I25.10 - Atherosclerotic heart disease of [place] coronary artery without angina pectoris Category: Medical Code(s): I25.10 - Atherosclerotic heart disease of [place] coronary artery without angina pectoris (7) CHF (congestive heart failure) Status: Chronic Qualifiers: Heart failure type: biventricular Qualified Code(s): I50.82 - Biventricular heart failure Category: Medical Code(s): I50.9 - Heart failure, unspecified (8) COPD (chronic obstructive pulmonary disease) Status: Chronic Qualifiers: COPD type: unspecified COPD Qualified Code(s): J44.9 - Chronic obstructive pulmonary disease, unspecified Category: Medical Code(s): J44.9 - Chronic obstructive pulmonary disease, unspecified (9) Cardiomyopathy S
[2021-02-21 15:33] VITALS: BP 142/69; PULSE 74; RESP 16; TEMP 37; O2SAT 95
--- NOTE | 2021-02-21 17:04 | PC.NURSE ---
Pt has had a good day. Pt was UTC for a few hours today. Pt ambulates fair w/ standby assist and her cane. Pt has reported x1 loose BM this shift and has experienced no N/V. VSS. Pt PIV in her left wrist did begin to leak this shift and was d/c'd. New 20g PIV in pt's RFA was inserted and remains intact and patent. No other acute changes or complaints at this time.
[2021-02-21 19:45] VITALS: BP 144/66; PULSE 76; RESP 18; TEMP 37.5; O2SAT 96
[2021-02-22 03:53] VITALS: BP 131/62; PULSE 73; RESP 18; TEMP 36.8; O2SAT 94
--- NOTE | 2021-02-22 03:54 | PC.NURSE ---
shift summary pts lung sounds are clear with sats maintained 90% or above on room air, with a rate ranging from 16-20. pt is alert and oriented X4. pt complained of pain one time which was relieved with meds. pt denies nausea, vomiting, or diarrhea.
[2021-02-22 05:00] VITALS: BMI 16.0
[2021-02-22 07:22] VITALS: BP 123/72; PULSE 80; RESP 18; TEMP 36.9; O2SAT 96
[2021-02-22 08:15] VITALS: PULSE 80; RESP 18; O2SAT 96
--- NOTE | 2021-02-22 08:49 | HMH.ACPN2 ---
Internal Medicine - PN: Subj *Date: 02/22/21 *Time: 08:49 Interval history: Patient states she had more diarrhea yesterday, was able to eat a little more yesterday. Abdominal pain has improved. Exam Vital signs and Labs for Last 24 Hours: Temp Pulse Resp BP Pulse Ox 98.4 F 80 18 123/72 96 02/22/21 07:22 02/22/21 08:15 02/22/21 08:15 02/22/21 07:22 02/22/21 08:15 Vital Signs - 24 hr 02/21/21 15:33 02/21/21 19:45 02/22/21 03:53 Temperature 98.6 F 99.5 F 98.3 F Pulse Rate [Apical] Pulse Rate [Right] 74 76 73 Respiratory Rate 16 18 18 Blood Pressure [Right Arm] 142/69 H 144/66 H 131/62 02 Sat by Pulse Oximetry 95 96 94 L 02/22/21 07:22 02/22/21 08:15 Temperature 98.4 F Pulse Rate [Apical] 80 Pulse Rate [Right] 80 Respiratory Rate 18 18 Blood Pressure [Right Arm] 123/72 02 Sat by Pulse Oximetry 96 96 I & O for Last 24 hours: Intake & Output 02/19/21 02/20/21 02/21/21 02/22/21 23:59 23:59 23:59 23:59 Intake Total 720 / 720 2622 / 2622 1437 / 1437 360 / 360 Output Total 0 / 0 Balance 720 / 720 2622 / 2622 1437 / 1437 360 / 360 Weight 108 lb 2 oz 105 lb 105 lb 9 oz 105 lb 6 oz Microbiology Reports for the Last 24 Hours: Microbiology 02/17/21 05:00 Blood Blood Culture - Final NO GROWTH AFTER 5 DAYS 02/17/21 05:00 Blood Blood Culture - Final NO GROWTH AFTER 5 DAYS - Constitutional no acute distress - *Routine HEENT Exam Head: Present: normocephalic Eye: Present: EOMI ENT: Present: mucous membranes moist - *Routine Neck Exam Present: supple. Absent: lymphadenopathy - *Routine Respiratory Exam Present: rhonchi (occasional). Absent: wheezes, crackles - *Routine Cardiovascular Exam Present: RRR - *Routine Abdominal Exam Present: soft, normoactive bowel sounds. Absent: tenderness - *Routine Extremities Exam Absent: cyanosis, clubbing, edema - *Routine Skin Exam Present: warm. Absent: rash - *Routine Neurological Exam Present: alert, oriented X3 Assessment and Plan (1) Vomiting and diarrhea Status: Acute Category: Medical Code(s): R11.10 - Vomiting, unspecified; R19.7 - Diarrhea, unspecified (2) Renal insufficiency Status: Acute Category: Medical Code(s): N28.9 - Disorder of kidney and ureter, unspecified (3) Dehydration Status: Acute Category: Medical Code(s): E86.0 - Dehydration (4) Chronic pain syndrome Status: Chronic Category: Medical Code(s): G89.4 - Chronic pain syndrome (5) UTI (urinary tract infection) Status: Acute Qualifiers: Urinary tract infection type: acute cystitis Hematuria presence: without hematuria Qualified Code(s): N30.00 - Acute cystitis without hematuria Category: Medical Code(s): N39.0 - Urinary tract infection, site not specified (6) CAD (coronary artery disease) Status: Chronic Qualifiers: Coronary Disease-Associated Artery/Lesion type: [place] artery [place] vs. transplanted heart: [place] heart Associated angina: without angina Qualified Code(s): I25.10 - Atherosclerotic heart disease of [place] coronary artery without angina pectoris Category: Medical Code(s): I25.10 - Atherosclerotic heart disease of [place] coronary artery without angina pectoris (7) CHF (congestive heart failure) Status: Chronic Qualifiers: Heart failure type: biventricular Qualified Code(s): I50.82 - Biventricular heart failure Category: Medical Code(s): I50.9 - Heart failure, unspecified (8) COPD (chronic obstructive pulmonary disease) Status: Chronic Qualifiers: COPD type: unspecified COPD Qualified Code(s): J44.9 - Chronic obstructive pulmonary disease, unspecified Category: Medical Code(s): J44.9 - Chronic obstructive pulmonary disease, unspecified (9) Cardiomyopathy Status: Chronic Qualifiers: Cardiomyopathy type: unspecified Qualified Code(s): I42.9 - Cardiomyo
--- NOTE | 2021-02-22 14:34 | HMH.ACPN ---
Internal Medicine - PN: Subj *Date: 02/22/21 *Time: 14:34 Exam Vital signs and Labs for Last 24 Hours: Temp Pulse Resp BP Pulse Ox 98.4 F 80 18 123/72 96 02/22/21 07:22 02/22/21 08:15 02/22/21 08:15 02/22/21 07:22 02/22/21 08:15 I & O for Last 24 hours: Intake & Output 02/19/21 02/20/21 02/21/21 02/22/21 23:59 23:59 23:59 23:59 Intake Total 720 / 720 2622 / 2622 1437 / 1437 600 / 600 Output Total 0 / 0 Balance 720 / 720 2622 / 2622 1437 / 1437 600 / 600 Weight 49.045 kg 47.627 kg 47.882 kg 47.797 kg Microbiology Reports for the Last 24 Hours: Microbiology 02/17/21 05:00 Blood Blood Culture - Final NO GROWTH AFTER 5 DAYS 02/17/21 05:00 Blood Blood Culture - Final NO GROWTH AFTER 5 DAYS Assessment and Plan (1) Vomiting and diarrhea Status: Acute Category: Medical Code(s): R11.10 - Vomiting, unspecified; R19.7 - Diarrhea, unspecified (2) Renal insufficiency Status: Acute Category: Medical Code(s): N28.9 - Disorder of kidney and ureter, unspecified (3) Dehydration Status: Acute Category: Medical Code(s): E86.0 - Dehydration (4) Chronic pain syndrome Status: Chronic Category: Medical Code(s): G89.4 - Chronic pain syndrome (5) UTI (urinary tract infection) Status: Acute Qualifiers: Urinary tract infection type: acute cystitis Hematuria presence: without hematuria Qualified Code(s): N30.00 - Acute cystitis without hematuria Category: Medical Code(s): N39.0 - Urinary tract infection, site not specified (6) CAD (coronary artery disease) Status: Chronic Qualifiers: Coronary Disease-Associated Artery/Lesion type: [place] artery [place] vs. transplanted heart: [place] heart Associated angina: without angina Qualified Code(s): I25.10 - Atherosclerotic heart disease of [place] coronary artery without angina pectoris Category: Medical Code(s): I25.10 - Atherosclerotic heart disease of [place] coronary artery without angina pectoris (7) CHF (congestive heart failure) Status: Chronic Qualifiers: Heart failure type: biventricular Qualified Code(s): I50.82 - Biventricular heart failure Category: Medical Code(s): I50.9 - Heart failure, unspecified (8) COPD (chronic obstructive pulmonary disease) Status: Chronic Qualifiers: COPD type: unspecified COPD Qualified Code(s): J44.9 - Chronic obstructive pulmonary disease, unspecified Category: Medical Code(s): J44.9 - Chronic obstructive pulmonary disease, unspecified (9) Cardiomyopathy Status: Chronic Qualifiers: Cardiomyopathy type: unspecified Qualified Code(s): I42.9 - Cardiomyopathy, unspecified Category: Medical Code(s): I42.9 - Cardiomyopathy, unspecified (10) HTN (hypertension) Status: Chronic Qualifiers: Hypertension type: essential hypertension Qualified Code(s): I10 - Essential (primary) hypertension Category: Medical Code(s): I10 - Essential (primary) hypertension (11) Hyperlipidemia Status: Chronic Qualifiers: Hyperlipidemia type: mixed hyperlipidemia Qualified Code(s): E78.2 - Mixed hyperlipidemia Category: Medical Code(s): E78.5 - Hyperlipidemia, unspecified (12) Pulmonary HTN Status: Chronic Category: Medical Code(s): I27.20 - Pulmonary hypertension, unspecified (13) Severe sepsis Status: Acute Category: Medical Code(s): A41.9 - Sepsis, unspecified organism; R65.20 - Severe sepsis without septic shock (14) Anemia Status: Acute Category: Medical Code(s): D64.9 - Anemia, unspecified (15) Severe protein-calorie malnutrition Status: Acute Category: Medical Code(s): E43 - Unspecified severe protein-calorie malnutrition (16) Infection due to Citrobacter Status: Acute Category: Medical Code(s): A49.8 - Other bacterial infections of unspecified site (17) Colitis Status: Acute Category:
[2021-02-22 15:15] VITALS: BP 149/73; PULSE 71; RESP 16; TEMP 36.9; O2SAT 95
--- NOTE | 2021-02-22 16:35 | PC.NURSE ---
Pt has been pleasant and cooperative this shift. A&O X4. Pt has complained of pain X 2 thus far and received Oxycodone per MAR with favorable results. Pt is on room air with sats. >90%. Lungs CTA. No edema noted. Skin is C/D/I. Pt ambulates with the use of a cane and assistance X1. Pt uses the toilet to void clear, yellow urine without issue. Pt also wears a brief due to occasional episodes of incontinence. Pt had 1 large, brown, liquid stool this AM. 20 G peripheral IV in the RT forearm is patent and SL. VSS. Call light within reach. Will continue to monitor.
[2021-02-22 20:00] VITALS: BP 135/58; PULSE 71; RESP 18; TEMP 37.1; O2SAT 94
[2021-02-23 03:52] VITALS: BP 139/64; PULSE 67; RESP 16; TEMP 37.2; O2SAT 95
--- NOTE | 2021-02-23 04:31 | PC.NURSE ---
Report received from mary ellen perkins rn at 0130. Pt. has had two loose bm this shift. No c/o n/v, soa or dizziness for this rn.
[2021-02-23 05:00] VITALS: BMI 16.0
[2021-02-23 06:20] LABS: Basophils % 0.3 % (0.1-2.0); Eosinophils # 0.1 K/mm3 (0.0-0.4); Eosinophils % 1.5 % (0.1-12.0); Hematocrit 30.5 % (37.0-47.0); Lymphocytes # 2.5 K/mm3 (0.7-4.5); Lymphocytes % 28.7 % (10-50); Mean Corpuscular HGB Conc 32.9 g/dL (31.8-35.4); Mean Corpuscular Hemoglobin 28.6 pg (27.0-31.2); Mean Platelet Volume 8.4 fl (7.4-10.4); Monocytes # 0.7 K/mm3 (0.1-1.0); Monocytes % 7.7 % (1.7-9.3); Neutrophils # 5.3 K/mm3 (1.8-7.8); Neutrophils % 61.9 % (37.0-80.0); Platelet Count 208 K/mm3 (142-424); Red Blood Count 3.51 M/mm3 (4.20-5.40); Red Cell Distribution Width 15.6 % (11.5-17.5); White Blood Count 8.6 K/mm3 (4.8-10.8)
[2021-02-23 06:33] LABS: Chloride 110 mmol/L (98-107); Potassium 3.6 mmoL/L (3.5-5.1); Sodium 137 mmol/L (136-145)
[2021-02-23 06:35] LABS: Blood Urea Nitrogen 14 mg/dl (7-17); Creatinine Clearance Estimated 32 mL/min (50-200); Estimated Glomerular Filt Rate 69 ml/min (>60); GFR (African American) 83 ML/MIN (>60)
[2021-02-23 06:36] LABS: Anion Gap 6.6 mEq/L (5-15); Carbon Dioxide 24 mmol/L (22.0-30.0); Glucose 91 mg/dl (74-100)
[2021-02-23 08:00] VITALS: BP 127/51; PULSE 67; RESP 16; TEMP 36.4; O2SAT 96
--- NOTE | 2021-02-23 08:42 | HMH.ACPN2 ---
<Whitney Villasenor - Last Filed: 02/23/21 08:42> Internal Medicine - PN: Subj *Date: 02/23/21 *Time: 08:42 Interval history: Patient's main complaint is diarrhea. She had a large stool this morning. She thinks she had about 2 stools yesterday. She is somewhat afraid to eat. She denies chest pain. She does have her usual shortness of breath. She has been out of bed and has been sitting in a chair during the day. Labs this morning show a hemoglobin of 10 with hematocrit of 30.5. White blood cell count is 8600. Blood chemistries show a sodium of 137 potassium of 3.6 kidney function is normal. Patient has been started on Flagyl for her diarrhea. Exam Vital signs and Labs for Last 24 Hours: Temp Pulse Resp BP Pulse Ox 99.0 F 67 16 139/64 95 02/23/21 03:52 02/23/21 03:52 02/23/21 03:52 02/23/21 03:52 02/23/21 03:52 Laboratory Results - last 24 hr 02/23/21 06:02: WBC 8.6, RBC 3.51 L, Hgb 10.0 L, Hct 30.5 L, MCV 87.0, MCH 28.6, MCHC 32.9, RDW 15.6, Plt Count 208, MPV 8.4, Neut % (Auto) 61.9, Lymph % (Auto) 28.7, [place] % (Auto) 7.7, Eos % (Auto) 1.5, Baso % (Auto) 0.3, Neut # (Auto) 5.3, Lymph # (Auto) 2.5, [place] # (Auto) 0.7, Eos # (Auto) 0.1, Baso # (Auto) 0.0 02/23/21 06:02: Sodium 137, Potassium 3.6, Chloride 110 H, Carbon Dioxide 24, Anion Gap 6.6, BUN 14 D, Creatinine 0.80, Estimated Creat Clear 32, Estimated GFR 69, Est GFR ( Amer) 83 D, Glucose 91, Calcium 8.0 L I & O for Last 24 hours: Intake & Output 02/20/21 02/21/21 02/22/21 02/23/21 11:59 11:59 11:59 11:59 Intake Total 2842 / 2842 977 / 977 1079 / 1079 970 / 970 Balance 2842 / 2842 977 / 977 1079 / 1079 970 / 970 Weight 105 lb 105 lb 9 oz 105 lb 6 oz 105 lb 8 oz Microbiology Reports for the Last 24 Hours: Microbiology 02/17/21 05:00 Blood Blood Culture - Final NO GROWTH AFTER 5 DAYS 02/17/21 05:00 Blood Blood Culture - Final NO GROWTH AFTER 5 DAYS - Constitutional no acute distress, thin Comments: Sitting up in the bed drinking her coffee. She does appear comfortable. - *Routine Respiratory Exam Present: CTA bilaterally (Diminished breath sounds posteriorly) - *Routine Cardiovascular Exam Present: RRR - *Routine Abdominal Exam Present: soft, normoactive bowel sounds, tenderness (Slightly tender in the left upper quadrant) - *Routine Extremities Exam Absent: edema, calf tenderness - *Routine Neurological Exam Present: alert, oriented X3 Assessment and Plan (1) Vomiting and diarrhea Status: Acute Category: Medical Code(s): R11.10 - Vomiting, unspecified; R19.7 - Diarrhea, unspecified (2) Renal insufficiency Status: Acute Category: Medical Code(s): N28.9 - Disorder of kidney and ureter, unspecified (3) Dehydration Status: Acute Category: Medical Code(s): E86.0 - Dehydration (4) Chronic pain syndrome Status: Chronic Category: Medical Code(s): G89.4 - Chronic pain syndrome (5) UTI (urinary tract infection) Status: Acute Qualifiers: Urinary tract infection type: acute cystitis Hematuria presence: without hematuria Qualified Code(s): N30.00 - Acute cystitis without hematuria Category: Medical Code(s): N39.0 - Urinary tract infection, site not specified (6) CAD (coronary artery disease) Status: Chronic Qualifiers: Coronary Disease-Associated Artery/Lesion type: [place] artery [place] vs. transplanted heart: [place] heart Associated angina: without angina Qualified Code(s): I25.10 - Atherosclerotic heart disease of [place] coronary artery without angina pectoris Category: Medical Code(s): I25.10 - Atherosclerotic heart disease of [place] coronary artery without angina pectoris (7) CHF (congestive heart failure) Status: Chronic Qualifiers: Heart failure type: biventricular Qualified Code(s): I50.82 - Biventricular heart failure Category: Medical Code(s): I50.9 - Heart fa
--- NOTE | 2021-02-23 10:05 | PC.NURSE ---
PT IS RESTING IN BED WITH DAUGHTER AT BEDSIDE. ONLY COMPLAINT IS DIARRHEA. PT HAS BEEN AMBULATING TO [facility] BAT[facility] WITH STANDBY ASSIST. EATING AND DRINKING FAIR BUT IS SOMEWHAT AFRAID TO EAT TOO MUCH B/C SHE THINKS IT WILL MAKE HER DIARRHEA WORSE. NO NAUSEA/VOMITING. PT HAS MILD ABDOMINAL PAIN WITH PALPATION. HYPERACTIVE BOWEL SOUNDS. NO SWELLING NOTED TO BLE. LUNG SOUNDS DIMINISHED. NO COMPLAINTS OF SOA. VSS. WILL CONTINUE TO MONITOR.
--- NOTE | 2021-02-25 15:20 | HMH.DCSUM ---
General - General Admission date:: 02/17/21 Discharge date: 02/23/21 HPI HPI: Ms. Loza is an 85-year-old female with a history of hypertension, hyperlipidemia, peripheral vascular disease, lumbar disc disease, cervical disc disease, COPD, glaucoma, sleep apnea, coronary artery disease, pulmonary hypertension, biventricular congestive heart failure, and chronic back/neck/leg pain with recent nondisplaced fracture of the first cervical vertebrae being seen by pain management who presented to the emergency room during the night after experiencing severe nausea, vomiting, and diarrhea. She states it started about 10:30 PM and she experienced large volumes of vomitus and diarrhea on 2 different occasions. She then took an Imodium and has not had a stool since. Her son was there and assisted her. Her daughter brought her to the hospital. She does state that she did see some blood in the stool but no hematemesis. She describes blood periodically in the stool and thinks this is from her hemorrhoids. She also comments that she had not had a stool for a week prior to this episode. She had not felt well all day long with some nausea and therefore did not eat much at all. To note also she has had a colonoscopy in the remote past per Dr. Chang which was normal. Results not available. On presentation to the emergency room work-up included Abdominal/pelvic CT which showed the followin. Findings compatible with colitis of the distal transverse, splenic flexure, and proximal descending colon. No abscess or perforation. 2. Possible gallbladder sludge. 3. Mild thickening urinary bladder wall which may be due to nondistention or cystitis 4. Patchy infiltrate in the left lower lobe versus atelectasis Laboratory data revealed a white blood cell count of 16,300 with hemoglobin of 10.7 and hematocrit of 34.8. Electrolytes were normal BUN was 54 with a creatinine of 2.4 and GFR of 19. Lactate was elevated at 2.7. AST slightly elevated at 54 with an alkaline phosphatase also elevated at 132. Urine revealed a urinary tract infection with positive nitrates, 1+ leuk esterase and 2+ bacteria. Culture was ordered. In the emergency room patient was resuscitated with IV fluids and was started on Rocephin and received Zofran IV. She was then admitted for ongoing IV fluids and antibiotics. Urine and blood cultures are pending at this time. At the time of this exam patient is feeling somewhat better. She denies abdominal pain and her nausea has improved. She is receiving IV fluids at 100 an hour. She has had no further vomiting or diarrhea. She is very tired. She denies chest pain and shortness of breath. Hospital Course Hospital Course: Patient was started on IV fluids, GI rest, antiemetics, and IV Rocephin for UTI. She had no further diarrhea or vomiting and was passing some gas. She had some left upper quadrant discomfort. Her H&H was low and she was transfused with 2 units of packed red blood cells and anemia studies were ordered. Her iron was found to be low. She was able to eat. Her shortness of breath improved and she felt better after her blood transfusion. Her urine culture came back positive for Citrobacter braakii which was resistant to Rocephin. Her antibiotics were changed to Invanz. Her blood culture showed no growth after 48 hours. She continued to complain of some left-sided abdominal pain. On 02/21/2021, she had some nausea, vomiting, and diarrhea after eating. Her blood pressure got as high as 250 systolic. By 02/22/2021 her abdominal pain had improved, but she continued with some diarrhea. She was able to tolerate a small amount of food. Flagyl was added as well to her antibiotic regimen. She was able to get out of bed and sit in a chair. Her H&H remained stable. She was stable to be discharged home on oral Flagyl and will follow up in the office in 3 to 4 days. Objective Vital signs: Temp Pulse Resp BP Pulse Ox 97.5 F
== END 2021-02-23 14:14 | disposition home or self-care (01) | DRG 871 ==
LOC: ER 05:41 → 2ND 05:48
PROVIDERS: Nurse Practitioner Family; Admitting Provider Family Medicine; Emergency Provider Emergency Medicine; PCP Family Medicine; Visit Provider Family Medicine
DX: A41.9 Sepsis, unspecified organism (principal); E43 Unspecified severe protein-calorie malnutrition; N30.00 Acute cystitis without hematuria; Z68.1 Body mass index [BMI] 19.9 or less, adult; I42.9 Cardiomyopathy, unspecified; R65.20 Severe sepsis without septic shock; E86.0 Dehydration; G89.4 Chronic pain syndrome; I50.82 Biventricular heart failure; I25.10 Atherosclerotic heart disease of native coronary artery without angina pectoris; K52.9 Noninfective gastroenteritis and colitis, unspecified; B96.89 Other specified bacterial agents as the cause of diseases classified elsewhere; I27.20 Pulmonary hypertension, unspecified; I11.0 Hypertensive heart disease with heart failure; D64.9 Anemia, unspecified; J44.9 Chronic obstructive pulmonary disease, unspecified; I73.9 Peripheral vascular disease, unspecified; F17.210 Nicotine dependence, cigarettes, uncomplicated; N28.9 Disorder of kidney and ureter, unspecified; E78.2 Mixed hyperlipidemia; H40.9 Unspecified glaucoma; Z20.822 Contact with and (suspected) exposure to COVID-19
CPT/HCPCS: 36415; 74176; 80048; 80053; 81001; 82607; 82746; 83540; 83550; 83605; 83690; 83735; 85007; 85025; 86850; 87040; 87086; 87088; 87186; 96375; 99284; J1335; J2405; P9016; U0003

== ENCOUNTER 2021-03-21 19:05 | Emergency (ER) | payer MEDICARE, SELFPAY ==
[2021-03-21 19:23] VITALS: BP 140/52; PULSE 80; RESP 18; TEMP 37.2; O2SAT 97; BMI 17.0
[2021-03-21 20:00] VITALS: BP 139/56; PULSE 77; RESP 17; O2SAT 97
--- NOTE | 2021-03-21 20:17 | CT_ITS ---
PROCEDURE INFORMATION: Exam: CT Lumbar Spine Without Contrast Exam date and time: 03/21/2021 8:17 PM Age: 85 years old Clinical indication: Injury or trauma; Blunt trauma (contusions or hematomas); Patient HX: Fall, hitting the back of her head, laceration to right humerus. PT has stimulator implanted TECHNIQUE: Imaging protocol: Computed tomography images of the lumbar spine without contrast. Radiation optimization: All CT scans at this facility use at least one of these dose optimization techniques: automated exposure control; mA and/or kV adjustment per patient size (includes targeted exams where dose is matched to clinical indication); or iterative reconstruction. COMPARISON: CR XR LUMBAR SPINE MIN 4V 11/10/2020 12:23 PM FINDINGS: Vertebrae: Moderate to severe multilevel degenerative changes are seen throughout the lumbar spine similar in appearance when compared to the prior plain film studies of 11/10/2020 and the MRI scan of 02/11/2017. Stomach and bowel: Increased stool load is seen which in the appropriate clinical setting could be on the basis of constipation. Vasculature: Moderate atherosclerotic vascular changes are seen. Soft tissues: Unremarkable. IMPRESSION: Stable moderate to severe lumbar spondylosis without findings of a new fracture or malalignment..
--- NOTE | 2021-03-21 20:17 | XR_ITS ---
PROCEDURE INFORMATION: Exam: XR Right Humerus Exam date and time: 03/21/2021 8:17 PM Age: 85 years old Clinical indication: Injury or trauma; Blunt trauma (contusions or hematomas); Arm, upper; Patient HX: Fall, hitting the back of her head, laceration to right humerus. PT has stimulator implanted TECHNIQUE: Imaging protocol: XR Right humerus. Views: 2 or more views. COMPARISON: No relevant prior studies available. FINDINGS: Bones/joints: Normal. Soft tissues: Normal. IMPRESSION: No acute findings.
--- NOTE | 2021-03-21 20:17 | XR_ITS ---
PROCEDURE INFORMATION: Exam: XR Pelvis Exam date and time: 03/21/2021 8:17 PM Age: 85 years old Clinical indication: Injury or trauma; Blunt trauma (contusions or hematomas); Hip; Patient HX: Fall, hitting the back of her head, laceration to right humerus. PT has stimulator implanted TECHNIQUE: Imaging protocol: XR pelvis. Views: 1 or 2 view. COMPARISON: CT ABDOMEN PELVIS WO CON 02/17/2021 3:50 AM FINDINGS: Bones/joints: Unremarkable. No acute fracture. Mild degenerative changes are seen at the sacroiliac joints. Soft tissues: Unremarkable except for vascular calcifications. Spinal stimulating device is seen. IMPRESSION: No acute findings.
--- NOTE | 2021-03-21 20:17 | CT_ITS ---
PROCEDURE INFORMATION: Exam: CT Cervical Spine Without Contrast Exam date and time: 03/21/2021 8:17 PM Age: 85 years old Clinical indication: Injury or trauma; Blunt trauma; Patient HX: Fall, hitting the back of her head, laceration to right humerus. PT has stimulator implanted TECHNIQUE: Imaging protocol: Computed tomography images of the cervical spine without contrast. Radiation optimization: All CT scans at this facility use at least one of these dose optimization techniques: automated exposure control; mA and/or kV adjustment per patient size (includes targeted exams where dose is matched to clinical indication); or iterative reconstruction. COMPARISON: CT CERVICAL SPINE WO CON 12/04/2020 8:37 AM FINDINGS: Bones/joints: Grade 1 anterolisthesis of C3 on C4. Trace retrolisthesis of C4 on C5, C5 on C6 and C6 on C7. Vertebral body heights are preserved. Moderate to severe degenerative change at the dens. Moderate prevertebral osteophytosis. There are bilateral facet joint degenerative changes. Fractures involving the anterior arch of C1 and the right posterior arch of C1 were visualized on prior examination. No new acute fracture. Discs/Spinal canal/Neural foramina: No definite high-grade central canal stenosis within limitations of technique. Multilevel cervical foraminal stenoses. Thyroid: Heterogeneous thyroid. Lungs: Lung apices are normal. Pleural spaces: No visible pneumothorax. Vasculature: Vascular calcification. Soft tissues: Unremarkable. IMPRESSION: 1. No acute cervical spine fracture. 2. C1 anterior and posterior arch fractures, demonstrated on prior study dated 12/04/2020.
--- NOTE | 2021-03-21 20:17 | CT_ITS ---
PROCEDURE INFORMATION: Exam: CT Head Without Contrast Exam date and time: 03/21/2021 8:17 PM Age: 85 years old Clinical indication: Injury or trauma; Blunt trauma (contusions or hematomas); Without loss of consciousness; Patient HX: Fall, hitting the back of her head, laceration to right humerus. PT has stimulator implanted TECHNIQUE: Imaging protocol: Computed tomography of the head without contrast. Radiation optimization: All CT scans at this facility use at least one of these dose optimization techniques: automated exposure control; mA and/or kV adjustment per patient size (includes targeted exams where dose is matched to clinical indication); or iterative reconstruction. COMPARISON: CT HEAD/BRAIN WO CON 12/02/2020 1:01 PM FINDINGS: Brain: Decreased attenuation of the supratentorial white matter is likely secondary to chronic microvascular ischemia. No acute intracranial hemorrhage. Cerebral ventricles: Ventricular and subarachnoid spaces are age appropriate. Bones/joints: Unremarkable. No acute fracture. Paranasal sinuses: Visualized sinuses are unremarkable. No fluid levels. Mastoid air cells: Visualized mastoid air cells are well aerated. Vasculature: Intracranial vascular calcification. Soft tissues: Unremarkable. IMPRESSION: No acute intracranial abnormality.
--- NOTE | 2021-03-21 20:17 | XR_ITS ---
PROCEDURE INFORMATION: Exam: XR Chest Exam date and time: 03/21/2021 8:17 PM Age: 85 years old Clinical indication: Injury or trauma; Blunt trauma (contusions or hematomas); Patient HX: Fall, hitting the back of her head, laceration to right humerus. PT has stimulator implanted TECHNIQUE: Imaging protocol: XR of the chest. Views: 1 view. COMPARISON: CT CHEST W CON 04/01/2020 2:02 PM FINDINGS: Lungs: Unremarkable. No consolidation. Stable changes of COPD Pleural spaces: Unremarkable. No pleural effusion. No pneumothorax. Heart/Mediastinum: Unremarkable. No cardiomegaly. . Stable aortic calcifications. Bones/joints: Unremarkable. IMPRESSION: No new cardiopulmonary findings.
--- NOTE | 2021-03-21 20:53 | HMH.EDFALL ---
ED Disposition Clinical Impression: Falls frequently, Skin tear Concussion without loss of consciousness Qualifiers: Encounter type: initial encounter Qualified Code(s): S06.0X0A - Concussion without loss of consciousness, initial encounter Cervical spine fracture Qualifiers: Encounter type: subsequent encounter Cervical vertebra fracture level: C1 Fracture type: closed Fracture morphology: posterior arch Fracture alignment: nondisplaced Fracture healing: with delayed healing Qualified Code(s): S12.031G - Nondisplaced posterior arch fracture of first cervical vertebra, subsequent encounter for fracture with delayed healing Lumbar contusion Qualifiers: Encounter type: initial encounter Qualified Code(s): S30.0XXA - Contusion of lower back and pelvis, initial encounter Disposition: Home, Self-Care Condition on Discharge: Good Instructions: How to Prevent Falls Additional Instructions: keep skin tear dressed and call pcp for follow up Referrals: Amish Smith MD [Primary Care Provider] - - Critical Care Critical Care Time: No Attestation: On 03/21/21, the high probability of a clinically significant, sudden or life threatening deterioration of the following system(s) required my full and direct attention, intervention and personal management. The time I documented below is in addition to time spent performing reported procedures but includes the following listed in this critical care notation. Medical Decision Making - Medical Records Medical records reviewed: Yes: I reviewed the patient's medical records. - Freedom Inquiry Pt receiving controlled substance: No Vital Signs: 03/21/21 19:23 03/21/21 20:00 Temperature 98.9 F Temperature Source Oral Pulse Rate 77 Pulse Rate [Right] 80 Respiratory Rate 18 17 Blood Pressure 139/56 L Blood Pressure [Right Arm] 140/52 L Blood Pressure Mean 101 Blood Pressure Mean [Right Arm] 81 Blood Pressure Source [Right Arm] Automatic Cuff Blood Pressure Position [Right Arm] Supine 02 Sat by Pulse Oximetry 97 97 Oxygen Delivery Method Room Air - Lab Data Lab results reviewed: Yes: I reviewed the patient's lab results. Orders (Tests/Meds): ED MEDICATIONS Discontinued Medications Generic Name Dose Route Start Last Admin Trade Name Freq PRN Reason Stop Dose Admin Tetanus/Diphtheria Toxoids 0.5 ml 03/21/21 21:47 Tetanus-Diphth Toxoid, Adult 0.5ml Syr IM 03/21/21 21:48 .ONCE ONE - Radiology Data #1 Image(s): Chest, Humerus, Pelvis Image Reviewed: Yes I reviewed the patient's radiology image Preliminary Findings: No Fracture Seen - CT Data CT Scan: Head, C-Spine, L-Spine Time Received: 21:[address] Reviewed: Yes: I have viewed the radiologist's interpretation Preliminary Findings: Abnormal (see report ), No Fracture Seen Medical Decision Narrative: no acute fx seen and has ongoing neck fx and rt large skin tear which can not be repaired Fall HPI - General Chief Complaint: Fall Stated Complaint: ao [id number] FELL R ARM Time Seen by Provider: 03/21/21 20:00 Mode of Arrival: Wheelchair Source of Information: Patient, Relative, Medical Record Limitations: No Limitations Description of Symptoms (Recalled from ER Triage Doc. by RN): Pt got dizzy and fell hitting her head, but denies LOC. Pt has a large skin tear to right Bicep. A&O x 3 PERRL 3mm no new pain to back or neck, but pt has a previous fx to cervical spine in November, pt does not wear her neck brace. - History of Present Illness HPI Narrative: pt with hx of falls and has unsteady gait and had fall today with rt upper arm skin tear - hx of c spine fx in nov complaint: fall Onset (ago): hour(s) Fall from: standing Fall witnessed: yes, by family Place fall occurred: home Loss of consciousness: none Prolonged down time: no Context: tripped/slipped Location of injury: head, neck Location of injury - extremities: Right: arm Severity: moderate Associated
[2021-03-21 22:56] VITALS: BP 138/61; PULSE 77; RESP 16; TEMP 37.2; O2SAT 97
== END 2021-03-21 22:58 | disposition home or self-care (01) ==
PROVIDERS: Emergency Provider Emergency Medicine; PCP Family Medicine
DX: S06.0X0A Concussion without loss of consciousness, initial encounter (principal); S12.03 Posterior arch fracture of first cervical vertebra; S41.111A Laceration without foreign body of right upper arm, initial encounter; W01.10XA Fall on same level from slipping, tripping and stumbling with subsequent striking against unspecified object, initial encounter; Y92.019 Unspecified place in single-family (private) house as the place of occurrence of the external cause; I25.10 Atherosclerotic heart disease of native coronary artery without angina pectoris; I10 Essential (primary) hypertension; Z23 Encounter for immunization; J44.9 Chronic obstructive pulmonary disease, unspecified; R29.6 Repeated falls; F17.210 Nicotine dependence, cigarettes, uncomplicated; Z79.899 Other long term (current) drug therapy
CPT/HCPCS: 70450; 71045; 72125; 72131; 72170; 73060; 90714; 99282

== ENCOUNTER → 2021-04-13 10:32 | Outpatient (POV) | payer MEDICARE, SELFPAY ==
[2021-04-13 10:41] VITALS: BP 129/39; PULSE 69; RESP 18; O2SAT 98; BMI 16.4
[2021-04-13 18:56] LABS: Amphetamine/Metha Screen,Urine Negative ng/ml (<1000); Barbiturates Screen,Urine Negative ng/ml (<200)
[2021-04-13 18:57] LABS: Benzodiazepines Screen,Urine Negative ng/ml (<200)
[2021-04-13 18:58] LABS: Cannabinoid Screen,Urine Negative ng/ml (<50); Cocaine Screen,Urine Negative ng/ml (<300)
[2021-04-13 18:59] LABS: Methadone Screen,Urine Negative ng/ml (<300); Opiate Screen,Urine Positive ng/ml (<300)
[2021-04-13 19:00] LABS: Phencyclidine Screen,Urine Negative ng/ml (<25)
--- NOTE | 2021-04-16 08:38 | P.CONS_ITS ---
[facility] Pain Management SOAP Note Subjective:: Patient is an 85-year-old white female who presents today for medication refills and for follow-up. She has been treated for degenerative disc disease lumbar spine with lumbar radiculopathy symptoms. She rates her pain a 5 out of 10 today. She is managed with oral medications of oxycodone 10 mg 1 tablet p.o. 5 times daily. She denies any side effects. Her Stella and drug screen are appropriate. She is doing well overall. Review of Systems General: No recent weight changes, no fever, no sleep disturbances Respiratory: No cough, no shortness of air, no recurring pulmonary infections Cardiovascular/peripheral vascular: No chest pain, no palpitations, no edema, no shortness of breath Gastrointestinal: No new onset incontinence, normal bowel movements reported Genitourinary: No new onset incontinence Musculoskeletal: Low back pain Psychiatric: Normal mood/affect Neurological: [Denies weakness in extremities], [denies balance issues] Objective:: Physical exam General: Alert and oriented x3, no acute distress, pleasant and cooperative, [on room air] Lungs: Respirations even and unlabored, symmetrical chest expansion Eyes: PERRL Musculoskeletal: Flexion and extension of lumbar spine somewhat guarded secondary to pain, deep tendon reflexes normal, strength in upper and lower extremities [5/5], [abnormal gait noted] Neurological: Speech clear, art critic equal, no gross sensory deficit Assessment:: Degenerative disc disease lumbar spine with lumbar radiculopathy symptoms Plan:: We will refill the patient's oxycodone 10 mg 1 tablet p.o. 5 times daily. We will give her 2 months of medication. She can contact the clinic the third month for her third refill. Patient has been prescribed a controlled substance after being counseled on the medication, medication safety, and possible side effects. STELLA report has been obtained and reviewed prior to prescription and found to be appropriate. Opioid contract was reviewed and signed by the patient, and that they have agreed to all of the terms set forth by our compliance program. Patient has been instructed to contact the clinic with any concerns before the next appointment. Dr. Miller has reviewed this note and agrees with this plan of care. This note was dictated using voice recognition software and make contain errors or omissions. [facility] History I have reviewed the patient's past medical history: Yes Medical History: Reports:: Congestive Heart Failure, Chronic Obstructive Pulmonary Disease (COPD), Coronary Artery Disease, Heart Murmur, Hyperlipidemia, Hypertension, Peripheral Vascular Disease, Valvular Heart Disease Denies:: Cancer, Diabetes Mellitus Type 1, Diabetes Mellitus Type 2, MRSA, Seizures *Have you ever received a pneumonia vaccine?: Yes *Have you received a flu vaccine this season?: Yes Other Medical History: Reports: Anemia, Cataracts, Glaucoma, Other. Denies: Blood Transfusion Reaction Laterality Cases: Right: Carpal Tunnel Release Other Surgeries: Yes: Cancer Surgery, Cardiac Catheterization, Colonoscopy, Other Amputation: No Fractures: Yes (fracture of the first cervical vertebrae November 2020) - *Social History Smoking Status: Current every day smoker Tobacco Type: cigarettes # Packs/Day (cigarettes): 1 Alcohol Intake: never Substance Use Type: denies use *Occupational Status:: unemployed Housing: house Household Members: children *Travel in the last 8 weeks: None Family Hx:: Hypertension
== END ==
PROVIDERS: Visit Provider Clinical Nurse Specialist Family Health
DX: M51.16 Intervertebral disc disorders with radiculopathy, lumbar region (principal); Z79.899 Other long term (current) drug therapy
CPT/HCPCS: 80305; 99212; G0463

== ENCOUNTER → 2021-06-11 11:10 | Outpatient (POV) | payer MEDICARE, SELFPAY ==
[2021-06-11 11:18] VITALS: BP 150/79; PULSE 81; RESP 18; TEMP 37.2; O2SAT 97; BMI 16.2
--- NOTE | 2021-06-11 11:22 | P.CONS_ITS ---
[facility] Pain Management SOAP Note Subjective:: Patient is a pleasant 85-year-old white female who presents today for follow-up and medication refills. She is currently being treated for degenerative disc disease of the lumbar spine with lumbar radiculopathy. She is rating her pain today an 8 out of 10. She is currently managed with oxycodone 10 mg 1 tablet p.o. 5 times a day. She denies any side effects from this medication. She denies any changes to the location or type of pain. Patient is in a cervical collar today and ambulating with a walker. Her Freedom to she is active morphine equivalent of 0. Objective:: Physical exam General: Alert and oriented x3 no acute distress, pleasant and cooperative, [on room air] Lungs: Respirations even and unlabored, symmetrical chest expansion Eyes: PERRL Musculoskeletal: Flexion and extension of the lumbar spine nonguarded, deep tendon reflexes normal, strength in upper and lower extremities 5 out of 5 normal gait noted Neurological: Speech clear, remittance clerk equal, no gross sensory deficit Assessment:: Degenerative disc disease of the lumbar spine with lumbar radiculopathy symptoms Plan:: We will continue the patient's oxycodone 10 mg 5 times a day. We will need to see the patient back in the clinic in 1 month for follow-up and medication refills. She is welcome to contact the clinic prior to her next appointment date if she has any questions or concerns. Dr. Miller has reviewed this note and agrees with this plan of care. This note was dictated using voice recognition software and make contain errors or omissions. [facility] History Medical History: Reports:: Congestive Heart Failure, Chronic Obstructive Pulmonary Disease (COPD), Coronary Artery Disease, Heart Murmur, Hyperlipidemia, Hypertension, Peripheral Vascular Disease, Valvular Heart Disease Denies:: Cancer, Diabetes Mellitus Type 1, Diabetes Mellitus Type 2, MRSA, Seizures *Have you ever received a pneumonia vaccine?: Yes *Have you received a flu vaccine this season?: Yes Other Medical History: Reports: Anemia, Cataracts, Glaucoma, Other. Denies: Blood Transfusion Reaction Laterality Cases: Right: Carpal Tunnel Release Other Surgeries: Yes: Cancer Surgery, Cardiac Catheterization, Colonoscopy, Other Amputation: No Fractures: Yes (fracture of the first cervical vertebrae November 2020) - *Social History Smoking Status: Current every day smoker Tobacco Type: cigarettes # Packs/Day (cigarettes): 1 Alcohol Intake: never Substance Use Type: denies use *Occupational Status:: unemployed Housing: house Household Members: children *Travel in the last 8 weeks: None Family Hx:: Hypertension
== END ==
PROVIDERS: Visit Provider Family Medicine
DX: M51.16 Intervertebral disc disorders with radiculopathy, lumbar region (principal)
CPT/HCPCS: 99212; G0463

== ENCOUNTER → 2021-07-09 10:58 | Outpatient (POV) | payer MEDICARE, SELFPAY ==
--- NOTE | 2021-07-09 11:33 | HMH.PAINSOAP ---
[facility] Pain Management SOAP Note Subjective:: Patient is a pleasant 85-year-old white female who presents today for follow-up and medication refills. Patient is being treated for degenerative disc disease lumbar spine with lumbar radiculopathy symptoms. Patient is managed with oxycodone 10 mg 1 tablet p.o. 5 times daily in our clinic. She denies any side effects to these medications. She says it is helping with her pain, however, today her pain is an 8 out of 10. She says that the pain is somewhat worse to her low back area today. She is currently with a cervical collar and is ambulating with a walker. Patient's drug screen is appropriate. Her morphine equivalent is 75. Her Stella #[id number] has been reviewed and is appropriate. Review of Systems General: No recent weight changes, no fever, no sleep disturbances Respiratory: No cough, no shortness of air, no recurring pulmonary infections Cardiovascular/peripheral vascular: No chest pain, no palpitations, no edema, no shortness of breath Gastrointestinal: No new onset incontinence, normal bowel movements reported Genitourinary: No new onset incontinence Musculoskeletal: Chronic low back pain Psychiatric: [Normal mood/affect] Neurological: [Denies weakness in extremities], [denies balance issues] Objective:: Physical exam General: Alert and oriented x3, no acute distress, pleasant and cooperative, [on room air] Lungs: Respirations even and unlabored, symmetrical chest expansion Eyes: PERRL Musculoskeletal: Flexion and extension of lumbar [spine] somewhat guarded secondary to pain, strength in upper and lower extremities [5/5], [antalgic gait noted] Neurological: Speech clear, [senior software engineering manager equal], no gross sensory deficit Assessment:: Degenerative disc disease lumbar spine with lumbar radiculopathy symptoms Plan:: We will refill the patient's oxycodone 10 mg 1 tablet p.o. 5 times daily. We will plan for a refill in 1 month. We will see her at that time for a telehealth visit due to the pandemic. We perform reevaluation by telephone to prevent exposure to COVID-19. She is in agreement. Risks and benefits of the medication have been explained in detail to the patient. The patient has been advised to consult with his/her primary care provider and pharmacist regarding drug-drug interaction of medications currently prescribed. Patient has been prescribed a controlled substance after being counseled on the medication, medication safety, and possible side effects. STELLA report has been obtained and reviewed prior to prescription and found to be appropriate. Opioid contract was reviewed and signed by the patient, and that they have agreed to all of the terms set forth by our compliance program. Patient has been instructed to contact the clinic with any concerns before the next appointment. Dr. Miller has reviewed this note and agrees with this plan of care. This note was dictated using voice recognition software and make contain errors or omissions. [facility] History I have reviewed the patient's past medical history: Yes Medical History: Reports:: Congestive Heart Failure, Chronic Obstructive Pulmonary Disease (COPD), Coronary Artery Disease, Heart Murmur, Hyperlipidemia, Hypertension, Peripheral Vascular Disease, Valvular Heart Disease Denies:: Cancer, Diabetes Mellitus Type 1, Diabetes Mellitus Type 2, MRSA, Seizures *Have you ever received a pneumonia vaccine?: Yes *Have you received a flu vaccine this season?: Yes Other Medical History: Reports: Anemia, Cataracts, Glaucoma, Other. Denies: Blood Transfusion Reaction Laterality Cases: Right: Carpal Tunnel Release Other Surgeries: Yes: Cancer Surgery, Cardiac Catheterization, Colonoscopy, Other Amputation: No Fractures: Yes (fracture of the first cervical vertebrae November 2020) - *Social History Smoking Status: Current every day smoker Tobacco Type: cigarettes # Packs/Day (cigarettes): 1 Alcohol Intake: never Substance Use Type:
== END ==
PROVIDERS: Visit Provider Clinical Nurse Specialist Family Health
DX: M51.16 Intervertebral disc disorders with radiculopathy, lumbar region (principal)
CPT/HCPCS: 99212; G0463

== ENCOUNTER → 2021-08-06 10:33 | Outpatient (POV) | payer MEDICARE, SELFPAY ==
--- NOTE | 2021-08-06 10:39 | HMH.PAINSOAP ---
[facility] Pain Management SOAP Note Subjective:: Patient is an 85 year old female who presents via teleheath visit for medication refills. She is continuing to have pain to the low back area. She rates her pain a 4/10. She is managed with oxycodone 10 mg 1 tablet 5 times daily. She says the medication is working well for her. She denies any side effects to the medication. She says that this does help with her ambulation. She does use a walker for ambulation. Patient does get up to 60 to 70% relief with her medication regimen. Review of Systems General: No recent weight changes, no fever, no sleep disturbances Respiratory: No cough, no shortness of air, no recurring pulmonary infections Cardiovascular/peripheral vascular: No chest pain, no palpitations, no edema, no shortness of breath Gastrointestinal: No new onset incontinence, normal bowel movements reported Genitourinary: No new onset incontinence Musculoskeletal: Chronic low back pain Psychiatric: [Normal mood/affect] Neurological: [Denies weakness in extremities], [denies balance issues] Objective:: Physical exam General: Alert and oriented x3, no acute distress, pleasant and cooperative, Assessment:: Degenerative disc disease lumbar spine with lumbar radiculopathy symptoms Plan:: We will refill the patient's oxycodone 10 mg 1 tablet p.o. 5 times daily. We will follow-up with the patient in 1 month for reevaluation of symptoms. Risks and benefits of the medication have been explained in detail to the patient. The patient has been advised to consult with his/her primary care provider and pharmacist regarding drug-drug interaction of medications currently prescribed. Patient has been prescribed a controlled substance after being counseled on the medication, medication safety, and possible side effects. STELLA report has been obtained and reviewed prior to prescription and found to be appropriate. Opioid contract was reviewed and signed by the patient, and that they have agreed to all of the terms set forth by our compliance program. Patient has been instructed to contact the clinic with any concerns before the next appointment. Dr. Miller has reviewed this note and agrees with this plan of care. This note was dictated using voice recognition software and make contain errors or omissions. Patient has been instructed to contact the clinic with any concerns before the next appointment. Dr. Miller has reviewed this note and agrees with this plan of care. This note was dictated using voice recognition software and make contain errors or omissions. Kitty [facility] History I have reviewed the patient's past medical history: Yes (This is Corine) Medical History: Reports:: Congestive Heart Failure, Chronic Obstructive Pulmonary Disease (COPD), Coronary Artery Disease, Heart Murmur, Hyperlipidemia, Hypertension, Peripheral Vascular Disease, Valvular Heart Disease Denies:: Cancer, Diabetes Mellitus Type 1, Diabetes Mellitus Type 2, MRSA, Seizures *Have you ever received a pneumonia vaccine?: Yes *Have you received a flu vaccine this season?: Yes Other Medical History: Reports: Anemia, Cataracts, Glaucoma, Other. Denies: Blood Transfusion Reaction Laterality Cases: Right: Carpal Tunnel Release Other Surgeries: Yes: Cancer Surgery, Cardiac Catheterization, Colonoscopy, Other Amputation: No Fractures: Yes (fracture of the first cervical vertebrae November 2020) - *Social History Smoking Status: Current every day smoker Tobacco Type: cigarettes # Packs/Day (cigarettes): 1 Alcohol Intake: never Substance Use Type: denies use *Occupational Status:: unemployed Housing: house Household Members: children *Travel in the last 8 weeks: None Family Hx:: Hypertension, Cancer
== END ==
PROVIDERS: Visit Provider Clinical Nurse Specialist Family Health
DX: M51.16 Intervertebral disc disorders with radiculopathy, lumbar region (principal)
CPT/HCPCS: 99212; G0463

== ENCOUNTER → 2021-08-28 10:56 | Outpatient (POV) | payer MEDICARE, SELFPAY ==
[2021-08-28 11:04] VITALS: BP 166/74; PULSE 77; RESP 20; TEMP 36.7; O2SAT 92; BMI 16.0
--- NOTE | 2021-08-28 11:04 | P.CONS_ITS ---
[facility] Pain Management SOAP Note Subjective:: This patient is a pleasant 86-year-old white female who we are treating for low back pain with lumbar radiculopathy symptoms. She currently is on a medication regimen of oxycodone 10 mg 1 tablet 5 times a day. She does well with this medication regimen. She has no side effects with this medication. We will refill this medication she does occasionally only take it 4 times a day. However we will give her 150 pills for the month. We will follow-up with her in 1 month. She is due for her medications in 2 weeks. Freedom and drug screen are all appropriate [facility] [phone]. Objective:: Alert and oriented x3 no acute distress. She does have an antalgic gait. She does walk with a walker. Motor strength of the lower extremities is 5/5. There is no gross sensory deficit. Assessment:: Degenerative disc disease of lumbar spine with lumbar radiculopathy symptoms Plan:: We will follow-up with her in 4 to 5 weeks. Will reevaluate her symptoms at that time. We will refill her medications today oxycodone 10 mg 1 tablet 4-5 times daily. I will give her 150 pills. [facility] History Medical History: Reports:: Congestive Heart Failure, Chronic Obstructive Pulmonary Disease (COPD), Coronary Artery Disease, Heart Murmur, Hyperlipidemia, Hypertension, Peripheral Vascular Disease, Valvular Heart Disease Denies:: Cancer, Diabetes Mellitus Type 1, Diabetes Mellitus Type 2, MRSA, Seizures *Have you ever received a pneumonia vaccine?: Yes *Have you received a flu vaccine this season?: Yes Other Medical History: Reports: Anemia, Cataracts, Glaucoma, Other. Denies: Blood Transfusion Reaction Laterality Cases: Right: Carpal Tunnel Release Other Surgeries: Yes: Cancer Surgery, Cardiac Catheterization, Colonoscopy, Other Amputation: No Fractures: Yes (fracture of the first cervical vertebrae November 2020) - *Social History Smoking Status: Current every day smoker Tobacco Type: cigarettes # Packs/Day (cigarettes): 1 Alcohol Intake: never Substance Use Type: denies use *Occupational Status:: unemployed Housing: house Household Members: children *Travel in the last 8 weeks: Inside the [facility] Family Hx:: Hypertension, Cancer
== END ==
PROVIDERS: Visit Provider Anesthesiology
DX: M51.16 Intervertebral disc disorders with radiculopathy, lumbar region (principal)
CPT/HCPCS: 99212; G0463

== ENCOUNTER → 2021-09-28 09:56 | Outpatient (POV) | payer MEDICARE, SELFPAY ==
--- NOTE | 2021-09-28 10:41 | HMH.PAINSOAP ---
[facility] Pain Management SOAP Note Subjective:: Patient is an 86-year-old white female who presents today for medication refills. She is prescribed oxycodone 10 mg 1 tablet p.o. 5 times daily. The medication does work well for her. She rates her pain a 7 out of 10 which is baseline for the patient. She denies any side effects to the medicine. She says it does help with her low back pain patient's drug screens have been appropriate. Morphine equivalent is 75. [facility] #[id number] has been reviewed and is appropriate. Drug screen is appropriate. Patient does also get gabapentin per Dr. Smith. This does help with her radicular symptoms. Review of Systems General: No recent weight changes, no fever, no sleep disturbances Respiratory: No cough, no shortness of air, no recurring pulmonary infections Cardiovascular/peripheral vascular: No chest pain, no palpitations, no edema, no shortness of breath Gastrointestinal: No new onset incontinence, normal bowel movements reported Genitourinary: No new onset incontinence Musculoskeletal: Chronic low back pain with radiation into bilateral lower extremities Psychiatric: [Normal mood/affect] Neurological: [Denies weakness in extremities], [denies balance issues] Objective:: Physical exam General: Alert and oriented x3, no acute distress, pleasant and cooperative Lungs: Respirations even and unlabored, symmetrical chest expansion Eyes: PERRL Musculoskeletal: Flexion and extension of lumbar [spine] somewhat guarded secondary to pain, [antalgic gait noted] Neurological: Speech clear, no gross sensory deficit Assessment:: Degenerative disc disease lumbar spine with lumbar radiculopathy symptoms Plan:: We will refill the patient's oxycodone 10 mg 1 tablet p.o. 5 times daily. Patient's morphine equivalent is 75. We will prescribe the patient Narcan to have available in the event of oversedation. Risks and benefits of the medication have been explained in detail to the patient. The patient does understand the risk of dependence on the medication when given over a prolonged period. Patient has been advised of risks of oversedation with the prescribed medication. Narcan has been offered to the paitent in the event of oversedation. Patient has been advised that a family member should also be educated regarding administration of Narcan. The patient has been advised to consult with his/her primary care provider and pharmacist regarding drug-drug interaction of medications currently prescribed. Patient has been prescribed a controlled substance after being counseled on the medication, medication safety, and possible side effects. STELLA report has been obtained and reviewed prior to prescription and found to be appropriate. Opioid contract was reviewed and signed by the patient, and that they have agreed to all of the terms set forth by our compliance program. Patient has been instructed to contact the clinic with any concerns before the next appointment. Dr. Miller has reviewed this note and agrees with this plan of care. This note was dictated using voice recognition software and make contain errors or omissions. [facility] History I have reviewed the patient's past medical history: Yes Medical History: Reports:: Congestive Heart Failure, Chronic Obstructive Pulmonary Disease (COPD), Coronary Artery Disease, Heart Murmur, Hyperlipidemia, Hypertension, Peripheral Vascular Disease, Valvular Heart Disease Denies:: Cancer, Diabetes Mellitus Type 1, Diabetes Mellitus Type 2, MRSA, Seizures *Have you ever received a pneumonia vaccine?: Yes *Have you received a flu vaccine this season?: Yes Other Medical History: Reports: Anemia, Cataracts, Glaucoma, Other. Denies: Blood Transfusion Reaction Laterality Cases: Right: Carpal Tunnel Release Other Surgeries: Yes: Cancer Surgery, Cardiac Catheterization, Colonoscopy, Other Amputation: No Fractures: Yes (fracture of the first cervical vertebrae Moi
[2021-09-28 11:51] VITALS: BP 128/66; PULSE 98; RESP 18; O2SAT 99; BMI 16.0
[2021-09-28 12:56] LABS: Amphetamine/Metha Screen,Urine Negative ng/ml (<1000); Barbiturates Screen,Urine Negative ng/ml (<200)
[2021-09-28 12:57] LABS: Benzodiazepines Screen,Urine Negative ng/ml (<200)
[2021-09-28 12:58] LABS: Cannabinoid Screen,Urine Negative ng/ml (<50); Cocaine Screen,Urine Negative ng/ml (<300)
[2021-09-28 12:59] LABS: Methadone Screen,Urine Negative ng/ml (<300); Opiate Screen,Urine Positive ng/ml (<300)
[2021-09-28 13:00] LABS: Phencyclidine Screen,Urine Negative ng/ml (<25)
[2021-10-12 10:57] LABS: Opiates Negative (Cutoff=100); Oxycodone (GC/MS) >3000 ng/mL (Cutoff=100); Oxymorphone (GC/MS) 1224 ng/mL (Cutoff=100)
== END ==
PROVIDERS: Visit Provider Clinical Nurse Specialist Family Health
DX: M51.16 Intervertebral disc disorders with radiculopathy, lumbar region (principal); Z79.891 Long term (current) use of opiate analgesic
CPT/HCPCS: 80305; 80361; 80365; 99212; G0463; G0480

== ENCOUNTER → 2021-10-27 11:48 | Outpatient (POV) | payer MEDICARE, SELFPAY ==
--- NOTE | 2021-10-27 11:51 | HMH.VVPMSO ---
[facility] PM Virtual Visit SOAP Consent for virtual visit:: With the recent concerns about the COVID-19, we are trying to minimize exposure to you by shifting to telehealth appointments whenever possible. It restricts me from seeing you in person, but the trade off is protecting you during this pandemic. Can you see and hear me okay, and do you consent to this option? If not, I would be happy to see if we can reschedule your appointment in the future, when feasible. Has patient consented to this virtual visit?: Yes Subjective:: Patient is a pleasant 86 year old female who presents today via telehealth. She reports her pain to be worse to her bilateral lower extremities at this time. She is currently managed with Oxycodone 10 mg 5 times daily and gabapentin by Dr. Rivas. She says the medication is working well for her, but is continuing to have pain to bilateral lower extremities due to pain. She does get up to 70% relief with her back pain with the oral medications. Patient's [facility] #[id number] has been reviewed and is appropriate. Morphine equivalent is 0. Drug screens have been appropriate. She does attempt home stretching to the best of her ability due to age Review of Systems General: No recent weight changes, no fever, no sleep disturbances Respiratory: No cough, no shortness of air, no recurring pulmonary infections Cardiovascular/peripheral vascular: No chest pain, no palpitations, no edema, no shortness of breath Gastrointestinal: No new onset incontinence, normal bowel movements reported Genitourinary: No new onset incontinence Musculoskeletal: Bilateral lower extremity pain Psychiatric: [Normal mood/affect] Neurological: Weakness bilateral lower extremities Objective:: Physical exam General: Alert and oriented x3, no acute distress, pleasant and cooperative Lungs: Respirations even and unlabored, symmetrical chest expansion Eyes: PERRL Musculoskeletal: Flexion and extension of lumbar [spine] somewhat guarded secondary to pain, [antalgic gait noted] Neurological: Speech clear, no gross sensory deficit Assessment:: Degenerative disc disease lumbar spine with lumbar radiculopathy symptoms Plan:: We will continue the patient's oxycodone 10 mg 1 tablet p.o. 5 times daily. She will get a month medication will be seen back in the clinic in 1 month. We will also order the patient compounding cream to apply topically to her bilateral lower extremities. Risks and benefits of the medication have been explained in detail to the patient. The patient does understand the risk of dependence on the medication when given over a prolonged period. Patient has been advised of risks of oversedation with the prescribed medication. Narcan has been offered to the paitent in the event of oversedation. Patient has been advised that a family member should also be educated regarding administration of Narcan. The patient has been advised to consult with his/her primary care provider and pharmacist regarding drug-drug interaction of medications currently prescribed. Patient has been prescribed a controlled substance after being counseled on the medication, medication safety, and possible side effects. STELLA report has been obtained and reviewed prior to prescription and found to be appropriate. Opioid contract was reviewed and signed by the patient, and that they have agreed to all of the terms set forth by our compliance program. Patient has been instructed to contact the clinic with any concerns before the next appointment. Dr. Miller has reviewed this note and agrees with this plan of care. This note was dictated using voice recognition software and make contain errors or omissions. Time In:: 12:00 Time Out:: 12:15 [facility] History I have reviewed the patient's past medical history: Yes Medical History: Reports:: Congestive Heart Failure, Chronic Obstructive Pulmonary Disease (COPD), Coronary Artery Disease, Heart Murmur,
== END ==
PROVIDERS: Visit Provider Clinical Nurse Specialist Family Health
DX: M51.16 Intervertebral disc disorders with radiculopathy, lumbar region (principal)
CPT/HCPCS: 99212; G0463

== ENCOUNTER 2021-10-29 18:15 | Emergency (ER) | payer MEDICARE, SELFPAY ==
[2021-10-29 18:17] VITALS: BP 189/90; PULSE 85; RESP 16; TEMP 36.9; O2SAT 96; BMI 17.4
--- NOTE | 2021-10-29 18:32 | PC.NURSE ---
Notified rad of stroke protocol
--- NOTE | 2021-10-29 18:33 | PC.NURSE ---
Pt to CT
[2021-10-29 18:35] VITALS: BMI 16.9
--- NOTE | 2021-10-29 18:36 | CT_ITS ---
PROCEDURE INFORMATION: Exam: CT Head Without Contrast Exam date and time: 10/29/2021 6:36 PM Age: 86 years old Clinical indication: Altered mental status/memory loss; Confusion or disorientation TECHNIQUE: Imaging protocol: Computed tomography of the head without contrast. Radiation optimization: All CT scans at this facility use at least one of these dose optimization techniques: automated exposure control; mA and/or kV adjustment per patient size (includes targeted exams where dose is matched to clinical indication); or iterative reconstruction. Other technique: STROKE PROTOCOL was implemented. COMPARISON: CT HEAD/BRAIN WO CON 03/21/2021 8:32 PM FINDINGS: Brain: Periventricular and subcortical small vessel ischemic changes. Moderate age-appropriate atrophy associated. No acute hemorrhage, mass effect, midline shift, or extra-axial fluid collection. Cerebral ventricles: No ventriculomegaly. Paranasal sinuses: Visualized sinuses are unremarkable. No fluid levels. Mastoid air cells: Visualized mastoid air cells are well aerated. Bones/joints: Unremarkable. No acute fracture. Soft tissues: Unremarkable. IMPRESSION: No acute intracranial abnormality. ASSESSMENT: ASPECTS ([facility] Stroke Program Early CT Score) is 10.
--- NOTE | 2021-10-29 18:37 | CT_ITS ---
PROCEDURE INFORMATION: Exam: CT Cervical Spine Without Contrast Exam date and time: 10/29/2021 6:37 PM Age: 86 years old Clinical indication: Injury or trauma; Fall; Blunt trauma; Patient HX: Patient allegedly slid to floor, neck pain. Cervical collar in place for stabilization. ; Additional info: Possible fall TECHNIQUE: Imaging protocol: Computed tomography images of the cervical spine without contrast. Radiation optimization: All CT scans at this facility use at least one of these dose optimization techniques: automated exposure control; mA and/or kV adjustment per patient size (includes targeted exams where dose is matched to clinical indication); or iterative reconstruction. COMPARISON: CT CERVICAL SPINE WO CON 03/21/2021 8:35 PM FINDINGS: Vertebrae: Fractures of the anterior arch of C1 and the right arch of C1 are again noted, incomplete healing since comparison. C2-C3: No significant disc protrusion. No severe spinal canal stenosis. No significant neural foraminal narrowing. C3-C4: No significant disc protrusion. No severe spinal canal stenosis. No significant neural foraminal narrowing. C4-C5: No significant disc protrusion. No severe spinal canal stenosis. No significant neural foraminal narrowing. C5-C6: No significant disc protrusion. No severe spinal canal stenosis. No significant neural foraminal narrowing. C6-C7: No significant disc protrusion. No severe spinal canal stenosis. No significant neural foraminal narrowing. C7-T1: No significant disc protrusion. No severe spinal canal stenosis. No significant neural foraminal narrowing. Soft tissues: Unremarkable. Lungs: Lung apices are normal. IMPRESSION: 1. Fractures of the anterior arch of C1 and the right arch of C1 are again noted, incomplete healing since comparison. 2. No new fractures identified.
--- NOTE | 2021-10-29 18:41 | XR_ITS ---
PROCEDURE INFORMATION: Exam: XR Chest Exam date and time: 10/29/2021 6:41 PM Age: 86 years old Clinical indication: Injury or trauma; Fall; Blunt trauma (contusions or hematomas); Patient HX: Patient slid to floor, neck pain. ; Additional info: AMS TECHNIQUE: Imaging protocol: XR of the chest. Views: 1 view. COMPARISON: CR XR CHEST PORTABLE 03/21/2021 8:49 PM FINDINGS: Lungs: Unremarkable. No consolidation. Pleural spaces: Unremarkable. No pleural effusion. No pneumothorax. Heart/Mediastinum: Unremarkable. No cardiomegaly. Bones/joints: Dorsal column stimulator in place unchanged. IMPRESSION: No acute findings.
--- NOTE | 2021-10-29 18:41 | HMH.EDGENADL ---
ED Disposition Condition on Discharge: Good - Critical Care Critical Care Time: No <RanjanGlen - Last Filed: 10/29/21 20:04> <Ezio Joshua - Last Filed: 10/29/21 22:20> Clinical Impression: Left hip pain, Essential hypertension Fall Qualifiers: Encounter type: initial encounter Qualified Code(s): W19.XXXA - Unspecified fall, initial encounter Left shoulder pain Qualifiers: Chronicity: acute Qualified Code(s): M25.512 - Pain in left shoulder Disposition: Home, Self-Care Instructions: DI for Chronic Pain -- Adult Additional Instructions: fluids and see pcp for follow up Referrals: Amish Smith MD [Primary Care Provider] - Attestation: On 10/29/21, the high probability of a clinically significant, sudden or life threatening deterioration of the following system(s) required my full and direct attention, intervention and personal management. The time I documented below is in addition to time spent performing reported procedures but includes the following listed in this critical care notation. Medical Decision Making - Freedom Inquiry Pt receiving controlled substance: No - Radiology Data #1 Image(s): Chest, Shoulder, Hip Image Reviewed: Yes I reviewed the patient's radiology image, Yes I have reviewed radiologist's interpretation Preliminary Findings: Normal/NAD - CT Data CT Scan: Head, C-Spine Time Received: 19:[address] Reviewed: Yes: I have viewed the radiologist's interpretation <RanjanGlen - Last Filed: 10/29/21 20:04> - Lab Data Lab results reviewed: Yes: I reviewed the patient's lab results. Result diagrams: 10/29/21 19:36 10/29/21 19:36 <Ezio Joshua - Last Filed: 10/29/21 22:20> Vital Signs: 10/29/21 18:17 10/29/21 19:28 10/29/21 19:30 Temperature 98.4 F Temperature Source Oral Pulse Rate 92 H 93 H Pulse Rate [Right] 85 Respiratory Rate 16 Blood Pressure 162/88 H 184/93 H Blood Pressure [Right Arm] 189/90 H Blood Pressure Mean 124 126 Blood Pressure Mean [Right Arm] 123 Blood Pressure Source [Right Arm] Automatic Cuff Blood Pressure Position [Right Arm] Sitting 02 Sat by Pulse Oximetry 96 98 97 Oxygen Delivery Method Room Air - Lab Data Lab Results 10/29/21 19:36: WBC 8.1, RBC 4.41, Hgb 12.4, Hct 39.7, MCV 90.0, MCH 28.1, MCHC 31.2 L, RDW 16.4, Plt Count 258, MPV 8.2, Neut % (Auto) 73.2, Lymph % (Auto) 19.4, Luce % (Auto) 6.7, Eos % (Auto) 0.4, Baso % (Auto) 0.3, Neut # (Auto) 6.0, Lymph # (Auto) 1.6, Luce # (Auto) 0.6, Eos # (Auto) 0.0, Baso # (Auto) 0.0 10/29/21 19:36: Sodium 141, Potassium 3.0 L, Chloride 102, Carbon Dioxide 33 H, Anion Gap 9.0, BUN 18 H, Creatinine 1.00, Estimated Creat Clear 31, Estimated GFR 53 L, Est GFR ( Amer) 64, Glucose 112 H, Calcium 9.9, Total Bilirubin 0.6, AST 46 H, ALT 19, Alkaline Phosphatase 109, Troponin I 0.04 H, Total Protein 7.8, Albumin 4.2, Globulin 3.6 H, Albumin/Globulin Ratio 1.2 10/29/21 19:36: SARS-CoV-2 (PCR) Not detected, Influenza A Untype (PCR) Not detected, Influenza Type B (PCR) Not detected 10/29/21 21:00: Urine Color Yellow, Urine Appearance Clear, Urine pH 6.5, Ur Specific [place] 1.025, Urine Protein 2+, Urine Glucose (UA) Negative, Urine Ketones 1+, Urine Blood 1+, Urine Nitrate Negative, Urine Bilirubin Negative, Urine Urobilinogen 0.2, Ur Leukocyte Esterase Negative, Urine RBC 3-5, Urine WBC 3-5, Ur Squamous Epith Cells Occasional, Urine Bacteria None Orders (Tests/Meds): ED MEDICATIONS Generic Name Dose Route Start Last Admin Trade Name Freq PRN Reason Stop Dose Admin Lisinopril 10 mg 10/30/21 20:35 Lisinopril 10mg Tablet PO 10/30/21 20:36 ONCE ONE Discontinued Medications Generic Name Dose Route Start Last Admin Trade Name Freq PRN Reason Stop Dose Admin Lisinopril 10 mg 10/30/21 20:09 Lisinopril 10mg Tablet PO 10/30/21 20:10 ONCE ONE Lisinopril 10 mg 10/30/21 20:30 Lisinopril 10mg Tablet PO 10/30/21 20:31 ON
--- NOTE | 2021-10-29 18:52 | XR_ITS ---
PROCEDURE INFORMATION: Exam: XR Left Hip Exam date and time: 10/29/2021 6:52 PM Age: 86 years old Clinical indication: Injury or trauma; Fall; Blunt trauma (contusions or hematomas); Left; Hip TECHNIQUE: Imaging protocol: XR Left hip. Views: 2 or 3 views hip with pelvis when performed. COMPARISON: CR XR PELVIS 1-2V 03/21/2021 8:49 PM FINDINGS: Bones/joints: Unremarkable. No acute fracture. Soft tissues: Unremarkable. IMPRESSION: No acute findings.
--- NOTE | 2021-10-29 18:52 | XR_ITS ---
PROCEDURE INFORMATION: Exam: XR Left Shoulder Exam date and time: 10/29/2021 6:52 PM Age: 86 years old Clinical indication: Injury or trauma; Fall; Blunt trauma (contusions or hematomas); Shoulder; Left TECHNIQUE: Imaging protocol: XR Left shoulder. Views: 2 or more views. COMPARISON: CR XR CHEST PORTABLE 10/29/2021 6:56 PM FINDINGS: Bones/joints: Normal. Soft tissues: Normal. IMPRESSION: No acute findings.
--- NOTE | 2021-10-29 18:59 | ECG_ITS ---
APPROVED REPORT Exam: Resting ECG HR:92 bpm ECG Measurements Heart Rate 92 AXES OK 128 P 83 QRSd 74 QRS 74 QT 392 T 261 QTc 484 Conclusion Normal sinus rhythm Septal infarct, age undetermined ST & T wave abnormality, consider inferolateral ischemia Abnormal ECG Electronically signed by : Ata Becerra MD 10/30/2021 12:34:37
[2021-10-29 19:28] VITALS: BP 162/88; PULSE 92; O2SAT 98
[2021-10-29 19:30] VITALS: BP 184/93; PULSE 93; O2SAT 97
[2021-10-29 19:42] LABS: Coronavirus 19, PCR Not Detected (NotDetected); Influenza A, PCR Not Detected (NotDetected); Influenza B, PCR Not Detected (NotDetected)
[2021-10-29 20:06] LABS: Alanine Aminotransferase 19 U/L (12-78); Albumin Level 4.2 g/dl (3.5-5.0); Albumin/Globulin Ratio 1.2 (1.1-1.8); Alkaline Phosphatase 109 U/L (38-126); Aspartate Amino Transferase 46 U/L (14-36); Basophils % 0.3 % (0.1-2.0); Bilirubin,Total 0.6 mg/dl (0.2-1.3); Blood Urea Nitrogen 18 mg/dl (7-17); Calcium 9.9 mg/dl (8.4-10.2); Carbon Dioxide 33 mmol/L (22.0-30.0); Chloride 102 mmol/L (98-107); Creatinine Clearance Estimated 31 mL/min (50-200); Eosinophils % 0.4 % (0.1-12.0); Estimated Glomerular Filt Rate 53 ml/min (>60); GFR (African American) 64 ML/MIN (>60); Globulin 3.6 g/dL (1.3-3.2); Glucose 112 mg/dl (74-100); Hematocrit 39.7 % (37.0-47.0); Hemoglobin 12.4 g/dL (12.2-16.2); Lymphocytes # 1.6 K/mm3 (0.7-4.5); Lymphocytes % 19.4 % (10-50); Mean Corpuscular HGB Conc 31.2 g/dL (31.8-35.4); Mean Corpuscular Hemoglobin 28.1 pg (27.0-31.2); Mean Platelet Volume 8.2 fl (7.4-10.4); Monocytes # 0.6 K/mm3 (0.1-1.0); Monocytes % 6.7 % (1.7-9.3); Neutrophils % 73.2 % (37.0-80.0); Platelet Count 258 K/mm3 (142-424); Red Blood Count 4.41 M/mm3 (4.20-5.40); Red Cell Distribution Width 16.4 % (11.5-17.5); Sodium 141 mmol/L (136-145); Total Protein,Serum 7.8 g/dl (6.3-8.2); White Blood Count 8.1 K/mm3 (4.8-10.8)
[2021-10-29 20:20] LABS: Troponin I 0.04 ng/ml (0.00-0.034)
--- NOTE | 2021-10-29 21:01 | PC.NURSE ---
cath inserted to obtain ua and drain pt bladder
[2021-10-29 21:09] LABS: Microscopic, Urine URINE MICROSCOPIC (MICROSCOPIC)
[2021-10-29 21:14] LABS: Appearance,Urine CLEAR (Clear); Blood, Urine 1+ (Negative); Color,Urine YELLOW (Yellow); Glucose,Urine (UA) Negative (Negative); Ketones,Urine 1+ (Negative); Leukocyte Esterase,Urine Negative (Negative); Nitrate,Urine Negative (Negative); PH,Urine 6.5 (5.0-8.5); Protein,Urine 2+ (Negative); Specific Gravity, Urine 1.025 (1.005-1.030); Urobilinogen,Urine 0.2 EU/dl (0.2)
[2021-10-29 21:22] LABS: Bilirubin,Urine Negative (Negative)
[2021-10-29 21:50] LABS: Squamous Epithelial Cell,Urine Occasional #/hpf (0-5)
[2021-10-29 22:31] VITALS: BP 166/93; PULSE 98; RESP 14; TEMP 36.9; O2SAT 99
[2021-10-29 22:47] LABS: Troponin I 0.04 ng/ml (0.00-0.034)
== END 2021-10-29 22:33 | disposition home or self-care (01) ==
PROVIDERS: Emergency Provider Emergency Medicine; PCP Family Medicine
DX: M25.552 Pain in left hip (principal); M25.512 Pain in left shoulder; W01.0XXA Fall on same level from slipping, tripping and stumbling without subsequent striking against object, initial encounter; Y92.019 Unspecified place in single-family (private) house as the place of occurrence of the external cause; S12.9XXS Fracture of neck, unspecified, sequela; I10 Essential (primary) hypertension; I25.10 Atherosclerotic heart disease of native coronary artery without angina pectoris; I50.9 Heart failure, unspecified; J44.9 Chronic obstructive pulmonary disease, unspecified; E78.5 Hyperlipidemia, unspecified; F17.210 Nicotine dependence, cigarettes, uncomplicated
CPT/HCPCS: 70450; 71045; 72125; 73030; 73502; 80053; 81001; 84484; 85025; 93005; 99283; C9803; U0003; U0005

== ENCOUNTER → 2021-11-05 10:02 | Outpatient (CLI) | payer MEDICARE, SELFPAY ==
--- NOTE | 2021-11-05 10:05 | XR_ITS ---
PROCEDURE: XR CHEST PORTABLE CLINICAL HISTORY: COVID OUTPATIENT COMPARISON: CR XR CHEST 2V from 09/07/[address] CHEST W CON from 04/01/2020 CR XR CHEST PORTABLE from 03/21/2021 CR XR CHEST PORTABLE from 10/29/2021 FINDINGS: The cardiomediastinal silhouette and pulmonary vascularity are within normal limits. The lungs are clear without infiltrates, suspicious nodules, or pleural effusions. Epidural stimulator device noted in the midthoracic region IMPRESSION: No acute findings. Dictated by: Freddy Butcher MD 11/05/2021 11:03 Freddy Butcher MD in OV 11/05/2021 11:03
[2021-11-05 10:41] LABS: Basophils % 0.5 % (0.1-2.0); Eosinophils # 0.1 K/mm3 (0.0-0.4); Eosinophils % 1.6 % (0.1-12.0); Hematocrit 37.1 % (37.0-47.0); Hemoglobin 11.5 g/dL (12.2-16.2); Lymphocytes # 1.8 K/mm3 (0.7-4.5); Lymphocytes % 24.5 % (10-50); Mean Corpuscular HGB Conc 30.9 g/dL (31.8-35.4); Mean Corpuscular Volume 90.5 fl (81-99); Mean Platelet Volume 8.5 fl (7.4-10.4); Monocytes # 0.5 K/mm3 (0.1-1.0); Monocytes % 6.9 % (1.7-9.3); Neutrophils # 4.9 K/mm3 (1.8-7.8); Neutrophils % 66.6 % (37.0-80.0); Platelet Count 254 K/mm3 (142-424); Red Cell Distribution Width 16.5 % (11.5-17.5); White Blood Count 7.4 K/mm3 (4.8-10.8)
== END ==
PROVIDERS: PCP Family Medicine; Visit Provider Family Medicine
DX: Z20.822 Contact with and (suspected) exposure to COVID-19 (principal)
CPT/HCPCS: 36415; 71045; 85025; C9803; U0003; U0005

== ENCOUNTER → 2021-11-26 13:08 | Outpatient (POV) | payer MEDICARE, SELFPAY ==
[2021-11-26 13:30] VITALS: BMI 16.0
--- NOTE | 2021-11-26 13:41 | HMH.PAINSOAP ---
[facility] Pain Management SOAP Note Subjective:: Patient is an 86-year-old white female who is following up for medication refills. We treat the patient for chronic low back pain and lower extremity pain. She does have a spinal cord stimulator in place that is no longer functioning. She is also had an intrathecal pain pump in the past which had to be removed due to infection. We currently manage the patient with oxycodone 10 mg 1 tablet p.o. 5 times daily. She is doing well with her dose. [facility] #[id number] has been reviewed and appropriate. Drug screens are appropriate. Morphine equivalent is 70 Review of Systems General: No recent weight changes, no fever, no sleep disturbances Respiratory: No cough, no shortness of air, no recurring pulmonary infections Cardiovascular/peripheral vascular: No chest pain, no palpitations, no edema, no shortness of breath Gastrointestinal: No new onset incontinence, normal bowel movements reported Genitourinary: No new onset incontinence Musculoskeletal: Chronic low back pain Psychiatric: [Normal mood/affect] Neurological: [Denies weakness in extremities], [denies balance issues] Objective:: Physical exam General: Alert and oriented x3, no acute distress, pleasant and cooperative Lungs: Respirations even and unlabored, symmetrical chest expansion Eyes: PERRL Musculoskeletal: Flexion and extension of lumbar [spine] somewhat guarded secondary to pain, [antalgic gait noted] Neurological: Speech clear, no gross sensory deficit Assessment:: Degenerative disc disease lumbar spine with lumbar radiculopathy symptoms Plan:: We will continue the patient's oxycodone 10 mg 1 tablet p.o. 5 times daily. She will get another medication. We will follow-up with her in 1 month. ORT is low risk. Patient has signed and completed a pain management agreement/contract today. Risks and benefits of the medication have been explained in detail to the patient. The patient does understand the risk of dependence on the medication when given over a prolonged period. Patient has been advised of risks of oversedation with the prescribed medication. Narcan has been offered to the paitent in the event of oversedation. Patient has been advised that a family member should also be educated regarding administration of Narcan. The patient has been advised to consult with his/her primary care provider and pharmacist regarding drug-drug interaction of medications currently prescribed. Patient has been prescribed a controlled substance after being counseled on the medication, medication safety, and possible side effects. STELLA report has been obtained and reviewed prior to prescription and found to be appropriate. Opioid contract was reviewed and signed by the patient, and that they have agreed to all of the terms set forth by our compliance program. Patient has been instructed to contact the clinic with any concerns before the next appointment. Dr. Miller has reviewed this note and agrees with this plan of care. This note was dictated using voice recognition software and make contain errors or omissions. [facility] History I have reviewed the patient's past medical history: Yes Medical History: Reports:: Congestive Heart Failure, Chronic Obstructive Pulmonary Disease (COPD), Coronary Artery Disease, Heart Murmur, Hyperlipidemia, Hypertension, Peripheral Vascular Disease, Valvular Heart Disease Denies:: Cancer, Diabetes Mellitus Type 1, Diabetes Mellitus Type 2, MRSA, Seizures *Have you ever received a pneumonia vaccine?: Yes *Have you received a flu vaccine this season?: Yes Other Medical History: Reports: Anemia, Cataracts, Glaucoma, Other. Denies: Blood Transfusion Reaction Laterality Cases: Right: Carpal Tunnel Release Other Surgeries: Yes: Cancer Surgery, Cardiac Catheterization, Colonoscopy, Other Amputation: No Fractures: Yes (fracture of the first cervical vertebrae November 2020) - *Social History Smoking
== END ==
PROVIDERS: Visit Provider Clinical Nurse Specialist Family Health
DX: M51.16 Intervertebral disc disorders with radiculopathy, lumbar region (principal)
CPT/HCPCS: 99212; G0463

== ENCOUNTER → 2021-12-24 10:49 | Outpatient (POV) | payer MEDICARE, SELFPAY ==
--- NOTE | 2021-12-24 11:55 | HMH.PAINSOAP ---
[facility] Pain Management SOAP Note Subjective:: Patient is a very pleasant 86-year-old white female who presents today for follow-up and medication refills via telehealth visit. She is being treated for degenerative disc disease of lumbar spine with lumbar radiculopathy. She does have a spinal cord stimulator in place that unfortunately is no longer functioning. She also has a history of intrathecal pump implant but unfortunately this had to be subsequently explanted due to infection. She is currently being managed with oxycodone 10 mg 1 tablet 5 times daily and she states that she takes 4 to 5 tablets a day as needed to control her pain. She denies any adverse effects to these medications. She states that her current pain regimen allows her to maintain functionality and mobility. She states that she would not be able to walk if it were not for this medication. She rates her pain today as a 6 out of 10. Objective:: General: Alert and oriented x3, no acute distress, pleasant and cooperative Neurological: Speech is clear Assessment:: Degenerative disc disease of lumbar spine with lumbar radiculopathy Plan:: Discussed with the patient we will continue and refill oxycodone 10 mg 1 tablet p.o. 5 times daily #150 for 1 month supply. We will follow-up with this patient in 1 month for reassessment of chronic pain symptoms and medication refills. [facility] #[id number] and prior drug screens were reviewed and appropriate. [facility] History Medical History: Reports:: Congestive Heart Failure, Chronic Obstructive Pulmonary Disease (COPD), Coronary Artery Disease, Heart Murmur, Hyperlipidemia, Hypertension, Peripheral Vascular Disease, Valvular Heart Disease Denies:: Cancer, Diabetes Mellitus Type 1, Diabetes Mellitus Type 2, MRSA, Seizures *Have you ever received a pneumonia vaccine?: Yes *Have you received a flu vaccine this season?: Yes Other Medical History: Reports: Anemia, Cataracts, Glaucoma, Other. Denies: Blood Transfusion Reaction Laterality Cases: Right: Carpal Tunnel Release Other Surgeries: Yes: Cancer Surgery, Cardiac Catheterization, Colonoscopy, Other Amputation: No Fractures: Yes (fracture of the first cervical vertebrae November 2020) - *Social History Smoking Status: Current every day smoker Tobacco Type: cigarettes # Packs/Day (cigarettes): 1 Alcohol Intake: never Substance Use Type: denies use *Occupational Status:: retired Housing: house Household Members: children *Travel in the last 8 weeks: None Family Hx:: Hypertension, Cancer
== END ==
PROVIDERS: Visit Provider Anesthesiology Pain Medicine
DX: M51.16 Intervertebral disc disorders with radiculopathy, lumbar region (principal)
CPT/HCPCS: 99212; G0463

== ENCOUNTER → 2021-12-25 10:49 | Outpatient (CLI) | payer MEDICARE, SELFPAY ==
--- NOTE | 2021-12-25 10:55 | FL_ITS ---
FINAL REPORT CLINICAL HISTORY: . pharyngeal dysphagia...2.30 fluoro time FINDINGS: MODIFIED BARIUM SWALLOW History: Dysphagia FINDINGS: Fluoroscopy was provided for the speech pathologist to evaluate the swallowing mechanism. The patient was given several different consistencies of barium while the swallow was visualized fluoroscopically. The report of the speech pathologist should be consulted prior to making dietary decisions. FLUOROSCOPY TIME: 2.3 minutes IMPRESSION: Modified barium swallow under fluoroscopic guidance. Please see the report of the speech pathologist for dietary recommendations. Reviewed, Interpreted and Dictated by Jones Taylor MD Transcribed by PEDRO Baeza Authenticated by Jones Taylor MD on 12/30/2021 08:48:03 AM [facility]
--- NOTE | 2021-12-25 12:01 | HMH.SLMBS2 ---
Speech & Language Evaluation Speech/Language Mod Barium Swallow Start: 12/25/21 11:43 Freq: once Status: Complete Protocol: Document 12/25/21 11:43 DEANDRE (Rec: 12/25/21 12:00 DEANDRE [id number]) General Information General Current Food Consistancy Regular,Thin Liquids Dentition Upper & Lower Dentures Comment: Ill fitting Oxygen Status Room Air Patient Orientation Person,Place,Time,Situation Ability to Follow Directions Excellent Communication Ability No Impairment MBS Recommendations Diet Dietary Recommendations Mechanical Soft,Thin Liquids Treatment/Strategies Strategy/Precaution Recommend Sitting Upright (90 deg),Chin Tuck,Small Bites and Sips, Alternate Liquids/Solids Referrals/Other Other Recommendations Speech therapy from home health at patient request. Mod Barium Swallow Impressions Summary and Impressions Oral Phase Impression Minimal Impairment Oral Phase Summary Ms. Loza was given the following consistencies; thins with straw and open cup, nectar, pudding, puree, mech soft, and regular. Oral phase was minimally impacted due to ill fitting of her dentures. Pharyngeal Phase Impression Mild Impairment Pharyngeal Phase Summary Penetration without aspiration was observed with thin liquids. Ms. Loza was unable to clear vallecula with thins , however was tonya to with large volume of nectar thick. Speech/Language MBS Assessment/Goals/Plan Assessment Date of Evaluation: 12/25/21 Evaluation Type Initial Certification Assessment/Problems Dysphagia Does Patient Qualify for Service Yes Qualify/Failure Comment Patient requested home health. Plan Pt/Guardian verbally ack understanding Yes of dx/prognosis/goals G -code Required No Mod Barium Swallow Setup Exam Setup Radiologist Mj Garvin Level of Consciousness Awake,Alert,Appropriate, Follows Commands Position (degrees) 90 Mod Barium Swallow-Lat View Textures Lateral View Food Presentation Thin Liquid via Cup,Thin Liquid via Straw,[place] Liquid via Spoon,[place] Liquid via Cup,Pureed Food- Thick,Mech. Soft Food- Regular,Barium Tablet,Regular Food,P
== END ==
PROVIDERS: PCP Family Medicine; Visit Provider Family Medicine
DX: R13.13 Dysphagia, pharyngeal phase (principal)
CPT/HCPCS: 70371; 92611

== ENCOUNTER → 2022-01-18 16:08 | Outpatient (CLI) | payer MEDICARE, SELFPAY ==
--- NOTE | 2022-01-18 16:15 | XR_ITS ---
PROCEDURE INFORMATION: Exam: XR Chest Exam date and time: 01/18/2022 4:15 PM Age: 86 years old Clinical indication: Shortness of breath; Additional info: Covid testing TECHNIQUE: Imaging protocol: XR of the chest. Portable AP exam 4:30 p.m. Views: 1 view. COMPARISON: CR XR CHEST PORTABLE 11/05/2021 10:21 AM FINDINGS: Lungs: Right lower lobe and middle lobe airspace opacity partially obscuring the right heart border and right diaphragm, correlate for pneumonia. No acute findings in the left lung. Pleural spaces: Right costophrenic angle is obscured, cannot exclude trace right pleural fluid. No pneumothorax. Heart/Mediastinum: The cardiac silhouette is normal. Vasculature: Calcified plaque in the aortic arch. Bones/joints: Spinal stimulator wires again noted.There are spinal degenerative changes, with multilevel disc narrrowing and spondylosis. Other findings: Overlying clothing artifacts. IMPRESSION: 1. Right middle and lower lobe pulmonary airspace disease, correlate for pneumonia. 2. Question trace right pleural effusion.
[2022-01-18 16:37] LABS: Basophils # 0.1 K/mm3 (0-0.2); Basophils % 0.5 % (0.1-2.0); Eosinophils # 0.1 K/mm3 (0.0-0.4); Eosinophils % 0.7 % (0.1-12.0); Hematocrit 33.4 % (37.0-47.0); Hemoglobin 10.2 g/dL (12.2-16.2); Lymphocytes # 1.3 K/mm3 (0.7-4.5); Lymphocytes % 14.9 % (10-50); Mean Corpuscular HGB Conc 30.4 g/dL (31.8-35.4); Mean Corpuscular Hemoglobin 28.5 pg (27.0-31.2); Mean Corpuscular Volume 93.9 fl (81-99); Mean Platelet Volume 9.1 fl (7.4-10.4); Monocytes # 0.6 K/mm3 (0.1-1.0); Monocytes % 6.3 % (1.7-9.3); Neutrophils # 6.9 K/mm3 (1.8-7.8); Neutrophils % 77.5 % (37.0-80.0); Platelet Count 285 K/mm3 (142-424); Red Blood Count 3.56 M/mm3 (4.20-5.40); Red Cell Distribution Width 16.6 % (11.5-17.5)
== END ==
PROVIDERS: PCP Family Medicine; Visit Provider Family Medicine
DX: Z20.822 Contact with and (suspected) exposure to COVID-19 (principal)
CPT/HCPCS: 36415; 71045; 85025; C9803; U0003; U0005

== ENCOUNTER → 2022-01-21 11:44 | Outpatient (POV) | payer MEDICARE, SELFPAY ==
[2022-01-21 11:55] VITALS: BP 109/42; PULSE 70; RESP 20; TEMP 36.8; O2SAT 92; BMI 16.0
--- NOTE | 2022-01-21 13:05 | HMH.PAINSOAP ---
[facility] Pain Management SOAP Note Subjective:: Patient is a pleasant 86-year-old female who is here for medication refill and follow-up. Patient is currently being treated for degenerative disc disease of the lumbar spine with lumbar radiculopathy. Patient is being managed with oxycodone 10 mg 5 times a day. She also has a spinal cord stimulator but is not functioning. She also has a history of intrathecal pain pump placement but this had to be explanted due to infection. Patient denies any side effects from the medications. Patient denies any changes to the location and type of pain. Patient states that this is adequately helping manage his pain. Rates pain as 8 out of 10. [facility] number [phone] with an active morphine equivalent 0. Drug screens have been reviewed and appropriate. Today, patient states that she has pneumonia and is taking antibiotics. This was diagnosed this past Tuesday. General: No recent weight changes, no fever, no sleep disturbances Respiratory: No cough, no shortness of air, no recurring pulmonary infections Cardiovascular/peripheral vascular: No chest pain, no palpitations, no edema, no shortness of breath Gastrointestinal: No new onset incontinence, normal bowel movements reported Genitourinary: No new onset incontinence Musculoskeletal: Back pain Psychiatric: [Normal mood/affect] Neurological: [Denies weakness in extremities], [denies balance issues] Objective:: General: Alert and oriented x3, no acute distress, pleasant and cooperative, [on room air] Lungs: Respirations even and unlabored, symmetrical chest expansion Eyes: PERRL Musculoskeletal: Flexion and extension of lumbar [spine] somewhat guarded secondary to pain, [antalgic gait noted] Neurological: Speech clear, no gross sensory deficit Assessment:: Degenerative disc disease of the lumbar spine with lumbar radiculopathy symptoms Plan:: We will continue the patient's oxycodone 10 mg 5 times a day. We will provide the patient with 1 month of refills. We would like to see the patient back in a month for follow-up and reevaluation of chronic pain syndrome. Patient has been advised of risks of oversedation with the prescribed medication. Narcan has been offered to the paitent in the event of oversedation. Patient has been advised that a family member should also be educated regarding administration of Narcan. Patient has been instructed to contact the clinic with any concerns before the next appointment. Dr. Miller has reviewed this note and agrees with this plan of care. This note was dictated using voice recognition software and make contain errors or omissions. [facility] History Medical History: Reports:: Congestive Heart Failure, Chronic Obstructive Pulmonary Disease (COPD), Coronary Artery Disease, Heart Murmur, Hyperlipidemia, Hypertension, Peripheral Vascular Disease, Valvular Heart Disease Denies:: Cancer, Diabetes Mellitus Type 1, Diabetes Mellitus Type 2, MRSA, Seizures *Have you ever received a pneumonia vaccine?: Yes *Have you received a flu vaccine this season?: Yes Other Medical History: Reports: Anemia, Cataracts, Glaucoma, Other. Denies: Blood Transfusion Reaction Laterality Cases: Right: Carpal Tunnel Release Other Surgeries: Yes: Cancer Surgery, Cardiac Catheterization, Colonoscopy, Other Amputation: No Fractures: Yes (fracture of the first cervical vertebrae November 2020) - *Social History Smoking Status: Current every day smoker Tobacco Type: cigarettes # Packs/Day (cigarettes): 1 Alcohol Intake: never Substance Use Type: denies use *Occupational Status:: disabled Housing: house Household Members: children *Travel in the last 8 weeks: None Family Hx:: Hypertension, Cancer
== END ==
PROVIDERS: Visit Provider Student in an Organized Health Care Education/Training Program
DX: M51.16 Intervertebral disc disorders with radiculopathy, lumbar region (principal)
CPT/HCPCS: 80305; 80361; 80365; 99212; G0463; G0480

== ENCOUNTER → 2022-01-21 12:10 | Outpatient (CLI) | payer MEDICARE, SELFPAY ==
[2022-01-21 16:04] LABS: Benzodiazepines Screen,Urine Negative ng/ml (<200)
[2022-01-21 16:05] LABS: Amphetamine/Metha Screen,Urine Negative ng/ml (<1000)
[2022-01-21 16:06] LABS: Barbiturates Screen,Urine Negative ng/ml (<200); Cannabinoid Screen,Urine Negative ng/ml (<50)
[2022-01-21 16:07] LABS: Cocaine Screen,Urine Negative ng/ml (<300); Methadone Screen,Urine Negative ng/ml (<300)
[2022-01-21 16:08] LABS: Opiate Screen,Urine Positive ng/ml (<300)
[2022-01-21 16:09] LABS: Phencyclidine Screen,Urine Negative ng/ml (<25)
[2022-02-02 22:11] LABS: Opiates Negative (Cutoff=100); Oxycodone (GC/MS) >3000 ng/mL (Cutoff=100); Oxymorphone (GC/MS) 237 ng/mL (Cutoff=100)
== END ==
PROVIDERS: Visit Provider Anesthesiology Pain Medicine
DX: Z79.891 Long term (current) use of opiate analgesic (principal)
CPT/HCPCS: 80305; 80361; 80365; G0480

== ENCOUNTER → 2022-02-01 15:38 | Outpatient (CLI) | payer MEDICARE, SELFPAY ==
--- NOTE | 2022-02-01 15:42 | XR_ITS ---
FINAL REPORT CLINICAL HISTORY: PNEUMONIA OF RIGHT LUNG DUE TO INFECTIOUS ORGANISM COMPARISON: January 18, 2022 FINDINGS: Two views of the chest were obtained. The heart size and pulmonary vascularity are within normal limits. The mediastinum is normal. There is mild atelectasis or scarring. There is improved aeration of the right lung base. There is no pneumothorax. There is a spinal stimulator in the thoracic spine. IMPRESSION: Mild atelectasis or scarring. Reviewed, Interpreted and Dictated by Mj Garvin III, MD Transcribed by Asa Shi Authenticated by Mj Garvin III, MD on 02/01/2022 04:41:00 PM [facility]
== END ==
PROVIDERS: PCP Family Medicine; Visit Provider Family Medicine
DX: J18.9 Pneumonia, unspecified organism (principal)
CPT/HCPCS: 71046

== ENCOUNTER → 2022-02-18 11:09 | Outpatient (POV) | payer MEDICARE, SELFPAY ==
[2022-02-18 11:23] VITALS: BP 121/38; PULSE 65; RESP 18; TEMP 36.9; O2SAT 98; BMI 16.2
--- NOTE | 2022-02-18 12:51 | P.CONS_ITS ---
[facility] Pain Management SOAP Note Subjective:: Patient is a pleasant 85-year-old female who is here for medication refill and follow-up. Patient is currently being treated for degenerative disc disease of lumbar spine with lumbar radiculopathy symptoms. Patient is being managed with oxycodone 10 mg 5 times a day. She also has a spinal cord stimulator that is not working. She has also tried an intrathecal pain pump but she developed an infection. We had to explant her pain pump.. Patient denies any side effects from the medications. Patient denies any changes to the location and type of pain. Patient states that this is adequately helping manage their pain. Rates pain as 7 out of 10. [facility] number [id number] with an active morphine equivalent 0. Drug screens have been reviewed and appropriate. Review of Systems: General: No recent weight changes, no fever, no sleep disturbances Respiratory: No cough, no shortness of air, no recurring pulmonary infections Cardiovascular/peripheral vascular: No chest pain, no palpitations, no edema, no shortness of breath Gastrointestinal: No new onset incontinence, normal bowel movements reported Genitourinary: No new onset incontinence Musculoskeletal: Low back pain Psychiatric: [Normal mood/affect] Neurological: [Denies weakness in extremities], [denies balance issues] Objective:: Physical Exam: General: Alert and oriented x3, no acute distress, pleasant and cooperative, [on room air] Lungs: Respirations even and unlabored, symmetrical chest expansion Eyes: PERRL Musculoskeletal: Flexion and extension of lumbar [spine] somewhat guarded secondary to pain, [antalgic gait noted] Neurological: Speech clear, no gross sensory deficit Assessment:: Degenerative disc disease lumbar spine with lumbar radiculopathy symptoms Plan:: Per [place], 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 When we called her pharmacy, she still has a prescription that has not been picked up there. We will not refill her prescription this month since she still has one in the pharmacy. Follow-up in 1 month Patient has been instructed to contact the clinic with any concerns before the next appointment. Dr. Miller has reviewed this note and agrees with this plan of care. This note was dictated using voice recognition software and make contain errors or omissions. [facility] History Medical History: Reports:: Congestive Heart Failure, Chronic Obstructive Pulmonary Disease (COPD), Coronary Artery Disease, Heart Murmur, Hyperlipidemia, Hypertension, Peripheral Vascular Disease, Valvular Heart Disease Denies:: Cancer, Diabetes Mellitus Type 1, Diabetes Mellitus Type 2, MRSA, Seizures *Have you ever received a pneumonia vaccine?: Yes *Have you received a flu vaccine this season?: Yes Other Medical History: Reports: Anemia, Cataracts, Glaucoma, Other. Denies: Blood Transfusion Reaction Laterality Cases: Right: Carpal Tunnel Release Other Surgeries: Yes: Cancer Surgery, Cardiac Catheterization, Colonoscopy, Other Amputation: No Fractures: Yes (fracture of the first cervical vertebrae November 2020) - *Social History Smoking Status: Current every day smoker Tobacco Type: cigarettes # Packs/Day (cigarettes): 1 Alcohol Intake: never Substance Use Type: denies use *Occupational Status:: retired Housing: house Household Members: children *Travel in the last 8 weeks: None Family Hx:: Hypertension, Cancer
== END ==
PROVIDERS: Visit Provider Student in an Organized Health Care Education/Training Program
DX: M51.16 Intervertebral disc disorders with radiculopathy, lumbar region (principal)
CPT/HCPCS: 99212; G0463

== ENCOUNTER → 2022-03-18 10:56 | Outpatient (POV) | payer MEDICARE, SELFPAY ==
[2022-03-18 11:13] VITALS: BP 139/79; PULSE 61; RESP 18; TEMP 36.9; O2SAT 97; BMI 16.2
--- NOTE | 2022-03-18 12:08 | HMH.PAINSOAP ---
[facility] Pain Management SOAP Note Subjective:: Patient is a pleasant 86-year-old female who is here for medication refill and follow-up. Patient is currently being treated for degenerative disc disease of lumbar spine with lumbar radiculopathy symptoms. Patient is being managed with oxycodone 10 mg 5 times a day. She also has a spinal cord stimulator that is not working. She has also tried intrathecal pain pump therapy however, she developed an infection and had to be explanted. Patient denies any side effects from the medications. Patient denies any changes to the location and type of pain. Patient states that this is adequately helping manage their pain. Rates pain as 8 out of 10. [facility] number [phone] with an active morphine equivalent 0. Drug screens have been reviewed and appropriate. Review of Systems: General: No recent weight changes, no fever, no sleep disturbances Respiratory: No cough, no shortness of air, no recurring pulmonary infections Cardiovascular/peripheral vascular: No chest pain, no palpitations, no edema, no shortness of breath Gastrointestinal: No new onset incontinence, normal bowel movements reported Genitourinary: No new onset incontinence Musculoskeletal: Low back pain Psychiatric: [Normal mood/affect] Neurological: [Denies weakness in extremities], [denies balance issues] Objective:: Physical Exam: General: Alert and oriented x3, no acute distress, pleasant and cooperative Lungs: Respirations even and unlabored, symmetrical chest expansion Eyes: PERRL Musculoskeletal: Flexion and extension of lumbar [spine] somewhat guarded secondary to pain, [antalgic gait noted] Neurological: Speech clear, no gross sensory deficit Assessment:: Degenerative disease of lumbar spine with lumbar radiculopathy symptoms Plan:: We will continue the patient's oxycodone 10 mg 5 times a day. We will provide the patient with 1 month of refills. We would like to see the patient back in 1 month for follow-up and reevaluation of chronic pain syndrome. Patient has been advised of risks of oversedation with the prescribed medication. Narcan has been offered to the patient in the event of oversedation. Patient has been advised that a family member should also be educated regarding administration of Narcan. Patient has been instructed to contact the clinic with any concerns before the next appointment. Dr. Miller has reviewed this note and agrees with this plan of care. This note was dictated using voice recognition software and make contain errors or omissions. [facility] History Medical History: Reports:: Congestive Heart Failure, Chronic Obstructive Pulmonary Disease (COPD), Coronary Artery Disease, Heart Murmur, Hyperlipidemia, Hypertension, Peripheral Vascular Disease, Valvular Heart Disease Denies:: Cancer, Diabetes Mellitus Type 1, Diabetes Mellitus Type 2, MRSA, Seizures *Have you ever received a pneumonia vaccine?: Yes *Have you received a flu vaccine this season?: Yes Other Medical History: Reports: Anemia, Cataracts, Glaucoma, Other. Denies: Blood Transfusion Reaction Laterality Cases: Right: Carpal Tunnel Release Other Surgeries: Yes: Cancer Surgery, Cardiac Catheterization, Colonoscopy, Other Amputation: No Fractures: Yes (fracture of the first cervical vertebrae November 2020) - *Social History Smoking Status: Current every day smoker Tobacco Type: cigarettes # Packs/Day (cigarettes): 1 Alcohol Intake: never Substance Use Type: denies use *Occupational Status:: retired Housing: house Household Members: children *Travel in the last 8 weeks: None Family Hx:: Hypertension, Cancer
== END ==
PROVIDERS: Visit Provider Student in an Organized Health Care Education/Training Program
DX: M51.16 Intervertebral disc disorders with radiculopathy, lumbar region (principal)
CPT/HCPCS: 99212; G0463

== ENCOUNTER → 2022-04-15 11:51 | Outpatient (POV) | payer MEDICARE, SELFPAY ==
[2022-04-15 12:03] VITALS: BP 159/60; PULSE 70; RESP 18; TEMP 37.4; O2SAT 95; BMI 16.2
--- NOTE | 2022-04-15 12:40 | HMH.PAINSOAP ---
[facility] Pain Management SOAP Note Subjective:: Patient is a pleasant 86-year-old female who is here for medication refill and follow-up. Patient is currently being treated for degenerative disease of lumbar spine with lumbar radiculopathy symptoms. Patient is being managed with oxycodone 10 mg 5 times a day. She also has a spinal cord stimulator that is not working. She has tried intrathecal pain pump therapy however, she developed an infection and it had to be explanted.. Patient denies any side effects from the medications. Patient denies any changes to the location and type of pain. Patient states that this is adequately helping manage their pain. Rates pain as 8 out of 10. [facility] number [phone] with an active morphine equivalent 0. Drug screens have been reviewed and appropriate. She is also complaining of left knee pain today. She she states that she has been managing this with topical creams which is helping her. She has not tried any intra-articular injections in the past. Review of Systems: General: No recent weight changes, no fever, no sleep disturbances Respiratory: No cough, no shortness of air, no recurring pulmonary infections Cardiovascular/peripheral vascular: No chest pain, no palpitations, no edema, no shortness of breath Gastrointestinal: No new onset incontinence, normal bowel movements reported Genitourinary: No new onset incontinence Musculoskeletal: Low back pain, left knee pain Psychiatric: [Normal mood/affect] Neurological: [Denies weakness in extremities], [denies balance issues] Objective:: Physical Exam: General: Alert and oriented x3, no acute distress, pleasant and cooperative Lungs: Respirations even and unlabored, symmetrical chest expansion Eyes: PERRL Musculoskeletal: Flexion and extension of lumbar [spine] somewhat guarded secondary to pain, [antalgic gait noted]; limited range of motion of the left knee secondary to pain, patient walks with a walker Neurological: Speech clear, no gross sensory deficit Assessment:: Degenerative disc disease of lumbar spine with lumbar radiculopathy symptoms, left knee pain Plan:: We will continue the patient's oxycodone 10 mg 5 times a day. We will provide the patient with 1 month of refills. We would like to see the patient back in 1 month for follow-up and reevaluation of chronic pain syndrome. I have discussed with the patient that we can certainly do intra-articular injections in our clinic. Patient wants to hold off in any injective therapy at the moment and wants to keep trying her topical creams. Patient has been advised of risks of oversedation with the prescribed medication. Narcan has been offered to the patient in the event of oversedation. Patient has been advised that a family member should also be educated regarding administration of Narcan. Patient has been instructed to contact the clinic with any concerns before the next appointment. Dr. Miller has reviewed this note and agrees with this plan of care. This note was dictated using voice recognition software and make contain errors or omissions. [facility] History Medical History: Reports:: Congestive Heart Failure, Chronic Obstructive Pulmonary Disease (COPD), Coronary Artery Disease, Heart Murmur, Hyperlipidemia, Hypertension, Peripheral Vascular Disease, Valvular Heart Disease Denies:: Cancer, Diabetes Mellitus Type 1, Diabetes Mellitus Type 2, MRSA, Seizures *Have you ever received a pneumonia vaccine?: Yes *Have you received a flu vaccine this season?: Yes Other Medical History: Reports: Anemia, Cataracts, Glaucoma, Other. Denies: Blood Transfusion Reaction Laterality Cases: Right: Carpal Tunnel Release Other Surgeries: Yes: Cancer Surgery, Cardiac Catheterization, Colonoscopy, Other Amputation: No Fractures: Yes (fracture of the first cervical vertebrae November 2020) - *Social History Smoking Status: Current every day smoker Tobacco Type: cigarettes # Packs/Day (cigarettes): 1 Alcohol Intake: n
== END ==
PROVIDERS: Visit Provider Student in an Organized Health Care Education/Training Program
DX: M51.16 Intervertebral disc disorders with radiculopathy, lumbar region (principal); M25.562 Pain in left knee
CPT/HCPCS: 99212; G0463

== ENCOUNTER → 2022-05-11 13:58 | Outpatient (POV) | payer MEDICARE, SELFPAY ==
[2022-05-11 14:10] VITALS: BP 180/57; PULSE 65; RESP 20; TEMP 36.9; O2SAT 97; BMI 16.0
--- NOTE | 2022-05-11 14:17 | HMH.PAINSOAP ---
[facility] Pain Management SOAP Note Subjective:: Patient is a pleasant 86-year-old female who is here for medication refill and follow-up. Patient is currently being treated for degenerative disc disease of lumbar spine with lumbar radiculopathy symptoms. Patient rates her pain a 10 out of 10 today. She states the pain is an achy intermittent sensation. Her pain is more in her elbows today. Pain is currently being managed with oxycodone 10 mg 5 times a day. She denies any side effects from this medication. She denies any changes to the location and type of pain. Patient does state that this is adequately managing her pain. We have tried in the past intrathecal pain pump therapy however she developed an infection and had to be explanted. Patient does still currently have her spinal cord stimulator in place. Her Freedom is [id number]. It has been reviewed and is appropriate. Review of Systems: General: No recent weight changes, no fever, no sleep disturbances Respiratory: No cough, no shortness of air, no recurring pulmonary infections Cardiovascular/peripheral vascular: No chest pain, no palpitations, no edema, no shortness of breath Gastrointestinal: No new onset incontinence, normal bowel movements reported Genitourinary: No new onset incontinence Musculoskeletal: Low back pain, knee pain, elbow pain Psychiatric: [Normal mood/affect] Neurological: [Denies weakness in extremities], [denies balance issues] Objective:: Physical Exam: General: Alert and oriented x3, no acute distress, pleasant and cooperative Lungs: Respirations even and unlabored, symmetrical chest expansion Eyes: PERRL Musculoskeletal: Flexion and extension of lumbar [spine] somewhat guarded secondary to pain, [antalgic gait noted] Neurological: Speech clear, no gross sensory deficit Assessment:: Degenerative disc disease of lumbar spine with lumbar radiculopathy symptoms, left knee pain Plan:: We will continue the patient's oxycodone 10 mg 5 times a day. We will provide the patient with 1 month of refills. Patient will return to clinic in 1 month for follow up and medication refill. Patient has been advised of risks of oversedation with the prescribed medication. Narcan has been offered to the patient in the event of oversedation. Patient has been advised that a family member should also be educated regarding administration of Narcan. Patient has been instructed to contact the clinic with any concerns before the next appointment. Dr. Miller has reviewed this note and agrees with this plan of care. This note was dictated using voice recognition software and make contain errors or omissions. [facility] History I have reviewed the patient's past medical history: Yes Medical History: Reports:: Congestive Heart Failure, Chronic Obstructive Pulmonary Disease (COPD), Coronary Artery Disease, Heart Murmur, Hyperlipidemia, Hypertension, Peripheral Vascular Disease, Valvular Heart Disease Denies:: Cancer, Diabetes Mellitus Type 1, Diabetes Mellitus Type 2, MRSA, Seizures *Have you ever received a pneumonia vaccine?: Yes *Have you received a flu vaccine this season?: Yes Other Medical History: Reports: Anemia, Cataracts, Glaucoma, Other. Denies: Blood Transfusion Reaction Laterality Cases: Right: Carpal Tunnel Release Other Surgeries: Yes: Cancer Surgery, Cardiac Catheterization, Colonoscopy, Other Amputation: No Fractures: Yes (fracture of the first cervical vertebrae November 2020) - *Social History Smoking Status: Current every day smoker Tobacco Type: cigarettes # Packs/Day (cigarettes): 1 Alcohol Intake: never Substance Use Type: denies use *Occupational Status:: other Housing: house Household Members: children *Travel in the last 8 weeks: Inside the [facility] Family Hx:: Hypertension, Cancer
[2022-05-11 20:12] LABS: Amphetamine/Metha Screen,Urine Negative ng/ml (<1000)
[2022-05-11 20:13] LABS: Barbiturates Screen,Urine Negative ng/ml (<200); Benzodiazepines Screen,Urine Negative ng/ml (<200)
[2022-05-11 20:14] LABS: Cannabinoid Screen,Urine Negative ng/ml (<50)
[2022-05-11 20:15] LABS: Cocaine Screen,Urine Negative ng/ml (<300)
[2022-05-11 20:16] LABS: Methadone Screen,Urine Negative ng/ml (<300)
[2022-05-11 20:17] LABS: Opiate Screen,Urine Negative ng/ml (<300); Phencyclidine Screen,Urine Negative ng/ml (<25)
[2022-05-18 15:11] LABS: Opiates Negative (Cutoff=100); Oxycodone (GC/MS) 2075 ng/mL (Cutoff=100); Oxymorphone (GC/MS) 583 ng/mL (Cutoff=100)
== END ==
PROVIDERS: Visit Provider Student in an Organized Health Care Education/Training Program
DX: M51.16 Intervertebral disc disorders with radiculopathy, lumbar region (principal); Z79.891 Long term (current) use of opiate analgesic; M25.562 Pain in left knee
CPT/HCPCS: 80305; 80361; 80365; 99212; G0463; G0480

== ENCOUNTER → 2022-05-11 14:26 | Outpatient (CLI) | payer MEDICARE, SELFPAY | PROVIDERS: PCP Family Medicine; Visit Provider Student in an Organized Health Care Education/Training Program | DX: Z79.891 Long term (current) use of opiate analgesic (principal) ==

== ENCOUNTER → 2022-06-10 13:11 | Outpatient (POV) | payer MEDICARE, SELFPAY ==
[2022-06-10 13:19] VITALS: BP 177/75; PULSE 55; RESP 20; O2SAT 97; BMI 16.4
--- NOTE | 2022-06-10 13:23 | HMH.PAINSOAP ---
[facility] Pain Management SOAP Note Subjective:: Patient is a pleasant 86-year-old female who presents today for medication refill and follow-up. We are currently treating the patient for degenerative disc disease of lumbar spine with lumbar radiculopathy symptoms. Today the patient rates her pain a 10 out of 10. She states that this is a achy, intermittent sensation in her knees. Patient denies any new trauma or injury at the site. She currently is being managed with oxycodone 10 mg 5 times a day. Patient states that she does have chronic constipation issues. She states she takes MiraLAX and Benefiber daily to help with this symptom. Patient also takes gabapentin 600 mg 4 times a day that is prescribed by Dr. Smith. Patient denies any change to the location or type of pain she experiences. She does state these medications help manage her pain. Patient also uses compounding cream that she states gives significant pain relief. Patient did have a intrathecal pain pump prior however she developed an infection and had to be explanted. She does also have a spinal cord stimulator in place. Her Freedom is [id number]. It has been reviewed and appropriate. Patient did have a urine drug screen on 05/11/2022 and it was appropriate. Review of Systems: General: No recent weight changes, no fever, no sleep disturbances Respiratory: No cough, no shortness of air, no recurring pulmonary infections Cardiovascular/peripheral vascular: No chest pain, no palpitations, no edema, no shortness of breath Gastrointestinal: No new onset incontinence, normal bowel movements reported Genitourinary: No new onset incontinence Musculoskeletal: Low back pain, bilateral knee pain Psychiatric: [Normal mood/affect] Neurological: [Denies weakness in extremities], [denies balance issues] Objective:: Physical Exam: General: Alert and oriented x3, no acute distress, pleasant and cooperative Lungs: Respirations even and unlabored, symmetrical chest expansion Eyes: PERRL Musculoskeletal: Flexion and extension of bilateral knees, lumbar [spine] somewhat guarded secondary to pain, [antalgic gait noted] Neurological: Speech clear, no gross sensory deficit Assessment:: Degenerative disc disease of lumbar spine with lumbar radiculopathy symptoms, bilateral knee pain Plan:: Patient has significant pain in her low back and bilateral knees. We will refill her oxycodone 10 mg 5 times a day prescription. We will provide 1 month worth of refills on this. Patient will return to clinic in 1 month for medication refill and reevaluation of symptoms. Patient has been advised of the risk of oversedation with the prescribed medication. Patient has been instructed to contact the clinic with any concerns before the next appointment. Dr. Miller has reviewed this note and agrees with this plan of care. This note was dictated using voice recognition software and make contain errors or omissions. [facility] History I have reviewed the patient's past medical history: Yes Medical History: Reports:: Congestive Heart Failure, Chronic Obstructive Pulmonary Disease (COPD), Coronary Artery Disease, Heart Murmur, Hyperlipidemia, Hypertension, Peripheral Vascular Disease, Valvular Heart Disease Denies:: Cancer, Diabetes Mellitus Type 1, Diabetes Mellitus Type 2, MRSA, Seizures *Have you ever received a pneumonia vaccine?: Yes *Have you received a flu vaccine this season?: Yes Other Medical History: Reports: Anemia, Cataracts, Glaucoma, Other. Denies: Blood Transfusion Reaction Laterality Cases: Right: Carpal Tunnel Release Other Surgeries: Yes: Cancer Surgery, Cardiac Catheterization, Colonoscopy, Other Amputation: No Fractures: Yes (fracture of the first cervical vertebrae November 2020) - *Social History Smoking Status: Current every day smoker Tobacco Type: cigarettes # Packs/Day (cigarettes): 1 Alcohol Intake: never Substance Use Type: denies use *Occupational Status:: other Housing: house Household Members:
== END ==
PROVIDERS: PCP Family Medicine; Visit Provider Nurse Practitioner Family
DX: M51.16 Intervertebral disc disorders with radiculopathy, lumbar region (principal); M17.0 Bilateral primary osteoarthritis of knee
CPT/HCPCS: 99212; G0463

== ENCOUNTER → 2022-07-08 13:10 | Outpatient (POV) | payer MEDICARE, SELFPAY ==
[2022-07-08 13:15] VITALS: BP 134/65; PULSE 64; RESP 20; BMI 16.0
--- NOTE | 2022-07-08 13:44 | EXP.PAIN.SOA ---
[facility] Pain Management SOAP Note Subjective:: Patient is a pleasant 86-year-old female who presents today for follow-up and medication refill. We are currently treating the patient for degenerative disc disease of lumbar spine with lumbar radiculopathy symptoms. Today the patient rates her pain a 8 out of 10. She states this pain is all in her low back and the front of her bilateral legs. Patient denies any new trauma or injury to the site. She denies any change to the location or type of pain she experiences. She is currently managed with oxycodone 10 mg 5 times a day. Patient denies any side effects with this medication. She states this medication does adequately manage her pain. Patient does have a history of chronic constipation issues. She does take MiraLAX daily and will also add Benefiber as needed. Patient is also prescribed gabapentin 600 mg 4 times a day by Dr. Smith. She denies any problems with this medication. Patient is prescribed compounding cream that she states gives significant improvement of her symptoms. She states she did run out of her last order and is requesting a refill at today's visit. Patient has a history of intrathecal pain pump however she did have a infection and had to be explanted. She has a spinal cord stimulator in place. Her Freedom is [id number]. Its been reviewed and appropriate. Review of Systems: General: No recent weight changes, no fever, no sleep disturbances Respiratory: No cough, no shortness of air, no recurring pulmonary infections Cardiovascular/peripheral vascular: No chest pain, no palpitations, no edema, no shortness of breath Gastrointestinal: No new onset incontinence, normal bowel movements reported Genitourinary: No new onset incontinence Musculoskeletal: Low back pain, bilateral leg pain Psychiatric: [Normal mood/affect] Neurological: [Denies weakness in extremities], [denies balance issues] Objective:: Physical Exam: General: Alert and oriented x3, no acute distress, pleasant and cooperative Lungs: Respirations even and unlabored, symmetrical chest expansion Eyes: PERRL Musculoskeletal: Flexion and extension of lumbar [spine] somewhat guarded secondary to pain, [antalgic gait noted]. Point tenderness bilateral anterior legs Neurological: Speech clear, no gross sensory deficit Assessment:: Degenerative disc disease of lumbar spine with lumbar radiculopathy symptoms Plan:: Patient continues to have significant pain in her low back and legs. I will reorder the patient's oxycodone 10 mg 5 times a day and provide a 1 month supply of this medication. Patient will return to clinic in 1 month for follow-up, medication refill and reevaluation of symptoms. Patient has been advised of risks of oversedation with the prescribed medication. Narcan has been offered to the patient in the event of oversedation. Patient has been advised that a family member should also be educated regarding administration of Narcan. Patient has been instructed to contact the clinic with any concerns before the next appointment. Dr. Miller has reviewed this note and agrees with this plan of care. This note was dictated using voice recognition software and make contain errors or omissions. [facility] Medical History (Updated 04/13/22 @ 14:24 by Leesa Finley RN) CAD (coronary artery disease) Cardiomyopathy Chest pain Dyspnea HHD (hypertensive heart disease) Social History Smoking Status: Current every day smoker tobacco type: cigarettes packs per day: 1 second hand exposure: Yes alcohol intake: never substance use type: denies use current occupational status: retired Travel in the last 8 weeks: None household members: children housing: house current occupational exposures/hazards: No caffeine: No
== END | disposition home or self-care (01) ==
PROVIDERS: PCP Family Medicine; Visit Provider Nurse Practitioner Family
DX: M51.16 Intervertebral disc disorders with radiculopathy, lumbar region (principal)
CPT/HCPCS: 99212; G0463

== ENCOUNTER → 2022-08-09 14:10 | Outpatient (POV) | payer MEDICARE, SELFPAY ==
--- NOTE | 2022-08-09 14:46 | EXP.PAIN.SOA ---
[facility] Pain Management SOAP Note Subjective:: Patient is a pleasant 86-year-old female who presents today for medication refill and follow-up. We are currently treating the patient for degenerative disc disease of lumbar spine with lumbar radiculopathy symptoms. Today the patient rates her pain an 8 out of 10. She states the pain is in her low back and the front of her legs. Patient denies any trauma or injury. She denies any change in location or type of pain she experiences. She is currently managed with oxycodone 10 mg 5 times a day. Patient states that she does take MiraLAX daily and Benefiber to help with the constipation related issues of this medication. Patient states this medication does adequately help manage her pain. Patient also states she does have chronic constipation issues. Patient is prescribed gabapentin 600 mg 4 times a day by Dr. Smith's office. She denies any problems with this medication. Patient states that the compounding cream does provide additional improvement of her symptoms. Patient did have a intrathecal pain pump in the past however she had an infection and it had to be explanted. Patient does have a spinal cord stimulator in place. Her Freedom is [id number]. It is been reviewed and appropriate. Review of Systems: General: No recent weight changes, no fever, no sleep disturbances Respiratory: No cough, no shortness of air, no recurring pulmonary infections Cardiovascular/peripheral vascular: No chest pain, no palpitations, no edema, no shortness of breath Gastrointestinal: No new onset incontinence, normal bowel movements reported Genitourinary: No new onset incontinence Musculoskeletal: Low back pain bilateral leg pain Psychiatric: [Normal mood/affect] Neurological: [Denies weakness in extremities], [denies balance issues] Objective:: Physical Exam: General: Alert and oriented x3, no acute distress, pleasant and cooperative Lungs: Respirations even and unlabored, symmetrical chest expansion Eyes: PERRL Musculoskeletal: Flexion and extension of lumbar [spine] somewhat guarded secondary to pain, [antalgic gait noted] Neurological: Speech clear, no gross sensory deficit Assessment:: Degenerative disc disease of lumbar spine with lumbar radiculopathy symptoms Plan:: Patient continues to have significant pain in her low back that radiates into her bilateral lower extremities. Patient is managed well with her current medication regimen. I will reorder the patient's oxycodone 10 mg 5 times a day and provide a 1 month supply of this medication. Patient will return to clinic in 1 month for reevaluation of symptoms, medication refill and follow-up. Patient has been advised of risks of oversedation with the prescribed medication. Narcan has been offered to the patient in the event of oversedation. Patient has been advised that a family member should also be educated regarding administration of Narcan. Patient has been instructed to contact the clinic with any concerns before the next appointment. Dr. Miller has reviewed this note and agrees with this plan of care. This note was dictated using voice recognition software and make contain errors or omissions. [facility] Medical History (Updated 04/13/22 @ 14:24 by Leesa Finley RN) CAD (coronary artery disease) Cardiomyopathy Chest pain Dyspnea HHD (hypertensive heart disease) Social History Smoking Status: Current every day smoker tobacco type: cigarettes packs per day: 1 second hand exposure: Yes alcohol intake: never substance use type: denies use current occupational status: retired Travel in the last 8 weeks: None household members: children housing: house current occupational exposures/hazards: No caffeine: No
[2022-08-09 15:04] VITALS: BP 178/67; PULSE 59; RESP 18; TEMP 37.5; O2SAT 96; BMI 16.0
[2022-08-09 17:58] LABS: Amphetamine/Metha Screen,Urine Negative ng/ml (<1000)
[2022-08-09 17:59] LABS: Barbiturates Screen,Urine Negative ng/ml (<200); Benzodiazepines Screen,Urine Negative ng/ml (<200)
[2022-08-09 18:00] LABS: Cannabinoid Screen,Urine Negative ng/ml (<50)
[2022-08-09 18:01] LABS: Methadone Screen,Urine Negative ng/ml (<300)
[2022-08-09 18:03] LABS: Cocaine Screen,Urine Negative ng/ml (<300); Opiate Screen,Urine Negative ng/ml (<300); Phencyclidine Screen,Urine Negative ng/ml (<25)
[2022-08-19 16:12] LABS: Opiates Negative (Cutoff=100); Oxycodone (GC/MS) 701 ng/mL (Cutoff=100); Oxymorphone (GC/MS) 655 ng/mL (Cutoff=100)
== END | disposition home or self-care (01) ==
PROVIDERS: PCP Family Medicine; Visit Provider Nurse Practitioner Family
DX: M51.16 Intervertebral disc disorders with radiculopathy, lumbar region (principal); Z79.891 Long term (current) use of opiate analgesic; F17.210 Nicotine dependence, cigarettes, uncomplicated
CPT/HCPCS: 80305; 80361; 80365; 99212; G0463; G0480

== ENCOUNTER 2022-08-14 00:25 | Inpatient (IN) | payer MEDICARE, SELFPAY ==
[2022-08-14] VITALS (20 sets, daily range): BP systolic 112–251; BP diastolic 56–106; PULSE 58–79; RESP 16–28; TEMP 36.4–36.9; O2SAT 90–98; BMI 16.0; BMI 14.9
--- NOTE | 2022-08-14 00:22 | ECG_ITS ---
APPROVED REPORT Exam: Resting ECG HR:60 bpm ECG Measurements Heart Rate 60 AXES MO 116 P 81 QRSd 81 QRS 70 QT 412 T 120 QTc 413 Conclusion SINUS RHYTHM WITH SHORT MO INTERVAL WITH OCCASIONAL SUPRAVENTRICULAR PREMATURE COMPLEXES ST and Twve changes and poor r wave progression previously noted in 2020 ABNORMAL ECG UNCONFIRMED REPORT Electronically signed by : Ata Becerra MD 08/14/2022 17:39:08
--- NOTE | 2022-08-14 00:50 | HMH.EDGENADL ---
Discharge Plan Disposition Chief Complaint: Shortness of Breath/Dyspnea Prescriptions Prescriptions: No Action lisinopril 10 mg tablet 20 mg PO DAILY furosemide 20 mg tablet 20 mg PO DAILY Pro Fe 180 mg iron capsule 180 mg PO DAILY Label Comments: TAKE ONE CAPSULE BY MOUTH DAILY potassium chloride 20 mEq tablet,ER particles/crystals 20 meq PO DAILY simvastatin 40 mg tablet 40 mg PO DAILY Qty: 30 5RF metoprolol succinate 100 mg tablet extended release 24 hr 100 mg PO DAILY Qty: 30 5RF clopidogrel 75 MG tablet 75 mg PO DAILY aspirin 81 MG tablet,delayed release (DR/EC) 81 mg PO DAILY calcium carb-mag oxide-vit D3 1 EACH tablet 1 each PO BID naloxone 4 MG spray,non-aerosol 4 mg NS ONCE PRN (Reason: oversedation) Qty: 1 1RF duloxetine 60 MG capsule,delayed release(DR/EC) 60 mg PO DAILY gabapentin 600 mg tablet 1,200 mg PO BID latanoprost 2.5 ML bottle 1 drp OP HS Label Comments: place 1 drop into both eyes every evening Rx Instructions: BOTH EYES oxycodone 10 MG tablet 10 mg PO 5XDAY Qty: 150 0RF Referrals Follow up/Referrals: Amish Smith MD [Primary Care Provider] - See instructions Discharge ED Provider: Shellie Diop General Adult HPI General Chief complaint: Shortness of Breath/Dyspnea Stated complaint: Weakness Time Seen by Provider: 08/14/22 00:50 Mode of Arrival: EMS Source of Information: Patient Limitations: No Limitations Description of Symptoms (Recalled from ER Triage Doc. by RN): pt presents with complaints of left posterior trunk pain; decreased appetite, decreased urinary output, lack of appetite;dyspnea complaints with exertion; afebrile History of Present Illness HPI narrative: 86yo F w/complex medical history including COPD, chronic pain syndrome on oxycodone 10mg, CHF, CAD, HTN, HLD w/cc of decreased appetite, decreased urinary output and fatigue. Per son who brings patient in, patient has not eaten anything in 3 days. Patient denies chest pain or shortness of breath, abdominal pain, nausea or vomiting but she states that she has not had an appetite. Patient is alert and cooperative. Per son she has not been more confused than normal. Afebrile at home without productive sputum, coughing up blood, falls or new traumatic injuries. Patient takes clopidogren and ASA daily. Related Data Home Medications Medication Instructions Recorded Confirmed duloxetine 60 mg capsule,delayed 60 mg PO DAILY mood 12/05/18 08/09/22 release latanoprost 0.005 % eye drops 1 drp ophthalmic (eye) HS 02/18/19 08/09/22 INTRAOCULAR PRESSURE gabapentin 600 mg tablet 1,200 mg PO BID Pain 11/28/19 08/09/22 furosemide 20 mg tablet 20 mg PO DAILY Fluid 08/26/20 08/09/22 aspirin 81 mg tablet,delayed 81 mg PO DAILY HEART HEALTH 02/17/21 08/09/22 release calcium carb-magnesium oxide-vit 1 each PO BID Supplement 02/17/21 08/09/22 D3 400 mg-167 mg-133 unit tablet clopidogrel 75 mg tablet 75 mg PO DAILY Platelet inhibitor 02/17/21 08/09/22 polysaccharide iron complex 180 mg 180 mg PO DAILY Supplement 07/06/21 08/09/22 iron capsule (Pro Fe) potassium chloride 20 mEq 20 meq PO DAILY Supplement 07/06/21 08/09/22 tablet,extended release(part/cryst) lisinopril 10 mg tablet 20 mg PO DAILY Hypertension 04/13/22 08/09/22 Previous Rx's Medication Instructions Recorded naloxone 4 mg/actuation nasal spray 4 mg intranasal ONCE PRN 09/28/21 oversedation #1 mL simvastatin 40 mg tablet 40 mg PO DAILY Cholesterol #30 tabs 04/15/22 metoprolol succinate 100 mg 100 mg PO DAILY BLOOD PRESSURE #30 05/25/22 tablet,extended release 24 hr tabs oxycodone 10 mg tablet 10 mg PO 5XDAY Pain #150 tabs 08/09/22 Allergies Allergy/AdvReac Type Severity Reaction Status Date / Time No Known Drug Allergies Allergy Unknown Verified 04/13/22 14:11 [NO KNOWN DRUG ALLERGIES] [facility] Medical History (Reviewed
--- NOTE | 2022-08-14 00:52 | PC.NURSE ---
Dr. Shaw at [facility]
--- NOTE | 2022-08-14 00:59 | XR_ITS ---
PROCEDURE INFORMATION: Exam: XR Chest Exam date and time: 08/14/2022 1:36 AM Age: 86 years old Clinical indication: Other: Malaise TECHNIQUE: Imaging protocol: Radiologic exam of the chest. Views: 1 view. COMPARISON: CR XR CHEST 2V 02/01/2022 3:47 PM FINDINGS: Lungs: Nonspecific bibasilar opacities, favoring atelectasis or pneumonia. Pleural spaces: No pleural effusion. No pneumothorax. Heart/Mediastinum: Unremarkable cardiomediastinal silhouette. Bones/joints: Spinal lead. IMPRESSION: Nonspecific bibasilar opacities, favoring atelectasis or pneumonia. Recommend imaging follow-up until complete resolution.
--- NOTE | 2022-08-14 00:59 | CT_ITS ---
PROCEDURE INFORMATION: Exam: CT Abdomen And Pelvis With Contrast Exam date and time: 08/14/2022 1:26 AM Age: 86 years old Clinical indication: Abdominal pain; Acute; Prior surgery; Surgery date: 6+ months; Surgery type: Pain pump TECHNIQUE: Imaging protocol: Computed tomography of the abdomen and pelvis with contrast. Radiation optimization: All CT scans at this facility use at least one of these dose optimization techniques: automated exposure control; mA and/or kV adjustment per patient size (includes targeted exams where dose is matched to clinical indication); or iterative reconstruction. Contrast material: ISOVUE; Contrast volume: 100 ml; Contrast route: IV; COMPARISON: CT ABDOMEN PELVIS WO CON 02/17/2021 3:50 AM FINDINGS: Tubes, catheters and devices: Left buttock spinal stimulator device. Lungs: Nonspecific bibasilar opacities, favoring atelectasis or pneumonia. Liver: No suspicious mass. Gallbladder and bile ducts: Cholelithiasis. Pancreas: No ductal dilation. No peripancreatic inflammatory changes. Spleen: Unremarkable. Adrenal glands: No mass. Kidneys and ureters: No hydronephrosis. Stomach and bowel: Haziness adjacent to the splenic flexure, nonspecific, suspicious for colitis, infectious/inflammatory or ischemic. Multiple significantly dilated small bowel loops consistent with high-grade small bowel obstruction. Appendix: No evidence of appendicitis. Intraperitoneal space: No free air. No ascites. Vasculature: Extensive atherosclerotic calcifications in the aorta and its branches. Lymph nodes: No enlarged lymph nodes. Urinary bladder: Diffuse thickening of the urinary bladder wall, nonspecific, cystitis is possible. Reproductive: Several calcification within the uterus, probably calcified leiomyomas. Bones/joints: No suspicious osseous lesion. No acute fracture. Scattered degenerative changes. Soft tissues: No suspicious mass. IMPRESSION: 1. Haziness adjacent to the splenic flexure, nonspecific, suspicious for colitis, infectious/inflammatory or ischemic. 2. Multiple significantly dilated small bowel loops consistent with high-grade small bowel obstruction. The transition point is possibly within right hemipelvis. 3. Nonspecific bibasilar opacities, favoring atelectasis or pneumonia. Recommend imaging follow-up until complete resolution. 4. Extensive atherosclerotic calcifications in the aorta and its branches. 5. Diffuse thickening of the urinary bladder wall, nonspecific, cystitis is possible. Correlate with UA.
[2022-08-14 01:13] LABS: Alanine Aminotransferase 17 U/L (12-78); Albumin Level 3.8 g/dl (3.5-5.0); Albumin/Globulin Ratio 1.1 (1.1-1.8); Alkaline Phosphatase 94 U/L (38-126); Anion Gap 14.1 mEq/L (5-15); Aspartate Amino Transferase 37 U/L (14-36); Bilirubin,Total 0.6 mg/dl (0.2-1.3); Blood Urea Nitrogen 44 mg/dl (7-17); Calcium 10.4 mg/dl (8.4-10.2); Carbon Dioxide 35 mmol/L (22.0-30.0); Chloride 98 mmol/L (98-107); Creatinine Clearance Estimated 29 mL/min (50-200); Estimated Glomerular Filt Rate 47 ml/min (>60); GFR (African American) 57 ML/MIN (>60); Globulin 3.4 g/dL (1.3-3.2); Glucose 120 mg/dl (74-100); Magnesium 1.9 mg/dl (1.6-2.3); Potassium 4.1 mmoL/L (3.5-5.1); Sodium 143 mmol/L (136-145); Total Protein,Serum 7.2 g/dl (6.3-8.2)
[2022-08-14 01:14] LABS: Basophils # 0.1 K/mm3 (0-0.2); Basophils % 0.7 % (0.1-2.0); Eosinophils % 0.4 % (0.1-12.0); Hemoglobin 14.9 g/dL (12.2-16.2); Lymphocytes # 1.5 K/mm3 (0.7-4.5); Lymphocytes % 17.9 % (10-50); Mean Corpuscular HGB Conc 32.4 g/dL (31.8-35.4); Mean Corpuscular Hemoglobin 31.5 pg (27.0-31.2); Mean Corpuscular Volume 97.4 fl (81-99); Mean Platelet Volume 9.1 fl (7.4-10.4); Monocytes # 0.7 K/mm3 (0.1-1.0); Neutrophils # 6.2 K/mm3 (1.8-7.8); Neutrophils % 72.9 % (37.0-80.0); Platelet Count 219 K/mm3 (142-424); Red Blood Count 4.72 M/mm3 (4.20-5.40); Red Cell Distribution Width 14.9 % (11.5-17.5); White Blood Count 8.4 K/mm3 (4.8-10.8)
[2022-08-14 01:19] LABS: C-Reactive Protein 22.2 mg/L (0-4)
[2022-08-14 01:24] LABS: Coronavirus 19, PCR Not Detected (NotDetected); Influenza A, PCR Not Detected (NotDetected); Influenza B, PCR Not Detected (NotDetected)
[2022-08-14 01:27] LABS: Troponin I 0.02 ng/ml (0.00-0.034)
[2022-08-14 01:33] LABS: Lactic Acid 1.2 mmol/L (0.7-2.1)
[2022-08-14 03:14] LABS: Microscopic, Urine URINE MICROSCOPIC (MICROSCOPIC)
[2022-08-14 03:21] LABS: Appearance,Urine SL CLOUDY (Clear); Bilirubin,Urine Negative (Negative); Blood, Urine 2+ (Negative); Color,Urine YELLOW (Yellow); Glucose,Urine (UA) Negative (Negative); Ketones,Urine Negative (Negative); Leukocyte Esterase,Urine TRACE (Negative); Nitrate,Urine POSITIVE (Negative); PH,Urine 6.5 (5.0-8.5); Protein,Urine 1+ (Negative); Specific Gravity, Urine 1.015 (1.005-1.030)
[2022-08-14 03:24] LABS: Bacteria,Urine 2+ /lpf
[2022-08-14 03:32] LABS: Thyroid Stimulating Hormone 1.99 uIU/mL (0.465-4.68)
--- NOTE | 2022-08-14 04:04 | PC.NURSE ---
spoke with hospitalist re: admission
--- NOTE | 2022-08-14 04:09 | PC.NURSE ---
filing and polishing supervisor notified for bed assignment
--- NOTE | 2022-08-14 04:17 | PC.NURSE ---
Pt is actually a pt of Dr. Smith. He is on-call for himself. paged Dr. Smith
--- NOTE | 2022-08-14 04:19 | PC.NURSE ---
Dr. Shaw s/w Dr. Smith for admission
[2022-08-14 04:30] LABS: Troponin I 0.02 ng/ml (0.00-0.034)
--- NOTE | 2022-08-14 07:26 | PC.NURSE ---
Notified Dr. Goddard of the consult on patient.
[2022-08-14 08:20] LABS: Troponin I 0.02 ng/ml (0.00-0.034)
--- NOTE | 2022-08-14 09:01 | EXP.HP ---
History of Present Illness *Admission Date: 08/14/22 *Reason for visit:: Abdominal pain *History of present illness: Ms. Loza is an 86 year old female who presented to [facility] ER last night complaining of abdominal pain for a few days assciated with constipation for over a week. She states the pain was fairly sever and was located in the center of her abdomen. She felt nauseated and vomited once. She denies fever and chills. She was seen in the office of [facility] three days ago due to left sided back pain and was treated with muscle relaxers and a IM dose of Dexamethasone. [facility] Medical History (Updated 08/14/22 @ 11:33 by Amish Smith MD) Anemia CAD (coronary artery disease) Cardiomyopathy Chest pain Chronic pain syndrome COPD (chronic obstructive pulmonary disease) Dyspnea HHD (hypertensive heart disease) History of left heart catheterization Neuropathy Surgical History (Updated 08/14/22 @ 11:15 by Amish Smith MD) History of carpal tunnel surgery History of cataract removal with insertion of prosthetic lens History of lumbar laminectomy Social History (Updated 08/14/22 @ 05:39 by Sosa Mcintyre RN) Smoking Status: Current every day smoker tobacco type: cigarettes packs per day: 1 years smoked: 50 quit status: not considering quitting second hand exposure: Yes alcohol intake: never substance use type: denies use current occupational status: retired Travel in the last 8 weeks: None household members: children housing: house current occupational exposures/hazards: No caffeine: No Review of Systems Constitutional Constitutional: Denies headache(s) Eyes Eyes: Denies change in vision ENT Ears, Nose, Mouth, and Throat: Denies dizziness, Reports dry mouth and Denies headache(s) *Cardiovascular Cardiovascular: Denies chest pain *Respiratory Respiratory: Denies cough *Gastrointestinal Gastrointestinal: Reports as per HPI *Genitourinary Genitourinary: Reports urinary urgency *Musculoskeletal Musculoskeletal: Reports back pain Integumentary/Breasts Skin/Breast: Denies rash *Neurologic Neurologic: Reports confusion, Denies dizziness, Denies headache(s) and Denies paresthesias Psychiatric Psychiatric: Reports confusion Meds Home Medications and Allergies Home Medications Medication Instructions Recorded Confirmed Type duloxetine 60 mg capsule,delayed 60 mg PO DAILY mood 12/05/18 08/14/22 History release latanoprost 0.005 % eye drops 1 drp ophthalmic (eye) HS 02/18/19 08/14/22 History INTRAOCULAR PRESSURE gabapentin 600 mg tablet 1,200 mg PO BID Pain 11/28/19 08/14/22 History furosemide 20 mg tablet 20 mg PO DAILY Fluid 08/26/20 08/14/22 History aspirin 81 mg tablet,delayed 81 mg PO DAILY HEART HEALTH 02/17/21 08/14/22 History release calcium carb-magnesium oxide-vit 1 each PO BID Supplement 02/17/21 08/14/22 History D3 400 mg-167 mg-133 unit tablet clopidogrel 75 mg tablet 75 mg PO DAILY Platelet inhibitor 02/17/21 08/14/22 History polysaccharide iron complex 180 mg 180 mg PO DAILY Supplement 07/06/21 08/14/22 History iron capsule (Pro Fe) potassium chloride 20 mEq 20 meq PO DAILY Supplement 07/06/21 08/14/22 History tablet,extended release(part/cryst) naloxone 4 mg/actuation nasal spray 4 mg intranasal ONCE PRN 09/28/21 08/14/22 Rx oversedation #1 mL lisinopril 10 mg tablet 20 mg PO DAILY Hypertension 04/13/22 08/14/22 History simvastatin 40 mg tablet 40 mg PO DAILY Cholesterol #30 tabs 04/15/22 08/14/22 Rx metoprolol succinate 100 mg 100 mg PO DAILY BLOOD PRESSURE #30 05/25/22 08/14/22 Rx tablet,extended release 24 hr tabs oxycodone 10 mg tablet 10 mg PO 5XDAY Pain #150 tabs 08/09/22 08/14/22 Rx New Prescriptions to Start Prescriptions: Allergies Allergy/AdvReac Type Severity Reaction Status Date / Time No Known Drug Allergies Allergy Unknown Verified 04/13/22 14:11 [NO KNOWN DRUG ALLERGIES] Exam Data for
--- NOTE | 2022-08-14 10:22 | EXP.SURG.CON ---
History of Present Illness *Admission Date: 08/14/22 *Reason for visit:: Consultation for small bowel obstruction *History of present illness: Patient is an 86-year-old female with history of hypertension, hyperlipidemia, chronic arterial occlusive disease, COPD, coronary artery disease, pulmonary hypertension, biventricular congestive heart failure, chronic lumbar disc disease, chronic cervical disc disease, chronic pain syndrome for whom she has seen chronic pain management at this facility extensively and in 2019 had intrathecal pain pump placed which required removal secondary to infection. She has subsequently had a spinal cord stimulator placed. Patient is on aspirin, Plavix, gabapentin, oxycodone 10 mg 5 times daily. She has problems with chronic constipation and takes Miralax and fiber. She recently had recently developed left back pain and had been seen in the office of [facility] on 08/11/22 was treated with muscle relaxers and IM injection of dexamethasone. She had presented to the emergency department in the early childhood services coordinator of 08/14/2022 with complaints of diminished appetite, constipation, diminished urinary output, and fatigue. Evaluation in the emergency department revealed some abdominal tenderness in the suprapubic and left lower quadrant area. Part of her work-up in the emergency department included CT scan with IV contrast which revealed findings of haziness adjacent to splenic flexure, nonspecific, suspicious for colitis, infectious/inflammatory or ischemic. Multiple significantly dilated small bowel loops consistent with high-grade small bowel obstruction. The transition point is possibly within the right hemipelvis. Nonspecific bibasilar opacities, favoring atelectasis or pneumonia. Recommended imaging follow-up until complete resolution. Extensive atherosclerotic calcifications in the aorta and its branches. Diffuse thickening of the urinary bladder, nonspecific, cystitis is possible. Correlate with UA. Patient was admitted to Dr. Smith with surgical consultation. [facility] Medical History (Updated 08/14/22 @ 09:09 by Amish Smith MD) Anemia CAD (coronary artery disease) Cardiomyopathy Chest pain Chronic pain syndrome COPD (chronic obstructive pulmonary disease) Dyspnea HHD (hypertensive heart disease) Neuropathy Social History (Updated 08/14/22 @ 05:39 by Sosa Mcintyre RN) Smoking Status: Current every day smoker tobacco type: cigarettes packs per day: 1 years smoked: 50 quit status: not considering quitting second hand exposure: Yes alcohol intake: never substance use type: denies use current occupational status: retired Travel in the last 8 weeks: None household members: children housing: house current occupational exposures/hazards: No caffeine: No Review of Systems Constitutional Constitutional: Denies headache(s) ENT Ears, Nose, Mouth, and Throat: Denies headache(s) *Neurologic Neurologic: Denies confusion, Denies localized weakness, Denies headache(s) and Denies paresthesias Psychiatric Psychiatric: Denies confusion Meds Home Medications and Allergies Home Medications Medication Instructions Recorded Confirmed Type duloxetine 60 mg capsule,delayed 60 mg PO DAILY mood 12/05/18 08/14/22 History release latanoprost 0.005 % eye drops 1 drp ophthalmic (eye) HS 02/18/19 08/14/22 History INTRAOCULAR PRESSURE gabapentin 600 mg tablet 1,200 mg PO BID Pain 11/28/19 08/14/22 History furosemide 20 mg tablet 20 mg PO DAILY Fluid 08/26/20 08/14/22 History aspirin 81 mg tablet,delayed 81 mg PO DAILY HEART HEALTH 02/17/21 08/14/22 History release calcium carb-magnesium oxide-vit 1 each PO BID Supplement 02/17/21 08/14/22 History D3 400 mg-167 mg-133 unit tablet clopidogrel 75 mg tablet 75 mg PO DAILY Platelet inhibitor 02/17/21 08/14/22 History polysaccharide iron complex 180 mg 180 mg PO DAILY Supplement 07/06/21 08/14/22 History iron capsule
--- NOTE | 2022-08-14 16:29 | PC.NURSE ---
Pt being moved to tn at this time. Pt's bp has been high this shift. Have given metoprolol per jan, nitro paste per mar, and clonidine patch, morphine for pain and bp remains high. Pt is to be placed on a nitro gtt. Pt has been more weak and confused this afternoon. Made Dr. Smith aware. 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 No evident signs of stroke, although did request head ct to ensure and Dr. Smith declined at this time. CB in reach. Bed alarm in use for safely. Report given to Jw Swanson RN.
--- NOTE | 2022-08-14 16:36 | PC.NURSE ---
Also this RN and [address] NG tube and was unsuccessful in doing so. Dr. Goddard and Dr. Smith aware and NNO as far as NG goes at this time. Dr. Goddard stated pt could have some ice chips. Oral care provided.
--- NOTE | 2022-08-14 17:36 | PC.NURSE ---
One inch nitro past applied to chest @ 1537,awaiting med to be on jan.
--- NOTE | 2022-08-14 18:14 | PC.NURSE ---
pt is aox1 will answer to her name and can answer some basic questions. she follows commands appropriately. she has been transfrred to step down and started on nitroglycerin gtt. nitro gtt infusing @ 80mcg with bp 153/106. pt o2 sat dropped nto high 80's so 2lnc was applied when pt arrived to step down. she has been kept npo except ice chips. multiple attempts were made to insert ng tube earlier in shift before pt was admitted to step down but these were unsuccessful. she denies pain at this time, no n/v/d noted since this rn assumed care. she has been nsr on telemetry with hr in 70's.
--- NOTE | 2022-08-14 21:21 | PC.NURSE ---
at 2036 BP 143/85, titrated nitro gtt from 70mcg/min, to 65mcg/min.
--- NOTE | 2022-08-14 22:29 | PC.NURSE ---
At 2205 BP 165/85, nitro gtt titrated to 70mcg/min.
--- NOTE | 2022-08-14 22:29 | PC.NURSE ---
At 2226 titrated nitro gtt to 60 mcg/min (BP 138/80)
[2022-08-15] VITALS (40 sets, daily range): BP systolic 112–201; BP diastolic 44–117; PULSE 65–100; RESP 14–28; TEMP 36.2–43; O2SAT 89–99; BMI 15.1
--- NOTE | 2022-08-15 00:13 | PC.NURSE ---
2300-bp 135/74, decreased nitro drip to 55mcg/min 0000-bp 145/79, decreased nitro drip to 50mcg/min
--- NOTE | 2022-08-15 02:48 | PC.NURSE ---
0125 BP 126/66, nitro gtt titrated to 40 mcg/min 0246 BP 183/90 nitro gtt titrated to 45 mcg/min
--- NOTE | 2022-08-15 04:44 | PC.NURSE ---
0400-bp 177/98, increased nitro drip to 55mcg/min
--- NOTE | 2022-08-15 06:00 | XR_ITS ---
PROCEDURE INFORMATION: Exam: XR Chest Exam date and time: 08/15/2022 5:37 AM Age: 86 years old Clinical indication: Other: Hypoxia TECHNIQUE: Imaging protocol: Radiologic exam of the chest. Views: 1 view. COMPARISON: CR XR CHEST PORTABLE 08/14/2022 1:36 AM FINDINGS: Tubes, catheters and devices: There is a spinal stimulator in place. Lungs: The lung parenchyma is hyperinflated related COPD. Pleural spaces: No pleural effusion. No pneumothorax. Heart/Mediastinum: No cardiomegaly. Bones/joints: Unremarkable for age. IMPRESSION: 1. COPD. 2. There is no evidence of active pulmonary disease.
--- NOTE | 2022-08-15 07:10 | PC.NURSE ---
bp 145/84, decreased nitro drip to 45mcg/min
[2022-08-15 07:54] LABS: Basophils % 0.6 % (0.1-2.0); Eosinophils % 0.4 % (0.1-12.0); Hematocrit 41.3 % (37.0-47.0); Hemoglobin 13.1 g/dL (12.2-16.2); Lymphocytes # 1.2 K/mm3 (0.7-4.5); Lymphocytes % 19.4 % (10-50); Mean Corpuscular HGB Conc 31.8 g/dL (31.8-35.4); Mean Corpuscular Hemoglobin 31.1 pg (27.0-31.2); Mean Platelet Volume 9.9 fl (7.4-10.4); Monocytes # 0.8 K/mm3 (0.1-1.0); Monocytes % 12.2 % (1.7-9.3); Neutrophils # 4.3 K/mm3 (1.8-7.8); Neutrophils % 67.3 % (37.0-80.0); Platelet Count 213 K/mm3 (142-424); Red Blood Count 4.21 M/mm3 (4.20-5.40); Red Cell Distribution Width 14.6 % (11.5-17.5); White Blood Count 6.4 K/mm3 (4.8-10.8)
[2022-08-15 07:55] LABS: Chloride 102 mmol/L (98-107); Potassium 3.2 mmoL/L (3.5-5.1); Sodium 143 mmol/L (136-145)
[2022-08-15 07:58] LABS: Anion Gap 13.2 mEq/L (5-15); Blood Urea Nitrogen 46 mg/dl (7-17); Calcium 10.1 mg/dl (8.4-10.2); Carbon Dioxide 31 mmol/L (22.0-30.0); Creatinine Clearance Estimated 25 mL/min (50-200); Estimated Glomerular Filt Rate 43 ml/min (>60); GFR (African American) 52 ML/MIN (>60); Glucose 103 mg/dl (74-100)
--- NOTE | 2022-08-15 11:03 | P.PN_ITS ---
Subjective Narrative: Patient transported transferred to stepdown unit for hypertension yesterday and placed on NTG drip. Over the past several hours she has become more somnolent with increasing abdominal tenderness. Exam Data for Last 24 hours Vital signs and Labs for Last 24 Hours: Temp Pulse Resp BP Pulse Ox 97.7 F 72 19 112/58 L 90 L 08/15/22 07:57 08/15/22 10:00 08/15/22 10:00 08/15/22 10:00 08/15/22 10:00 Laboratory Results - last 24 hr 08/15/22 07:02: WBC 6.4, RBC 4.21, Hgb 13.1, Hct 41.3, MCV 98.0, MCH 31.1, MCHC 31.8, RDW 14.6, Plt Count 213, MPV 9.9, Neut % (Auto) 67.3, Lymph % (Auto) 19.4, [place] % (Auto) 12.2 H, Eos % (Auto) 0.4, Baso % (Auto) 0.6, Neut # (Auto) 4.3, Lymph # (Auto) 1.2, [place] # (Auto) 0.8, Eos # (Auto) 0.0, Baso # (Auto) 0.0 08/15/22 07:02: Sodium 143, Potassium 3.2 L D, Chloride 102, Carbon Dioxide 31 H , Anion Gap 13.2, BUN 46 H, Creatinine 1.20 H, Estimated Creat Clear 25, Estimated GFR 43 L, Est GFR ( Amer) 52 L, Glucose 103 H, Calcium 10.1 I & O for Last 24 hours: Intake & Output 08/12/22 08/13/22 08/14/22 08/15/22 11:59 11:59 11:59 11:59 Intake Total 690 / 690 Output Total 100 / 100 Balance 590 / 590 Weight 98 lb 8 oz 100 lb 3 oz Microbiology Reports for the Last 24 Hours: Microbiology 08/14/22 02:50 Urine,Clean Catch Urine Culture - Preliminary Constitutional Constitutional: somnolent *Routine Abdominal Exam Abdominal: Present soft and tenderness Progress Note: A&P Assessment and plan (1) UTI (urinary tract infection): Status: Acute (2) SBO (small bowel obstruction): Problem details: Abdominal x-rays show no significant improvement with distended loops. Given clinical deterioration with progressive bowel obstruction plan will be for laparotomy. Patient has risk factors for suboptimal outcome and complications and . However, at this point surgery is likely the only, albeit slim, hope for survival. Arrangements will be made for laparotomy with possible bowel resection. Status: Acute (3) JERAD (acute kidney injury): Status: Acute (4) Chronic pain syndrome: Status: Chronic (5) Neuropathy: Status: Acute (6) COPD (chronic obstructive pulmonary disease): Status: Chronic
--- NOTE | 2022-08-15 11:09 | XR_ITS ---
PROCEDURE INFORMATION: Exam: XR Complete Acute Abdomen Series Including Chest Exam date and time: 08/15/2022 9:00 AM Age: 86 years old Clinical indication: Condition or disease; Intestinal condition; Patient HX: Bowel obstruction TECHNIQUE: Imaging protocol: Radiologic exam. Complete acute abdomen series, including 2 or more views of the abdomen and a single view chest. COMPARISON: CR XR CHEST PORTABLE 08/15/2022 5:37 AM FINDINGS: Tubes, catheters and devices: There is a spinal stimulator in place with the distal tip in the thoracic spine. Lungs: There is hyperinflation related to COPD. Pleural spaces: No pleural effusions. No pneumothorax. Heart/Mediastinum: No cardiomegaly. Gastrointestinal tract: There are dilated loops of small bowel throughout the abdomen, concordant with the recent CT finding. There is a paucity of bowel gas in the colon. Intraperitoneal space: No free air. Bones/joints: There are degenerative changes throughout the spine. Soft tissues: Normal. IMPRESSION: Small bowel obstruction.
--- NOTE | 2022-08-15 11:10 | PC.NURSE ---
1100 - notified by Dr Goddard to page transport conductor surgery team, switchboard notified [phone] - received call back from Angel Luis Pleitez and Jesse
--- NOTE | 2022-08-15 11:28 | EXP.ACUTE.PN ---
Subjective *Date: 08/15/22 *Time: 11:28 Interval history: Patient complains of more abdominal pain this morning. Her BP is better since NTG drip was started. No bowel movements, no vomiting. Medical Exam Vital signs and Labs for Last 24 Hours: Temp Pulse Resp BP Pulse Ox 97.7 F 72 19 112/58 L 90 L 08/15/22 07:57 08/15/22 10:00 08/15/22 10:00 08/15/22 10:00 08/15/22 10:00 Laboratory Results - last 24 hr 08/15/22 07:02: WBC 6.4, RBC 4.21, Hgb 13.1, Hct 41.3, MCV 98.0, MCH 31.1, MCHC 31.8, RDW 14.6, Plt Count 213, MPV 9.9, Neut % (Auto) 67.3, Lymph % (Auto) 19.4, [place] % (Auto) 12.2 H, Eos % (Auto) 0.4, Baso % (Auto) 0.6, Neut # (Auto) 4.3, Lymph # (Auto) 1.2, [place] # (Auto) 0.8, Eos # (Auto) 0.0, Baso # (Auto) 0.0 08/15/22 07:02: Sodium 143, Potassium 3.2 L D, Chloride 102, Carbon Dioxide 31 H, Anion Gap 13.2, BUN 46 H, Creatinine 1.20 H, Estimated Creat Clear 25, Estimated GFR 43 L, Est GFR ( Amer) 52 L, Glucose 103 H, Calcium 10.1 I & O for Labs for Last 24 Hours: Intake & Output 08/12/22 08/13/22 08/14/22 08/15/22 23:59 23:59 23:59 23:59 Intake Total 690 / 690 Output Total 0 / 50 100 / 100 Balance 0 / -50 590 / 590 Weight 98 lb 8 oz 100 lb 3 oz Microbiology Reports for the Last 24 Hours: Microbiology 08/14/22 02:50 Urine,Clean Catch Urine Culture - Preliminary Comment:: Appears not to feel well. Respiratory: Present CTA bilaterally Cardiac: Present Reg Rate and Rhythm GI: Present tenderness and guarding Extremities: Absent edema Additional Findings:: CXR is normal, Abd xray shows a worsening small bowel obstruction. Assessment and Plan *Assessment and plan (1) UTI (urinary tract infection): Status: Acute Qualifiers: Hematuria presence: without hematuria Urinary tract infection type: acute cystitis Qualified Code(s): N30.00 - Acute cystitis without hematuria Category: Medical Code(s): N39.0 - Urinary tract infection, site not specified (2) SBO (small bowel obstruction): Problem details: Abdominal x-rays show no significant improvement with distended loops. Given clinical deterioration with progressive bowel obstruction plan will be for laparotomy. Patient has risk factors for suboptimal outcome and complications and . However, at this point surgery is likely the only, albeit slim, hope for survival. Arrangements will be made for laparotomy with possible bowel resection. Status: Acute Category: Medical Code(s): K56.609 - Unspecified intestinal obstruction, unspecified as to partial versus complete obstruction (3) JERAD (acute kidney injury): Status: Acute Category: Medical Code(s): N17.9 - Acute kidney failure, unspecified (4) Chronic pain syndrome: Status: Chronic Category: Medical Code(s): G89.4 - Chronic pain syndrome (5) Neuropathy: Status: Acute Category: Medical Code(s): G62.9 - Polyneuropathy, unspecified (6) COPD (chronic obstructive pulmonary disease): Status: Chronic Qualifiers: COPD type: unspecified COPD Qualified Code(s): J44.9 - Chronic obstructive pulmonary disease, unspecified Category: Medical Code(s): J44.9 - Chronic obstructive pulmonary disease, unspecified (7) HTN (hypertension): Status: Chronic Qualifiers: Hypertension type: essential hypertension Qualified Code(s): I10 - Essential (primary) hypertension Category: Medical Code(s): I10 - Essential (primary) hypertension Plan Patient has not improved. Discussed case with Dr. Johnson. He will take patient to the OR today due to her small bowel obstruction. Spoke to patient's daughter and son about her risk of surgery, which is not low.
--- NOTE | 2022-08-15 11:56 | PC.NURSE ---
Addendum entered by Araseli Pennington RN 08/15/22 14:18: Nitroglycerin gtt OFF @ this time per Magdiel Yadav CRNA Original Note: pt to OR
--- NOTE | 2022-08-15 11:56 | PC.NURSE ---
Patient left floor at 11:53 to Surgery
--- NOTE | 2022-08-15 13:13 | EXP.OP.NOTE ---
Date of procedure: 08/15/22 Pre-op Diagnosis:: Small bowel obstruction Post-op Diagnosis:: Same Procedure performed:: Laparotomy with freeing of intestinal obstruction by lysis of adhesions Surgeon:: Mj Goddard MD LIBRARY SCIENCE INSTRUCTOR:: Jesse Yadav Anesthesia: GETSurinder Estimated blood loss (mL): 15 Clinical Note:: nasogastric tube.Patient is an 86-year-old female with multiple comorbidities on aspirin, Plavix, gabapentin, oxycodone. She does have a history of chronic constipation and takes MiraLAX and fiber. She recently developed some left-sided back pain and was seen in [facility] office on 08/11/2022. However, she presented to the emergency department in the early childhood associate of 08/14/2022 with complaints of diminished appetite, constipation, diminished urinary output, and fatigue. She was noted to have some mild abdominal tenderness on examination in the emergency department and therefore she underwent CT scan with IV contrast which revealed a plethora of findings most notable for significantly dilated small bowel loops consistent with high-grade small bowel obstruction. She was admitted for inpatient management. Surgical consultation was obtained. Patient was seen and examined on 08/14/2022 and attempt was made at nonoperative management for presumed small bowel obstruction versus profound ileus. Multiple nursing staff were unable to place nasogastric tube. The following morning patient was seen and examined. She was having more abdominal pain and tenderness. Abdominal x-rays revealed significant small bowel obstruction. Plan was made to proceed with laparotomy. The case was discussed with the primary care provider and family and it was felt that given her comorbidities she is at significant risk of postoperative complications and morbidity. However, given the clinical scenario it was felt that this was the only option. Operative findings:: Patient has significantly dilated small bowel with evidence of complete bowel obstruction versus high-grade partial bowel obstruction distally secondary to tight band of pericolonic fat from the sigmoid colon. Operative note:: Patient was taken to the operating room. She was given preoperative intravenous antibiotics. In the operating room she is placed in a supine position. General anesthesia was induced via endotracheal tube. Abdomen was prepped and draped in the standard surgical fashion. She did have a Link catheter placed prior to prepping and draping. Low midline limited incision was made. Dissection was carried down through subcutaneous tissues and fascia. Peritoneum was incised and peritoneal cavity was entered. There were markedly distended loops of bowel. Small bowel was eviscerated and ran distally. There was a tight adhesive band which appeared to be originating from the sigmoid colon creating a very high-grade partial versus complete obstruction distal small bowel. This was incised freeing this obstructive site. There was thickening of the small bowel wall secondary to inflammation. However, this area appeared viable. Small bowel was completely decompressed distally. Due to the large amount of abdominal distention to allow for closure of the abdomen anesthesiology placed orogastric tube as initially NG tube could not be placed. The small bowel was partially milked in a retrograde fashion manipulating the small bowel contents into the gastric lumen where it was suctioned free. Large amount of feculent material was suctioned free from the orogastric tube. Small bowel was then able to be returned to the peritoneal cavity. Ultimately an 18-Portuguese nasogastric tube was able to be placed by anesthesia and confirmed to be within the gastric lumen. Peritoneal cavity was then irrigated and aspirated until clear with warm saline. After enteric contents were returned to the normal anatomic position the fascia was closed with running #1 PDS x2. Subcutaneous tissues were irrigated. Skin was closed wit
--- NOTE | 2022-08-15 13:23 | EXP.ANES.CKL ---
[facility] Medical History (Updated 08/15/22 @ 11:12 by Mj Goddard MD) Anemia CAD (coronary artery disease) Cardiomyopathy Chest pain Chronic pain syndrome COPD (chronic obstructive pulmonary disease) Dyspnea HHD (hypertensive heart disease) History of left heart catheterization Neuropathy Surgical History (Updated 08/14/22 @ 11:15 by Amish Smith MD) History of carpal tunnel surgery History of cataract removal with insertion of prosthetic lens History of lumbar laminectomy Social History (Updated 08/14/22 @ 05:39 by Sosa Mcintyre RN) Smoking Status: Current every day smoker tobacco type: cigarettes packs per day: 1 years smoked: 50 quit status: not considering quitting second hand exposure: Yes alcohol intake: never substance use type: denies use current occupational status: retired Travel in the last 8 weeks: None household members: children housing: house current occupational exposures/hazards: No caffeine: No [facility] Anesthesia Checklist Patient Identification Patient Identification: Arm Band and Verbal (Name & ) Structural Data Admitted From: Inpatient Planned Operative Procedure/s: exploratory laparotomy Consent for Planned Operative Procedure(s) Verified: Yes NPO Status Verified Time NPO: 00:00 Additional verifications Anesthesia Reactions: No Hx Blood Transfusions: No Blood Transfusion Reaction: No Airway Assessment C-Spine Mobility Assessed: Yes TMJ Mobility Assessed: Yes Dentition: Poor Dentition Neurological Assessment Level of Consciousness: Awake, Alert, Follows Commands and Disoriented Anesthesia Plan Anesthesia Risk discussed: Yes Anesthesia Plan: Patient unable to respond/answer ASA Class: IV Anesthesia Type: General
--- NOTE | 2022-08-15 13:25 | EXP.ANES.I ---
[facility] Anesthesia Record Part I Anesthesia Record I Intake, IV Amount: 1,000 Estimated blood loss (mL): 100 Urine output (mL): 200 Blood Pressure: 144/75 SaO2: 99 Pulse Rate: 73 Respiratory Rate: 16 Temperature: 98.2 F Patient is:: Awake, Mask O2 and Stable Stable to PACU at:: 13:15
--- NOTE | 2022-08-15 13:48 | PC.NURSE ---
back from OR
--- NOTE | 2022-08-15 13:55 | SUR.PHASEI ---
1344- detailed report called to kimani miranda on medsur floor. kimani Miranda notified of nitro paste patch applied to pt's chest by blossom roche and his orders to remove the patch before any nitro drips are administered on the floor. kimani miranda also notifed of the 18f NG tube placed by blossom roche in the OR 1346- pt left in stable condition with kimani miranda in pt room. Pt hooked up to monitors, all dressings C.D.I, family at bedside
--- NOTE | 2022-08-15 14:06 | SUR.OPER ---
1255- 18F NG tube inserted by jtaylor,[employer] 1215- Nitro paste patch applied to Pt chest y jtaylor,[employer]
[2022-08-15 14:37] LABS: Microscopic,Cath URINE MICROSCOPIC (MICROSCOPIC)
[2022-08-15 14:43] LABS: Appearance,Urine/Cath CLEAR (Clear); Bilirubin,Cath Negative (Negative); Blood, Urine/Cath Negative (Negative); Color,Urine/Cath YELLOW (Yellow); Glucose,Urine/Cath (UA) Negative (Negative); Ketones,Urine/Cath TRACE (Negative); Leukocyte Esterase,Cath Negative (Negative); Nitrate,Cath Negative (Negative); PH,Urine/Cath 5.5 (5.0-8.5); Protein,Urine/Cath Negative (Negative); Specific Gravity, Urine/Cath 1.025 (1.005-1.030); Urobilinogen,Cath 0.2 EU/dl (0.2)
[2022-08-15 14:52] LABS: Bacteria,Urine/Cath TRACE /lpf; Squamous Epithelial Ur./Cath Occasional #/hpf (0-5)
--- NOTE | 2022-08-15 17:04 | PC.NURSE ---
paged Dr. Smith regarding Morphine 2mg IV not controlling pt's abd pain and BP now 181/80.
--- NOTE | 2022-08-15 17:07 | PC.NURSE ---
received call from Dr. Smith with new order to increase Morphine to 4mg IV Q4h prn and to give dose now. Order faxed to pharmacy
--- NOTE | 2022-08-15 18:33 | PC.NURSE ---
shift summary: GCS 15. Pt went to OR today for laparotomy r/t SBO. Midline incision noted with scant amount of blood on dressing. ABD pain has been biggest complaint. Morphine IV increased to 4mg, which has been effective in decreasing pain. Is NPO. NGT to LWS with minimal output. No BM. Link catheter with adequate clear UOP. NSR with ST depression on tele. Nitroglycerin gtt has been OFF since 12pm. Is normotensive as long as pain is controlled. BLE SCDs in place. No edema. O2 sat high 90s on 3L NC. Pt denies dyspnea. MIVF changed to D51/2NS+40K per Dr. Smith. Rate continues @ 75mL/hr.
[2022-08-16] VITALS (11 sets, daily range): BP systolic 133–178; BP diastolic 50–106; PULSE 70–85; RESP 17–23; TEMP 36.6–36.9; O2SAT 93–100; BMI 15.0
--- NOTE | 2022-08-16 00:54 | PC.NURSE ---
pt's oxygen saturations staying 88% on 3LNC, pt asleep and mouth breathing; increased to 4LNC
--- NOTE | 2022-08-16 00:58 | PC.NURSE ---
pt's sats remained 88% on 4LNC, pt mouth breathing and snoring, placed nasal cannula near pt's mouth instead of nares and pt's oxygen saturations went up to 98%, decreased back to 3LNC and pt's oxygen saturation 96%
--- NOTE | 2022-08-16 07:32 | P.PN_ITS ---
Subjective Narrative: No major issues overnight. Patient did reportedly have some pain which is better after establishing new IV. Exam Data for Last 24 hours Vital signs and Labs for Last 24 Hours: Temp Pulse Resp BP Pulse Ox 98.4 F 80 17 162/55 H 100 08/16/22 04:00 08/16/22 06:00 08/16/22 06:00 08/16/22 06:00 08/16/22 06:00 Laboratory Results - last 24 hr 08/15/22 07:02: WBC 6.4, RBC 4.21, Hgb 13.1, Hct 41.3, MCV 98.0, MCH 31.1, MCHC 31.8, RDW 14.6, Plt Count 213, MPV 9.9, Neut % (Auto) 67.3, Lymph % (Auto) 19.4, [place] % (Auto) 12.2 H, Eos % (Auto) 0.4, Baso % (Auto) 0.6, Neut # (Auto) 4.3, Lymph # (Auto) 1.2, [place] # (Auto) 0.8, Eos # (Auto) 0.0, Baso # (Auto) 0.0 08/15/22 07:02: Sodium 143, Potassium 3.2 L D, Chloride 102, Carbon Dioxide 31 H , Anion Gap 13.2, BUN 46 H, Creatinine 1.20 H, Estimated Creat Clear 25, Estimated GFR 43 L, Est GFR ( Amer) 52 L, Glucose 103 H, Calcium 10.1 08/15/22 12:10: Urine Color Yellow, Urine Appearance Clear, Urine pH 5.5, Ur Specific [place] 1.025, Urine Protein Negative, Urine Glucose (UA) Negative, Urine Ketones Trace, Urine Blood Negative, Urine Nitrate Negative, Urine Bi lirubin Negative, Urine Urobilinogen 0.2, Ur Leukocyte Esterase Negative, Urine RBC 3-5, Urine WBC 3-5, Ur Squamous Epith Cells Occasional, Urine Bacteria Trace I & O for Last 24 hours: Intake & Output 08/13/22 08/14/22 08/15/22 08/16/22 11:59 11:59 11:59 11:59 Intake Total 690 / 690 1999 / 1999 Output Total 100 / 100 1625 / 1625 Balance 590 / 590 375 / 375 Weight 98 lb 8 oz 100 lb 3 oz 99 lb 3 oz Microbiology Reports for the Last 24 Hours: Microbiology 08/14/22 02:50 Urine,Clean Catch Urine Culture - Preliminary Constitutional Constitutional: somnolent *Routine Abdominal Exam Comments: Slightly distended. Dressing intact. Progress Note: A&P Assessment and plan (1) UTI (urinary tract infection): Status: Acute (2) SBO (small bowel obstruction): Status: Acute Assessment and plan: Continue NG for now. Possible DC nath. Pain control may be an issue (balancing pain control with increasing activity and avoiding obtundation). (3) JERAD (acute kidney injury): Status: Acute (4) Chronic pain syndrome: Status: Chronic (5) Neuropathy: Status: Acute (6) COPD (chronic obstructive pulmonary disease): Status: Chronic (7) HTN (hypertension): Status: Chronic
--- NOTE | 2022-08-16 08:38 | EXP.PN ---
Subjective *Date: 08/16/22 *Time: 08:55 Interval history: Daughter stayed with her throughout the night. Patient has been stable and dosing at intervals as per daughter and nursing. Patient indicates that she has abdominal pain and is breathing okay. She continues with NG tube to low wall suction and Link catheter to bedside drainage. She has SCUDs on. Blood pressure elevates with pain. Exam Data for Last 24 hours Vital signs and Labs for Last 24 Hours: Temp Pulse Resp BP Pulse Ox 98.4 F 80 17 162/55 H 100 08/16/22 04:00 08/16/22 06:00 08/16/22 06:00 08/16/22 06:00 08/16/22 06:00 Laboratory Results - last 24 hr 08/15/22 12:10: Urine Color Yellow, Urine Appearance Clear, Urine pH 5.5, Ur Specific [place] 1.025, Urine Protein Negative, Urine Glucose (UA) Negative, Urine Ketones Trace, Urine Blood Negative, Urine Nitrate Negative, Urine Bilirubin Negative, Urine Urobilinogen 0.2, Ur Leukocyte Esterase Negative, Urine RBC 3-5, Urine WBC 3-5, Ur Squamous Epith Cells Occasional, Urine Bacteria Trace I & O for Last 24 hours: Intake & Output 08/13/22 08/14/22 08/15/22 08/16/22 11:59 11:59 11:59 11:59 Intake Total 690 / 690 1999 / 1999 Output Total 100 / 100 1625 / 1625 Balance 590 / 590 375 / 375 Weight 98 lb 8 oz 100 lb 3 oz 99 lb 2.975 oz Microbiology Reports for the Last 24 Hours: Microbiology 08/14/22 02:50 Urine,Clean Catch Urine Culture - Preliminary Constitutional Constitutional: no acute distress and cachectic *Routine Respiratory Exam Respiratory: Present CTA bilaterally (Decreased breath sounds posteriorly with poor inspiratory effort) *Routine Cardiovascular Exam Cardiovascular: Present RRR (Monitor showing sinus rhythm.) *Routine Abdominal Exam Abdominal: Present soft and tenderness (Postoperative); Absent normoactive bowel sounds or distended Comments: Midline dressing with dry intact state *Routine Extremities Exam Extremities: Absent edema Comments: SCUDs on bilaterally *Routine Neurological Exam Neurological: Present alert (Responds appropriately. Does say yes and no at times. Nods head yes and no) Assessment and Plan *Assessment and plan (1) SBO (small bowel obstruction): Status: Acute Category: Medical Code(s): K56.609 - Unspecified intestinal obstruction, unspecified as to partial versus complete obstruction (2) JERAD (acute kidney injury): Status: Acute Category: Medical Code(s): N17.9 - Acute kidney failure, unspecified (3) COPD (chronic obstructive pulmonary disease): Status: Chronic Qualifiers: COPD type: unspecified COPD Qualified Code(s): J44.9 - Chronic obstructive pulmonary disease, unspecified Category: Medical Code(s): J44.9 - Chronic obstructive pulmonary disease, unspecified (4) Chronic pain syndrome: Status: Chronic Category: Medical Code(s): G89.4 - Chronic pain syndrome (5) Severe protein-calorie malnutrition: Status: Acute Category: Medical Code(s): E43 - Unspecified severe protein-calorie malnutrition (6) Essential hypertension: Status: Acute Category: Medical Code(s): I10 - Essential (primary) hypertension (7) UTI (urinary tract infection): Status: Acute Category: Medical Code(s): N39.0 - Urinary tract infection, site not specified (8) CAD (coronary artery disease): Status: Chronic Qualifiers: Associated angina: without angina Coronary Disease-Associated Artery/Lesion type: [place] artery [place] vs. transplanted heart: [place] heart Qualified Code(s): I25.10 - Atherosclerotic heart disease of [place] coronary artery without angina pectoris Category: Medical Code(s): I25.10 - Atherosclerotic heart disease of [place] coronary artery without angina pectoris Plan Incentive spirometer for pulmonary hygiene. Out of bed to chair. Decreased pain medicines as per
--- NOTE | 2022-08-16 14:08 | PC.NURSE ---
Called Dr. Smith's office to give message that pts blood pressure is trending up. 142/53 hr 81 (1200) 178/74 HR 82 (1300) 196/88 HR 98 (1400). Pain medication administered as patient was moaning and stated she was in pain. Awaiting to hear from Dr. Smith.
--- NOTE | 2022-08-16 16:31 | PC.NURSE ---
Patient's pain controlled with morphine despite dose change. Blood pressure began to rise, metoprolol 5mg iv given and blood pressure decreased. VS stable and patient weaned to 2LNC. Patient turned q2. Midline incision clean dry and intact with old drainage noted.
[2022-08-17] VITALS (15 sets, daily range): BP systolic 118–199; BP diastolic 55–80; PULSE 54–80; RESP 12–19; TEMP 36.4–36.7; O2SAT 90–100; BMI 15.0
--- NOTE | 2022-08-17 00:04 | PC.NURSE ---
2300-bp 205/86, rechecked in other extremity bp 193/82, repositioned pt and rechecked bp at 2328-197/82, paged MD Becerra 2330-bp 184/84, MD Becerra instructed this RN to restart home dose of gabapentin 1200mg daily PO bid, faxed form to night watch 2355-first dose gabapentin given per NGT, see emar, clamped NGT at this time 0000-bp 174/80
--- NOTE | 2022-08-17 01:09 | PC.NURSE ---
0030-bp 193/79 0100-bp 190/72; ngt unclamped and put back to lws notified MD Becerra of pt's continued hypertension after pain medication given, instructed to restart nitro drip per protocol and place pt back in step down nitro drip started at 40mcg/min
--- NOTE | 2022-08-17 01:34 | PC.NURSE ---
0120-bp 131/64, decreased nitro drip to 20mcg/min 0130-bp 131/67, held nitro drip at this time
--- NOTE | 2022-08-17 01:54 | PC.NURSE ---
0150-bp 171/67, restarted nitro drip at 10mcg/min
--- NOTE | 2022-08-17 02:55 | PC.NURSE ---
0210-bp 177/82, increased nitro drip to 20mcg/min 0220-bp 145/66, decreased nitro drip to 15mcg 0230-bp 150/63, decreased nitro drip to 10mcg/min 0240-bp 153/71, decreased nitro drip to 5mcg/min 0250-bp 135/64, held nitro drip at this time
--- NOTE | 2022-08-17 06:15 | PC.NURSE ---
bp 167/65, restarting nitro drip at 5mcg/min
[2022-08-17 06:40] LABS: Basophils % 0.6 % (0.1-2.0); Eosinophils # 0.3 K/mm3 (0.0-0.4); Hematocrit 40.3 % (37.0-47.0); Hemoglobin 12.5 g/dL (12.2-16.2); Lymphocytes # 1.4 K/mm3 (0.7-4.5); Lymphocytes % 20.2 % (10-50); Mean Corpuscular Hemoglobin 31.7 pg (27.0-31.2); Mean Corpuscular Volume 102.3 fl (81-99); Mean Platelet Volume 9.1 fl (7.4-10.4); Monocytes # 0.5 K/mm3 (0.1-1.0); Monocytes % 6.6 % (1.7-9.3); Neutrophils # 4.7 K/mm3 (1.8-7.8); Neutrophils % 68.5 % (37.0-80.0); Platelet Count 178 K/mm3 (142-424); Red Blood Count 3.94 M/mm3 (4.20-5.40); Red Cell Distribution Width 14.6 % (11.5-17.5); White Blood Count 6.8 K/mm3 (4.8-10.8)
[2022-08-17 06:43] LABS: Chloride 109 mmol/L (98-107); Sodium 147 mmol/L (136-145)
[2022-08-17 06:45] LABS: Albumin Level 2.8 g/dl (3.5-5.0); Blood Urea Nitrogen 17 mg/dl (7-17); Carbon Dioxide 33 mmol/L (22.0-30.0); Creatinine Clearance Estimated 27 mL/min (50-200); Estimated Glomerular Filt Rate 47 ml/min (>60); GFR (African American) 57 ML/MIN (>60); Globulin 2.8 g/dL (1.3-3.2); Total Protein,Serum 5.6 g/dl (6.3-8.2)
[2022-08-17 06:46] LABS: Alanine Aminotransferase 10 U/L (12-78); Alkaline Phosphatase 67 U/L (38-126); Aspartate Amino Transferase 26 U/L (14-36); Calcium 8.9 mg/dl (8.4-10.2); Glucose 112 mg/dl (74-100)
[2022-08-17 06:47] LABS: Bilirubin,Total < 0.1 mg/dl (0.2-1.3)
--- NOTE | 2022-08-17 07:36 | P.PN_ITS ---
Subjective Narrative: No new issues. Family feels throat may be getting dry from nasal cannula in mouth. Sats 100% Exam Data for Last 24 hours Vital signs and Labs for Last 24 Hours: Temp Pulse Resp BP Pulse Ox 97.8 F 80 15 159/67 H 100 08/17/22 04:00 08/17/22 05:51 08/17/22 05:51 08/17/22 05:51 08/17/22 05:51 Laboratory Results - last 24 hr 08/14/22 02:50: Urine Color Yellow, Urine Appearance Sl cloudy, Urine pH 6.5, Ur Specific [place] 1.015, Urine Protein 1+, Urine Glucose (UA) Negative, Urine Ketones Negative, Urine Blood 2+, Urine Nitrate Positive, Urine Bilirubin Negative, Urine Urobilinogen 1.0, Ur Leukocyte Esterase Trace, Urine RBC 5-10, Urine WBC 10-20, Ur Squamous Epith Cells 5-10, Urine Bacteria 2+ 08/17/22 05:55: WBC 6.8, RBC 3.94 L, Hgb 12.5, Hct 40.3, MCV 102.3 H, MCH 31.7 H , MCHC 31.0 L, RDW 14.6, Plt Count 178, MPV 9.1, Neut % (Auto) 68.5, Lymph % (Auto) 20.2, [place] % (Auto) 6.6, Eos % (Auto) 4.0, Baso % (Auto) 0.6, Neut # (Auto) 4.7, Lymph # (Auto) 1.4, [place] # (Auto) 0.5, Eos # (Auto) 0.3, Baso # (Auto) 0.0 08/17/22 05:55: Sodium 147 H, Potassium 4.0 D, Chloride 109 H, Carbon Dioxide 33 H, Anion Gap 9.0, BUN 17 D, Creatinine 1.10 H, Estimated Creat Clear 27, Estimated GFR 47 L, Est GFR ( Amer) 57 L, Glucose 112 H, Calcium 8.9, Total Bilirubin < 0.1 L, AST 26, ALT 10 L, Alkaline Phosphatase 67, Total Protein 5.6 L, Albumin 2.8 L, Globulin 2.8, Albumin/Globulin Ratio 1.0 L I & O for Last 24 hours: Intake & Output 08/14/22 08/15/22 08/16/2222 11:59 11:59 11:59 11:59 Intake Total 690 / 690 3134 / 3134 1584 / 1584 Output Total 100 / 100 1625 / 1625 1450 / 1450 Balance 590 / 590 1509 / 1509 134 / 134 Weight 98 lb 8 oz 100 lb 3 oz 99 lb 2.975 oz 99 lb 3.2 oz Microbiology Reports for the Last 24 Hours: Microbiology 08/14/22 02:50 Urine,Clean Catch Urine Culture - Preliminary Gram Negative Rods Gram Negative Rods#2 *Routine Abdominal Exam Abdominal: Present soft Comments: Dressing intact. Progress Note: A&P Assessment and plan (1) SBO (small bowel obstruction): Status: Acute Assessment and plan: Maybe DC supplemental oxygen and give ice chips. May start home meds for now per NG. DC nath. Out of bed to chair. (2) JERAD (acute kidney injury): Status: Acute (3) COPD (chronic obstructive pulmonary disease): Status: Chronic (4) Chronic pain syndrome: Status: Chronic (5) Severe protein-calorie malnutrition: Status: Acute (6) Essential hypertension: Status: Acute (7) UTI (urinary tract infection): Status: Acute (8) CAD (coronary artery disease): Status: Chronic
--- NOTE | 2022-08-17 07:49 | EXP.ANES.II ---
[facility] Anesthesia Record Part II Anesthesia Record Part II Discharge Time: 13:45 Destination: Second Floor PACU nurse assessment reviewed?: Yes Patient Condition:: Fair Anesthesia Complications:: None Swallowing reflex intact?: No Cyanosis?: Yes Blood Pressure: 118/75 Pulse Rate: 74 Temperature: 97.5 F Mental Status: Alert & Oriented and Lethargic Pain level:: 0 Nausea and/or vomitting:: None Intake, IV Amount: 0
--- NOTE | 2022-08-17 07:49 | PC.NURSE ---
Spoke to Dr. Goddard during am rounds. Asked if he would be ok if we restarted patient home meds through NG tube and clamped for one hour before resuming suction. Dr. Goddard stated he would be fine with that. Will notify Dr. Smith during am rounds.
--- NOTE | 2022-08-17 08:43 | EXP.PN ---
Subjective *Date: 08/17/22 *Time: 09:13 Interval history: Patient continues with abdominal pain requiring routine administration of morphine. Per nursing blood pressure has been elevated and was restarted back on nitroglycerin drip. She has been seen by Dr. Goddard this morning and meds can be given down NG tube. She is to be out of bed today. She continues with NG tube to low wall suction and with Link catheter which will be removed today. Exam Data for Last 24 hours Vital signs and Labs for Last 24 Hours: Temp Pulse Resp BP Pulse Ox 98.1 F 74 15 118/75 100 08/17/22 08:15 08/17/22 07:50 08/17/22 05:51 08/17/22 07:50 08/17/22 05:51 Laboratory Results - last 24 hr 08/14/22 02:50: Urine Color Yellow, Urine Appearance Sl cloudy, Urine pH 6.5, Ur Specific [place] 1.015, Urine Protein 1+, Urine Glucose (UA) Negative, Urine Ketones Negative, Urine Blood 2+, Urine Nitrate Positive, Urine Bilirubin Negative, Urine Urobilinogen 1.0, Ur Leukocyte Esterase Trace, Urine RBC 5-10, Urine WBC 10-20, Ur Squamous Epith Cells 5-10, Urine Bacteria 2+ 08/17/22 05:55: WBC 6.8, RBC 3.94 L, Hgb 12.5, Hct 40.3, MCV 102.3 H, MCH 31.7 H, MCHC 31.0 L, RDW 14.6, Plt Count 178, MPV 9.1, Neut % (Auto) 68.5, Lymph % (Auto) 20.2, [place] % (Auto) 6.6, Eos % (Auto) 4.0, Baso % (Auto) 0.6, Neut # (Auto) 4.7, Lymph # (Auto) 1.4, [place] # (Auto) 0.5, Eos # (Auto) 0.3, Baso # (Auto) 0.0 08/17/22 05:55: Sodium 147 H, Potassium 4.0 D, Chloride 109 H, Carbon Dioxide 33 H, Anion Gap 9.0, BUN 17 D, Creatinine 1.10 H, Estimated Creat Clear 27, Estimated GFR 47 L, Est GFR ( Amer) 57 L, Glucose 112 H, Calcium 8.9, Total Bilirubin < 0.1 L, AST 26, ALT 10 L, Alkaline Phosphatase 67, Total Protein 5.6 L, Albumin 2.8 L, Globulin 2.8, Albumin/Globulin Ratio 1.0 L I & O for Last 24 hours: Intake & Output 08/14/22 08/15/22 08/16/22 08/17/22 11:59 11:59 11:59 11:59 Intake Total 690 / 690 3134 / 3134 1584 / 1584 Output Total 100 / 100 1625 / 1625 1450 / 1450 Balance 590 / 590 1509 / 1509 134 / 134 Weight 98 lb 8 oz 100 lb 3 oz 99 lb 2.975 oz 99 lb 3.2 oz Microbiology Reports for the Last 24 Hours: Microbiology 08/14/22 02:50 Urine,Clean Catch Urine Culture - Preliminary Escherichia coli Gram Negative Rods Constitutional Constitutional: no acute distress Comments: Awakens easily. Can speak in soft tones. *Routine Respiratory Exam Respiratory: Present CTA bilaterally and diminished air movement (Posteriorly) *Routine Cardiovascular Exam Cardiovascular: Present RRR and murmur *Routine Abdominal Exam Abdominal: Present soft and tenderness (Postoperative); Absent normoactive bowel sounds or distended *Routine Extremities Exam Extremities: Absent edema Comments: Patient has SCUDs on bilateral lower extremities *Routine Skin Exam Comments: Abdominal dressing is dry and intact *Routine Neurological Exam Neurological: Present alert (Responds appropriately to questions. Does indicate yes and no) Assessment and Plan *Assessment and plan (1) JERAD (acute kidney injury): Status: Acute Category: Medical Code(s): N17.9 - Acute kidney failure, unspecified (2) SBO (small bowel obstruction): Status: Acute Category: Medical Code(s): K56.609 - Unspecified intestinal obstruction, unspecified as to partial versus complete obstruction (3) COPD (chronic obstructive pulmonary disease): Status: Chronic Qualifiers: COPD type: unspecified COPD Qualified Code(s): J44.9 - Chronic obstructive pulmonary disease, unspecified Category: Medical Code(s): J44.9 - Chronic obstructive pulmonary disease, unspecified (4) Neuropathy: Status: Acute Category: Medical Code(s): G62.9 - Polyneuropathy, unspecified (5) Anemia: Status: Acute Category: Medical Code(s): D64.9 - Anemia, unspecified (6) Chronic pa
--- NOTE | 2022-08-17 09:51 | P.PN_ITS ---
Subjective *Date: 08/17/22 *Time: 09:51 Medical Exam Vital signs and Labs for Last 24 Hours: Temp Pulse Resp BP Pulse Ox 98.1 F 74 15 118/75 100 08/17/22 08:15 08/17/22 07:50 08/17/22 05:51 08/17/22 07:50 08/17/22 05:51 Laboratory Results - last 24 hr 08/17/22 05:55: WBC 6.8, RBC 3.94 L, Hgb 12.5, Hct 40.3, MCV 102.3 H, MCH 31.7 H , MCHC 31.0 L, RDW 14.6, Plt Count 178, MPV 9.1, Neut % (Auto) 68.5, Lymph % (Auto) 20.2, [place] % (Auto) 6.6, Eos % (Auto) 4.0, Baso % (Auto) 0.6, Neut # (Auto) 4.7, Lymph # (Auto) 1.4, [place] # (Auto) 0.5, Eos # (Auto) 0.3, Baso # (Auto) 0.0 08/17/22 05:55: Sodium 147 H, Potassium 4.0 D, Chloride 109 H, Carbon Dioxide 33 H, Anion Gap 9.0, BUN 17 D, Creatinine 1.10 H, Estimated Creat Clear 27, Estimated GFR 47 L, Est GFR ( Amer) 57 L, Glucose 112 H, Calcium 8.9, Total Bilirubin < 0.1 L, AST 26, ALT 10 L, Alkaline Phosphatase 67, Total Protein 5.6 L, Albumin 2.8 L, Globulin 2.8, Albumin/Globulin Ratio 1.0 L I & O for Labs for Last 24 Hours: Intake & Output 08/14/22 08/15/22 08/16/22 08/17/22 23:59 23:59 23:59 23:59 Intake Total 2690 / 2690 1735 / 1735 983 / 983 Output Total 0 50 850 / 1150 1550 / 1800 775 / 775 Balance 0 / -50 1840 / 1540 185 / -65 208 / 208 Weight 44.679 kg 45.444 kg 44.99 kg 44.996 kg Microbiology Reports for the Last 24 Hours: Microbiology 08/14/22 02:50 Urine,Clean Catch Urine Culture - Preliminary Escherichia coli Gram Negative Rods The patient's infection will respond to the chosen ABx?: Yes Is the patient receiving the right drug, dose, and route?: Yes Could a more targeted ABx be ordered?: No (URINE CX + FOR E. COLI SENSITIVE TO ROCEPHIN. PT AFEBRILE AND WBC WNL.)
--- NOTE | 2022-08-17 16:36 | PC.NURSE ---
Patient able to take medications through NG tube and tolerated fine. Ice chips given but patient unable to swalllow, clear liquids ordered after Dr. Smith notified. Patient able to get bathed and up to the chair with max assist. Patient has slept on and off during the day with minimal complaints of pain. Midline incision dressing clean dry and intact with old drainage noted. VS stable and patient remains on 2LNC.
--- NOTE | 2022-08-17 18:01 | PC.NURSE ---
08/17/22 18:00 Nurse notified went from Step Down to Med Surg
[2022-08-18] VITALS (13 sets, daily range): BP systolic 139–169; BP diastolic 58–82; PULSE 40–81; RESP 16–20; TEMP 36.4–36.9; O2SAT 87–97; BMI 15.0
--- NOTE | 2022-08-18 05:26 | PC.NURSE ---
Pt has been alert to person for majority of shift. Tolerating 2 L nc well with sats >90%. Pt will drop to mid 80s with exertion. NG tube to left nare to low wall suction. DSG to mis abdomen has remained the same with small amount of dried blood. Pt has had 2 wet depends during shift. Lungs diminished. Daughter at bedside. Bed alarm on for pt safety. Call light within reach.
--- NOTE | 2022-08-18 07:25 | PC.NURSE ---
lab called and stated patient urine culture came back as esbl, notified dimas brandon on morning rounds
--- NOTE | 2022-08-18 07:52 | EXP.PN ---
Subjective *Date: 08/18/22 *Time: 08:22 Interval history: Daughter stayed with patient during the night. She states that she did sleep some. Patient has been more verbal. She tolerated oral care. She indicates she still has abdominal pain. Link catheter has been removed. She set up in a chair yesterday. She continues with NG tube to low wall suction but is also being used for medication administration. She remains off nitroglycerin drip she continues with O2 per nasal cannula with satisfactory O2 sats. Exam Data for Last 24 hours Vital signs and Labs for Last 24 Hours: Temp Pulse Resp BP Pulse Ox FiO2 98.4 F 78 20 152/70 H 91 L 28 08/18/22 04:00 08/18/22 04:00 08/18/22 04:00 08/18/22 04:00 08/18/22 04:00 08/17/22 18:13 I & O for Last 24 hours: Intake & Output 08/15/22 08/16/22 08/17/22 08/18/22 11:59 11:59 11:59 11:59 Intake Total 690 / 690 3134 / 3134 1584 / 1584 1856 / 1856 Output Total 100 / 100 1625 / 1625 1450 / 1450 50 / 50 Balance 590 / 590 1509 / 1509 134 / 134 1806 / 1806 Weight 100 lb 3 oz 99 lb 2.975 oz 99 lb 3.2 oz 99 lb 8 oz Microbiology Reports for the Last 24 Hours: Microbiology 08/14/22 02:50 Urine,Clean Catch Urine Culture - Final Escherichia coli Escherichia coli#2 Constitutional Constitutional: no acute distress Comments: More awake this morning and more responsive *Routine HEENT Exam Comments: Mouth is dry. With oral care noted white patchesxxx *Routine Respiratory Exam Respiratory: Present crackles (Bilateral crackles with scattered wheezing) *Routine Cardiovascular Exam Cardiovascular: Present RRR (Monitor showing sinus rhythm) *Routine Abdominal Exam Abdominal: Present soft and tenderness (Postoperative tenderness.); Absent normoactive bowel sounds (She has distant slow bowel sounds.) or distended *Routine Extremities Exam Extremities: Absent edema or calf tenderness *Routine Skin Exam Comments: Abdominal dressing remains dry and intact *Routine Neurological Exam Neurological: Present alert Comments: Making appropriate responses Assessment and Plan *Assessment and plan (1) JERAD (acute kidney injury): Status: Acute Category: Medical Code(s): N17.9 - Acute kidney failure, unspecified (2) SBO (small bowel obstruction): Status: Acute Category: Medical Code(s): K56.609 - Unspecified intestinal obstruction, unspecified as to partial versus complete obstruction (3) COPD (chronic obstructive pulmonary disease): Status: Chronic Qualifiers: COPD type: unspecified COPD Qualified Code(s): J44.9 - Chronic obstructive pulmonary disease, unspecified Category: Medical Code(s): J44.9 - Chronic obstructive pulmonary disease, unspecified (4) Neuropathy: Status: Acute Category: Medical Code(s): G62.9 - Polyneuropathy, unspecified (5) Anemia: Status: Acute Category: Medical Code(s): D64.9 - Anemia, unspecified (6) Chronic pain syndrome: Status: Chronic Category: Medical Code(s): G89.4 - Chronic pain syndrome (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 We will add DuoNeb treatments for more aggressive pulmonary toilet; postop care a
--- NOTE | 2022-08-18 08:33 | EXP.SURG.PN ---
Subjective Patient reports: no flatus Narrative: Somewhat more alert. Exam Data for Last 24 hours Vital signs and Labs for Last 24 Hours: Temp Pulse Resp BP Pulse Ox FiO2 97.6 F 81 16 148/58 H 87 L 28 08/18/22 08:00 08/18/22 08:00 08/18/22 08:00 08/18/22 08:00 08/18/22 08:00 08/17/22 18:13 I & O for Last 24 hours: Intake & Output 08/15/22 08/16/22 08/17/22 08/18/22 11:59 11:59 11:59 11:59 Intake Total 690 / 690 3134 / 3134 1584 / 1584 1856 / 1856 Output Total 100 / 100 1625 / 1625 1450 / 1450 50 / 50 Balance 590 / 590 1509 / 1509 134 / 134 1806 / 1806 Weight 100 lb 3 oz 99 lb 2.975 oz 99 lb 3.2 oz 99 lb 8 oz Microbiology Reports for the Last 24 Hours: Microbiology 08/14/22 02:50 Urine,Clean Catch Urine Culture - Final Escherichia coli Escherichia coli#2 Constitutional Constitutional: no acute distress, thin and chronically ill appearing *Routine Respiratory Exam Respiratory: Absent respiratory distress *Routine Cardiovascular Exam Cardiovascular: Absent tachycardia *Routine Abdominal Exam Comments: Incision healing without sign of infection Progress Note: A&P Assessment and plan (1) SBO (small bowel obstruction): Status: Acute Assessment and plan: No definitive evidence of return of bowel function. Continue nasogastric decompression for now. (2) Physical deconditioning: Status: Acute Assessment and plan: Physical therapy consultation ordered (3) JERAD (acute kidney injury): Status: Acute (4) COPD (chronic obstructive pulmonary disease): Status: Chronic (5) Chronic pain syndrome: Status: Chronic (6) Systolic and diastolic CHF w/reduced LV function, NYHA class 4: Status: Acute (7) Severe protein-calorie malnutrition: Status: Acute (8) Postoperative abdominal pain: Status: Acute (9) Oral candidiasis: Status: Acute
[2022-08-18 09:06] LABS: Basophils % 0.3 % (0.1-2.0); Eosinophils # 0.1 K/mm3 (0.0-0.4); Eosinophils % 1.1 % (0.1-12.0); Hematocrit 42.4 % (37.0-47.0); Hemoglobin 13.1 g/dL (12.2-16.2); Lymphocytes # 0.9 K/mm3 (0.7-4.5); Lymphocytes % 7.8 % (10-50); Mean Corpuscular Hemoglobin 31.8 pg (27.0-31.2); Mean Corpuscular Volume 102.5 fl (81-99); Mean Platelet Volume 9.1 fl (7.4-10.4); Monocytes # 0.6 K/mm3 (0.1-1.0); Neutrophils # 9.7 K/mm3 (1.8-7.8); Neutrophils % 85.8 % (37.0-80.0); Platelet Count 204 K/mm3 (142-424); Red Blood Count 4.13 M/mm3 (4.20-5.40); Red Cell Distribution Width 14.2 % (11.5-17.5); White Blood Count 11.4 K/mm3 (4.8-10.8)
[2022-08-18 09:08] LABS: MANUAL DIFFERENTIAL MANUAL DIFFERENTIAL (MANUAL DIFF)
--- NOTE | 2022-08-18 09:17 | DIET.NUTRFU ---
Patient continued NPO with NG at suction and in use for meds. She has been more alert and up in chair. 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 Will continue to follow POC
[2022-08-18 09:19] LABS: Chloride 105 mmol/L (98-107)
[2022-08-18 09:20] LABS: Potassium 4.1 mmoL/L (3.5-5.1); Sodium 144 mmol/L (136-145)
[2022-08-18 09:23] LABS: Anion Gap 8.1 mEq/L (5-15); Blood Urea Nitrogen 10 mg/dl (7-17); Calcium 8.8 mg/dl (8.4-10.2); Carbon Dioxide 35 mmol/L (22.0-30.0); Creatinine Clearance Estimated 30 mL/min (50-200); Estimated Glomerular Filt Rate 60 ml/min (>60); GFR (African American) 72 ML/MIN (>60); Glucose 132 mg/dl (74-100)
--- NOTE | 2022-08-18 09:47 | PC.NURSE ---
913 left message with Debbie in office, pt is on metoprolol succ 100 which cannot be crushed. can med be changed? [address] Smith, change to metoprolol tartrate 50mg po bid.
[2022-08-18 10:38] LABS: Anisocytosis 1+; Lymphocytes % 6 % (10-50); Macrocytosis 1+; Monocytes % 1 % (2-9); Neutrophils % 93 % (42-76); Platelet Estimate Normal; Total Cells Counted 100
[2022-08-18 10:39] LABS: Hypochromasia 1+; Ovalocytes 1+
--- NOTE | 2022-08-18 10:53 | HMH.OTEV ---
OT Inpatient Evaluation Rehab OT IP Evaluation Start: 08/18/22 10:00 Freq: ONCE Status: Complete Protocol: Document 08/18/22 10:43 [facility] (Rec: 08/18/22 10:52 [facility] [id number]) Rehab OT IP Assessment Subjective History Pt oriented to person on arrival. Pt agreeable to engage in therapy evaluation. Pt's daughter present and supportive of therapy. Pt was admitted via ED on 08/14/22 due to abdominal pain and small bowel obstruction. On pt required a Laparotomy with freeing of intestinal obstruction by lysis of adhesions. Pt continues to have NG tube in place. Prior to being in the hospital, pt lived at home with her son. Her son was not home with her 30/05. She claims she was independent with all ADLs such as bathing, dressing, and feeding. However, she was dependent upon family for completion of IADLs (cooking, cleaning, grocery shopping, etc). Pt did use a rollator during abmulation. Pt's medical history: Anemia CAD (coronary artery disease) Cardiomyopathy Chest pain Chronic pain syndrome COPD (chronic obstructive pulmonary disease) Dyspnea HHD (hypertensive heart disease) History of left heart catheterization Neuropathy Subjective It hurts. Pt resting in bed. Pt completed bed mobility and went from supine to sitting at eob with mod assist. Pt required min/mod assist to maintain static sitting balance at eob for ~4 minutes. Pt stood from eob with max
--- NOTE | 2022-08-18 10:57 | HMH.PTEV ---
Physical Therapy Evaluation Rehab PT IP Evaluation Start: 08/18/22 08:22 Freq: ONCE Status: Active Protocol: Document 08/18/22 10:37 [facility] (Rec: 08/18/22 10:56 [facility] [id number]) Subjective/History History History Pt is an 86 y/o female who presented to [facility] ER on with complaint of fatigue, decreased appetite and urinary output, severe central abdominal pain and constipation for over a week with one bout of nausea/ vomiting. After testing, pt was found to have a UTI and small bowel obstruction per CT scan. Pt underwent laparotomy with freeing of intestinal obstruction by lysis of adhesions on 08/15/22. Medical History: Anemia, CAD, Cardiomyopathy, Chest pain, Chronic pain syndrome, COPD, Dyspnea, HHD (hypertensive heart disease), History of left heart catheterization, Neuropathy Surgical History: History of carpal tunnel surgery, cataract removal with insertion of prosthetic lens, lumbar laminectomy Subjective Subjective The pt was only oriented to person only upon arrival to room and difficult to understand due to severe dry mouth, sores, and NG tube. Pt' s daughter was present during evaluation and reports she lived at home with her son who was there part of the time. She also states she lives in a home with a basement she doesn't use and has a couple steps to get inside. She reports the pt was independent with dressing herself and used a rollator for ambulation prior to hospitalization. The daughter reports she would do most of the cleaning/cooking.
--- NOTE | 2022-08-18 11:01 | SW/DCPLANNER ---
Addendum entered by [facility] 08/26/22 10:50: This patient will discharge to [facility] today [facility] level of care. Addendum entered by [facility] 08/25/22 11:33: Updated patient information has been faxed to [facility]. Addendum entered by [facility] 08/24/22 12:58: Updated patient information has been faxed to Kourtney carter/ [facility]. Addendum entered by [facility] 08/23/22 10:33: Updated patient information has been faxed to Kourtney at [facility]. Addendum entered by [facility] 08/20/22 09:26: Updated patient information has been faxed to Kourtney carter/ [facility]. Addendum entered by [facility] 08/19/22 13:28: Kourtney Antoine stated that she can accept this patient at discharge pending no clinical changes. I will continue to follow up with Kourtney until patient is ready for discharge. Addendum entered by [facility] 08/18/22 14:46: Kourtney Antoine stated that she will be onsite to evaluate patient tomorrow morning and speak w/ family. Original Note: I spoke with this patient and her daughter regarding plans once medically stable for discharge. PT/OT evaluated patient and recommended placement at this time. Patient's daughter stated that herself and patient have been speaking about rehab and prefer to discharge to [facility] level of care. Kourtney carter/ [facility] confirmed females beds are available. Patient information has been faxed to Kourtney. Discharge date is unknown at this time. I will continue to updated patient/family and
--- NOTE | 2022-08-18 14:31 | HMH.SLDYSPHA ---
Speech & Language Evaluation Speech/Language Dysphagia Evaluation Start: 08/18/22 14:15 Freq: ONCE Status: Active Protocol: Document 08/18/22 14:15 [facility] (Rec: 08/18/22 14:31 [facility] [id number]) Dysphagia Assess/Goals/Plan Assessment Date of Evaluation: 08/18/22 Evaluation Type Initial Certification Assessment/Problems Dysphagia Does Patient Qualify for Service Yes Qualify/Failure Comment Based on the clinical swallow evaluation, pt would benefit from skilled speech therapy services at this time pending [facility] discussion from children. Recommendations PHYSICIAN CERTIFICATION: The specified therapy services are required, authorized, and reviewed every 30 days. Diet Recommendations NPO Plan Pt/Guardian verbally ack understanding Yes of dx/prognosis/goals Pt/Guardian verbally ack understanding Yes of/consent to tx prog G -code Required No Education Instructions provided Assessment results discussed with both pt and son, who expressed understanding. POULTRY KILLER also discussed high risk of aspiration given pt overty s/ sxs of aspiration and gave them the option of comfort care vs MBSS to determine if there is a safe diet. Son expressed he would discuss with his sister and let nursing know what the decision is. Pt/Caregiver able to recall information Able to recall/restate Reinforcement needed No Speech & Language HPI History Present Illness Description of Patient Problem Pt is an 86 y/o female who presented to [facility] ER on with complaint of fatigue, decreased appetite and urinary output, severe central abdominal pain and constipation for over a week with one bout of nausea/ vomiting. After testing, pt was found to have a UTI and small bowel obstruction per CT scan. Pt underwent laparotomy with freeing of intestinal obstruction by lysis of adhesions on 08/15/22. Medical History: Anemia, CAD,
--- NOTE | 2022-08-18 18:18 | PC.NURSE ---
pt has rested in room this shift. she was up to the chair for approx 1 hour this am, but became confused and insistent upon getting up. pt was unable to be redirected that she was unable to ambulate alone. pt was placed back in bed by staff. family has remained at bedside this shift. pt is confused but is able to follow some commands, but does not understand all aspects. pt unable to follow directions on how to use IS. lungs are diminished and bowel sounds are hypoactive. midline incision is botany technician with ariana.
--- NOTE | 2022-08-18 19:57 | PC.NURSE ---
[address] vance that pt hr has been noted to be in the mid 30's. pt is ordered metoporol tart 50 this evening. new order to hold med at 2100
--- NOTE | 2022-08-18 21:00 | PC.NURSE ---
notified MD Rivas that pt's HR dipping down into 30-40's and twice went into high 20's, ordered EKG
--- NOTE | 2022-08-18 21:07 | ECG_ITS ---
APPROVED REPORT Exam: Resting ECG HR:55 bpm ECG Measurements Heart Rate 55 AXES MN 109 P 62 QRSd 74 QRS 64 QT 398 T 264 QTc 386 Conclusion SINUS BRADYCARDIA WITH SINUS ARRHYTHMIA WITH SHORT MN INTERVAL Diffuse STTW changes previously noted ABNORMAL ECG UNCONFIRMED REPORT Electronically signed by : Ata Becerra MD 08/19/2022 20:06:25
--- NOTE | 2022-08-18 21:15 | PC.NURSE ---
EKG complete, notified MD Rivas of results, no new orders at this time, stated if HR stays in 30's for a sustained amount of time call ER MD or hospitalist
[2022-08-19] VITALS (12 sets, daily range): BP systolic 139–175; BP diastolic 55–83; PULSE 46–94; RESP 16–20; TEMP 36.4–37; O2SAT 92–97; BMI 14.4
--- NOTE | 2022-08-19 07:38 | EXP.SURG.PN ---
Subjective Patient reports: no new complaints Narrative: Patient without any new complaints. More alert. Minimal NG output. Exam Data for Last 24 hours Vital signs and Labs for Last 24 Hours: Temp Pulse Resp BP Pulse Ox FiO2 98.0 F 62 18 151/76 H 93 L 28 08/19/22 04:00 08/19/22 06:26 08/19/22 04:00 08/19/22 04:00 08/19/22 06:26 08/17/22 18:13 Laboratory Results - last 24 hr 08/18/22 08:51: WBC 11.4 H D, RBC 4.13 L, Hgb 13.1, Hct 42.4, MCV 102.5 H, MCH 31.8 H, MCHC 31.0 L, RDW 14.2, Plt Count 204, MPV 9.1, Neut % (Auto) 85.8 H, Lymph % (Auto) 7.8 L, [place] % (Auto) 5.0, Eos % (Auto) 1.1, Baso % (Auto) 0.3, Neut # (Auto) 9.7 H, Lymph # (Auto) 0.9, [place] # (Auto) 0.6, Eos # (Auto) 0.1, Baso # (Auto) 0.0, Total Counted 100, Neutrophils % (Manual) 93 H, Lymphocytes % (Manual) 6 L, Monocytes % (Manual) 1 L, Platelet Estimate Normal, Hypochromasia 1+, Anisocytosis 1+, Macrocytosis 1+, Ovalocytes 1+ 08/18/22 08:51: Sodium 144, Potassium 4.1, Chloride 105, Carbon Dioxide 35 H, Anion Gap 8.1, BUN 10 D, Creatinine 0.90, Estimated Creat Clear 30, Estimated GFR 60, Est GFR ( Amer) 72 D, Glucose 132 H, Calcium 8.8 I & O for Last 24 hours: Intake & Output 08/16/22 08/17/22 08/18/22 08/19/22 11:59 11:59 11:59 11:59 Intake Total 3134 / 3134 1584 / 1584 1856 / 1856 1676 / 1676 Output Total 1625 / 1625 1450 / 1450 50 / 50 200 / 200 Balance 1509 / 1509 134 / 134 1806 / 1806 1476 / 1476 Weight 99 lb 2.975 oz 99 lb 3.2 oz 99 lb 8 oz 95 lb 3 oz Microbiology Reports for the Last 24 Hours: Microbiology 08/14/22 02:50 Urine,Clean Catch Urine Culture - Final Escherichia coli Escherichia coli#2 *Routine Abdominal Exam Abdominal: Present soft Comments: Incision clean. Progress Note: A&P Assessment and plan (1) SBO (small bowel obstruction): Status: Acute Assessment and plan: DC NG. (2) Physical deconditioning: Status: Acute (3) JERAD (acute kidney injury): Status: Acute (4) COPD (chronic obstructive pulmonary disease): Status: Chronic (5) Chronic pain syndrome: Status: Chronic (6) Systolic and diastolic CHF w/reduced LV function, NYHA class 4: Status: Acute (7) Severe protein-calorie malnutrition: Status: Acute (8) Postoperative abdominal pain: Status: Acute (9) Oral candidiasis: Status: Acute
--- NOTE | 2022-08-19 08:10 | EXP.ACUTE.PN ---
Subjective *Date: 08/19/22 *Time: 09:27 Interval history: Patient states she is still having abdominal pain this morning and hurts into her back. She wants the NG tube out. Medical Exam Vital signs and Labs for Last 24 Hours: Temp Pulse Resp BP Pulse Ox FiO2 98.0 F 62 18 151/76 H 93 L 28 08/19/22 04:00 08/19/22 06:26 08/19/22 04:00 08/19/22 04:00 08/19/22 06:26 08/17/22 18:13 Laboratory Results - last 24 hr 08/18/22 08:51: WBC 11.4 H D, RBC 4.13 L, Hgb 13.1, Hct 42.4, MCV 102.5 H, MCH 31.8 H, MCHC 31.0 L, RDW 14.2, Plt Count 204, MPV 9.1, Neut % (Auto) 85.8 H, Lymph % (Auto) 7.8 L, [place] % (Auto) 5.0, Eos % (Auto) 1.1, Baso % (Auto) 0.3, Neut # (Auto) 9.7 H, Lymph # (Auto) 0.9, [place] # (Auto) 0.6, Eos # (Auto) 0.1, Baso # (Auto) 0.0, Total Counted 100, Neutrophils % (Manual) 93 H, Lymphocytes % (Manual) 6 L, Monocytes % (Manual) 1 L, Platelet Estimate Normal, Hypochromasia 1+, Anisocytosis 1+, Macrocytosis 1+, Ovalocytes 1+ 08/18/22 08:51: Sodium 144, Potassium 4.1, Chloride 105, Carbon Dioxide 35 H, Anion Gap 8.1, BUN 10 D, Creatinine 0.90, Estimated Creat Clear 30, Estimated GFR 60, Est GFR ( Amer) 72 D, Glucose 132 H, Calcium 8.8 I & O for Labs for Last 24 Hours: Intake & Output 08/16/22 08/17/22 08/18/22 08/19/22 11:59 11:59 11:59 11:59 Intake Total 3134 / 3134 1584 / 1584 1856 / 1856 1676 / 1676 Output Total 1625 / 1625 1450 / 1450 50 / 50 200 / 200 Balance 1509 / 1509 134 / 134 1806 / 1806 1476 / 1476 Weight 99 lb 2.975 oz 99 lb 3.2 oz 99 lb 8 oz 95 lb 3 oz Microbiology Reports for the Last 24 Hours: Microbiology 08/14/22 02:50 Urine,Clean Catch Urine Culture - Final Escherichia coli Escherichia coli#2 Comment:: Appears not to feel well. Respiratory: Present CTA bilaterally Cardiac: Present Reg Rate and Rhythm GI: Present tenderness and guarding Extremities: Absent edema Assessment and Plan *Assessment and plan (1) JERAD (acute kidney injury): Status: Acute Category: Medical Code(s): N17.9 - Acute kidney failure, unspecified (2) SBO (small bowel obstruction): Status: Acute Category: Medical Code(s): K56.609 - Unspecified intestinal obstruction, unspecified as to partial versus complete obstruction (3) COPD (chronic obstructive pulmonary disease): Status: Chronic Qualifiers: COPD type: unspecified COPD Qualified Code(s): J44.9 - Chronic obstructive pulmonary disease, unspecified Category: Medical Code(s): J44.9 - Chronic obstructive pulmonary disease, unspecified (4) Neuropathy: Status: Acute Category: Medical Code(s): G62.9 - Polyneuropathy, unspecified (5) Anemia: Status: Acute Category: Medical Code(s): D64.9 - Anemia, unspecified (6) Chronic pain syndrome: Status: Chronic Category: Medical Code(s): G89.4 - Chronic pain syndrome (7) Systolic and diastolic CHF w/reduced LV function, NYHA class 4: Status: Acute Category: Medical Code(s): I50.40 - Unspecified combined systolic (congestive) and diastolic (congestive) heart failure (8) Severe protein-calorie malnutrition: Status: Acute Category: Medical Code(s): E43 - Unspecified severe protein-calorie malnutrition (9) Postoperative abdominal pain: Status: Acute Category: Medical Code(s): R10.9 - Unspecified abdominal pain; G89.18 - Other acute postprocedural pain (10) Oral candidiasis: Status: Acute Category: Medical Code(s): B37.0 - Candidal stomatitis Plan She has had minimal NG output. She was seen by Dr. Goddard this morning and the family states they were told her NG may be removed today. Urine culture is positive for 2 strains of E. coli. One strain is sensitive to Rocephin and the other is resistant. Both strains are sensitive to ertapenem, gentamicin,
--- NOTE | 2022-08-19 10:28 | DIET.NUTRFU ---
Addendum entered by Bibi Bar RD, LD 08/19/22 12:57: dextrose IV in place for hydration, no new labs today. Addendum entered by Bibi Bar RD, LD 08/19/22 12:56: VIDEO NEWS EDITOR saw again today with oral trials and patient tolerated slightly better, daughter agreed to have MBSS completed when medically feasible. Original Note: Patient had NG removed today, observed her with some sips of water and ice chips during visit. Spoke to VIDEO NEWS EDITOR today about revisiting with daughter to review MBSS process to determine if this is next step. VIDEO NEWS EDITOR concerned with oxygen SAT's dropping while eating. She is also demonstrating a wet cough and residuals left on tongue. Will continue to follow VIDEO NEWS EDITOR recommendations. Provider feels like she will be here over weekend.
--- NOTE | 2022-08-19 11:36 | EXP.CARD.CON ---
History of Present Illness History of Present Illness Consult date: 08/19/22 Requesting physician: Magdiel Rivas Chief complaint: decreased appetite, decreased urinary output, fatigue Additional Medical History:: Significant past medical hx: Dyspne on exertion CAD Pulmonary HTN Mixed hyperlipidemia COPD Essential HTN Chronic Opioid use Hx of systolic heart failure with recovered EF [facility] 2018 IMPRESSION: 1.? Mild to moderate nonflow limiting coronary artery disease 2.? Severely reduced ejection fraction with significant regional wall motion abnormality which cannot be explained angiographically 3.? Mild pulmonary hypertension with normal pulmonary artery occlusion pressure PLAN: 1.? Medical management for systolic heart failure which includes ilir inhibitors beta blockers and diuretics 2.? Monitor large pleural effusion. If this effusion decreases in size with diuretics I would attribute this to congestive heart failure however if the effusion remains the same size it should be tapped with thoracentesis for therapeutic possible diagnostic etiologies 3.? Patient should go home on a loop diuretics 4.? Close follow-up in cardiology clinic within 1 week Echo 11/2020 Conclusion 1.? Mildly enlarged left atrium, normal left ventricular size, mild concentric left ventricular hypertrophy, visually estimated ejection fraction 55% with no regional wall motion abnormality, grade 1 diastolic dysfunction seen without tissue Doppler evidence of raise left atrial pressure. 2.? Thickened and calcified aortic valve without Doppler evidence of aortic stenosis or aortic insufficiency. 3.? Mild mitral and tricuspid regurgitation. 4.? No significant pericardial effusion noted. History of present illness: 86 year old white female with above past medical hx presented to ER on 08/14 with complaint of decreased appetite, decreased urinary output and fatigue x 2 days. Labs were significant for UTI and CT abdomen pelvis showed a high-grade small bowel obstruction. Patient has been admitted for sbo and UTI. Cardiology was asked to consult today for bradycardia. Nurses report that patient became jonna yesterday after receiving Metoprolol tart. Nurses report rate as low as 30. Patient usually takes Toprol XL 50mg QD at home. They had to switch it to tartarate to crush and put down NG tube and that's when symptoms started. Currently rate is NS 57. patient is asymptomatic. [facility] Medical History (Updated 08/19/22 @ 11:51 by Lashon Guillaume APRN) Anemia CAD (coronary artery disease) Cardiomyopathy Chest pain Chronic pain syndrome COPD (chronic obstructive pulmonary disease) Dyspnea HHD (hypertensive heart disease) History of left heart catheterization Neuropathy Surgical History (Updated 08/14/22 @ 11:15 by Amish Smith MD) History of carpal tunnel surgery History of cataract removal with insertion of prosthetic lens History of lumbar laminectomy Social History (Updated 08/14/22 @ 05:39 by Sosa Mcintyre RN) Smoking Status: Current every day smoker tobacco type: cigarettes packs per day: 1 years smoked: 50 quit status: not considering quitting second hand exposure: Yes alcohol intake: never substance use type: denies use current occupational status: retired Travel in the last 8 weeks: None household members: children housing: house current occupational exposures/hazards: No caffeine: No Review of Systems Review of Systems Review of systems:: pertinent systems reviewed and negative unless documented below Constitutional Constitutional: Denies headache(s), Reports poor appetite, Reports malaise and Reports weakness ENT Ears, Nose, Mouth, and Throat: Denies dizziness and Denies headache(s) *Neurologic Neurologic: Reports confusion, Denies dizziness, Denies localized weakness, Denies headache(s), Denies paresthesias and Reports weakness Psychiatric Psychiatric: Reports confusion Exam Data for Last 24 h
--- NOTE | 2022-08-19 13:01 | FL_ITS ---
FINAL REPORT CLINICAL HISTORY: trouble swallowing 3.50 fluoro time FINDINGS: MODIFIED BARIUM SWALLOW History: Dysphagia. FINDINGS: Fluoroscopy was provided for the speech pathologist to evaluate the swallowing mechanism. The patient was given several different consistencies of barium while the swallow was visualized fluoroscopically. The report of the speech pathologist should be consulted prior to making dietary decisions. FLUOROSCOPY TIME: 3 minutes 50 seconds. 20 Seven cine runs were obtained. IMPRESSION: Modified barium swallow under fluoroscopic guidance. Please see the report of the speech pathologist for more detail. Films reviewed , interpreted and dictated by Dr. Garvin. Transcribed by Jamil Espinosa PA-C. Reviewed, Interpreted and Dictated by Mj Garvin III, MD Transcribed by PEDRO Guadalupe Authenticated and [facility]
--- NOTE | 2022-08-19 15:29 | HMH.SLMBS2 ---
Speech & Language Evaluation Speech/Language Mod Barium Swallow Start: 08/19/22 13:01 Freq: ONCE Status: Complete Protocol: Document 08/19/22 14:26 DASHAARCHANASASHALEELEE (Rec: 08/19/22 14:41 AILEEN [id number]) General Information General Current Food Consistancy NPO Dentition Poor Dentition Oxygen Status Nasal Cannula Facial Symmetry Patient Baseline Ability to Follow Directions Fair Communication Ability Severe Impairment MBS Recommendations Diet Dietary Recommendations Pureed,Honey Liquids Treatment/Strategies Treatment Recommendation Oral Motor Exercises,Base of Tongue Exercises,Pharyngeal Resistive Exer Strategy/Precaution Recommend Sitting Upright (90 deg),No Straw,Small Bites and Sips, Alternate Liquids/Solids Mod Barium Swallow Impressions Summary and Impressions Oral Phase Impression Severe Impairment Oral Phase Summary Severe oral dysphagia. Pt presents with severely prolonged mastication and oral manipulation 2' dentition and generalized weakness. Moderate residue was noted with all consistencies trialed . Premature spillage occurred intermittently with liquids. Pharyngeal Phase Impression Severe Impairment Pharyngeal Phase Summary Severe pharyngeal dysphagia. Aspiration noted with thin liquids and nectar thick liquids. Pt initially presented with deep penetration during the swallow which resulted in aspiration of residue in the laryngeal vestibule after the swallow. Severe swallow delay was noted with thin liquids, as pt was noted to never initiate a swallow with second thin liquid bolus. Pt required nectar thick liquid to trigger pharyngeal swallow, which she subsequently aspirated. Severe diffuse pharyngeal residue noted 2' reduced BOT retraction, reduced pharyngeal stripping wave, and reduced hyolaryngeal excursion. Vern
--- NOTE | 2022-08-19 16:28 | PC.NURSE ---
Addendum entered by Chrissy Gerardo RN 08/19/22 17:35: Pt has been unable to do a return demonstration on incentive spirometer. Original Note: Pt has been alert to self. She was up to the chair for several hours today and tolerated well. She's been a 2-3 person assist. Midline incision is open to air. NSR/SB with ST depression on telemetry.She has denied any complaints. Family is at bedside. Bed is locked and in the lowest position, call light is within reach.
[2022-08-20] VITALS (11 sets, daily range): BP systolic 113–166; BP diastolic 50–91; PULSE 60–87; RESP 16–24; TEMP 36.6–37.1; O2SAT 92–100; BMI 17.9
--- NOTE | 2022-08-20 05:16 | PC.NURSE ---
pt has rested well t/o the night. she is a&o to person only, follows verbal commands. she has been incontinent this shift. she is NSR on tele with ST depression. SBP has been 134-175. midline incision open to air with ariana in place. no sign of infection. abdomen soft and tender. remains on 2l nc. o2 sats 95-96%. turned q2 hr. bed alarm on and functioning for safety. call light within reach.
--- NOTE | 2022-08-20 06:28 | EXP.SURG.PN ---
Subjective Patient reports: feels better and no bowel movement Narrative: Uncertain with regard to flatus Exam Data for Last 24 hours Vital signs and Labs for Last 24 Hours: Temp Pulse Resp BP Pulse Ox FiO2 98.7 F 75 16 134/63 95 28 08/20/22 04:00 08/20/22 06:19 08/20/22 04:00 08/20/22 04:00 08/20/22 06:19 08/17/22 18:13 I & O for Last 24 hours: Intake & Output 08/17/22 08/18/22 08/19/22 08/20/22 11:59 11:59 11:59 11:59 Intake Total 1584 / 1584 1856 / 1856 1676 / 1676 2196 / 2196 Output Total 1450 / 1450 50 / 50 200 / 200 0 / 0 Balance 134 / 134 1806 / 1806 1476 / 1476 2196 / 2196 Weight 99 lb 3.2 oz 99 lb 8 oz 95 lb 3 oz 118 lb 1.6 oz Constitutional Constitutional: no acute distress *Routine Respiratory Exam Respiratory: Absent respiratory distress *Routine Cardiovascular Exam Cardiovascular: Absent tachycardia *Routine Abdominal Exam Abdominal: Present soft Progress Note: A&P Assessment and plan (1) SBO (small bowel obstruction): Status: Acute Assessment and plan: Overall, doing well status post lysis of adhesions. Pur?ed diet ordered per primary service. Continue serial exams. (2) Physical deconditioning: Status: Acute Assessment and plan: Continue PT/OT
[2022-08-20 06:36] LABS: Basophils % 0.3 % (0.1-2.0); Eosinophils # 0.2 K/mm3 (0.0-0.4); Eosinophils % 3.1 % (0.1-12.0); Hematocrit 39.2 % (37.0-47.0); Hemoglobin 12.3 g/dL (12.2-16.2); Lymphocytes # 1.1 K/mm3 (0.7-4.5); Lymphocytes % 15.7 % (10-50); Mean Corpuscular HGB Conc 31.4 g/dL (31.8-35.4); Mean Corpuscular Hemoglobin 30.9 pg (27.0-31.2); Mean Corpuscular Volume 98.5 fl (81-99); Mean Platelet Volume 9.6 fl (7.4-10.4); Monocytes # 0.5 K/mm3 (0.1-1.0); Monocytes % 6.8 % (1.7-9.3); Neutrophils % 74.1 % (37.0-80.0); Platelet Count 205 K/mm3 (142-424); Red Blood Count 3.98 M/mm3 (4.20-5.40); Red Cell Distribution Width 14.2 % (11.5-17.5); White Blood Count 6.7 K/mm3 (4.8-10.8)
[2022-08-20 06:41] LABS: Chloride 105 mmol/L (98-107); Potassium 3.9 mmoL/L (3.5-5.1); Sodium 140 mmol/L (136-145)
[2022-08-20 06:44] LABS: Anion Gap 10.9 mEq/L (5-15); Blood Urea Nitrogen 7 mg/dl (7-17); Carbon Dioxide 28 mmol/L (22.0-30.0); Creatinine Clearance Estimated 35 mL/min (50-200); Estimated Glomerular Filt Rate 68 ml/min (>60); GFR (African American) 83 ML/MIN (>60)
[2022-08-20 06:45] LABS: Calcium 8.2 mg/dl (8.4-10.2); Glucose 113 mg/dl (74-100)
--- NOTE | 2022-08-20 08:27 | EXP.ACUTE.PN ---
Subjective *Date: 08/20/22 *Time: 08:27 Interval history: Patient states she is feeling a little bit better today. She had the NG tube removed yesterday. She states she wants a Pepsi and some coffee but at this time is receiving thickened liquids. She has still not had a bowel movement and is unsure if she is passing flatus. Medical Exam Vital signs and Labs for Last 24 Hours: Temp Pulse Resp BP Pulse Ox FiO2 98.7 F 75 16 134/63 95 28 08/20/22 04:00 08/20/22 06:19 08/20/22 04:00 08/20/22 04:00 08/20/22 06:19 08/17/22 18:13 Laboratory Results - last 24 hr 08/20/22 06:12: WBC 6.7 D, RBC 3.98 L, Hgb 12.3, Hct 39.2, MCV 98.5, MCH 30.9, MCHC 31.4 L, RDW 14.2, Plt Count 205, MPV 9.6, Neut % (Auto) 74.1, Lymph % (Auto) 15.7, [place] % (Auto) 6.8, Eos % (Auto) 3.1, Baso % (Auto) 0.3, Neut # (Auto) 5.0, Lymph # (Auto) 1.1, [place] # (Auto) 0.5, Eos # (Auto) 0.2, Baso # (Auto) 0.0 08/20/22 06:12: Sodium 140, Potassium 3.9, Chloride 105, Carbon Dioxide 28, Anion Gap 10.9, BUN 7 D, Creatinine 0.80, Estimated Creat Clear 35, Estimated GFR 68, Est GFR ( Amer) 83, Glucose 113 H, Calcium 8.2 L I & O for Labs for Last 24 Hours: Intake & Output 08/17/22 08/18/22 08/19/22 08/20/22 11:59 11:59 11:59 11:59 Intake Total 1584 / 1584 1856 / 1856 1676 / 1676 219 / 2196 Output Total 1450 / 1450 50 / 50 200 / 200 0 / 0 Balance 134 / 134 1806 / 1806 1476 / 1476 219 / 2196 Weight 99 lb 3.2 oz 99 lb 8 oz 95 lb 3 oz 118 lb 1.6 oz Constitutional: Present no acute distress Comment:: Appears not to feel well. Respiratory: Present CTA bilaterally Cardiac: Present Reg Rate and Rhythm GI: Present tenderness and guarding Extremities: Absent edema Skin: Present intact Assessment and Plan *Assessment and plan (1) SBO (small bowel obstruction): Status: Acute Category: Medical Code(s): K56.609 - Unspecified intestinal obstruction, unspecified as to partial versus complete obstruction (2) Postoperative abdominal pain: Status: Acute Category: Medical Code(s): R10.9 - Unspecified abdominal pain; G89.18 - Other acute postprocedural pain (3) JERAD (acute kidney injury): Status: Acute Category: Medical Code(s): N17.9 - Acute kidney failure, unspecified (4) COPD (chronic obstructive pulmonary disease): Status: Chronic Qualifiers: COPD type: unspecified COPD Qualified Code(s): J44.9 - Chronic obstructive pulmonary disease, unspecified Category: Medical Code(s): J44.9 - Chronic obstructive pulmonary disease, unspecified (5) Neuropathy: Status: Acute Category: Medical Code(s): G62.9 - Polyneuropathy, unspecified (6) Anemia: Status: Acute Category: Medical Code(s): D64.9 - Anemia, unspecified (7) Chronic pain syndrome: Status: Chronic Category: Medical Code(s): G89.4 - Chronic pain syndrome (8) Systolic and diastolic CHF w/reduced LV function, NYHA class 4: Status: Acute Category: Medical Code(s): I50.40 - Unspecified combined systolic (congestive) and diastolic (congestive) heart failure (9) Severe protein-calorie malnutrition: Status: Acute Category: Medical Code(s): E43 - Unspecified severe protein-calorie malnutrition (10) Oral candidiasis: Status: Acute Category: Medical Code(s): B37.0 - Candidal stomatitis Plan The patient's antibiotics were changed to Invanz and her metoprolol was held due to bradycardia. It was felt she would need short-term rehab placement upon discharge. Cardiology did see the patient and recommended decreasing her beta-minesh and changing lisinopril to losartan and then Entresto for heart failure for better blood pressure control. She did have a modified barium swallow yesterday but the report is still pending. Speech therapy notes state the patient had aspiration with thin liquids and nectar thick l
--- NOTE | 2022-08-20 09:25 | P.PN_ITS ---
Subjective Subjective Date: 08/20/22 Time: 08:00 Principal diagnosis: sbo, uti Interval history: patient reports feeling better, BP improved at 134/63, pulse 75. Exam Data for Last 24 hours Vital signs and Labs for Last 24 Hours: Temp Pulse Resp BP Pulse Ox FiO2 98.7 F 75 16 134/63 95 28 08/20/22 04:00 08/20/22 06:19 08/20/22 04:00 08/20/22 04:00 08/20/22 06:19 08/17/22 18:13 Laboratory Results - last 24 hr 08/20/22 06:12: WBC 6.7 D, RBC 3.98 L, Hgb 12.3, Hct 39.2, MCV 98.5, MCH 30.9, MCHC 31.4 L, RDW 14.2, Plt Count 205, MPV 9.6, Neut % (Auto) 74.1, Lymph % (Auto) 15.7, [place] % (Auto) 6.8, Eos % (Auto) 3.1, Baso % (Auto) 0.3, Neut # (Auto) 5.0, Lymph # (Auto) 1.1, [place] # (Auto) 0.5, Eos # (Auto) 0.2, Baso # (Auto) 0.0 08/20/22 06:12: Sodium 140, Potassium 3.9, Chloride 105, Carbon Dioxide 28, Anion Gap 10.9, BUN 7 D, Creatinine 0.80, Estimated Creat Clear 35, Estimated GFR 68, Est GFR ( Amer) 83, Glucose 113 H, Calcium 8.2 L I & O for Last 24 hours: Intake & Output 08/17/22 08/18/22 08/19/22 08/20/22 23:59 23:59 23:59 23:59 Intake Total 1981 / 1981 1625 / 1625 2238 / 2238 866 / 866 Output Total 825 / 825 0 / 0 200 / 200 Balance 1157 / 1157 1625 / 1625 2037 / 2037 866 / 866 Weight 99 lb 3.2 oz 99 lb 8 oz 95 lb 3 oz 118 lb 1.6 oz Constitutional Constitutional: no acute distress *Routine Respiratory Exam Respiratory: Absent respiratory distress *Routine Cardiovascular Exam Cardiovascular: Absent tachycardia *Routine Abdominal Exam Abdominal: Present soft Progress Note: A&P Assessment and plan (1) SBO (small bowel obstruction): Status: Acute (2) Postoperative abdominal pain: Status: Acute (3) JERAD (acute kidney injury): Status: Acute (4) COPD (chronic obstructive pulmonary disease): Status: Chronic (5) Neuropathy: Status: Acute (6) Anemia: Status: Acute (7) Chronic pain syndrome: Status: Chronic (8) Systolic and diastolic CHF w/reduced LV function, NYHA class 4: Status: Acute (9) Severe protein-calorie malnutrition: Status: Acute (10) Oral candidiasis: Status: Acute Assessment and Plan Assessment and Plan for All Diagnoses:: Sinus jonna-asymptomatic -Decrease Toprol 50 to coreg 3.125 BID. Continue to monitor. -Rate is acceptable as long as >40 and patient remains asymptomatic. Hx of HFrEF with recovered EF. -No signs of volume overload noted at this time. -Would benefit from? Entresto 24/26 BID. Will stop Lisinopril and start Losartan 100mg QD. After 36 hour washout of ilir, consider replacing losartan with Entresto. Start coreg 3.25 BID. Continue lasix 20mg QD. Consider aldactone prior to DC home. Hx of CAD. -Medical management 2019. Continue aspirin 81mg QD, Plavix 75mg QD, Simvastatin 40mg QD. Start Coreg 3.125 BID HTN-Uncontrolled -Stop lisinopril. Start Losartan 100mg QD, consider replacing losartan with entresto after 36hour washout period for ilir. ? Continue Coreg 3.125 BID HLD -Continue simvastatin 40mg QD. CV stable. Rate in the 70s, BP much improved. Continue meds, consider Entresto after washout period. Can follow up in office in 2 weeks.
--- NOTE | 2022-08-20 10:55 | PC.NURSE ---
one unmeasured void
--- NOTE | 2022-08-20 14:28 | PC.NURSE ---
PT IS RESTING IN BED WITH FAMILY AT BEDSIDE. ALERT AND ORIENTED X3. PT WAS NOT GIVEN HER 1300 OXYCODONE DOSE DUE TO BEING ASLEEP AND PHYSICAL THERAPY STATED SHE WAS SLOW WITH FOLLOWING COMMANDS DURING THERAPY THIS MORNING. PT TOLERATED SITTING UP IN THE CHAIR FOR SEVERAL HOURS THIS SHIFT. NSR ON TELEMETRY. LUNG SOUNDS DIMINISHED WITH RIGHT SIDED CRACKLES. MIDLINE INCISION NOTED TO THE ABDOMEN. WILL CONTINUE TO MONITOR.
--- NOTE | 2022-08-20 17:15 | PC.WOUNDNOTE ---
REDNESS NOTED TO LEFT BUTTOCK
[2022-08-21] VITALS (12 sets, daily range): BP systolic 144–173; BP diastolic 65–91; PULSE 72–105; RESP 16–20; TEMP 36.4–37.2; O2SAT 94–100; BMI 16.7
--- NOTE | 2022-08-21 05:04 | PC.NURSE ---
No acute changes this shift. Pt has slept well. VS have remained stable. Pt remains on 2L O2 NC. Lungs are diminished. She is NSR with ST depression on telemetry. Pt has voided x1 with 700 ml urine output. Pt has c/o pain x1 early in shift. Denies any discomfort at this time. Pt turned Q2 hr. call light within reach. family at bedside.
--- NOTE | 2022-08-21 08:13 | EXP.SURG.PN ---
Subjective Patient reports: no new complaints Narrative: Seems more alert and interactive this morning Exam Data for Last 24 hours Vital signs and Labs for Last 24 Hours: Temp Pulse Resp BP Pulse Ox FiO2 97.5 F L 89 18 173/91 H 99 28 08/21/22 07:55 08/21/22 07:55 08/21/22 07:55 08/21/22 07:55 08/21/22 07:55 08/17/22 18:13 I & O for Last 24 hours: Intake & Output 08/18/22 08/19/22 08/20/22 08/21/22 11:59 11:59 11:59 11:59 Intake Total 1856 / 1856 1676 / 1676 2316 / 2316 2024 Output Total 50 / 50 200 / 200 0 / 0 1400 / 1400 Balance 1806 / 1806 1476 / 1476 2316 / 2316 625 / 625 Weight 99 lb 8 oz 95 lb 3 oz 118 lb 1.6 oz 110 lb 3 oz Constitutional Constitutional: no acute distress *Routine Respiratory Exam Respiratory: Absent respiratory distress *Routine Cardiovascular Exam Cardiovascular: Absent tachycardia *Routine Abdominal Exam Abdominal: Present soft Comments: Incision continues to heal with out sign of infection Progress Note: A&P Assessment and plan (1) SBO (small bowel obstruction): Status: Acute Assessment and plan: Continues to slowly improve. Continue diet as tolerated Remove one half of ariana (2) Physical deconditioning: Status: Acute Assessment and plan: Continue PT/OT
--- NOTE | 2022-08-21 10:28 | DIET.NUTRFU ---
[employer] completed MBS and recommended pt be placed on pureed diet with honey thick liquids. Pt diet has been advanced. Pt showing some improvement on Pureed Diet with 75% recorded at last meal. Will continue to monitor to determine if supplementation would be beneficial.
--- NOTE | 2022-08-21 13:45 | P.PN_ITS ---
Subjective *Date: 08/22/22 *Time: 15:28 Interval history: She is clinically stable. She is not passing gas yet which is of concern. She does still get oxycodone. She is not in any abdominal pain. Her blood pressures been running high. She has nitroglycerin paste ordered and I suggeste d to the nurse that she apply that since it may be helpful for her blood pressure. Medical Exam Vital signs and Labs for Last 24 Hours: Temp Pulse Resp BP Pulse Ox FiO2 98.1 F 89 20 144/86 H 99 28 08/21/22 12:02 08/21/22 12:02 08/21/22 12:02 08/21/22 12:02 08/21/22 12:02 08/17/22 18:13 I & O for Labs for Last 24 Hours: Intake & Output 08/19/22 08/20/22 08/21/22 08/22/22 11:59 11:59 11:59 11:59 Intake Total 1676 / 1676 2316 / 2316 2265 / 2265 Output Total 200 / 200 0 / 0 1400 / 1400 Balance 1476 / 1476 2316 / 2316 865 / 865 Weight 95 lb 3 oz 118 lb 1.6 oz 110 lb 3 oz Head: Present normocephalic Neck: Present normal inspection Respiratory: Present decreased breath sounds and CTA bilaterally Cardiac: Present Reg Rate and Rhythm GI: Present soft and diminished bowel sounds; Absent tenderness Rectal (female): Present deferred (female): Present deferred Extremities: Absent edema Skin: Present intact Neuro: Present Weakness (Not as interactive today as usual.) Assessment and Plan *Assessment and plan (1) Postoperative ileus: Status: Acute Category: Medical Code(s): K91.89 - Other postprocedural complications and disorders of digestive system; K56.7 - Ileus, unspecified (2) Dysphagia: Status: Acute Category: Medical Code(s): R13.10 - Dysphagia, unspecified (3) Sinus bradycardia: Status: Acute Category: Medical Code(s): R00.1 - Bradycardia, unspecified (4) SBO (small bowel obstruction): Status: Acute Category: Medical Code(s): K56.609 - Unspecified intestinal obstruction, unspecified as to partial versus complete obstruction (5) COPD (chronic obstructive pulmonary disease): Status: Chronic Qualifiers: COPD type: unspecified COPD Qualified Code(s): J44.9 - Chronic obstructive pulmonary disease, unspecified Category: Medical Code(s): J44.9 - Chronic obstructive pulmonary disease, unspecified (6) UTI (urinary tract infection): Status: Acute Qualifiers: Hematuria presence: without hematuria Urinary tract infection type: acute cystitis Qualified Code(s): N30.00 - Acute cystitis without hematuria Category: Medical Code(s): N39.0 - Urinary tract infection, site not specified Plan Continue present regimen. I suggested the Nitrol paste as mentioned above.
--- NOTE | 2022-08-21 13:48 | EXP.ACUTE.PN ---
Subjective *Date: 08/21/22 *Time: 13:48 Interval history: She is doing fine. The plan is to keep her here through the weekend for placement on Tuesday. She seems to be tolerating her change in diet. The chart is reviewed regarding the urinary tract infection. There was broad sensitivity for the E. coli culture. She should be responding very well to Invanz and clinically she does appear to be doing so. Medical Exam Vital signs and Labs for Last 24 Hours: Temp Pulse Resp BP Pulse Ox FiO2 98.1 F 89 20 144/86 H 99 28 08/21/22 12:02 08/21/22 12:02 08/21/22 12:02 08/21/22 12:02 08/21/22 12:02 08/17/22 18:13 I & O for Labs for Last 24 Hours: Intake & Output 08/19/22 08/20/22 08/21/22 08/22/22 11:59 11:59 11:59 11:59 Intake Total 1676 / 1676 2316 / 2316 2265 / 2265 Output Total 200 / 200 0 / 0 1400 / 1400 Balance 1476 / 1476 2316 / 2316 865 / 865 Weight 95 lb 3 oz 118 lb 1.6 oz 110 lb 3 oz Head: Present normocephalic ENT: Present normal exam Neck: Present normal inspection Respiratory: Present decreased breath sounds and CTA bilaterally Cardiac: Present Reg Rate and Rhythm GI: Present soft; Absent tenderness Rectal (female): Present deferred (female): Present deferred Extremities: Absent edema Skin: Present intact Neuro: Present alert and oriented x 3 Assessment and Plan *Assessment and plan (1) UTI (urinary tract infection): Status: Acute Qualifiers: Hematuria presence: without hematuria Urinary tract infection type: acute cystitis Qualified Code(s): N30.00 - Acute cystitis without hematuria Category: Medical Code(s): N39.0 - Urinary tract infection, site not specified (2) E coli infection: Status: Acute Category: Medical Code(s): A49.8 - Other bacterial infections of unspecified site (3) SBO (small bowel obstruction): Status: Acute Category: Medical Code(s): K56.609 - Unspecified intestinal obstruction, unspecified as to partial versus complete obstruction (4) Dysphagia: Status: Acute Category: Medical Code(s): R13.10 - Dysphagia, unspecified (5) Renal insufficiency: Status: Acute Category: Medical Code(s): N28.9 - Disorder of kidney and ureter, unspecified (6) Severe protein-calorie malnutrition: Status: Acute Category: Medical Code(s): E43 - Unspecified severe protein-calorie malnutrition (7) Sinus bradycardia: Status: Acute Category: Medical Code(s): R00.1 - Bradycardia, unspecified (8) Physical deconditioning: Status: Acute Category: Medical Code(s): R53.81 - Other malaise (9) COPD (chronic obstructive pulmonary disease): Status: Chronic Qualifiers: COPD type: unspecified COPD Qualified Code(s): J44.9 - Chronic obstructive pulmonary disease, unspecified Category: Medical Code(s): J44.9 - Chronic obstructive pulmonary disease, unspecified Plan Continue present regimen.
[2022-08-22] VITALS (12 sets, daily range): BP systolic 144–169; BP diastolic 61–93; PULSE 71–94; RESP 16–19; TEMP 36.7–37.4; O2SAT 94–100; BMI 18.1
--- NOTE | 2022-08-22 06:11 | PC.NURSE ---
pt has rested well this shift, no complaints of pain or SOA, remains on 4L NC with O2 sats 94-100, incision to abdomen, KEYANNA, no redness or drainage noted, family remains at bedside
--- NOTE | 2022-08-22 09:32 | EXP.SURG.PN ---
Subjective Patient reports: no new complaints and no bowel movement Narrative: No significant nausea; however, increased belching noted. No definitive flatus. Exam Data for Last 24 hours Vital signs and Labs for Last 24 Hours: Temp Pulse Resp BP Pulse Ox FiO2 98.5 F 94 H 18 145/61 H 94 L 28 08/22/22 08:19 08/22/22 08:19 08/22/22 08:19 08/22/22 08:19 08/22/22 08:19 08/17/22 18:13 I & O for Last 24 hours: Intake & Output 08/19/22 08/20/22 08/21/22 08/22/22 11:59 11:59 11:59 11:59 Intake Total 1676 / 1676 2316 / 2316 2265 / 2265 980 / 980 Output Total 200 / 200 0 / 0 1400 / 1400 550 / 550 Balance 1476 / 1476 2316 / 2316 865 / 865 430 / 430 Weight 95 lb 3 oz 118 lb 1.6 oz 110 lb 3 oz 119 lb 5 oz Constitutional Constitutional: no acute distress *Routine Respiratory Exam Respiratory: Absent respiratory distress *Routine Cardiovascular Exam Cardiovascular: Absent tachycardia *Routine Abdominal Exam Abdominal: Present soft and distended Comments: Incision healing without sign of infection. Increased distention over the past 24 hours Progress Note: A&P Assessment and plan (1) SBO (small bowel obstruction): Status: Acute Assessment and plan: Stable status post exploratory laparotomy with lysis of adhesions (2) Postoperative ileus: Status: Acute Assessment and plan: Increased abdominal distention and increased belching. No nausea or vomiting reported. Hold diet for now Limited sips and chips Serial abdominal exams
[2022-08-22 16:17] LABS: Basophils % 0.4 % (0.1-2.0); Eosinophils # 0.1 K/mm3 (0.0-0.4); Eosinophils % 2.4 % (0.1-12.0); Hematocrit 41.6 % (37.0-47.0); Lymphocytes % 16.3 % (10-50); Mean Corpuscular HGB Conc 31.3 g/dL (31.8-35.4); Mean Corpuscular Hemoglobin 31.1 pg (27.0-31.2); Mean Corpuscular Volume 99.4 fl (81-99); Monocytes # 0.5 K/mm3 (0.1-1.0); Monocytes % 7.6 % (1.7-9.3); Neutrophils # 4.3 K/mm3 (1.8-7.8); Neutrophils % 73.3 % (37.0-80.0); Platelet Count 162 K/mm3 (142-424); Red Blood Count 4.19 M/mm3 (4.20-5.40); White Blood Count 5.9 K/mm3 (4.8-10.8)
--- NOTE | 2022-08-22 16:38 | PC.NURSE ---
PT IS RESTING IN BED. TOLERATED SITTING UP IN THE CHAIR FOR SEVERAL HOURS THIS SHIFT. PT IS STILL A 2 ASSIST TO GET OOB. SIPS AND CHIPS ONLY THIS SHIFT. ABDOMEN DISTENDED/TENDER WITH HYPOACTIVE BOWEL SOUNDS. KEVIN REMOVED FROM ABDOMINAL INCISION WITH STERI STRIPS INTACT. NO SWELLING NOTED TO BLE. NITRO PASTE NOTED TO THE LEFT ANTERIOR CHEST FOR PT'S BP (PER ). WILL CONTINUE TO MONITOR.
[2022-08-22 17:12] LABS: Chloride 108 mmol/L (98-107); Potassium 4.3 mmoL/L (3.5-5.1); Sodium 139 mmol/L (136-145)
[2022-08-22 17:14] LABS: Alanine Aminotransferase 16 U/L (12-78); Aspartate Amino Transferase 34 U/L (14-36); Blood Urea Nitrogen 10 mg/dl (7-17); Creatinine Clearance Estimated 36 mL/min (50-200); Estimated Glomerular Filt Rate 80 ml/min (>60); GFR (African American) 96 ML/MIN (>60)
[2022-08-22 17:15] LABS: Albumin Level 2.5 g/dl (3.5-5.0); Albumin/Globulin Ratio 0.9 (1.1-1.8); Alkaline Phosphatase 78 U/L (38-126); Anion Gap 8.3 mEq/L (5-15); Calcium 7.7 mg/dl (8.4-10.2); Carbon Dioxide 27 mmol/L (22.0-30.0); Globulin 2.7 g/dL (1.3-3.2); Glucose 102 mg/dl (74-100); Total Protein,Serum 5.2 g/dl (6.3-8.2)
[2022-08-22 17:16] LABS: Bilirubin,Total 0.1 mg/dl (0.2-1.3)
[2022-08-23] VITALS (9 sets, daily range): BP systolic 138–180; BP diastolic 54–86; PULSE 70–81; RESP 18–22; TEMP 36.6–36.7; O2SAT 95–99; BMI 17.3
--- NOTE | 2022-08-23 05:03 | PC.NURSE ---
pt has rested t/o shift, abdomen is still round and firm to touch, but appears to be smaller than previous shift, pt has remained on 2L NC with O2 sats 97-99%, turned down to 1L, no complaints of pain this shift, has been turned Q2, SBP 138-154, HR 71-87
--- NOTE | 2022-08-23 06:57 | P.PN_ITS ---
Subjective Patient reports: no new complaints Narrative: Patient did not tolerate advancement to pur?ed diet as she developed symptoms difficult abdominal distention. Diet was decreased to sips and chips yesterday. She has subsequently been passing a lot of gas. No nausea. Has not moved bowels. Exam Data for Last 24 hours Vital signs and Labs for Last 24 Hours: Temp Pulse Resp BP Pulse Ox FiO2 98.1 F 71 18 152/72 H 98 28 08/23/22 04:00 08/23/22 04:00 08/23/22 04:00 08/23/22 04:00 08/23/22 06:49 08/22/22 21:06 Laboratory Results - last 24 hr 08/22/22 16:04: WBC 5.9, RBC 4.19 L, Hgb 13.0, Hct 41.6, MCV 99.4 H, MCH 31.1, MCHC 31.3 L, RDW 14.0, Plt Count 162, MPV 9.0, Neut % (Auto) 73.3, Lymph % (Auto) 16.3, [place] % (Auto) 7.6, Eos % (Auto) 2.4, Baso % (Auto) 0.4, Neut # (Auto) 4.3, Lymph # (Auto) 1.0, [place] # (Auto) 0.5, Eos # (Auto) 0.1, Baso # (Auto) 0.0 08/22/22 16:04: Sodium 139, Potassium 4.3, Chloride 108 H, Carbon Dioxide 27, Anion Gap 8.3, BUN 10 D, Creatinine 0.70, Estimated Creat Clear 36, Estimated GFR 80, Est GFR ( Amer) 96, Glucose 102 H, Calcium 7.7 L, Total Bilirubin 0.1 L, AST 34, ALT 16, Alkaline Phosphatase 78, Total Protein 5.2 L, Albumin 2.5 L, Globulin 2.7, Albumin/Globulin Ratio 0.9 L I & O for Last 24 hours: Intake & Output 08/20/22 08/21/22 08/22/22 08/23/22 11:59 11:59 11:59 11:59 Intake Total 2316 / 2316 2265 / 2265 980 / 980 1759 / 1759 Output Total 0 / 0 1400 / 1400 550 / 550 Balance 2316 / 2316 865 / 865 430 / 430 1759 / 1759 Weight 118 lb 1.6 oz 110 lb 3 oz 119 lb 5 oz 114 lb 5 oz *Routine Abdominal Exam Abdominal: Present soft Comments: She has some mild to moderate abdominal distention without tenderness Progress Note: A&P Assessment and plan (1) Postoperative ileus: Status: Acute (2) Dysphagia: Status: Acute (3) Sinus bradycardia: Status: Acute (4) SBO (small bowel obstruction): Status: Acute Assessment and plan: Will go ahead and start clear liquids. (5) COPD (chronic obstructive pulmonary disease): Status: Chronic (6) UTI (urinary tract infection): Status: Acute
--- NOTE | 2022-08-23 07:40 | DIET.NUTRFU ---
Addendum entered by Bibi Bar, KARI, LD 08/23/22 10:32: Reported some gas today, [facility]OC[facility]ATE DENTIST is still following, worked with patient this AM with HT clear liquids. Original Note: Patient's diet downgraded to clear liquids with honey thick recommended by ASSOCIATE DENTIST on 08/20. Patient has not had a BM since admit with no gas either. According to sx note abdomen was distended after the pureed diet/honey on Tuesday which she ate 50-75% throughout day. Will follow up with POC today. If clear liquids continue may need to consider boost clear for additional nutrition. Wt is up to 51kg, admit was 44kg, she is receiving dextrose IVF. Hydration labs from 08/22 WNL. Discharge plan when ready is [place] for rehab
--- NOTE | 2022-08-23 09:00 | EXP.ACUTE.PN ---
Subjective *Date: 08/23/22 *Time: 09:00 Interval history: Patient with no new complaints, passed some gas yesterday, no bowel movements, still feels week. Medical Exam Vital signs and Labs for Last 24 Hours: Temp Pulse Resp BP Pulse Ox FiO2 98.1 F 71 18 152/72 H 98 28 08/23/22 04:00 08/23/22 04:00 08/23/22 04:00 08/23/22 04:00 08/23/22 06:49 08/22/22 21:06 Laboratory Results - last 24 hr 08/22/22 16:04: WBC 5.9, RBC 4.19 L, Hgb 13.0, Hct 41.6, MCV 99.4 H, MCH 31.1, MCHC 31.3 L, RDW 14.0, Plt Count 162, MPV 9.0, Neut % (Auto) 73.3, Lymph % (Auto) 16.3, [place] % (Auto) 7.6, Eos % (Auto) 2.4, Baso % (Auto) 0.4, Neut # (Auto) 4.3, Lymph # (Auto) 1.0, [place] # (Auto) 0.5, Eos # (Auto) 0.1, Baso # (Auto) 0.0 08/22/22 16:04: Sodium 139, Potassium 4.3, Chloride 108 H, Carbon Dioxide 27, Anion Gap 8.3, BUN 10 D, Creatinine 0.70, Estimated Creat Clear 36, Estimated GFR 80, Est GFR ( Amer) 96, Glucose 102 H, Calcium 7.7 L, Total Bilirubin 0.1 L, AST 34, ALT 16, Alkaline Phosphatase 78, Total Protein 5.2 L, Albumin 2.5 L, Globulin 2.7, Albumin/Globulin Ratio 0.9 L I & O for Labs for Last 24 Hours: Intake & Output 08/20/22 08/21/22 08/22/22 08/23/22 23:59 23:59 23:59 23:59 Intake Total 2025 1405 / 1405 1555 / 1555 1004 / 1004 Output Total 0 / 0 1400 / 1400 550 / 550 Balance 2025 5 / 5 1005 / 1005 1004 / 1004 Weight 118 lb 1.6 oz 110 lb 3 oz 119 lb 5 oz 114 lb 5 oz Constitutional: Present no acute distress Respiratory: Present CTA bilaterally Cardiac: Present Reg Rate and Rhythm GI: Present tenderness and guarding Extremities: Absent edema Skin: Present intact Assessment and Plan *Assessment and plan (1) UTI (urinary tract infection): Status: Acute Qualifiers: Hematuria presence: without hematuria Urinary tract infection type: acute cystitis Qualified Code(s): N30.00 - Acute cystitis without hematuria Category: Medical Code(s): N39.0 - Urinary tract infection, site not specified (2) E coli infection: Status: Acute Category: Medical Code(s): A49.8 - Other bacterial infections of unspecified site (3) SBO (small bowel obstruction): Status: Acute Category: Medical Code(s): K56.609 - Unspecified intestinal obstruction, unspecified as to partial versus complete obstruction (4) Dysphagia: Status: Acute Category: Medical Code(s): R13.10 - Dysphagia, unspecified (5) Renal insufficiency: Status: Acute Category: Medical Code(s): N28.9 - Disorder of kidney and ureter, unspecified (6) Severe protein-calorie malnutrition: Status: Acute Category: Medical Code(s): E43 - Unspecified severe protein-calorie malnutrition (7) Sinus bradycardia: Status: Acute Category: Medical Code(s): R00.1 - Bradycardia, unspecified (8) Physical deconditioning: Status: Acute Category: Medical Code(s): R53.81 - Other malaise (9) COPD (chronic obstructive pulmonary disease): Status: Chronic Qualifiers: COPD type: unspecified COPD Qualified Code(s): J44.9 - Chronic obstructive pulmonary disease, unspecified Category: Medical Code(s): J44.9 - Chronic obstructive pulmonary disease, unspecified Plan Plan to resume liquid diet, still planning placement at time of discharge.
--- NOTE | 2022-08-23 17:37 | PC.NURSE ---
Pt has been alert to self. She was up to the chair for a few hours this am and tolerated well. Abdomen is distended, nontender. Suppository administered per order, no bm as of yet. No complaints or requests at this time. Family has been at bedside. Bed is locked and in the lowest position, call light is within reach.
--- NOTE | 2022-08-23 18:40 | PC.NURSE ---
Pt has had a couple of bm's, dressing to coccyx changed
[2022-08-24] VITALS (10 sets, daily range): BP systolic 117–188; BP diastolic 35–82; PULSE 60–74; RESP 14–24; TEMP 36.4–36.9; O2SAT 93–100; BMI 16.5
--- NOTE | 2022-08-24 06:05 | PC.NURSE ---
pt is alert to self. she has c/o abd pain and generalized pain this shift and medicated per mar. she has had no other complaints. she has been turned in bed every 2 hours. no BM so far this shift. abdomen is slightly distended and tender. stage 1 and redness noted to coccyx and buttocks, dressing changed this shift. call light in reach, bed alarm on and functioning.
[2022-08-24 06:09] LABS: Chloride 109 mmol/L (98-107); Potassium 4.1 mmoL/L (3.5-5.1); Sodium 139 mmol/L (136-145)
[2022-08-24 06:12] LABS: Anion Gap 7.1 mEq/L (5-15); Blood Urea Nitrogen 4 mg/dl (7-17); Calcium 7.4 mg/dl (8.4-10.2); Carbon Dioxide 27 mmol/L (22.0-30.0); Creatinine Clearance Estimated 33 mL/min (50-200); Estimated Glomerular Filt Rate 95 ml/min (>60); GFR (African American) 115 ML/MIN (>60); Glucose 102 mg/dl (74-100)
[2022-08-24 06:28] LABS: Basophils % 0.4 % (0.1-2.0); Eosinophils # 0.1 K/mm3 (0.0-0.4); Eosinophils % 2.2 % (0.1-12.0); Hematocrit 34.8 % (37.0-47.0); Hemoglobin 11.8 g/dL (12.2-16.2); Lymphocytes # 1.1 K/mm3 (0.7-4.5); Lymphocytes % 18.8 % (10-50); Mean Corpuscular HGB Conc 33.8 g/dL (31.8-35.4); Mean Corpuscular Volume 100.7 fl (81-99); Mean Platelet Volume 9.3 fl (7.4-10.4); Monocytes # 0.4 K/mm3 (0.1-1.0); Neutrophils # 4.3 K/mm3 (1.8-7.8); Neutrophils % 72.6 % (37.0-80.0); Platelet Count 226 K/mm3 (142-424); Red Blood Count 3.46 M/mm3 (4.20-5.40); White Blood Count 5.9 K/mm3 (4.8-10.8)
--- NOTE | 2022-08-24 07:13 | EXP.SURG.PN ---
Subjective Narrative: Patient without significant complaints. She did have a rather large bowel movement after Dulcolax. She is tolerating clears without difficulty. Denies nausea. Exam Data for Last 24 hours Vital signs and Labs for Last 24 Hours: Temp Pulse Resp BP Pulse Ox FiO2 98.5 F 72 18 134/62 94 L 28 08/24/22 04:00 08/24/22 05:40 08/24/22 00:00 08/24/22 04:00 08/24/22 05:40 08/22/22 21:06 Laboratory Results - last 24 hr 08/24/22 05:43: WBC 5.9, RBC 3.46 L, Hgb 11.8 L, Hct 34.8 L, MCV 100.7 H, MCH 34.0 H, MCHC 33.8, RDW 14.0, Plt Count 226 D, MPV 9.3, Neut % (Auto) 72.6, Lymph % (Auto) 18.8, [place] % (Auto) 6.0, Eos % (Auto) 2.2, Baso % (Auto) 0.4, Neut # (Auto) 4.3, Lymph # (Auto) 1.1, [place] # (Auto) 0.4, Eos # (Auto) 0.1, Baso # (Auto) 0.0 08/24/22 05:43: Sodium 139, Potassium 4.1, Chloride 109 H, Carbon Dioxide 27, Anion Gap 7.1, BUN 4 L D, Creatinine 0.60, Estimated Creat Clear 33, Estimated GFR 95, Est GFR ( Amer) 115, Glucose 102 H, Calcium 7.4 L I & O for Last 24 hours: Intake & Output 08/21/22 08/22/22 08/23/22 08/24/22 11:59 11:59 11:59 11:59 Intake Total 2265 / 2265 980 / 980 1879 / 187 1423 / 1423 Output Total 1400 / 1400 550 / 550 0 / 0 0 / 0 Balance 865 / 865 430 / 430 187 / 187 1423 / 1423 Weight 110 lb 3 oz 119 lb 5 oz 114 lb 5 oz 109 lb 4 oz *Routine Abdominal Exam Comments: Abdomen is somewhat distended. Progress Note: A&P Assessment and plan (1) UTI (urinary tract infection): Status: Acute (2) E coli infection: Status: Acute (3) SBO (small bowel obstruction): Status: Acute Assessment and plan: Likely does have slowly resolving ileus. Doubt she has recurrent obstruction. Will slowly advance diet. (4) Dysphagia: Status: Acute (5) Renal insufficiency: Status: Acute (6) Severe protein-calorie malnutrition: Status: Acute (7) Sinus bradycardia: Status: Acute (8) Physical deconditioning: Status: Acute (9) COPD (chronic obstructive pulmonary disease): Status: Chronic
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
--- NOTE | 2022-08-24 09:34 | PC.NURSE ---
Notified nurse Deandra chavis of patients blood pressure being 117/35
--- NOTE | 2022-08-24 18:06 | PC.NURSE ---
VS stable and patient remained on 2LNC. Abdomen slightly distended but no change and patient able to tolerate clear liquid during shift. Patient able to sit in chair for a couple hours of the day. No other changes noted.
[2022-08-25] VITALS (10 sets, daily range): BP systolic 126–167; BP diastolic 49–82; PULSE 60–75; RESP 12–22; TEMP 36.4–36.9; O2SAT 92–99; BMI 17.4
--- NOTE | 2022-08-25 05:34 | PC.NURSE ---
pt has rested well this shift, has been turned Q2, has complained of pain one time this shift and was treated with scheduled medication, has been incontinent of urine, remains on 2L NC with O2 sats 95-98%, SBP 124-146, HR 64-66, midline incision with steri strips in place, no redness or drainage noted, abdomen is still slightly distended
--- NOTE | 2022-08-25 08:13 | EXP.SURG.PN ---
Subjective Patient reports: no new complaints, flatus and bowel movement Exam Data for Last 24 hours Vital signs and Labs for Last 24 Hours: Temp Pulse Resp BP Pulse Ox FiO2 98.2 F 60 12 146/55 H 99 28 08/25/22 04:00 08/25/22 06:22 08/25/22 04:00 08/25/22 04:00 08/25/22 06:22 08/24/22 19:36 I & O for Last 24 hours: Intake & Output 08/22/22 08/23/22 08/24/22 08/25/22 11:59 11:59 11:59 11:59 Intake Total 980 / 980 187 / 1879 1443 / 1443 2227 / 2227 Output Total 550 / 550 0 / 0 0 / 0 300 / 300 Balance 430 / 430 1879 / 1879 1443 / 1443 1927 / 1927 Weight 119 lb 5 oz 114 lb 5 oz 109 lb 4 oz 114 lb 9.6 oz Constitutional Constitutional: no acute distress *Routine Respiratory Exam Respiratory: Absent respiratory distress *Routine Cardiovascular Exam Cardiovascular: Absent tachycardia *Routine Abdominal Exam Abdominal: Present soft Comments: Less distention Progress Note: A&P Assessment and plan (1) SBO (small bowel obstruction): Status: Acute Assessment and plan: Stable status post lysis of adhesions (2) Physical deconditioning: Status: Acute (3) Postoperative ileus: Status: Acute Assessment and plan: Continues to slowly improve Full liquid diet ordered
--- NOTE | 2022-08-25 08:16 | P.PN_ITS ---
Subjective *Date: 08/25/22 *Time: 08:48 Interval history: Patient states she is feeling a little bit better today. She is sitting up in the chair this morning and states just the movement has worn her out. Her abdomen is feeling better. She continues to have pain in the right upper quad rant. She would like to try some oatmeal and a milkshake today. Medical Exam Vital signs and Labs for Last 24 Hours: Temp Pulse Resp BP Pulse Ox FiO2 98.2 F 60 12 146/55 H 99 28 08/25/22 04:00 08/25/22 06:22 08/25/22 04:00 08/25/22 04:00 08/25/22 06:22 08/24/22 19:36 I & O for Labs for Last 24 Hours: Intake & Output 08/22/22 08/23/22 08/24/22 08/25/22 11:59 11:59 11:59 11:59 Intake Total 980 / 980 1878 / 1879 1443 / 1443 2227 / 222 Output Total 550 / 550 0 / 0 0 / 0 300 / 300 Balance 430 / 430 1878 / 187 1443 / 1443 1927 / 192 Weight 119 lb 5 oz 114 lb 5 oz 109 lb 4 oz 114 lb 9.6 oz Constitutional: Present no acute distress Respiratory: Present CTA bilaterally Cardiac: Present Reg Rate and Rhythm GI: Present tenderness (around surgical sites and in RUQ) Extremities: Absent edema Skin: Present intact Assessment and Plan *Assessment and plan (1) UTI (urinary tract infection): Status: Acute Qualifiers: Hematuria presence: without hematuria Urinary tract infection type: acute cystitis Qualified Code(s): N30.00 - Acute cystitis without hematuria Category: Medical Code(s): N39.0 - Urinary tract infection, site not specified (2) E coli infection: Status: Acute Category: Medical Code(s): A49.8 - Other bacterial infections of unspecified site (3) SBO (small bowel obstruction): Status: Acute Category: Medical Code(s): K56.609 - Unspecified intestinal obstruction, unspecified as to partial versus complete obstruction (4) Dysphagia: Status: Acute Category: Medical Code(s): R13.10 - Dysphagia, unspecified (5) Renal insufficiency: Status: Acute Category: Medical Code(s): N28.9 - Disorder of kidney and ureter, unspecified (6) Severe protein-calorie malnutrition: Status: Acute Category: Medical Code(s): E43 - Unspecified severe protein-calorie malnutrition (7) Sinus bradycardia: Status: Acute Category: Medical Code(s): R00.1 - Bradycardia, unspecified (8) Physical deconditioning: Status: Acute Category: Medical Code(s): R53.81 - Other malaise (9) COPD (chronic obstructive pulmonary disease): Status: Chronic Qualifiers: COPD type: unspecified COPD Qualified Code(s): J44.9 - Chronic obstructive pulmonary disease, unspecified Category: Medical Code(s): J44.9 - Chronic obstructive pulmonary disease, unspecified Plan Continue with current care. Out of bed daily. Can likely advance to a full liquid diet today. Dr. Smith entry - saw patient, agree with above note.
--- NOTE | 2022-08-25 08:22 | DIET.NUTRFU ---
RD rounded, she was upgraded to full liquids and requesting milkshake, kitchen was notified.
--- NOTE | 2022-08-25 14:22 | DIET.NUTRFU ---
saw patient with daughter present today, reported good intake for lunch today. Ate some tomato soup, chocolate pudding. For breakfast she drank a chocolate milkshake and some oatmeal. Agreed to try another milkshake with dinner, strawberry this time. She feels slightly stronger was up in chair today. Discharge plan when ready is [facility].
--- NOTE | 2022-08-25 20:17 | PC.NURSE ---
Patient able to tolerate full liquid diet with no pain, no increased distention noted. VS stable and pt remained on 2LNC. No other complaints noted.
[2022-08-26] VITALS: BP 146/54; PULSE 77; PULSE 80; RESP 15; TEMP 36.5; O2SAT 96
[2022-08-26 04:00] VITALS: BP 143/69; PULSE 80; PULSE 84; RESP 16; TEMP 36.6; O2SAT 93
--- NOTE | 2022-08-26 04:31 | PC.NURSE ---
No acute changes this shift. Pt continues to have abdominal distention with tenderness. Midline incision is KEYANNA with steri strips. New IV placed #20 in (R) FA. Medication administered per jan. Pt remains on 2L O2 NC. Lungs are diminished. BP stable. Pt voided via bed cobb this shift. No BM. Call light within reach.
[2022-08-26 05:00] VITALS: BMI 18.6
[2022-08-26 06:28] VITALS: PULSE 75; PULSE 78; O2SAT 92
--- NOTE | 2022-08-26 07:17 | EXP.SURG.PN ---
Subjective Narrative: Patient states that she is feeling pretty good . She ate all of her full liquids yesterday. Exam Data for Last 24 hours Vital signs and Labs for Last 24 Hours: Temp Pulse Resp BP Pulse Ox FiO2 97.9 F 75 16 143/69 H 92 L 28 08/26/22 04:00 08/26/22 06:28 08/26/22 04:00 08/26/22 04:00 08/26/22 06:28 08/24/22 19:36 I & O for Last 24 hours: Intake & Output 08/23/22 08/24/22 08/25/22 08/26/22 11:59 11:59 11:59 11:59 Intake Total 1879 / 1879 1443 / 1443 2347 / 2347 1555 / 1555 Output Total 0 / 0 0 / 0 300 / 300 400 / 400 Balance 1879 / 1879 1443 / 1443 2047 / 2047 1155 / 1155 Weight 114 lb 5 oz 109 lb 4 oz 114 lb 9.6 oz 122 lb 9.6 oz *Routine Abdominal Exam Abdominal: Present soft; Absent tenderness Progress Note: A&P Assessment and plan (1) UTI (urinary tract infection): Status: Acute (2) E coli infection: Status: Acute (3) SBO (small bowel obstruction): Status: Acute Assessment and plan: Discharge planning (4) Dysphagia: Status: Acute (5) Renal insufficiency: Status: Acute (6) Severe protein-calorie malnutrition: Status: Acute (7) Sinus bradycardia: Status: Acute (8) Physical deconditioning: Status: Acute (9) COPD (chronic obstructive pulmonary disease): Status: Chronic
[2022-08-26 08:00] VITALS: BP 98/46; PULSE 76; RESP 18; TEMP 36.8; O2SAT 96
--- NOTE | 2022-08-26 08:45 | EXP.ACUTE.PN ---
Subjective *Date: 08/26/22 *Time: 08:53 Interval history: Patient states she is feeling better this morning. Has not had a bowel movement for a few days but is passing gas. She is tolerating her diet and denies any pain. Medical Exam Vital signs and Labs for Last 24 Hours: Vital Signs Temp Pulse Pulse Resp BP Pulse Ox 08/26/22 08:00 98.3 F 76 18 98/46 L 96 08/26/22 06:28 75 08/26/22 06:28 78 08/26/22 06:28 92 L 08/26/22 04:00 97.9 F 84 16 143/69 H 93 L 08/26/22 04:00 80 08/26/22 00:00 80 08/25/22 20:00 70 08/26/22 00:00 97.7 F 77 15 146/54 H 96 08/25/22 20:00 98.4 F 74 16 167/67 H 97 08/25/22 19:11 66 08/25/22 19:11 66 08/25/22 19:11 98 08/25/22 16:00 67 08/25/22 12:00 75 08/25/22 16:00 97.5 F L 66 14 149/62 H 98 08/25/22 13:26 64 08/25/22 13:26 64 08/25/22 13:26 98 08/25/22 12:00 97.5 F L 63 16 130/49 L 98 08/25/22 10:00 71 08/25/22 10:00 62 Intake and Output 08/25/22 08/26/22 08/26/22 19:59 03:59 11:59 Intake Total 480 / 1555 1075 / 1555 Output Total 400 / 400 Balance 480 / 1155 675 / 1155 Intake: Intake, Oral Amount 480 / 480 Intake, Total IV Amount 1075 / 1075 D5W/0.45% NaCl w/40mEq KCl 1, 1075 / 1075 000 ml @ 75 mls/hr IV .[id number] [facility] Rx#:[id number] Output: Output, Urine Amount 400 / 400 Other: Number of Unmeasured Voids 0 0 Weight 122 lb 9.6 oz Patient Weight 08/26/22 11:59 Weight 122 lb 9.6 oz I & O for Labs for Last 24 Hours: Intake & Output 08/23/22 08/24/22 08/25/22 08/26/22 11:59 11:59 11:59 11:59 Intake Total 1878 1443 / 1443 2347 / 2347 1555 / 1555 Output Total 0 / 0 0 / 0 300 / 300 400 / 400 Balance 1878 1443 / 1443 2047 / 204 1155 / 1155 Weight 114 lb 5 oz 109 lb 4 oz 114 lb 9.6 oz 122 lb 9.6 oz Constitutional: Present no acute distress Respiratory: Present CTA bilaterally Cardiac: Present Reg Rate and Rhythm GI: Present tenderness (around surgical sites and in RUQ) Extremities: Absent edema Skin: Present intact Assessment and Plan *Assessment and plan (1) UTI (urinary tract infection): Status: Acute Qualifiers: Hematuria presence: without hematuria Urinary tract infection type: acute cystitis Qualified Code(s): N30.00 - Acute cystitis without hematuria Category: Medical Code(s): N39.0 - Urinary tract infection, site not specified (2) E coli infection: Status: Acute Category: Medical Code(s): A49.8 - Other bacterial infections of unspecified site (3) SBO (small bowel obstruction): Status: Acute Category: Medical Code(s): K56.609 - Unspecified intestinal obstruction, unspecified as to partial versus complete obstruction (4) Dysphagia: Status: Acute Category: Medical Code(s): R13.10 - Dysphagia, unspecified (5) Renal insufficiency: Status: Acute Category: Medical Code(s): N28.9 - Disorder of kidney and ureter, unspecified (6) Severe protein-calorie malnutrition: Status: Acute Category: Medical Code(s): E43 - Unspecified severe protein-calorie malnutrition (7) Sinus bradycardia: Status: Acute Category: Medical Code(s): R00.1 - Bradycardia, unspecified (8) Physical deconditioning: Status: Acute Category: Medical Code(s): R53.81 - Other malaise (9) COPD (chronic obstructive pulmonary disease): Status: Chronic Qualifiers: COPD type: unspecified COPD Qualified Code(s): J44.9 - Chronic obstructive pulmonary disease, unspecified Category: Medical Code(s): J44.9 - Chronic obstructive pulmonary disease, unspecified Plan Continue with current care. Out of bed daily. Tolerating her diet. Surgery to follow. Dr. Smith entry - saw patient, plan discha
[2022-08-26 08:51] LABS: Coronavirus 19, PCR Not Detected (NotDetected); Influenza A, PCR Not Detected (NotDetected); Influenza B, PCR Not Detected (NotDetected)
--- NOTE | 2022-08-26 09:07 | EXP.DC.SUM ---
General Admission date:: 08/14/22 Discharge date: 08/26/22 HPI HPI HPI: Ms. Loza is an 86 year old female who presented to [facility] ER last night complaining of abdominal pain for a few days assciated with constipation for over a week.? She states the pain was fairly sever and was located in the center of her abdomen.? She felt nauseated and vomited once.? She denies fever and chills.? She was seen in the office of [facility] three days ago due to left sided back pain and was treated with muscle relaxers and a IM dose of Dexamethasone. Hospital Course Hospital Course Hospital Course: Patient was admitted for treatment of her UTI and for surgical consultation for her small bowel obstruction which was noted on CT scan. She was kept n.p.o. and started on a clonidine batch as well as IV metoprolol for blood pressure control. She was seen in consultation by Dr. Goddard who wanted to initially attempt nonoperative management. He placed an NG tube. Her blood pressure elevated and she had to be transferred to stepdown and placed on a nitroglycerin drip. Her abdominal pain began worsening. Abdominal x-ray showed no significant improvement and given her clinical deterioration and progressive bowel obstruction, Dr. Goddard wanted to proceed with a laparotomy. Her blood pressure improved on the nitroglycerin drip. She was taken to the OR on 08/15/2022 for laparotomy with freeing of intestinal obstruction by lysis of adhesions. She tolerated the procedure well. She was started on an incentive spirometer for pulmonary hygiene. She was continued on pain medication for abdominal pain. Her blood pressure elevated again on 08/17/2022 and she had to be restarted on a nitroglycerin drip. She was able to be weaned off of the drip. Her urine culture did grow 2 strains of E. coli and she was started on Invanz. Duo nebs were added for aggressive pulmonary toilet. Her NG tube was able to be removed. She began having some episodes of bradycardia and her metoprolol was held. Cardiology was consulted. They recommended decreasing her beta-minesh and changing her lisinopril to losartan and then starting Entresto for heart failure and better blood pressure control. The patient had a modified barium swallow and speech therapy noted aspiration with thin liquids and nectar thick liquids. They recommended honey thick liquids and a pur?ed diet. The patient's heart rate improved. Her diet was advanced and she tolerated this well. She began having bowel movements and passing gas. She was able to sit up in a chair and began feeling better. On 08/26/2022, it was felt she was stable to be discharged to [place] for rehab. Exam Data for Last 24 hours Vital signs and Labs for Last 24 Hours: Temp Pulse Resp BP Pulse Ox FiO2 98.3 F 76 18 98/46 L 96 28 08/26/22 08:00 08/26/22 08:00 08/26/22 08:00 08/26/22 08:00 08/26/22 08:00 08/24/22 19:36 I & O for Last 24 hours: Intake & Output 08/23/22 08/24/22 08/25/22 08/26/22 11:59 11:59 11:59 11:59 Intake Total 1879 / 1879 1443 / 1443 2347 / 2347 1555 / 1555 Output Total 0 / 0 0 / 0 300 / 300 400 / 400 Balance 1879 / 1879 1443 / 1443 2047 / 2047 1155 / 1155 Weight 114 lb 5 oz 109 lb 4 oz 114 lb 9.6 oz 122 lb 9.6 oz Narrative: Constitutional Constitutional: no acute distress *Routine HEENT Exam Head: Present normocephalic Eye: Present EOMI and PERRL ENT: Present mucous membranes dry *Routine Neck Exam Neck: Present supple; Absent lymphadenopathy *Routine Respiratory Exam Respiratory: Present CTA bilaterally *Routine Cardiovascular Exam Cardiovascular: Present RRR *Routine Abdominal Exam Abdominal: Present soft, normoactive bowel sounds and tenderness (some periumbilical); Absent distended *Routine Rectal Exam Rectal:: deferred *Routine Genitalia Exam Genitalia:: deferred *Routine Extremities Exam Extremities: Absent cyanosis, clubbing or edema *Routine Skin Exam Skin: Present warm;
[2022-08-26 10:49] VITALS: PULSE 77; PULSE 78
[2022-08-26 11:47] VITALS: BP 167/73; PULSE 64; RESP 16; TEMP 36.7; O2SAT 93
--- NOTE | 2022-08-26 12:02 | PC.NURSE ---
Report called to leighton
--- NOTE | 2022-08-27 13:27 | CARE MANAGER ---
Contacted [facility] related to patient's discharge from hospital. They state she is doing well and denies any questions or concerns. FAYE Romo
== END 2022-08-26 13:13 | DRG 335 ==
LOC: ER 00:29 → 2ND 04:11
PROVIDERS: Family Medicine; Surgery; Admitting Provider Family Medicine; Emergency Provider Emergency Medicine; PCP Family Medicine; Visit Provider Family Medicine
PROC: (CPT 49000; principal; 2022-08-15 11:45)
DX: K56.51 Intestinal adhesions [bands], with partial obstruction (principal); E43 Unspecified severe protein-calorie malnutrition; N17.9 Acute kidney failure, unspecified; N39.0 Urinary tract infection, site not specified; Z68.1 Body mass index [BMI] 19.9 or less, adult; I50.22 Chronic systolic (congestive) heart failure; G89.29 Other chronic pain; G62.9 Polyneuropathy, unspecified; J44.9 Chronic obstructive pulmonary disease, unspecified; I25.10 Atherosclerotic heart disease of native coronary artery without angina pectoris; I11.0 Hypertensive heart disease with heart failure; T44.7X5A Adverse effect of beta-adrenoreceptor antagonists, initial encounter; F17.210 Nicotine dependence, cigarettes, uncomplicated; B96.20 Unspecified Escherichia coli [E. coli] as the cause of diseases classified elsewhere
CPT/HCPCS: 44005; 36415; 70371; 71045; 74021; 74177; 80048; 80053; 81001; 83605; 83735; 84443; 84484; 85007; 85025; 86140; 87086; 87088; 87186; 92526; 92610; 92611; 93005; 94640; 94761; 97110; 97163; 97166; 97530; 99285; C9803; J0696; J1335; Q9967; U0003; U0005

== ENCOUNTER 2022-09-18 08:17 | Emergency (ER) | payer MEDICARE, SELFPAY ==
[2022-09-18 08:18] VITALS: BP 187/92; PULSE 77; RESP 18; TEMP 36.8; O2SAT 97; BMI 16.7
--- NOTE | 2022-09-18 08:25 | CT_ITS ---
PROCEDURE INFORMATION: Exam: CT Head Without Contrast Exam date and time: 09/18/2022 9:51 AM Age: 87 years old Clinical indication: Injury or trauma; Fall; Blunt trauma (contusions or hematomas) TECHNIQUE: Imaging protocol: Computed tomography of the head without contrast. Radiation optimization: All CT scans at this facility use at least one of these dose optimization techniques: automated exposure control; mA and/or kV adjustment per patient size (includes targeted exams where dose is matched to clinical indication); or iterative reconstruction. COMPARISON: CT HEAD/BRAIN WO CON 10/29/2021 6:36 PM FINDINGS: Brain: The brain demonstrates diffuse volume loss. There is white matter hypodensity most consistent with chronic small vessel ischemic change. There are small foci of low attenuation in the basal ganglia bilaterally related to chronic lacunar infarctions. Cerebral ventricles: The ventricles and CSF spaces are proportionately enlarged. Paranasal sinuses: There is mucoperiosteal reaction in the maxillary sinuses bilaterally. There is near complete opacification of the left frontal sinus with a fluid level within. There is mucoperiosteal reaction in the ethmoid air cells. Mastoid air cells: Visualized mastoid air cells are well aerated. Orbital cavities: There are postoperative changes from prior cataract surgery. Vascular: There is atherosclerotic disease involving the vertebral basilar system and cavernous ICAs. Bones/joints: There is no acute fracture of the calvarium. Soft tissues: Unremarkable. IMPRESSION: 1. Atrophy and the sequela of prior small vessel ischemia. 2. No sequela of acute intracranial trauma.
--- NOTE | 2022-09-18 08:25 | HMH.EDGENADL ---
Discharge Plan Disposition Patient Disposition: Home, Self-Care Condition: Good Chief Complaint: Skin/Abscess/Foreign Body Prescriptions Prescriptions: No Action Pro Fe 180 mg iron capsule 180 mg PO DAILY Label Comments: TAKE ONE CAPSULE BY MOUTH DAILY furosemide 20 mg tablet 20 mg PO Label Comments: TAKE 1 TABLET BY MOUTH EVERY DAY NEEDED simvastatin 40 mg tablet 40 mg PO DAILY Qty: 30 5RF clopidogrel 75 MG tablet 75 mg PO DAILY aspirin 81 MG tablet,delayed release (DR/EC) 81 mg PO DAILY calcium carb-mag oxide-vit D3 1 EACH tablet 1 each PO BID duloxetine 60 MG capsule,delayed release(DR/EC) 60 mg PO DAILY gabapentin 600 mg tablet 1,200 mg PO BID latanoprost 2.5 ML bottle 1 drp OP HS Label Comments: place 1 drop into both eyes every evening Rx Instructions: BOTH EYES lisinopril [Zestril] 20 mg tablet 20 mg PO BID Label Comments: TAKE 1 TABLET BY MOUTH TWICE DAILY loratadine 10 mg tablet 10 mg PO DAILY Label Comments: TAKE 1 TABLET BY MOUTH ONCE DAILY acetaminophen 325 mg Tablet 650 mg PO Q4HP PRN (Reason: Fever Or Mild Pain) Qty: 30 0RF carvedilol 3.125 mg Tablet 3.125 mg PO BID Qty: 60 0RF oxycodone 10 MG tablet 10 mg PO 5XDAY Qty: 150 0RF Referrals Follow up/Referrals: Amish Smith MD [Primary Care Provider] - See instructions Clinical Impressions Clinical Impression: Skin tear Instructions Patient Instructions: DI for Abrasion Discharge ED Provider: Layton Zepeda General Adult HPI General Chief complaint: Skin/Abscess/Foreign Body Stated complaint: FALL Time Seen by Provider: 09/18/22 08:17 History of Present Illness HPI narrative: Patient is an 87-year-old female from a nursing facility with a past medical history of CHF, COPD, pulmonary hypertension, CAD, hypertension who presents with concern for fall. She was found on the ground this morning. The [facility] reported that she had multiple skin tears of the left arm that they attempted to Steri-Strip but they were unable to. It is reported that she takes aspirin and Plavix. She denies any neck pain. Denies any chest or abdominal pain. She really just complains of pain on her left arm where the skin tears are. Denies any numbness or tingling into her extremities. Related Data Home Medications Medication Instructions Recorded Confirmed duloxetine 60 mg capsule,delayed 60 mg PO DAILY mood 12/05/18 09/02/22 release latanoprost 0.005 % eye drops 1 drp ophthalmic (eye) HS 02/18/19 09/02/22 INTRAOCULAR PRESSURE gabapentin 600 mg tablet 1,200 mg PO BID Pain 11/28/19 09/02/22 aspirin 81 mg tablet,delayed 81 mg PO DAILY HEART HEALTH 02/17/21 09/02/22 release calcium carb-magnesium oxide-vit 1 each PO BID Supplement 02/17/21 09/02/22 D3 400 mg-167 mg-133 unit tablet clopidogrel 75 mg tablet 75 mg PO DAILY Platelet inhibitor 02/17/21 09/02/22 polysaccharide iron complex 180 mg 180 mg PO DAILY Supplement 07/06/21 09/02/22 iron capsule (Pro Fe) lisinopril 20 mg tablet (Zestril) 20 mg PO BID BLOOD PRESSURE 08/14/22 09/02/22 loratadine 10 mg tablet 10 mg PO DAILY ALLERGIES 08/15/22 09/02/22 furosemide 20 mg tablet 20 mg PO 09/02/22 09/02/22 Previous Rx's Medication Instructions Recorded simvastatin 40 mg tablet 40 mg PO DAILY Cholesterol #30 tabs 04/15/22 acetaminophen 325 mg tablet 650 mg PO Q4HP PRN Fever Or Mild 08/26/22 Pain #30 tabs carvedilol 3.125 mg tablet 3.125 mg PO BID #60 tabs 08/26/22 oxycodone 10 mg tablet 10 mg PO 5XDAY Pain #150 tabs 08/26/22 Allergies Allergy/AdvReac Type Severity Reaction Status Date / Time No Known Drug Allergies Allergy Unknown Verified 09/02/22 10:40 [NO KNOWN DRUG ALLERGIES] [facility] Medical History Anemia CAD (coronary artery disease) Cardiomyopathy Cervical spine
[2022-09-18 08:30] VITALS: BP 186/86; PULSE 72; RESP 18; O2SAT 97
--- NOTE | 2022-09-18 08:32 | PC.NURSE ---
pt daughter at [facility]
--- NOTE | 2022-09-18 08:49 | PC.NURSE ---
additional steri strips applied per ER MD to L elbow telfa and kerlix dressing applied, no active bleeding noted
--- NOTE | 2022-09-18 08:53 | PC.NURSE ---
pt to rad
--- NOTE | 2022-09-18 08:56 | PC.NURSE ---
pt in CT
--- NOTE | 2022-09-18 09:04 | PC.NURSE ---
pt back from RAD
--- NOTE | 2022-09-18 09:28 | PC.NURSE ---
cycled BP asked pt and family member if anything needed nothing at this time
[2022-09-18 09:30] VITALS: BP 158/71; PULSE 68; RESP 18; O2SAT 96
--- NOTE | 2022-09-18 09:44 | PC.NURSE ---
report called to ivon at [facility] at this time
[2022-09-18 09:52] VITALS: BP 158/71; PULSE 78; RESP 18; TEMP 36.8; O2SAT 96
== END 2022-09-18 09:52 | disposition home or self-care (01) ==
PROVIDERS: Emergency Provider Student in an Organized Health Care Education/Training Program; PCP Family Medicine
DX: S51.012A Laceration without foreign body of left elbow, initial encounter; S41.112A Laceration without foreign body of left upper arm, initial encounter; W19.XXXA Unspecified fall, initial encounter; Y92.129 Unspecified place in nursing home as the place of occurrence of the external cause; Z79.82 Long term (current) use of aspirin; Z79.899 Other long term (current) drug therapy; I25.10 Atherosclerotic heart disease of native coronary artery without angina pectoris; I42.9 Cardiomyopathy, unspecified; J44.9 Chronic obstructive pulmonary disease, unspecified; I10 Essential (primary) hypertension; D64.9 Anemia, unspecified; G62.9 Polyneuropathy, unspecified
CPT/HCPCS: 70450; 99284

== ENCOUNTER → 2022-09-20 14:51 | Outpatient (POV) | payer MEDICARE, SELFPAY ==
[2022-09-20 15:51] VITALS: BP 126/44; PULSE 75; RESP 18; O2SAT 93; BMI 16.2
--- NOTE | 2022-09-20 15:53 | EXP.PAIN.SOA ---
[facility] Pain Management SOAP Note Subjective:: Patient is a pleasant 87-year-old female who presents today for medication refill and follow-up. We are currently treating the patient for degenerative disc disease of lumbar spine with lumbar radiculopathy symptoms. Today the patient rates her pain a 8 out of 10. Patient states the pain continues to be in her low back and radiates into her legs. Patient states from her last visit she did have to have surgery due to a bowel obstruction. Patient presents today with her daughter present. Patient and daughter states that she had to stay at [facility] for 2 weeks following the surgery and was released by her general surgeon stating that her wound/incision site looked great. Patient was sent to [facility] for rehab and has been there currently for the last 2 weeks. Patients daughter states that she may be staying longer due to increased memory issues. Patient does present today in wheelchair and she is oxygen dependent. Patient is currently managed with oxycodone 10 mg 5 times a day. Patient previously stated she had chronic constipation and took MiraLAX and Benefiber daily however the daughter states she is unsure if they have continued this medication. Patient does state that she does still have some issues however she states that she has been able to go approximately every other day. Patient is prescribed gabapentin 600 mg 4 times a day from Dr. Smith's office. Patient denies any side effects from this medication. Patient has also been prescribed compounding cream however since going to [facility] she has not been using this. Patient's daughter states that she does plan on bringing this to the facility. Patient has had an intrathecal pain pump in the past however she had a infection and it had to be explanted. Patient does have a spinal cord stimulator in place. Her Freedom is [id number]. It has been reviewed and appropriate. Review of Systems: General: No recent weight changes, no fever, no sleep disturbances Respiratory: No cough, no shortness of air, no recurring pulmonary infections Cardiovascular/peripheral vascular: No chest pain, no palpitations, no edema, no shortness of breath Gastrointestinal: No new onset incontinence, normal bowel movements reported Genitourinary: No new onset incontinence Musculoskeletal: Low back pain, leg pain Psychiatric: [Normal mood/affect] Neurological: [Denies weakness in extremities], [denies balance issues] Objective:: Physical Exam: General: Alert and oriented x3, no acute distress, pleasant and cooperative Lungs: Respirations even and unlabored, symmetrical chest expansion Eyes: PERRL Musculoskeletal: Flexion and extension of lumbar [spine] somewhat guarded secondary to pain, [antalgic gait noted] Neurological: Speech clear, no gross sensory deficit Assessment:: Degenerative disc disease of lumbar spine with lumbar radiculopathy symptoms Plan:: Patient continues to experience significant pain in her low back with radicular symptoms into her bilateral lower extremities. I will refill the patient's oxycodone 10 mg 5 times a day and provide a 1 month supply of this medication. Patient will follow-up in clinic in 1 month via telehealth visit for reevaluation of symptoms, medication refill and follow-up. Patient has been advised of risks of oversedation with the prescribed medication. Narcan has been offered to the patient in the event of oversedation. Patient has been advised that a family member should also be educated regarding administration of Narcan. Patient has been instructed to contact the clinic with any concerns before the next appointment. Dr. Miller has reviewed this note and agrees with this plan of care. This note was dictated using voice recognition software and make contain errors or omissions. [facility] Medical History Anemia CAD (coronary artery disease) Cardiomyopathy Cerv
== END | disposition home or self-care (01) ==
PROVIDERS: PCP Family Medicine; Visit Provider Nurse Practitioner Family
DX: M51.16 Intervertebral disc disorders with radiculopathy, lumbar region (principal)
CPT/HCPCS: 99212; G0463

== ENCOUNTER 2022-10-06 14:36 | Emergency (ER) | payer MEDICARE, SELFPAY ==
[2022-10-06] VITALS (19 sets, daily range): BP systolic 0–262; BP diastolic 0–109; PULSE 0–103; RESP 0–24; TEMP -17.7–0; O2SAT 0–100; BMI 16.6
--- NOTE | 2022-10-06 14:30 | PC.NURSE ---
lab notified me that blood was ready, hs contacted and is going to start blood
--- NOTE | 2022-10-06 14:30 | CT_ITS ---
FINAL REPORT TECHNIQUE: Axial imaging of the head was obtained without contrast. This study was performed with techniques to keep radiation doses as low as reasonably achievable, (ALARA). Individualized dose reduction techniques using automated exposure control or adjustment of mA and/or kV according to the patient''s size were employed. CLINICAL HISTORY: FALL,. loc. stroke/bleed COMPARISON: September 18, 2022 FINDINGS: There is a large right subdural hematoma measuring 2.2 cm in maximal transverse dimensions. There is marked underlying mass effect on the right hemisphere with up to 1.3 cm of shift to the left. There is a large intra-axial hematoma involving the left frontal and temporal regions. There are several fluid fluid levels in the hematoma. There is moderate surrounding vasogenic edema. There is mild lobular mucoperiosteal thickening in the maxillary sinuses. IMPRESSION: Large right subdural hematoma with marked shift to the left and probable subfalcine herniation. Large left intraparenchymal hematoma. Reviewed, Interpreted and Dictated by Jones Taylor MD Transcribed by Asa Shi Authenticated and [facility]
--- NOTE | 2022-10-06 14:35 | XR_ITS ---
FINAL REPORT CLINICAL HISTORY: post intubation COMPARISON: August 2022 FINDINGS: The ET tube terminates 4.5 cm superior to the jf. The heart size is normal. The mediastinum is within normal limits. There are chronic changes in both lungs. There is no acute cardiopulmonary process. There is no pleural effusion. There is no pneumothorax. The bony thorax is intact. Spinal stimulator leads are present. IMPRESSION: ET tube terminates 4.5 cm superior to the jf. Reviewed, Interpreted and Dictated by Jones Taylor MD Transcribed by Asa Shi Authenticated and [facility]
--- NOTE | 2022-10-06 14:48 | CT_ITS ---
FINAL REPORT TECHNIQUE: Axial images were obtained of the cervical spine by computed tomography. Coronal and sagittal reconstruction process performed. This study was performed with techniques to keep radiation doses as low as reasonably achievable (ALARA). Individualized dose reduction techniques using automated exposure control or adjustment of mA and/or kV according to the patient''s size were employed. CLINICAL HISTORY: fall, facial injury, unresponsive FINDINGS: There is moderate disc space narrowing at C4-5, C5-6, and C6-7. There is minimal spondylolisthesis of C3 on 4 which is more evident than previous but patient demonstrates a greater degree of flexion which may account for the subluxation. There is cystic degeneration of the dens. No fracture is identified. There is lobular mucoperiosteal thickening of the maxillary sinuses. No air-fluid levels are identified. There is moderate facet sclerosis in the cervical spine. IMPRESSION: Advanced degenerative disc disease at C4-5, C5-6, and C6-7. Minimal spondylolisthesis of C3 on 4, may be positional. Cystic degeneration of the dens. Reviewed, Interpreted and Dictated by Jones Taylor MD Transcribed by Whitney Bains Authenticated and . [facility]
--- NOTE | 2022-10-06 14:49 | XR_ITS ---
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 Exam is suboptimal. Patient's hand obscures the left hip. The bones are osteopenic. No definite acute fracture is identified. IMPRESSION: No acute process. Reviewed, Interpreted and Dictated by Jones Taylor MD Transcribed by Whitney Bains Authenticated and [facility]
--- NOTE | 2022-10-06 14:50 | HMH.EDGENADL ---
Discharge Plan Disposition Patient Disposition: Date/Time: 10/06/22 18:30 Clinical Impressions Clinical Impression: Subdural hemorrhage, Acute intracerebral hemorrhage, Coma, Acute head trauma Discharge ED Provider: Glen Woodruff General Adult HPI General Chief complaint: Altered Mental Status Stated complaint: fall Time Seen by Provider: 10/06/22 14:36 History of Present Illness HPI narrative: Brought in by ambulance from [facility]. Reportedly had a fall. Bruising of face and forehead noted. She has been unresponsive during transport. After arrival here began having labored respirations and bradycardia. Related Data Home Medications Medication Instructions Recorded Confirmed duloxetine 60 mg capsule,delayed 60 mg PO DAILY mood 12/05/18 09/20/22 release latanoprost 0.005 % eye drops 1 drp ophthalmic (eye) HS 02/18/19 09/20/22 INTRAOCULAR PRESSURE gabapentin 600 mg tablet 1,200 mg PO BID Pain 11/28/19 09/20/22 aspirin 81 mg tablet,delayed 81 mg PO DAILY HEART HEALTH 02/17/21 09/20/22 release calcium carb-magnesium oxide-vit 1 each PO BID Supplement 02/17/21 09/20/22 D3 400 mg-167 mg-133 unit tablet clopidogrel 75 mg tablet 75 mg PO DAILY Platelet inhibitor 02/17/21 09/20/22 polysaccharide iron complex 180 mg 180 mg PO DAILY Supplement 07/06/21 09/20/22 iron capsule (Pro Fe) lisinopril 20 mg tablet (Zestril) 20 mg PO BID BLOOD PRESSURE 08/14/22 09/20/22 loratadine 10 mg tablet 10 mg PO DAILY ALLERGIES 08/15/22 09/20/22 furosemide 20 mg tablet 20 mg PO DAILY Fluid 09/02/22 09/20/22 carvedilol 3.125 mg tablet 3.125 mg PO BID BLOOD PRESSURE 09/20/22 09/20/22 Previous Rx's Medication Instructions Recorded simvastatin 40 mg tablet 40 mg PO DAILY Cholesterol #30 tabs 04/15/22 acetaminophen 325 mg tablet 650 mg PO Q4HP PRN Fever Or Mild 08/26/22 Pain #30 tabs oxycodone 10 mg tablet 10 mg PO 5XDAY Pain #150 tabs 09/20/22 Allergies Allergy/AdvReac Type Severity Reaction Status Date / Time No Known Drug Allergies Allergy Unknown Verified 10/27/22 10:40 [NO KNOWN DRUG ALLERGIES] [facility] Disclaimer: The information contained in this section may have been updated after the patient was seen, as this information can be updated by other users. Medical History Anemia CAD (coronary artery disease) Cardiomyopathy Cervical spine fracture Chronic pain syndrome Colitis Concussion without loss of consciousness COPD (chronic obstructive pulmonary disease) E coli infection Fall Falls frequently HHD (hypertensive heart disease) History of left heart catheterization Infected surgical wound Infection due to Citrobacter Lumbar contusion Neuropathy Surgical History History of carpal tunnel surgery History of cataract removal with insertion of prosthetic lens History of lumbar laminectomy S/P insertion of intrathecal pump Pump removed February 2019 Status post hardware removal Social History Smoking Status: Unknown if ever smoked years smoked: 50 quit status: not considering quitting second hand exposure: Yes alcohol intake: never substance use type: denies use current occupational status: other Travel in the last 8 weeks: None household members: children housing: house current occupational exposures/hazards: No caffeine: No ROS Obtained: Yes unobtainable due to mental status Physical Exam General General appearance: other (Unresponsive to pain) Expanded Head Exam Comment: Hematoma right forehead and cheek Eye Eye exam: Present other (Pupils 3 to 4 mm and nonreactive bilaterally) ENT ENT exam: Present mucous membranes moist Neck Neck exam: Present trachea midline Chest Chest inspection: Present normal inspection Respiratory Respiratory exam: Present othe
[2022-10-06 14:56] LABS: Microscopic, Urine URINE MICROSCOPIC (MICROSCOPIC)
[2022-10-06 14:57] LABS: Basophils # 0.1 K/mm3 (0-0.2); Basophils % 0.7 % (0.1-2.0); Eosinophils # 0.2 K/mm3 (0.0-0.4); Eosinophils % 3.2 % (0.1-12.0); Hematocrit 34.8 % (37.0-47.0); Hemoglobin 10.7 g/dL (12.2-16.2); Lymphocytes # 2.9 K/mm3 (0.7-4.5); Lymphocytes % 39.3 % (10-50); Mean Corpuscular HGB Conc 30.7 g/dL (31.8-35.4); Mean Corpuscular Hemoglobin 31.2 pg (27.0-31.2); Mean Corpuscular Volume 101.8 fl (81-99); Mean Platelet Volume 8.7 fl (7.4-10.4); Monocytes # 0.5 K/mm3 (0.1-1.0); Monocytes % 6.4 % (1.7-9.3); Neutrophils # 3.7 K/mm3 (1.8-7.8); Neutrophils % 50.4 % (37.0-80.0); Platelet Count 337 K/mm3 (142-424); Red Blood Count 3.42 M/mm3 (4.20-5.40); Red Cell Distribution Width 16.3 % (11.5-17.5); White Blood Count 7.3 K/mm3 (4.8-10.8)
[2022-10-06 15:00] LABS: Appearance,Urine CLEAR (Clear); Bilirubin,Urine Negative (Negative); Blood, Urine TRACE-I (Negative); Color,Urine YELLOW (Yellow); Glucose,Urine (UA) Negative (Negative); Ketones,Urine Negative (Negative); Leukocyte Esterase,Urine Negative (Negative); Nitrate,Urine Negative (Negative); Protein,Urine TRACE (Negative); Urobilinogen,Urine 0.2 EU/dl (0.2)
[2022-10-06 15:02] LABS: Alanine Aminotransferase 32 U/L (12-78); Albumin Level 3.5 g/dl (3.5-5.0); Albumin/Globulin Ratio 0.9 (1.1-1.8); Alkaline Phosphatase 115 U/L (38-126); Anion Gap 9.9 mEq/L (5-15); Aspartate Amino Transferase 76 U/L (14-36); Bilirubin,Total 0.4 mg/dl (0.2-1.3); Blood Urea Nitrogen 22 mg/dl (7-17); Calcium 9.1 mg/dl (8.4-10.2); Carbon Dioxide 29 mmol/L (22.0-30.0); Chloride 106 mmol/L (98-107); Estimated Glomerular Filt Rate 68 ml/min (>60); GFR (African American) 82 ML/MIN (>60); Globulin 3.8 g/dL (1.3-3.2); Glucose 129 mg/dl (74-100); Potassium 3.9 mmoL/L (3.5-5.1); Sodium 141 mmol/L (136-145); Total Protein,Serum 7.3 g/dl (6.3-8.2)
--- NOTE | 2022-10-06 15:07 | PC.NURSE ---
called [facility] per ER doctor to speak with trauma neuro surgeon about this pt
[2022-10-06 15:17] LABS: ABG Base Excess 6.5 mmol/L (-2.4-2.3); ABG HCO3 27.3 mmhg (22.0-26.0); ABG Oxygen Saturation 100 % (90-100); ABG PCO2 25.8 mmhg (35.0-45.0); ABG PO2 465.2 mmhg (80-100); ABG TCO2 28.1 mmhg (23-27)
[2022-10-06 15:19] LABS: Activated Partial Thrombo Time 23.1 seconds (22.8-30.6); INR 0.99 (0.9-1.1); Prothrombin Time 10.7 seconds (10.1-12.5)
[2022-10-06 15:25] LABS: Allen's Test Patient Unable; Oxygen 100% %; PEEP 5; Source Right Radial; Tidal Volume 350; Vent Rate 24
[2022-10-06 15:26] LABS: ABG PH 7.64 mmol/L (7.35-7.45)
[2022-10-06 15:27] LABS: RBC,Urine Occasional #/hpf (0-3); Squamous Epithelial Cell,Urine Occasional #/hpf (0-5)
--- NOTE | 2022-10-06 15:40 | PC.NURSE ---
family has decided to make pt comfort measures. RT called to extubate pt per MD request. family remains at the bedside
--- NOTE | 2022-10-06 18:22 | PC.NURSE ---
pt VSS 0 on monitor, at
--- NOTE | 2022-10-06 18:30 | PC.NURSE ---
pt pronounced at 1830
--- NOTE | 2022-10-06 18:40 | PC.NURSE ---
cheryl matos called per family request
--- NOTE | 2022-10-06 18:43 | PC.NURSE ---
speaking with DUY
--- NOTE | 2022-10-06 18:50 | PC.NURSE ---
Issa released pt
--- NOTE | 2022-10-06 19:14 | PC.NURSE ---
cheryl matos at the bedside
== END 2022-10-06 20:22 | disposition expired ==
PROVIDERS: Emergency Provider Emergency Medicine; PCP Family Medicine
DX: S06.5X9A Traumatic subdural hemorrhage with loss of consciousness of unspecified duration, initial encounter; W19.XXXA Unspecified fall, initial encounter; Z79.82 Long term (current) use of aspirin; Z79.899 Other long term (current) drug therapy; Z79.02 Long term (current) use of antithrombotics/antiplatelets; Z91.81 History of falling; I11.9 Hypertensive heart disease without heart failure; J44.9 Chronic obstructive pulmonary disease, unspecified; G89.4 Chronic pain syndrome; I42.9 Cardiomyopathy, unspecified; G62.9 Polyneuropathy, unspecified; D64.9 Anemia, unspecified; I27.20 Pulmonary hypertension, unspecified; E78.5 Hyperlipidemia, unspecified; I25.10 Atherosclerotic heart disease of native coronary artery without angina pectoris
CPT/HCPCS: 31500; 94002; 51702; 70450; 70460; 71045; 72125; 72170; 80053; 81001; 82803; 85025; 85610; 85730; 87070; 87205; 96365; 96366; 96375; 99291